=== PATIENT | female | born 1960 | race Caucasian/White ===

== ENCOUNTER 2021-12-27 12:16 | Emergency (ER) | payer OTHER, SELFPAY ==
--- NOTE | 2021-12-27 12:15 | DI.CT_ITS ---
Exam(s) CT HEAD CERVICAL SPINE WO EXAM: CT HEAD CERVICAL SPINE WO COMPARISON: No exams were available for comparison FINDINGS: CT examination of the cervical spine was performed without contrast administration. There is no evidence of acute cervical spine fracture or dislocation. There is a mild cervical kyphosis and mild degenerative changes of the cervical spine . Tracheolaryngeal structures appear intact. No cervical mass or adenopathy. Noncontrast cranial CT was performed. There is mild generalized cerebral atrophy. No evidence of acute intracranial hemorrhage, mass effect, or midline shift. No calvarial fracture. The orbital and temporal bone structures appear intact. Visualized mastoid air cells and paranasal sinuses appear clear. IMPRESSION: No evidence of acute cervical spine injury. No evidence of acute intracranial injury. RADIATION DOSE DELIVERED: 1,238.13mGy.cm Total DLP 1,238.13mGy.cm Total DLP DATA REPOSITORY: All CT scans at this facility are submitted to the National Radiology Data Registry (NRDR) Dose Index Registry (DIR) with the [employer] (ACR). RADIATION OPTIMIZATION: All CT scans at this facility use at least one of these dose optimization te chniques: automated exposure control; mA and/or kV adjustment per patient size (includes targeted exa ms where dose is matched to clinical indication); or iterative reconstruction.
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
[2021-12-27 12:16] VITALS: BP 161/88; PULSE 59; RESP 18; TEMP 36.5; O2SAT 96
[2021-12-27 12:43] LABS: Abs Immature Grans 0.03 10^3/uL (0.0-0.06); Absolute Basophil Count 0.02 10^3/uL (0.0-0.2); Absolute Eosinophil Count 0.09 10^3/uL (0.0-0.7); Absolute Lymphocyte Count 0.95 10^3/uL (1.2-3.4); Absolute Monocyte Count 0.45 10^3/uL (0.1-0.8); Basophils % 0.5; Eosinophils % 2.3; HCT 36.9 % (36.0-46.0); HGB 12.3 g/dL (11.2-15.7); Immature Grans % 0.8; Lymphocytes % 24.1; MCH 29.6 pg (27.0-33.0); MCHC 33.3 % (32.0-36.0); MCV 89 fL (80-95); MPV 10.3 fL (8.0-11.0); Monocytes % 11.4; Neutrophils % 60.9; Platelet Count 176 10^3/uL (130-400); RBC 4.15 10^6/uL (3.93-5.22); RDW 13.2 % (11.7-14.6); RDW-SD 43.6 fL; WBC 3.94 10^3/uL (4.4-10.8)
[2021-12-27] MEDS: Normal Saline - Diluent 50 ML VIAL IJ (12:47)
[2021-12-27] MEDS: Omnipaque 350 MG/ML 100 ML BTL IJ (12:48)
--- NOTE | 2021-12-27 12:49 | DI.CT_ITS ---
Exam(s) CT CHEST/ABD/PEL W EXAM: CT CHEST/ABD/PEL W TECHNIQUE: CT examination of the chest, abdomen, and pelvis was performed with bolus infusion of 100 cc of Omnipaque 350. COMPARISON: No exams were available for comparison FINDINGS: There is no evidence of a thoracic vascular injury. The lungs are clear. No pneumothorax or pleural effusion. No mediastinal hematoma. No adenopathy in the chest. Tracheobronchial tree appears intact. The liver, spleen, and pancreas appear normal. Gallbladder and bile ducts are normal. Adrenals and kidneys are unremarkable except for incidental multiple bilateral renal cysts. No evide nce of urinary tract injury or obstruction. No abdominal or pelvic vascular injury seen. No abdominal or pelvic adenopathy. No significant abdomi nal wall hernia or hematoma. No evidence of bowel injury. No fracture identified in the region surveyed. IMPRESSION: No evidence of acute injury of the chest, abdomen, or pelvis. RADIATION DOSE DELIVERED: 1,226.31mGy.cm Total DLP 1,226.31mGy.cm Total DLP DATA REPOSITORY: All CT scans at this facility are submitted to the National Radiology Data Registry (NRDR) Dose Index Registry (DIR) with the [employer] (ACR). RADIATION OPTIMIZATION: All CT scans at this facility use at least one of these dose optimization te chniques: automated exposure control; mA and/or kV adjustment per patient size (includes targeted exa ms where dose is matched to clinical indication); or iterative reconstruction.
[2021-12-27 13:05] LABS: ALT 33 U/L (14-59); AST 24 U/L (15-37); Albumin 3.7 g/dL (3.4-5.0); Alkaline Phosphatase 81 U/L (46-116); Anion Gap 7.8 mmol/L (3-11); BUN 16 mg/dL (7-18); Bilirubin, Total 0.5 mg/dL (0.2-1.0); CO2 28.2 mmol/L (21.0-32.0); Calcium 8.8 mg/dL (8.5-10.1); Chloride 101 mmol/L (98-107); Glucose 89 mg/dL (74-106); Potassium 3.8 mmol/L (3.5-5.1); Sodium 137 mmol/L (136-145); Total Protein 6.8 g/dL (6.4-8.2); Troponin I < 50 ng/L (<or=60)
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
[2021-12-27 13:41] VITALS: BP 166/66; PULSE 67; TEMP 36.6; O2SAT 95
--- NOTE | 2021-12-27 17:36 | NUR.NOTE ---
Nursing Note: referral to cm for pcp
--- NOTE | 2021-12-30 15:20 | PDOC.ERCMACT ---
- If Service Date Differs Date of service: 12/30/21 Time of Service: 15:20 Care Management Activity Note Anastasiya presents in the ED for a chest wall contusion. At the request of ED provider, CM coordinates a referral to Zuleyka Terrazas MD, of [facility], t-doc, to assist Anastasiya in obtaining a follow up appointment and in establishing care with a PCP.
== END 2021-12-27 13:54 | disposition home or self-care (01) ==
LOC: ER 14:39
PROVIDERS: Emergency Provider Student in an Organized Health Care Education/Training Program
DX: S20.214A Contusion of middle front wall of thorax, initial encounter (principal); J81.0 Acute pulmonary edema; V89.2XXA Person injured in unspecified motor-vehicle accident, traffic, initial encounter; S09.8XXA Other specified injuries of head, initial encounter
CPT/HCPCS: 74177; 80053; 86850; 86900; 86901; 93005; 99285; 70450; 71260; 72125; 84484; 85025; 93010; 99284; J3490

== ENCOUNTER → 2022-09-29 03:30 | Outpatient (CLI) | payer OTHER, SELFPAY ==
--- NOTE | 2022-09-29 08:43 | DI.RAD_ITS ---
Exam(s) XR FOOT RT COMPLETE EXAM: XR FOOT RT COMPLETE CLINICAL HISTORY: foot pain,M77.40,M79.673. TECHNIQUE: 2D digital imaging was performed of the right foot. Three images were obtained. AP, obl ique and lateral views were obtained. COMPARISON: No exams were available for comparison FINDINGS: BONES: No acute fracture is present. No bony destructive lesion is seen. There is a well corticated o sseous density on the dorsal aspect adjacent to the talonavicular joint. JOINTS: No dislocation present. There are mild degenerative changes seen at in the foot particularly at the 1st metatarsophalangeal joint. SOFT TISSUE: Normal. IMPRESSION: Mild degenerative changes of the foot. DATA REPOSITORY: RADIATION DOSE DELIVERED:
--- NOTE | 2022-09-29 08:43 | DI.RAD_ITS ---
Exam(s) XR FOOT LT COMPLETE EXAM: XR FOOT LT COMPLETE CLINICAL HISTORY: foot pain,M79.673,M77.40. TECHNIQUE: 2D digital imaging was performed of the left foot. Three images were obtained. AP, obli que and lateral views were obtained. COMPARISON: No exams were available for comparison FINDINGS: BONES: No acute fracture is present. No bony destructive lesion is seen. There is a hallux valgus def ormity. There is a hammertoe deformity of the 2nd toe. JOINTS: No dislocation present. Degenerative changes are seen in the foot particularly at the 1st MTP joint. SOFT TISSUE: Normal. IMPRESSION: Hallux valgus deformity and 2nd toe hammertoe deformity. Degenerative changes of the foot. DATA REPOSITORY: RADIATION DOSE DELIVERED:
== END ==
PROVIDERS: PCP Student in an Organized Health Care Education/Training Program; Visit Provider Podiatrist
DX: M19.072 Primary osteoarthritis, left ankle and foot
CPT/HCPCS: 73630

== ENCOUNTER 2022-11-22 04:38 | Outpatient (CLI) | payer OTHER, SELFPAY ==
[2022-11-22 07:40] LABS: Anion Gap 8.5 mmol/L (3-11); BUN 12 mg/dL (7-18); CO2 26.5 mmol/L (21.0-32.0); CREATININE 1.1 mg/dL (0.55-1.02); Calcium 9.4 mg/dL (8.5-10.1); Chloride 103 mmol/L (98-107); Estimated GFR 56.11 (mL/min/1.73m2); Glucose 97 mg/dL (74-106); Potassium 4.1 mmol/L (3.5-5.1); Sodium 138 mmol/L (136-145)
[2022-11-22 08:20] LABS: Vitamin D 25 Total 61.3 ng/mL (30-100)
== END 2022-11-22 04:39 | disposition home or self-care (01) ==
LOC: LBO 04:38
PROVIDERS: Absent Provider Student in an Organized Health Care Education/Training Program; PCP Student in an Organized Health Care Education/Training Program; Visit Provider Student in an Organized Health Care Education/Training Program
DX: I10 Essential (primary) hypertension (principal); M85.88 Other specified disorders of bone density and structure, other site; K21.9 Gastro-esophageal reflux disease without esophagitis; Z82.49 Family history of ischemic heart disease and other diseases of the circulatory system; Z79.899 Other long term (current) drug therapy
CPT/HCPCS: 36415; 80048; 82306

== ENCOUNTER 2022-12-09 09:17 | Outpatient (REF) | payer OTHER, SELFPAY ==
[2022-12-09 13:21] LABS: Bilirubin Negative (Negative); Blood Large (Negative); Clarity Sl Cloudy (Clear); Glucose Negative (Negative); Ketones Negative (Negative); Leukocyte Esterase Moderate (Negative); Nitrite Negative (Negative); Urobilinogen 0.2 mg/dL (Up to 0.2)
[2022-12-09 13:30] LABS: Bacteria Few HPF (Negative); C & S Indicated? Yes; Casts Negative LPF (Negative); Crystals Negative HPF (Negative); Epithelial Cells Rare HPF (Negative); Mucus Negative (Negative); RBC 20-50 HPF (0-2); WBC >50 HPF (0-5)
== END 2022-12-09 09:18 | disposition home or self-care (01) ==
LOC: LBN 09:17
PROVIDERS: PCP Student in an Organized Health Care Education/Training Program; Visit Provider Nurse Practitioner Family
DX: R39.9 Unspecified symptoms and signs involving the genitourinary system (principal)
CPT/HCPCS: 81003; 81015; 87086

== ENCOUNTER → 2022-12-13 00:29 | Outpatient (CLI) | payer OTHER, SELFPAY ==
--- OUTSIDE RECORDS SUMMARY | 2022-12-13 00:36 | XMS_ITS | Continuity of Care Document ---
Author Name Unknown Address [address] [place] [address] Phone [facility] Address [address] [place] [address] Phone Support Name Relationship Address Phone Damon Farias Spouse [address] [place] [phone] Josue Delaney Primary Care Provider [address] [place] [phone] DO [place] [address] ELBA [place] [address] Chief Complaint and Reason for Visit Chief Complaint xray Social History Smoking Status Unknown if ever smoked Additional Data Assigned Sex Female Procedures Procedure Date Performed Status XR foot RT min 3V May 26, 2021 12:16pm activ e XR foot RT min 3V May 06, 2021 8:35am comple jonathan Relevant Diagnostic Tests and/or Laboratory Data Diagnostic Imaging Reports Report Dictated Date/Time Dictated By Status Radiology Report May 17, 2021 5:43pm Don berger MD completed [facility] [address] [place] [id number] Patient Name: Sonam Farias Medical Record#: [id number] Address: [address] [place] [address] City/State/Zip: [place] [address]: Whitley Collazo PAC Insurance: Self Pay /Age/Sex: 1960/60/F Admit/Reg Date: 05/06/[address]: ELBA Tovar [facility]: Josue Delaney Date of Service: 05/06/21 Order (s): XR foot RT min 3V CPT Code: 60809 Report Number: [id number] Reason for Exam: FRACTURE Indication: Right foot fifth metatarsal fracture. 3 views of the right foot revealing a fracture of the base of the fifth metatarsal. Callous reaction is present. No displacement is seen. Alignment is maintained. Reduction: healing right 5th metatarsal fracture. Dictated By: Don Arriaza MD 05/17/211742 Signed By: Don Arriaza MD 05/17/211747 TD/TT: 05/17/211742Tech: [id number] cc: [id number]; JOSE* Josue Delaney; ELBA Tovar Insurance Providers Guarantor Sonam Farias Address [address] [place] [address] Contact Info. Home Phone: Payer Policy Id Coverage Id Subscriber's Name Subscriber Id Effective Date Expiration Date [employer] (Out of State) PPO [id number] Sonam Farias [id number] Self Pay Self N/A Encounters Encounter Location(s) Arrival/Admit Date Discharge/Depart Date Provider(s) [place]ed [place] [facility] May 06, 2021 8:30am May 06, 2021 8:31am ELBA Tovar Departed [place] [facility] May 07, 2021 8:30am May 07, 2021 8:31am ELBA Tovar Departed [place] [facility] May 26, 2021 12:07pm May 26, 2021 12:08pm ELBA Tovar
--- OUTSIDE RECORDS SUMMARY | 2022-12-13 00:36 | XMS_ITS | Continuity of Care Document ---
Author Name Unknown Address [address] [place] [address] Phone [facility] Address [address] [place] [address] Phone Support Name Relationship Address Phone Damon Farias Spouse [address] [place] [address] Allergies, Adverse Reactions, Alerts No allergy information available. Medications No medication information available. Problems No problem information available. Assessments No Assessments Information Available Functional Status No Functional Status information available Goals Goals may be documented in an alternate section. Mental Status No Mental Status Information Available Medical Equipment No Medical Equipment Information available Insurance Providers Guarantor Sonam Farias Address [address] [address] Contact Info. Home Phone: Payer Policy Id Coverage Id Subscriber's Name Subscriber Id Effective Date Expiration Date [employer] (Out of State) O [id number] Sonam Farias [id number] Self Pay Self N/A Social History Assigned Sex Female
--- OUTSIDE RECORDS SUMMARY | 2022-12-13 00:36 | XMS_ITS | Continuity of Care Document ---
Author Name Unknown Address [address] [place] [address] Phone [facility] Address [address] [place] [address] Phone Support Name Relationship Address Phone Damon Farias Spouse [address] [place] [address] Josue Delaney Primary Care Provider [address] [place] [address] DO [place] [address] EB[place] [address] MD Manisha Isabella Attending Provider [address] [place] [address] Social History Smoking Status Unknown if ever smoked Additional Data Assigned Sex Female Procedures Procedure Date Performed Status XR foot RT min 3V May 26, 2021 12:16pm compl eted XR chest 2V June 16, 2021 12:25pm completed Relevant Diagnostic Tests and/or Laboratory Data Diagnostic Imaging Reports Report Dictated Date/Time Dictated By Status Radiology Report June 04, 2021 1:28pm Audie Hernandez MD completed [facility] [address] [facility] [place] [address] Patient Name: Sonam Farias Medical Record#: [id number] Address: [address] [place] [address] City/State/Zip: [place] [address]: Whitley Collazo PAC Insurance: Self Pay /Age/Sex: 1960/60/F Admit/Reg Date: 05/26/[address]: ELBA Tovar Location: [id number]/ PCP: Josue Delaney Date of Service: 05/26/21 Order (s): XR foot RT min 3V CPT Code: 41469 Report Number: [id number] Reason for Exam: CLOSED FX OF FIFTH METATARSAL Indication: Right foot injury AP, lateral, oblique views right foot Findings: There is a fracture at the base of the fifth metatarsal. There is a slight displacement. Position and alignment are very acceptable. No other fractures are visible. Impression: Right fifth metatarsal base fracture Dictated By: Audie Hernandez MD 06/04/211327 Signed By: Audie Hernandez MD 06/04/211331 TD/TT: 06/04/21 1328Tech: [id number] cc: [email or web address]; FURNA* Josue Delaney; ELBA Tovar Report Dictated Date/Time Dictated By Status Radiology Report June 16, 2021 1:01pm Valery [place] [address] Patient Name: Sonam Farias Medical Record#: [id number] Address: [address] [place] [address] City/State/Zip: [place] [address]: Isabella Dyer MD Insurance: Self Pay /Age/Sex: 1960/60/F Admit/Reg Date: 06/16/[address]: Isabella Dyer MD Location: [id number]/ PCP: Josue Delaney Date of Service: 06/16/21 Order (s): XR chest 2V CPT Code: 35816 Report Number: [id number] Reason for Exam: RESPIRATORY TRACT CONGESTION AND COUGH PROCEDURE INFORMATION: Exam: XR Chest Exam date and time: 06/16/2021 12:31 PM Age: 60 years old Clinical indication: Cough, unspecified; Additional info: Respiratory tract congestion and cough TECHNIQUE: Imaging protocol: XR of the chest. Views: 2 views. COMPARISON: CR XR chest 2V 07/11/2020 11:34 AM FINDINGS: Lungs: Mild platelike atelectasis and or scarring left lung base versus lingula. Lungs are otherwise well aerated. Pleural spaces: Unremarkable. No pleural effusion. No pneumothorax. Heart/Mediastinum: Unremarkable. No cardiomegaly. Bones/joints: Unremarkable. IMPRESSION: Mild platelike atelectasis and or scarring left lung base versus lingula. Lungs are otherwise well aerated. This document has been electronically signed by ad Radiologist VALERY SPANGLER MD Dictated By: Valery Spangler MD 06/16/211300 Signed By: Valery Spangler MD 06/16/21 130 TD/TT: 06/16/211300Tech: [email or web address] cc: [email or web address]; SAMANTHA* Josue Delaney; Isabella Dyer MD Insurance Providers Guarantor Sonam Farias Address [address] [place] [address] Contact Info. Home Phone: Payer Policy Id Coverage Id Subscriber's Name Subscriber Id Effective Date Expiration Date Blue Cross (Out of State) PPO [id number] Sonam Farias [id number] Self Pay Self N/A Encounters Encounter Location(s) Arrival/Admit Date Discharge/Depart Date Provider(s) Departed [facility] May 26, 2021 12:07pm May 26, 2021 12:08pm ELBA Tovar Departed [facility] June 16, 2021 10:23am June 16, 2021 10:24am Isabella Dyer MD
--- OUTSIDE RECORDS SUMMARY | 2022-12-13 00:36 | XMS_ITS | Continuity of Care Document ---
Author Name Unknown Address [address] [place] [address] Phone [facility] Address [address] [place] [address] Phone Support Name Relationship Address Phone Damon Farias Spouse [address] [place] [address] Josue Delaney Primary Care Provider [address] [place] [address] [place] [address] MD Isabella Dyer Attending Provider [address] [place] [address] [place] [address] Social History Smoking Status Unknown if ever smoked Additional Data Assigned Sex Female Procedures Procedure Date Performed Status XR foot RT min 3V 2021 10:29am complet ed XR chest 2V June 16, 2021 12:25pm completed Relevant Diagnostic Tests and/or Laboratory Data Diagnostic Imaging Reports Report Dictated Date/Time Dictated By Status Radiology Report June 16, 2021 1:01pm Valery Spangler MD completed [facility] [address] [place], [place] [address] [place] [address] Patient Name: Sonam Farias Medical Record#: [id number] Address: [address] [place] [address] City/State/Zip: [place] [address]: Isabella Dyer MD Insurance: Self Pay /Age/Sex: 1960/60/F Admit/Reg Date: 06/16/[address]: Isabella Dyer MD [facility] P[facility]: Josue Delaney Date of Service: 06/16/21 Order (s): XR chest 2V CPT Code: 46379 Report Number: [id number] Reason for Exam: RESPIRATORY TRACT CONGESTION AND [...] This document has been electronically signed by [facility] Radiologist VALERY SPANGLER MD Dictated By: Valery Spangler MD 06/16/21 130 Signed By: Valery Spangler MD 06/16/21 1302 TD/TT: 06/16/21 1301Tech: [email or web address] cc: [email or web address]; FITMA* Josue Delaney; Isabella Dyer MD Report Dictated Date/Time Dictated By Status Radiology Report June 25, 2021 4:42pm Audie Hernandez MD completed [address] [address] Patient Name: Sonam Farias Medical Record#: [id number] Address: City/State/Zip: [place] [address]: Whitley Collazo PAC Insurance: Self Pay /Age/Sex: 1960/61/F Admit/Reg Date: 06/23/[address]: ELBA Tovar [facility] PCP: Josue Delaney Date of Service: 06/23/21 Order (s): XR foot RT min 3V CPT Code: 66045 Report Number: [id number] Reason for Exam: CLOSED FRACTURE OF METATARSAL BONE Indication: Follow-up right fifth metatarsal fracture AP, lateral, oblique views right foot Findings: There has been an undisplaced fracture at the base of the fifth metatarsal. Canal appears to be well-healed and remains undisplaced. There are no other fractures. Impression: Healed right fifth metatarsal base fracture Dictated By: Audie Hernandez MD 06/25/211641 Signed By: Audie Hernandez MD 06/25/211645 TD/TT: 06/25/211641Tech: [email or web address] cc: [email or web address]; JOSE* Josue Delaney; ELBA Tovar Insurance Providers Guarantor Sonam Farias Address [address] [place] [address] Contact Info. Home Phone: Payer Policy Id Coverage Id Subscriber's Name Subscriber Id Effective Date Expiration Date Blue Cross (Out of State) O [id number] Sonam Farias [id number] Self Pay Self N/A Encounters Encounter Location(s) Arrival/Admit Date Discharge/Depart Date Provider(s) Departed Referred [facility] 531 June 16, 2021 10:23am June 16, 2021 10:24am Isabella Dyer MD Departed Referred [facility] 2021 10:10am 2021 10:11am ELBA Tovar Departed Referred [facility] Results July 03, 2021 4:29am July 03, 2021 4:30am null Plan of Treatment Future Tests Future scheduled test information is unavailable Pending Tests Test Name Date ordered XR foot RT min 3V March 24, 2021 9:06am Future Visits Future appointment information is unavailable Referrals to Other Providers Referral information is unavailable Future Procedures Procedure Name Scheduled Date Rheumatoid Factor July 02, 2021 3:57p m Future Medications Future medication information is unavailable Patient Instructions Patient instructions are unavailable
--- OUTSIDE RECORDS SUMMARY | 2022-12-13 00:36 | XMS_ITS | Continuity of Care Document ---
Author Name Unknown Address [address] [place] [address] Phone [facility] Address [address] [place] [address] Phone Support Name Relationship Address Phone Damon Farias Spouse [address] [place] [address] Josue Delaney Primary Care Provider [address] [place] [address] DO Josue Del[place] [address] Chief Complaint and Reason for Visit Chief Complaint bd and mammo Social History Smoking Status Unknown if ever smoked Additional Data Assigned Sex Female Procedures Procedure Date Performed Status MM tomosynthesis BI screen add December 10 7:07am completed Relevant Diagnostic Tests and/or Laboratory Data Diagnostic Imaging Reports Report Dictated Date/Time Dictated By Status Bone Density Survey December 10, 2021 12:25pm Sha Lee MD completed [address] [address] Patient Name: Sonam Farias Medical Record#: [id number] Address: [place] [address] City/State/Zip: [place] [address]: Rafa Delaney DO Insurance: Self Pay /Age/Sex: 1960/61/F Admit/Reg Date: 12/10/[address]: Josue Delaney [facility] PCP: Josue Delaney Date of Service: 12/10/21 Order (s): BD bone densitometry [facility] CPT Code: 17084 Report Number: [id number] Reason for Exam: OSTEOPENIA PROCEDURE INFORMATION: Exam: XR DXA Bone Density, Appendicular Exam date and time: 12/10/2021 8:41 AM Age: 61 years old Clinical indication: Other specified disorders of bone density and structure, unspecified site; Additional info: Last 12/04/2019 TECHNIQUE: Imaging protocol: Dual energy x-ray absorptiometry performed. Bone mineral density analysis of the radius, wrist, and/or heel. Readings are compared with gender matched average of normal, and with age, weight and ethnic origin (Z score) and with healthy young adults (T score). COMPARISON: BD bone densitometry axial 12/10/2021 8:39 AM FINDINGS: DXA Scanner make and model: Prim Laundry [id number]. Bone mineral density of the left left radius total measures 0.659 g per centimeter corresponding to a T score of -0.4 (prior measurement was 0.641 g per square centimeter/previous T-score was -0.7). Bone mineral density left radius 33% measures 0.903 g per square centimeter corresponding to a T score of 0.2 (prior measurement was 0.881 g per square centimeter/% change from the previous study is +2.5% which is borderline significant). IMPRESSION: BMD as determined from left radius 33% is 0.903 g/cm2 with a T score of 0.2 . This patient is considered normal according to World Health Organization (WHO) guidelines. Fracture risk is low. With a Z score of 1.4, this patient's BMD is normal for someone of this age. This patient's bone mineral density is above the minimum desirable level (T-score -1.0 or better) at all sites measured. The patient should follow a helpful lifestyle (good nutrition with adequate calcium and vitamin D and appropriate weight-bearing exercise). . COMMENTS: World Health Organization Guidelines: Normal bone mineral density is T-score at or above -1. Osteopenia is T-score less than -1 and greater than -2.5. Osteoporosis is T-score of -2.5 or below. Severe osteoporosis is T-score of -2.5 or below with fracture(s). This document has been electronically signed by [facility] Radiologist SHA LEE MD Dictated By: Sha Lee MD 12/10/21 0042 Signed By: Sha Lee MD 12/10/215 TD/TT: 12/10/21 1225Tech: [id number] cc: [email or web address]; [email or web address]* Josue Delaney Report Dictated Date/Time Dictated By Status Bone Density Survey December 10, 2021 12:31pm Sha Lee MD completed [address] [address] Patient Name: Sonam Farias Medical Record#: [id number] Address: [place] [address] City/State/Zip: [place] [address]: Rafa Delaney DO Insurance: Self Pay /Age/Sex: 1960/61/F Admit/Reg Date: 12/10/[address]: Josue Delaney Location: [place] [address]/ PCP: Josue Delaney Date of Service: 12/10/21 Order (s): BD bone densitometry axial CPT Code: 20840 Report Number: [id number] Reason for Exam: OSTEOPENIA PROCEDURE INFORMATION: Exam: XR DXA Bone Density, Axial Skeleton Exam date and time: 12/10/2021 8:39 AM Age: 61 years old Clinical indication: Other specified disorders of bone density and structure, unspecified site; Additional info: Last 12/04/2019 TECHNIQUE: Imaging protocol: Dual energy x-ray absorptiometry performed. Bone mineral density analysis of the lumbar spine and the femoral neck or total hip. Readings are compared with gender matched average of normal, and with age, weight and ethnic origin (Z score) and with healthy young adults (T score). COMPARISON: BD FOREARM 12/04/2019 8:51 AM FINDINGS: DXA Scanner make and model: Prim Laundry [id number] Bilateral hip replacements Bone mineral density between L1 and L4 measures 0.935 g per square centimeter corresponding to a T score of -2.0 (prior measurement was 0.956 g per square centimeter/% change from the previous study is -2.2% which is not significant). FRAX 10 Year Risk Major Osteoporotic Fracture %: Not given FRAX 10 Year Risk Hip Fracture %: Not given IMPRESSION: BMD as determined from L1-L4 is 0.935 g/cm2 with a T score of -2.0 . This patient is considered osteopenic according to World Health Organization (WHO) guidelines. Fracture risk is Moderate. Treatment is advised.. With a Z score of -0.7, this patient's BMD is normal for someone of this age.Even so, they may be considered osteopenic or osteoporotic, which is normal for this age. COMMENTS: World Health Organization Guidelines: Normal bone mineral density is T-score at or above -1. Osteopenia is T-score less than -1 and greater than -2.5. Osteoporosis is T-score of -2.5 or below. Severe osteoporosis is T-score of -2.5 or below with fracture(s). This document has been electronically signed by ad Radiologist SHA LEE MD Dictated By: Sha Lee MD 12/10/211230 Signed By: Sha Lee MD 12/10/211230 TD/TT: 12/10/21 1231Tech: [id number] cc: [email or web address]; [email or web address]* Josue Delaney Report Dictated Date/Time Dictated By Status Radiology Report December 11, 2021 2:48pm Maria Eugenia cole MD completed [place] [id number] Patient Name: Sonam Farias Medical Record#: [id number] Address: [place] [address] City/State/Zip: [place] [address]: Rafa Delaney DO Insurance: Self Pay /Age/Sex: 1960/61/F Admit/Reg Date: 12/10/[address]: Meredith Castro MD Location: [place] [address]/ PCP: Josue Delaney Date of Service: 12/10/21 Order (s): MM tomosynthesis BI screen add CPT Code: 77101 Report Number: [id number] Reason for Exam: SCREENING PROCEDURE INFORMATION: Exam: MG Bilateral Screening 3D Mammography Exam date and time: 12/10/2021 8:14 AM Age: 61 years old Clinical indication: Screening examination TECHNIQUE: Imaging protocol: Bilateral Screening tomosynthesis and 2D mammography including computer-aided detection (CAD) when performed. COMPARISON: 1. MG 3D MA BILAT SCREENING 12/04/2020 7:37 AM 2. MG 3D MA BILAT SCREENING 12/04/2019 8:26 AM FINDINGS: MAMMOGRAPHY: Breast composition: There are scattered areas of fibroglandular density. Mass: None. Architectural distortion: None. Calcifications: No suspicious calcifications. Asymmetric density: None. Skin thickening: None. Axillary adenopathy: None. IMPRESSION: No mammographic evidence of malignancy. Annual screening is recommended unless otherwise clinically indicated. On ASSESSMENT: BI-RADS Category 1: Negative This document has been electronically signed by [facility] Radiologist MARIA EUGENIA GUERRA MD Assessment Laterality^B BI-RADS^1 Recommendation Time Unit^M Recommendation Time^12 Recommendation Type^SCMAMM Recommendation Laterality^B Density^B Dictated By: Maria Eugenia Guerra MD 12/11/211447 Signed By: Maria Eugenia Guerra MD 12/11/211448 TD/TT: 12/11/21 144Tech: [email or web address] cc: [email or web address]; [email or web address]* Josue Delaney; Meredith Castro MD Insurance Providers Guarantor Sonam Farias Address [address] [place] [address] Contact Info. Home Phone: Payer Policy Id Coverage Id Subscriber's Name Subscriber Id Effective Date Expiration Date Blue Cross (Out of State) O [id number] Sonam Farias [id number] Self Pay Self N/A Encounters Encounter Location(s) Arrival/Admit Date Discharge/Depart Date Provider(s) Departed Referred [facility] 531 December 10, 2021 7:05am December 10, 2021 7:06am Josue Delaney
--- OUTSIDE RECORDS SUMMARY | 2022-12-13 00:36 | XMS_ITS | Continuity of Care Document ---
Author Name Unknown Address [address] [place] [address] Phone [facility] Address [address] [place] [address] Phone Support Name Relationship Address Phone Damon Farias Spouse [address] [place] [address] Josue Delaney Primary Care Provider [address] [place] [address] MD [place] [address] MD Meerdith Castro Attending Provider [employer] [facility] [place] [address] DO Jos[place] [address] PCP, UNKNOWN Referring Provider Unknown Unavailab ELBA [place] [address] Chief Complaint and Reason for Visit Chief Complaint xray xray xray Social History Smoking Status Unknown if ever smoked Additional Data Assigned Sex Female Procedures Procedure Date Performed Status XR foot RT min 3V April 14, 2021 8:34am complet ed XR foot RT min 3V May 06, 2021 8:35am active Relevant Diagnostic Tests and/or Laboratory Data Diagnostic Imaging Reports Report Dictated Date/Time Dictated By Status Radiology Report April 17, 2021 2:08pm Audie Hernandez MD completed [facility] [address] [place] [address] Patient Name: Sonam Farias Medical Record#: [id number] Address: [address] [place] [address] City/State/Zip: [place] [address]: Don Arriaza MD Insurance: Self Pay /Age/Sex: 1960/60/F Admit/Reg Date: 04/14/[address]: ELBA Tovar Location: [place] [address]/ PCP: Josue Delaney Date of Service: 04/14/21 Order (s): XR foot RT min 3V CPT Code: 97461 Report Number: [id number] Reason for Exam: CLOSED FX OF FIFTH METATARSAL BONE Indication: Right foot injury AP, lateral, oblique views right foot Findings: There is a fracture at the base of the fifth metatarsal. There is no significant displacement. Alignment is good. No other fractures are visible. Impression: Right fifth metatarsal base fracture Dictated By: Audie Hernandez MD 04/17/211407 Signed By: Audie Hernandez MD 04/17/211408 TD/TT: 04/17/211407Tech: [id number] cc: FANY; JOSE; SANJIV* Josue Delaney; Don Arriaza MD; ELBA Tovar Insurance Providers Guarantor Sonam Farias Address [address] [place] [address] Contact Info. Home Phone: Payer Policy Id Coverage Id Subscriber's Name Subscriber Id Effective Date Expiration Date Blue Cross (Out of State) O [id number] Sonam Farias [id number] Self Pay Self N/A Encounters Encounter Location(s) Arrival/Admit Date Discharge/Depart Date Provider(s) [facility] 8:31am April 14, 2021 8:32am Don Arriaza MD [facility] April 15, 2021 9:44am April 15, 2021 9:45am Meredith Castro MD [facility] May 06, 2021 8:30am May 06, 2021 8:31am Whitley Collazo , PAC Departed Referred [facility] 531 May 07, 2021 8:30am May 07, 2021 8:31am Whitley Collazo , PAC
--- OUTSIDE RECORDS SUMMARY | 2022-12-13 00:36 | XMS_ITS | Continuity of Care Document ---
Author Name Unknown Address [address] [place] [address] [facility] Address [address] [place] [address] Phone Support Name Relationship Address Phone Damon Farias Spouse [address] [place] [address] Josue Delaney Primary Care Provider [address] [place] [address] DO Josue [place] [address] ELBA [place] [address] MD Manisha Isabella Attending Provider [address] [place] [address] Social History Smoking Status Unknown if ever smoked Additional Data Assigned Sex Female Procedures Procedure Date Performed Status XR foot RT min 3V May 26, 2021 12:16pm compl eted XR foot RT min 3V 2021 10:29am active XR chest 2V June 16, 2021 12:25pm completed Relevant Diagnostic Tests and/or Laboratory Data Diagnostic Imaging Reports Report Dictated Date/Time Dictated By Status Radiology Report June 04, 2021 1:28pm Audie Hernandez MD completed [facility] [address] [place] [address] Patient Name: Sonam Farias Medical Record#: [id number] Address: [address] [place] [address] City/State/Zip: [place] [address]: Whitley ARREOLA Insurance: Self Pay /Age/Sex: 1960/60/F Admit/Reg Date: 05/26/[address]: Whitley Collazo PAC Location: [id number]/ PCP: Josue Delaney Date of Service: 05/26/21 Order (s): XR foot RT min 3V CPT Code: 66742 Report Number: [id number] Reason for Exam: CLOSED FX OF FIFTH METATARSAL Indication: Right foot injury AP, lateral, oblique views right foot Findings: There is a fracture at the base of the fifth metatarsal. There is a slight displacement. Position and alignment are very acceptable. No other fractures are visible. Impression: Right fifth metatarsal base fracture Dictated By: Audie Hernandez MD 06/04/21 1328 Signed By: Audie Hernandez MD 06/04/21 1332 TD/TT: 06/04/21 1328Tech: [email or web address] cc: [email or web address]; JOSE* Josue Delaney; Whitley Collazo, ELBA Report Dictated Date/Time Dictated By Status Radiology Report June 16, 2021 1:01pm Valery Spangler MD [address] [address] Patient Name: Sonam Fraias Medical Record#: [id number] Address: [address] [place] [address] City/State/Zip: [place] [address]: Isabella Dyer MD Insurance: Self Pay /Age/Sex: 1960/60/F Admit/Reg Date: 06/16/[address]: Isabella Dyer MD Location: [id number]/ PCP: Josue Delaney Date of Service: 06/16/21 Order (s): XR chest 2V CPT Code: 59778 Report Number: [id number] Reason for Exam: RESPIRATORY TRACT CONGESTION AND [...] has been electronically signed by [facility] Radiologist VALERY SPANGLER MD Dictated By: Valery Spangler MD 06/16/211300 Signed By: Valery Spangler MD 06/16/211301 TD/TT: 06/16/21 130Tech: [email or web address] cc: [email or web address]; SAMANTHA* Josue Delaney; Isabella Dyer MD Insurance Providers Guarantor Sonam Farias Address [address] [place] [address] Contact Info. Home Phone: Payer Policy Id Coverage Id Subscriber's Name Subscriber Id Effective Date Expiration Date Blue Cross (Out of State) O [id number] Sonam Farias [id number] Self Pay Self N/A Encounters Encounter Location(s) Arrival/Admit Date Discharge/Depart Date Provider(s) [facility] May 26, 2021 12:07pm May 26, 2021 12:08pm ELBA Tovar [facility] June 16, 2021 10:23am June 16, 2021 10:24am Isabella Dyer MD [facility]ed [facility] 2021 10:10am 2021 10:11am ELBA Tovar Plan of Treatment Future Tests Future scheduled test information is unavailable Pending Tests Test Name Date ordered XR foot RT min 3V March 24, 2021 9:06am XR foot RT min 3V 2021 10:30 am Future Visits Future appointment information is unavailable Referrals to Other Providers Referral information is unavailable Future Procedures Future procedure information is unavailable Future Medications Future medication information is unavailable Patient Instructions Patient instructions are unavailable
--- OUTSIDE RECORDS SUMMARY | 2022-12-13 00:36 | XMS_ITS | Continuity of Care Document ---
Author Name Unknown Address [address] [place] [address] Phone [facility] Address [address] [place] [address] Phone Support Name Relationship Address Phone Damon Farias Spouse [address] [place] [address] Josue Delaney Primary Care Provider [address] [place] [address] MD Chris Devries Attending Provider [address] [place] [address] MD [place] [address] Chief Complaint and Reason for Visit Chief Complaint INJURY OF RIGHT FOOT XRAY Social History Smoking Status Unknown if ever smoked Additional Data Assigned Sex Female Procedures Procedure Date Performed Status XR foot RT min 3V February 28, 2021 12:37pm com pleted XR foot RT min 3V March 24, 2021 8:06am act lynda Relevant Diagnostic Tests and/or Laboratory Data Diagnostic Imaging Reports Report Dictated Date/Time Dictated By Status Radiology Report February 28, 2021 1:08pm Sil Beard MD completed [facility] [address] [place] [address] Patient Name: Sonam Farias Medical Record#: [id number] Address: [address] [place] [address] City/State/Zip: [place] [address]: Chris Devries MD Insurance: Self Pay /Age/Sex: 1960/60/F Admit/Reg Date: 02/28/[address]: Gm Miguel [id number] PCP: Josue Delaney Date of Service: 02/28/21 Order (s): XR foot RT min 3V CPT Code: 94238 Report Number: [id number] Reason for Exam: INJURY OF RIGHT FOOT PROCEDURE INFORMATION: Exam: XR Right Foot Exam date and time: 02/28/2021 12:37 PM Age: 60 years old Clinical indication: Unspecified injury of right foot, initial encounter TECHNIQUE: Imaging protocol: XR Right foot. Views: 3 or more views. COMPARISON: CR XR ankle BI min 3V 03/15/2014 9:20 AM FINDINGS: Bones/joints: Non-displaced transverse avulsion fracture along the proximal right 5th metatarsal bone. No step-off seen at the articular surface with the cuboid bone. This does not meet criteria for a [place] fracture. Soft tissues: Mild soft tissue swelling surrounding the fracture site but no radiopaque foreign body. IMPRESSION: Non-displaced avulsion fracture proximal right 5th metatarsal bone. This document has been electronically signed by [facility] Radiologist SIL BEARD MD Dictated By: Sil Baerd MD 02/28/21 1308 Signed By: Sil Beard MD 02/28/21 1308 TD/TT: 02/28/21 1308Tech: [id number] cc: [email or web address]; ALEM* Josue Delaney; Chris Devries MD Insurance Providers Guarantor Sonam Farias Address [address] [place] [address] Contact Info. Home Phone: Payer Policy Id Coverage Id Subscriber's Name Subscriber Id Effective Date Expiration Date Blue Cross (Out of State) PPO [id number] Sonam Farias [id number] Self Pay Self N/A Encounters Encounter Location(s) Arrival/Admit Date Discharge/Depart Date Provider(s) [facility]ed [facility] 12:36pm February 28, 2021 12:37pm Chris Devries MD Departed [facility] March 24, 2021 8:00am March 24, 2021 8:01am Don Arriaza MD
--- OUTSIDE RECORDS SUMMARY | 2022-12-13 00:36 | XMS_ITS | Continuity of Care Document ---
Author Name Unknown Address [address] [place] [address] Phone Organization [facility] Address [address] [place] [address] Phone Support Name Relationship Address Phone Damon Farias Spouse [address] [place] [address] Josue Delaney Primary Care Provider [address] [facility] [place] [address] MD Chris Devries Attending Provider [address] [place] [address] Chief Complaint and Reason for Visit Chief Complaint INJURY OF RIGHT FOOT Social History Smoking Status Unknown if ever smoked Additional Data Assigned Sex Female Procedures Procedure Date Performed Status XR foot RT min 3V February 28, 2021 12:37pm com pleted Relevant Diagnostic Tests and/or Laboratory Data Diagnostic Imaging Reports Report Dictated Date/Time Dictated By Status Radiology Report February 28, 2021 1:08pm Sil Almanza MD [address] [address] Patient Name: oSnam Farias Medical Record#: [id number] Address: [address] [place] [address] City/State/Zip: [place] [address]: Chris Devries MD Insurance: Self Pay /Age/Sex: 1960/60/F Admit/Reg Date: 02/28/[address]: Gm Miguel [id number] PCP: Josue Delanye Date of Service: 02/28/21 Order (s): XR foot RT min 3V CPT Code: 35527 Report Number: [id number] Reason for Exam: INJURY OF RIGHT FOOT [...] been electronically signed by [facility] Radiologist SIL ALMANZA MD Dictated By: Sil Almanza MD 02/28/21 1308 Signed By: Sil Almanza MD 02/28/21 1308 TD/TT: 02/28/21 1308Tech: [id number] cc: [email or web address]; ALEM* Josue Delaney; Chris Devries MD Insurance Providers Guarantor Sonam Farias Address [address] [place] [address] Contact Info. Home Phone: Payer Policy Id Coverage Id Subscriber's Name Subscriber Id Effective Date Expiration Date Blue Cross (Out of State) O [id number] Sonam Farias [id number] Self Pay Self N/A Encounters Encounter Location(s) Arrival/Admit Date Discharge/Depart Date Provider(s) Departed [facility]erred [facility] 531 February 28, 2021 12:36pm February 28, 2021 12:37pm Chris Devries MD
--- OUTSIDE RECORDS SUMMARY | 2022-12-13 00:36 | XMS_ITS | Continuity of Care Document ---
Author Name Unknown Address [address] [place] [address] Phone [facility] Address [address] [place] [address] Phone Support Name Relationship Address Phone Damon Farias Spouse [address] [place] [address] Josue Delaney Primary Care Provider [address] [place] [address] MD [place] [address] EL[place] [address] MD Meredith Castro Attending Provider [email or web address], [facility] [place] [address] DO Josue [place] [address] PCP, UNKNOWN Referring Provider Unknown Unavailab le Chief Complaint and Reason for Visit Chief Complaint XRAY xray xray xray Social History Smoking Status Unknown if ever smoked Additional Data Assigned Sex Female Procedures Procedure Date Performed Status XR foot RT min 3V March 24, 2021 8:06am act lynda XR foot RT min 3V April 14, 2021 7:34am active Insurance Providers Guarantor Sonam Farias Address [address] [facility] [address] Contact Info. Home Phone: Payer Policy Id Coverage Id Subscriber's Name Subscriber Id Effective Date Expiration Date Blue Cross (Out of State) O [id number] Sonam Farias [id number] Self Pay Self N/A Encounters Encounter Location(s) Arrival/Admit Date Discharge/Depart Date Provider(s) Departed [facility]erred [facility] [place] [address] March 24, 2021 8:00am March 24, 2021 8:01am Don Arriaza MD Departed Referred [facility] [place] [address] March 25, 2021 3:05pm March 25, 2021 3:06pm ELBA Tovar Departed Referred [facility] [place] [address] April 14, 2021 7:31am April 14, 2021 7:32am Don Arriaza MD Departed [facility]erred [facility] [place] [address] April 15, 2021 8:44am April 15, 2021 8:45am Meredith Castro MD
--- OUTSIDE RECORDS SUMMARY | 2022-12-13 00:36 | XMS_ITS | Continuity of Care Document ---
Author Name Unknown Address [address] [place] [address] Phone [facility] Address [address] [place] [address] Phone Support Name Relationship Address Phone Damon Farias Spouse [address] [place] [address] Josue Delaney Primary Care Provider [address] [place] [address] MD Don Ar[place] [address] MD Meredith Castro Attending Provider [employer], [facility] [place] [address] DO [place] [address] PCP, UNKNOWN Referring Provider Unknown Unavailab ELBA Gardiner [place] [address] Chief Complaint and Reason for Visit Chief [...] 17, 2021 2:08pm Audie Hernandez MD completed [facility] [address] [place] [address] Patient Name: Sonam Farias Medical Record#: [id number] Address: [address] [place] [address] City/State/Zip: [place] [address]: Don Arriaza MD Insurance: Self Pay /Age/Sex: 1960/60/F Admit/Reg Date: 04/14/[address]: ELBA Tovar Location: [place] [address]/ PCP: Josue Delaney Date of Service: 04/14/21 Order (s): XR foot RT min 3V CPT Code: 32906 Report Number: [id number] Reason for Exam: CLOSED FX OF FIFTH [...] Tovar Insurance Providers Guarantor Sonam Farias Address [address] [place] [address] Contact Info. Home Phone: Payer Policy Id Coverage Id Subscriber's Name Subscriber Id Effective Date Expiration Date Blue Cross (Out of State) O [id number] Sonam aFrias [id number] Self Pay Self N/A Encounters Encounter Location(s) Arrival/Admit Date Discharge/Depart Date Provider(s) [facility] 14, 2021 8:31am April 14, 2021 8:32am Don Arriaza MD [facility] April 15, 2021 9:44am April 15, 2021 9:45am Meredith Castro MD [facility] May 06, 2021 8:30am May 06, 2021 8:31am Whitley Collazo , PAC
--- OUTSIDE RECORDS SUMMARY | 2022-12-13 00:36 | XMS_ITS | Continuity of Care Document ---
Author Name [facility] Address [address] [place] [address] Organization [facility] Address [address] [place] [address] Allergies, Adverse Reactions, Alerts No allergy information available. Medications No medication information available. Problem List No problem information available. Procedures No known history of procedures. Relevant Diagnostic Tests and/or Laboratory Data No known relevant diagnostic tests, laboratory data, and/or discharge summary. Hospital Discharge Instructions No known hospital discharge instructions. Functional Status No known functional status. Immunizations No known immunizations. Payers Payer Name Policy Type Covered Republican Covered Republican Id Relationship Subscriber Subscriber Id [place] (Out of State) PPO Commercial Sonam Jarrett [id number] Self / Same As Patient Sonam Jarrett [id number] Self Pay Personal Payment (Ware - No Insurance) Plan of Care No Known Plan of Care Information Social History No known social history. Vital Signs No known vital signs results.
--- OUTSIDE RECORDS SUMMARY | 2022-12-13 00:36 | XMS_ITS | Continuity of Care Document ---
Author Name [facility] Address [address] [place] [address] Organization [facility] Address [address] [place] [address] Allergies, Adverse Reactions, Alerts No allergy information available. Medications No medication information available. Problem List No problem information available. Procedures No known history of procedures. Relevant Diagnostic Tests and/or Laboratory Data No known relevant diagnostic tests, laboratory data, and/or discharge summary. Hospital Discharge Instructions No known hospital discharge instructions. Encounters Encounter Facility Location Admit/Visit Date Discharge/Departure Date Attending Provider Departed Referred [facility] Results January 26, 2019 4:56am January 26, 2019 4:57am Functional Status No known functional status. Immunizations No known immunizations. Payers Payer Name Policy Type Covered Constitution Party Covered Constitution Party Id Relationship Subscriber Subscriber Id Blue Cross (Out of State) PPO Commercial Sonam Jarrett [id number] Self / Same As Patient Sonam Farias [id number] Self Pay Personal Payment (Ware - No Insurance) Plan of Care No Known Plan of Care Information Social History No known social history. Vital Signs No known vital signs results.
--- OUTSIDE RECORDS SUMMARY | 2022-12-13 00:36 | XMS_ITS | Continuity of Care Document ---
Author Name Unknown Address [address] [place] [address] Phone [facility] Address [address] [place] [address] Phone Support Name Relationship Address Phone Damon Farias Spouse [address] [place] [address] Josue Delaney Primary Care Provider [address] [place] [address] MD Chris Devries Attending Provider [address] [place] [address] MD Don [place] [address] ELBA Collazo [place] [address] Chief Complaint and Reason for Visit Chief Complaint INJURY OF RIGHT FOOT XRAY xray Social History Smoking Status Unknown if [...] 28, 2021 1:08pm Sil Beard MD completed [address] [address] Patient Name: Sonam Farias Medical Record#: [id number] Address: [address] [place] [address] City/State/Zip: [place] [address]: Chris Devries MD Insurance: Self Pay /Age/Sex: 1960/60/F Admit/Reg Date: 02/28/[address]: Gm Miguel [id number] PCP: Josue Delaney Date of Service: 02/28/21 Order (s): XR foot RT min 3V CPT Code: 05029 Report Number: [id number] Reason for Exam: INJURY OF RIGHT FOOT [...] Radiologist SIL BEARD MD Dictated By: Sil Beard MD 02/28/21 1308 Signed By: Sil Beard MD 02/28/21 1308 TD/TT: 02/28/21 1308Tech: [id number] cc: [email or web address]; NACTI* Josue Delaney; Chris Devries MD Insurance Providers Guarantor oSnam Farias Address [address] [place] [address] Contact Info. Home Phone: Payer Policy Id Coverage Id Subscriber's Name Subscriber Id Effective Date Expiration Date Blue Cross (Out of State) O [id number] Sonam Farias [id number] Self Pay Self N/A Encounters Encounter Location(s) Arrival/Admit Date Discharge/Depart Date Provider(s) [facility] February 28, 2021 12:36pm February 28, 2021 12:37pm Chris Devries MD Departed [facility] March 24, 2021 8:00am March 24, 2021 8:01am Don Arriaza MD [facility] March 25, 2021 3:05pm March 25, 2021 3:06pm Whitley Collazo , PAC
--- OUTSIDE RECORDS SUMMARY | 2022-12-13 00:36 | XMS_ITS | Continuity of Care Document ---
Author Name Unknown Address [address] [place] [address] Phone [facility] Address [address] [place] [address] Phone Support Name Relationship Address Phone Damon Farias Spouse [address] [place] [address] Josue Delaney Primary Care Provider [address] [place] [address] DO Josue Delaney [place] [address] ELBA Collazo [place] [address] Social History Smoking Status Unknown if ever smoked Additional Data Assigned Sex Female Procedures Procedure Date Performed Status XR foot RT min 3V October 20, 2021 8:17am ac tive Relevant Diagnostic Tests and/or Laboratory Data Diagnostic Imaging Reports Report Dictated Date/Time Dictated By Status Radiology Report October 21, 2021 12:53pm Audie Hernandez MD completed [address] [address] Patient Name: Sonam Farias Medical Record#: [id number] Address: [address] [place] [address] City/State/Zip: [place] [address]: Whitley Collazo PAC Insurance: Self Pay /Age/Sex: 1960/61/F Admit/Reg Date: 10/20/[address]: Whitley Collazo, PAC [id number] PCP: Josue Delaney Date of Service: 10/20/21 Order (s): XR foot RT min 3V CPT Code: 61004 Report Number: [id number] Reason for Exam: FRACTURE Indication: Follow-up right foot injury AP, lateral, oblique views right foot Findings: There is a fracture at the base of the right fifth metatarsal. There is no displacement. There appears to be considerable healing response. No other abnormalities are seen. Impression: Healed right fifth metatarsal base fracture Dictated By: Audie Hernandez MD 10/21/21 1253 Signed By: Audie Hernandez MD 10/21/21 1257 TD/TT: 10/21/21 1253Tech: [id number] cc: [email or web address]; CAMILA Delaney; ELBA Tovar Insurance Providers Guarantor Sonam Farias Address [address] [place] [address] Contact Info. Home Phone: Payer Policy Id Coverage Id Subscriber's Name Subscriber Id Effective Date Expiration Date Blue Cross (Out of State) [facility] [id number] Sonam Farias [id number] Self Pay Self N/A Encounters Encounter Location(s) Arrival/Admit Date Discharge/Depart Date Provider(s) Departed Referred [facility] October 20, 2021 8:11am October 20, 2021 8:12am ELBA Tovar Plan of Treatment Future Tests Future scheduled test information is unavailable Pending Tests Test Name Date ordered XR foot RT min 3V October 20, 2021 8:17am Future Visits Future appointment information is unavailable Referrals to Other Providers Referral information is unavailable Future Procedures Future procedure information is unavailable Future Medications Future medication information is unavailable Patient Instructions Patient instructions are unavailable
--- OUTSIDE RECORDS SUMMARY | 2022-12-13 00:36 | XMS_ITS | Continuity of Care Document ---
Author Name Unknown Address [address] [place] [address] Phone [facility] Address [address] [place] [address] Phone Support Name Relationship Address Phone Damon Farias Spouse [address] [place] [address] Josue Delaney Primary Care Provider [address] [place] [address] MD Don [place] [address] ELBA [place] [address] Chief Complaint and Reason for Visit Chief Complaint XRAY xray xray Social History Smoking Status Unknown if ever smoked Additional Data Assigned Sex Female Procedures Procedure Date Performed Status XR foot RT min 3V March 24, 2021 8:06am act lynda XR foot RT min 3V April 14, 2021 7:34am active Insurance Providers Guarantor Sonam Farias Address [address] [place] [address] Contact Info. Home Phone: Payer Policy Id Coverage Id Subscriber's Name Subscriber Id Effective Date Expiration Date Blue Cross (Out of State) O [id number] Sonam Farias [id number] Self Pay Self N/A Encounters Encounter Location(s) Arrival/Admit Date Discharge/Depart Date Provider(s) Departed Referred [place] [facility] March 24, 2021 8:00am March 24, 2021 8:01am Don Arriaza MD Departed [facility]erred [facility] March 25, 2021 3:05pm March 25, 2021 3:06pm ELBA Tovar Departed Referred [facility] at [facility] April 14, 2021 7:31am April 14, 2021 7:32am Don Arriaza MD
--- OUTSIDE RECORDS SUMMARY | 2022-12-13 00:36 | XMS_ITS | Continuity of Care Document ---
Author Name [facility] Address [address] [place] [address] Organization [facility] Address [address] [place] [address] Support Name Relationship Address Phone Chetan Ayala Attending Provider [facility] [address] [facility] [place] [address] Josue Delaney Primary Care Provider [address] [place] [address] Allergies, Adverse Reactions, Alerts No allergy information available. Medications No medication information available. Problem List No problem information available. Procedures No known history of procedures. Relevant Diagnostic Tests and/or Laboratory Data No known relevant diagnostic tests, laboratory data, and/or discharge summary. Advance Directives Advance Directive Response Recorded Date/ Time Advance Directives No March 02 020 1:23pm Health Care Proxy No March 02 1:23pm Chief Complaint and Reason for Visit Encounter Admit Date Chief Complaint Reason for V isit Departed [facility] March 02, 2019 8:21am col on Hospital Discharge Instructions No known hospital discharge instructions. Encounters Encounter Facility Location Admit/Visit Date Discharge/Departure Date Attending Provider Departed [facility] March 02, 2019 8:21am March 02, 2019 Chetan Ayala Functional Status No known functional status. Immunizations No known immunizations. Payers Payer Name Policy Type Covered Constitution Party Covered Constitution Party Id Relationship Subscriber Subscriber Id Blue Cross (Out of State) PPO Commercial Sonam Farias [id number] Self / Same As Patient Sonam Jarrett [id number] Self Pay Personal Payment (Ware - No Insurance) Plan of Care No Known Plan of Care Information Social History No known social history. Vital Signs No known vital signs results.
--- NOTE | 2022-12-13 08:00 | DI.MAMMO_ITS ---
Exam(s) MAMMO SCREENING EXAM: MAMMO SCREENING CLINICAL HISTORY: annual screening,Z12.39 TECHNIQUE: Bilateral full field digital CC and MLO mammographic images were obtained with 3D tomosyn thesis and utilizing computer aided detection (CAD). COMPARISON: Available for comparison. FINDINGS: Masses/Architectural Distortion: None seen. Microcalcifications: No suspicious pleomorphic-type are seen. Skin Thickening/Nipple Retraction: None. IMPRESSION: 1. No significant interval change with no specific features of malignancy noted. 2. Unless there is more urgent need, screening mammography is recommended, as per [place] [employer] guidelines. BI-RADS Category 1 - Negative Breast Density - Category B - Scattered areas of fibroglandular density Breast density category C or D implies that the patient has dense breast tissue. Dense breast tissue is very common and is not abnormal but dense breast tissue can make it harder to find cancer on a ma mmogram. Also, dense breast tissue may increase their breast cancer risk. This information about the result of the mammogram report was provided to the patient to raise their awareness. Use this report when you speak with the patient about their risks for breast cancer, which includes their family hist ory. At that time, you may recommend for more screening tests (Ultrasound or MRI) as they might be us eful based on their risk. A negative radiographic report should not delay biopsy if a dominant or clinically suspicious mass is present. Up to ten percent of cancers are not identified on mammography. A negative report may reinforce clinical impression. Adenosis and dense breasts may obscure an underlying neoplasm. False positive reports average 6 to 10%. Patient will receive a letter notifying them of these results.
== END ==
PROVIDERS: PCP Student in an Organized Health Care Education/Training Program; Visit Provider Student in an Organized Health Care Education/Training Program
DX: Z12.31 Encounter for screening mammogram for malignant neoplasm of breast (principal); R92.323 Mammographic fibroglandular density, bilateral breasts
CPT/HCPCS: 77063; 77067

== ENCOUNTER 2022-12-24 02:54 | Outpatient (CLI) | payer OTHER, SELFPAY ==
[2022-12-24 08:42] LABS: BUN 12 mg/dL (7-18); Calcium 9.6 mg/dL (8.5-10.1); Chloride 96 mmol/L (98-107); Estimated GFR 62.91 (mL/min/1.73m2); Glucose 91 mg/dL (74-106); Potassium 4.3 mmol/L (3.5-5.1); Sodium 134 mmol/L (136-145); TSH (W/Ref FT4) 2.08 uIU/mL (0.36-3.74)
== END 2022-12-24 02:55 | disposition home or self-care (01) ==
LOC: LBO 02:54
PROVIDERS: Absent Provider Student in an Organized Health Care Education/Training Program; PCP Student in an Organized Health Care Education/Training Program; Referring Provider Student in an Organized Health Care Education/Training Program; Visit Provider Student in an Organized Health Care Education/Training Program
DX: N17.9 Acute kidney failure, unspecified (principal); I10 Essential (primary) hypertension
CPT/HCPCS: 36415; 80048; 84443

== ENCOUNTER 2023-02-16 16:00 | Outpatient (REF) | payer OTHER, SELFPAY | END 2023-02-16 16:01 | disposition home or self-care (01) | LOC: LBN 16:00 | PROVIDERS: PCP Student in an Organized Health Care Education/Training Program; Visit Provider Nurse Practitioner Family | DX: N39.0 Urinary tract infection, site not specified (principal) | CPT/HCPCS: 87077; 87086; 87186 ==

== ENCOUNTER 2023-03-11 16:48 | Outpatient (REF) | payer OTHER, SELFPAY ==
[2023-03-11 19:50] LABS: Bacteria Rare HPF (Negative); C & S Indicated? No; Casts Negative LPF (Negative); Crystals Negative HPF (Negative); Epithelial Cells Rare HPF (Negative); Mucus Negative (Negative); WBC Negative HPF (0-5)
[2023-03-11 20:06] LABS: COMMENT (LAB VIEW ONLY) 25.49 mg/dL; Microalb ug/mg Crea 21.2 ug/mg Cr
== END 2023-03-11 16:49 | disposition home or self-care (01) ==
LOC: LBN 16:48
PROVIDERS: PCP Student in an Organized Health Care Education/Training Program; Visit Provider Student in an Organized Health Care Education/Training Program
DX: I10 Essential (primary) hypertension (principal); N28.9 Disorder of kidney and ureter, unspecified; R31.9 Hematuria, unspecified; Z87.440 Personal history of urinary (tract) infections; Z87.448 Personal history of other diseases of urinary system
CPT/HCPCS: 81015; 82043; 82570

== ENCOUNTER 2023-04-10 15:02 | Emergency (ER) | payer OTHER, SELFPAY ==
[2023-04-10 15:03] VITALS: BP 108/72; PULSE 119; RESP 16; TEMP 36.2; O2SAT 99
[2023-04-10 15:29] LABS: Lactate 1.1 mmol/L (0.6-1.4)
[2023-04-10 15:33] LABS: Abs Immature Grans 0.02 10^3/uL (0.0-0.06); Absolute Basophil Count 0.01 10^3/uL (0.0-0.2); Absolute Eosinophil Count 0.04 10^3/uL (0.0-0.7); Absolute Lymphocyte Count 0.39 10^3/uL (1.2-3.4); Absolute Monocyte Count 0.25 10^3/uL (0.1-0.8); Absolute Neutrophil Count 6.85 10^3/uL (1.2-6.7); Basophils % 0.1; Eosinophils % 0.5; HCT 39.7 % (36.0-46.0); HGB 13.6 g/dL (11.2-15.7); Immature Grans % 0.3; Lymphocytes % 5.2; MCHC 34.3 % (32.0-36.0); MCV 87 fL (80-95); MPV 9.5 fL (8.0-11.0); Monocytes % 3.3; Neutrophils % 90.6; Platelet Count 226 10^3/uL (130-400); RBC 4.54 10^6/uL (3.93-5.22); RDW 13.3 % (11.7-14.6); RDW-SD 42.9 fL; WBC 7.56 10^3/uL (4.4-10.8)
[2023-04-10 15:34] LABS: ESR 8 mm/hr (0-30)
[2023-04-10 15:38] LABS: Bilirubin Negative (Negative); Blood Trace-intact (Negative); Clarity Clear (Clear); Glucose Negative (Negative); Ketones Trace mg/dL (Negative); Leukocyte Esterase Small (Negative); Nitrite Negative (Negative); Specific Gravity 1.015 (1.005-1.025); Urobilinogen 0.2 mg/dL (Up to 0.2); pH 8.5 (5-8)
[2023-04-10 15:43] LABS: Bacteria Few HPF (Negative); C & S Indicated? Yes; Casts Negative LPF (Negative); Crystals Negative HPF (Negative); Epithelial Cells Few HPF (Negative); Mucus Negative (Negative); RBC 0-2 HPF (0-2)
[2023-04-10] MEDS: Normal Saline 1,000 ML 1000 ML IV (15:46)
[2023-04-10] MEDS: Prochlorperazine 10 MG/2 ML VIAL IVP (15:46)
[2023-04-10 15:51] LABS: ALT 28 U/L (14-59); AST 18 U/L (15-37); Albumin 3.7 g/dL (3.4-5.0); Alkaline Phosphatase 96 U/L (46-116); Anion Gap 9.4 mmol/L (3-11); BUN 21 mg/dL (7-18); Bilirubin, Total 0.8 mg/dL (0.2-1.0); C-Reactive Protein 2.74 mg/dL (<or=0.5); CO2 30.6 mmol/L (21.0-32.0); CREATININE 1.2 mg/dL (0.55-1.02); Calcium 9.5 mg/dL (8.5-10.1); Chloride 99 mmol/L (98-107); Estimated GFR 50.55 (mL/min/1.73m2); Glucose 126 mg/dL (74-106); Lipase 37 U/L (16-77); Magnesium 2.1 mg/dL (1.8-2.4); Potassium 3.4 mmol/L (3.5-5.1); Sodium 139 mmol/L (136-145); Total Protein 7.1 g/dL (6.4-8.2)
[2023-04-10 16:03] LABS: Procalcitonin < 0.1 ng/mL
[2023-04-10] MEDS: Ketorolac 15 MG/ML VIAL IVP (16:21)
[2023-04-10] MEDS: Pantoprazole 40 MG VIAL IVP (16:21)
[2023-04-10 16:38] VITALS: BP 113/69; PULSE 94; RESP 18; O2SAT 94
--- NOTE | 2023-04-10 17:04 | W.ED.GENAD ---
Discharge Plan Disposition Patient Disposition: Home Condition: Stable Discharge Details Clinical Impression: Nausea & vomiting Primary Care Provider: Vale Tyson ED Provider: Nithya Griffith Home Meds and New Rx's Prescriptions: Continued omeprazole 20 mg capsule,delayed release(DR/EC) 20 mg PO DAILY atorvastatin 40 mg tablet 40 mg PO DAILY Qty: 90 3RF amantadine HCl 100 mg capsule 100 mg PO BID Qty: 180 3RF losartan 50 mg tablet 50 mg PO BID Qty: 180 3RF Rx Instructions: Continue BID amlodipine 2.5 mg tablet See Rx Instructions .ROUTE .COMPLEX Qty: 60 1RF Dose Instruction: TAKE ONE TABLET BY MOUTH TWICE A DAY DUE TO EVEVATED BLOOD PRESSURE Rx Instructions: TAKE ONE TABLET BY MOUTH TWICE A DAY DUE TO EVEVATED BLOOD PRESSURE buspirone 7.5 mg tablet See Rx Instructions .ROUTE .COMPLEX Qty: 180 0RF Dose Instruction: TAKE ONE TABLET BY MOUTH TWICE A DAY Rx Instructions: TAKE ONE TABLET BY MOUTH TWICE A DAY estradiol 0.01 % (0.1 mg/gram) cream 0.25 g vaginal .twice weekly Qty: 42.5 4RF Rx Instructions: Apply a pea-sized amount around the urethra twice weekly latanoprost 0.005 % drops 1 drp ophthalmic (eye) DAILY L.acidoph,saliva-B.bif-S.therm [Acidophilus Probiotic Blend] 175 mg capsule 1 cap PO DAILY celecoxib [Celebrex] 200 mg capsule 200 mg PO DAILY Qty: 90 3RF Rx Instructions: Continue, take with food. EyePromise PO Patient Comments: Eye Vitamin - Zeaxonthin loratadine [Claritin] 10 mg tablet 10 mg PO DAILY Centrum Silver Women 8 mg iron-400 mcg-300 mcg tablet 1 tab PO DAILY calcium carbonate-vitamin D3 [Calcium 600 with Vitamin D3] 600 mg-12.5 mcg (500 unit) capsule 2 cap PO DAILY albuterol sulfate 90 mcg/actuation aerosol powdr breath activated 2 inh inhalation Q4H PRN glucos sul 4NEc-dcn-kxnqn-C-Mn [Glucosamine Chondroitin] 3 cap PO DAILY budesonide-formoterol [Symbicort] 160-4.5 mcg/actuation HFA aerosol inhaler 1 inh inhalation BID Qty: 10.2 1RF sertraline 50 mg tablet 50 mg PO DAILY Qty: 90 3RF fluticasone propionate 50 mcg/actuation spray,suspension 1 spray intranasal DAILY Qty: 16 1RF Rx Instructions: administer into each nostril Discharge Instructions Instructions: Acute Nausea and Vomiting (ED) Additional Instructions: clear liquids advance as tolerated. take zofran 4 mg every 4 hours as needed for ongoing nausea and vomiting. Referrals: Vale Tyson DO [Primary Care Provider] - Discharge Data Discharge Date/Time-TO BE ENTERED AT DEPARTURE: 04/10/23 17:47 HPI General Mode of arrival: ambulatory. Date/Time Provider Initiated Documentation: 04/10/23 15:07. Limitations to Documentation: no limitations. Information obtained by: patient. HPI Narrative: This is a 62-year-old female patient in her usual state of health who states last night after eating a greasy sub from a local restaurant developed nausea vomiting. She states she continued to have nausea and vomiting all night and today. She denies any diarrhea. She denies any fever. There are no sick close contacts with similar symptoms. No one else ate the same sob as her. She presents for evaluation as she has been unable to keep any fluids down nor take her medications. No hematesis Related Data Home Medications Medication Instructions Recorded Confirmed omeprazole 20 mg capsule,delayed 20 mg PO DAILY 02/03/22 04/10/23 release latanoprost 0.005 % eye drops 1 drp ophthalmic (eye) DAILY 03/08/22 04/10/23 albuterol sulfate 90 mcg/actuation 2 inh inhalation Q4H PRN 04/12/22 04/10/23 breath activated powder inhaler calcium carbonate 600 mg-vitamin 2 cap PO DAILY 04/12/22 04/10/23 D3 12.5 mcg (500 unit) capsule (Calcium 600 with Vitamin D3) glucos sul 5WBr-bry-cdmfd-C-Mn 3 cap PO DAILY 04/12/22 04/10/23 [Glucosamine Chondroitin] loratadine 10 mg tablet (Claritin) 10 mg PO DAILY 04/12/22 04/10/23 ygqoyleo-thqm-uqpn 8 mg-folic 400 1 tab PO DAILY 04/12/22 04/10/23 mcg-K 50 mcg-lutein 300 mcg tablet (Centrum Silver Women) L.acidophil,salivari-Bifido 1 cap PO DAILY 04/29/22 04/10/23 bifidum-Strep thermoph 175 mg capsule (Acidophilus Probiotic Blend) celecoxib 200 mg capsule (Celebrex) 200 mg PO DAILY #90 caps 05/02/22 04/10/23 budesonide-formoterol HFA 160 1 inh inhalation BID #10.2 grams 08/27/22 04/10/23 mcg-4.5 mcg/actuation aerosol inhaler (Symbicort) sertraline 50 mg tablet 50 mg PO DAILY #90 tabs 09/02/22 04/10/23 EyePromise PO 10/25/22 03/25/23 atorvastatin 40 mg tablet 40 mg PO DAILY #90 tabs 12/01/22 04/10/23 amantadine HCl 100 mg capsule 100 mg PO BID #180 caps 12/22/22 04/10/23 losartan 50 mg tablet 50 mg PO BID #180 tabs 01/04/23 04/10/23 fluticasone propionate 50 1 spray intranasal DAILY #16 grams 03/01/23 04/10/23 mcg/actuation nasal spray,suspension amlodipine 2.5 mg tablet See Rx Instructions .Route 03/11/23 04/10/23 .COMPLEX #60 tabs buspirone 7.5 mg tablet See Rx Instructions .Route 03/11/23 04/10/23 .COMPLEX #180 tabs estradiol 0.01% (0.1 mg/gram) 0.25 g vaginal .twice weekly #42.5 03/25/23 04/10/23 vaginal cream grams Previous Rx's Medication Instructions Recorded celecoxib 200 mg capsule (Celebrex) 200 mg PO DAILY #90 caps 05/02/22 budesonide-formoterol HFA 160 1 inh inhalation BID #10.2 grams 08/27/22 mcg-4.5 mcg/actuation aerosol inhaler (Symbicort) sertraline 50 mg tablet 50 mg PO DAILY #90 tabs 09/02/22 atorvastatin 40 mg tablet 40 mg PO DAILY #90 tabs 12/01/22 amantadine HCl 100 mg capsule 100 mg PO BID #180 caps 12/22/22 losartan 50 mg tablet 50 mg PO BID #180 tabs 01/04/23 fluticasone propionate 50 1 spray intranasal DAILY #16 grams 03/01/23 mcg/actuation nasal spray,suspension amlodipine 2.5 mg tablet See Rx Instructions .Route 03/11/23 .COMPLEX #60 tabs buspirone 7.5 mg tablet See Rx Instructions .Route 03/11/23 .COMPLEX #180 tabs estradiol 0.01% (0.1 mg/gram) 0.25 g vaginal .twice weekly #42.5 03/25/23 vaginal cream grams Allergies Allergy/AdvReac Type Severity Reaction Status Date / Time erythromycin base Allergy Severe Hives Verified 04/10/23 15:06 bupropion AdvReac Intermediate dry mouth Verified 04/10/23 15:06 General Stated Complaint: Nausea/Vomit/Diar SOCRATES: 3 Review of Systems All systems reviewed & are unremarkable except as noted in HPI and below Exam Narrative Exam Narrative: White female of stated age in no acute distress normal body habitus head is atraumatic eyes nonicteric noninjected oral mucosas slightly dry no exudate neck is supple full range of motion no meningeal signs respirations are even and unlabored cardiovascular she is tachycardic regular rhythm. Abdomen is soft she is reporting tenderness over the epigastrium no guarding no rebound she moves all extremities her skin is pink warm dry well-perfused neurologic she is awake alert oriented psychiatric normal mood and affect Course Vital Signs Vital signs: Vital Signs Temperature 36.2 C L 04/10/23 15:03 Pulse 119 H 04/10/23 15:03 Respiratory Rate 16 04/10/23 15:03 Blood Pressure 108/72 04/10/23 15:03 Pulse Oximetry 99 04/10/23 15:03 Temperature 36.2 C L 04/10/23 15:03 Temperature Source Skin 04/10/23 15:03 Pulse 94 H 04/10/23 16:38 Respiratory Rate 18 04/10/23 16:38 Respiratory Effort Normal, Non-Labored 04/10/23 15:06 Blood Pressure 113/69 04/10/23 16:38 Blood Pressure Position Sitting 04/10/23 15:03 Pulse Oximetry 94 04/10/23 16:38 Oxygen Delivery Method Room Air 04/10/23 16:38 Oxygen Flow Rate 0 04/10/23 16:38 Pain Level 5 04/10/23 15:03 Lab/Test Results Lab/Test Results: 04/10/23 15:29 Urine - Reflex from Ua Urine Culture - Pending Laboratory Tests Range/Units 04/10/23 04/10/23 15:20 15:29 WBC (4.4-10.8) 10^3/uL 7.56 RBC (3.93-5.22) 10^6/uL 4.54 Hgb (11.2-15.7) g/dL 13.6 Hct (36.0-46.0) % 39.7 MCV (80-95) fL 87 MCH (27.0-33.0) pg 30.0 MCHC (32.0-36.0) % 34.3 RDW (11.7-14.6) % 13.3 Plt Count (130-400) 10^3/uL 226 MPV (8.0-11.0) fL 9.5 Immature Gran % 0.3 Neutrophils % 90.6 Lymphocytes % 5.2 Monocytes % 3.3 Eosinophils % 0.5 Basophils % 0.1 Nucleated RBC % (0.0-0.3) % 0.0 Absolute Neutrophils (1.2-6.7) 10^3/uL 6.85 H Absolute Lymphocytes (1.2-3.4) 10^3/uL 0.39 L Absolute Monocytes (0.1-0.8) 10^3/uL 0.25 Absolute Eosinophils (0.0-0.7) 10^3/uL 0.04 Absolute Basophils (0.0-0.2) 10^3/uL 0.01 ESR (0-30) mm/hr 8 VBG Lactate (0.6-1.4) mmol/L 1.1 Sodium (136-145) mmol/L 139 Potassium (3.5-5.1) mmol/L 3.4 L Chloride (98-107) mmol/L 99 Carbon Dioxide (21.0-32.0) mmol/L 30.6 Anion Gap (3-11) mmol/L 9.4 BUN (7-18) mg/dL 21 H Creatinine (0.55-1.02) mg/dL 1.2 H Est GFR (CKD-EPI 2020) (mL/min/1.73m2) 50.55 Glucose (74-106) mg/dL 126 H Calcium (8.5-10.1) mg/dL 9.5 Magnesium (1.8-2.4) mg/dL 2.1 Total Bilirubin (0.2-1.0) mg/dL 0.8 AST (15-37) U/L 18 ALT (14-59) U/L 28 Alkaline Phosphatase (46-116) U/L 96 C-Reactive Protein (<or=0.5) mg/dL 2.74 H Total Protein (6.4-8.2) g/dL 7.1 Albumin (3.4-5.0) g/dL 3.7 Lipase (16-77) U/L 37 Procalcitonin ng/mL < 0.1 Urine Color (Yellow) Yellow Urine Clarity (Clear) Clear Urine pH (5-8) 8.5 H Ur Specific [place] (1.005-1.025) 1.015 Urine Protein (Neg-Trace) mg/dL Trace Urine Ketones (Negative) mg/dL Trace H Urine Blood (Negative) Trace-intact H Urine Nitrite (Negative) Negative Urine Bilirubin (Negative) Negative Urine Urobilinogen (Up to 0.2) mg/dL 0.2 Ur Leukocyte Esterase (Negative) Small H Urine RBC (0-2) HPF 0-2 Urine WBC (0-5) HPF 5-10 Ur Epithelial Cells (Negative) HPF Few Urine Crystals (Negative) HPF Negative Urine Bacteria (Negative) HPF Few Urine Casts (Negative) LPF Negative Urine Mucus (Negative) Negative Ur Culture Indicated? Yes Urine Glucose (Negative) mg/dL Negative Medical Decision Making Is a 62-year-old female patient who comes in with intractable nausea and vomiting unable to take any p.o. or her medications today. She is nontoxic-appearing her pulses elevated at 119 blood pressure good at 108/72. Will establish an IV give a liter of normal saline 10 mg of IV Compazine for her symptoms. Routine lab will be checked. Although her abdomen is tender this is most likely from retching so we will hold off on imaging to see if we get relief with her symptoms with the above medications. Differentials include gastroenteritis, food poisoning, PUD less likely cholecystitis, pancreatitis, I will also prescribe Toradol 15 mg and Protonix 40 mg IV push. She is monitored closely while awaiting her lab results. Her pulse has improved to 100 and she states she is feeling much improved. P.o. challenged and able to take crackers and fluids with no difficulty. She is stable and feels ready for discharge to home. I will provide Zofran 4 mg tabs for home use if needed for ongoing or recurrent nausea and vomiting. Medical Records Medical records reviewed: Yes I reviewed the patient's medical records. 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 tolerating statin, continue. [ ] old records with elevated chol/trig? Asthma (Chronic) Allergic rhinitis (Acute) Osteoarthritis of hip (Acute) Osteopenia (Acute 12/28/17) BD in 2019? Tx Advised .. Hx (mo), Osteoporosis Rosacea (Acute) Gastroesophageal reflux disease (Chronic) Obstructive sleep apnea (Chronic 03/22/17) CPAP per chart review.. Medical History (Updated 04/10/23 @ 17:04 by Nithya Griffith NP) Post-menopausal atrophic vaginitis start vulvar estradiol Mar 2023 History of recurrent UTI (urinary tract infection) (2) since December .. with Hx NONE! (~ PD??) Start estradiol Mar 2023 Family hx of colon cancer Pat Grandmo Family hx of hypertension Mo, Fa ( of CVA, 77yo) Alteration in vision NOT enough ptosis for surg per Ophtho..with ptosis affecting ADL and computer work Hooded upper eyelid not enough for surg per ophtho, 11/2022 Ptosis of both upper eyelids not enough fo rsurg per ophtho, 11/2022 Toe fracture, right R 5th metatarsal, 2020 Intermetatarsal bursitis 12/2020; L 1st through 3rd digits, with neuroma at 2nd intermetatarsal. 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 Asymmetrical sensorineural hearing loss (09/30/21) Overweight with body mass index (BMI) 25.0-29.9 History of alcohol abuse (02/25/17) Vestibular migraine Depression (02/25/17) Anxiety Surgical History H/O breast biopsy Status post glaucoma surgery Both eyes History of partial replacement of right shoulder History of total hip replacement x2 History of dilation and curettage Family History Paternal Grandmother Colon cancer Brother Substance use disorder Father , Age 77 Substance use disorder Hyperlipidemia Hypertension Stroke Coronary arteriosclerosis Hypercholesterolemia Renal failure syndrome Maternal Grandmother Substance use disorder Paternal Grandfather Substance use disorder Mother Depression Hypertension Polymyalgia Hypercholesterolemia Osteoporosis Social History Smoking/Tobacco Use Status: Former Tobacco Use Smoking risk assessment performed?: Yes Alcohol Intake: former Drug use: Never Substance use type: does not use Counseling given: No Adopted: No Household members: spouse Housing: house Number of Children: 2 number of grandchildren: 3 Communication Needs: None Education Level: high school Do you need help understanding health information?: Never 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 Pets and animals: Yes Pets and animals: cat(s) Sexually active: Yes Do you think of yourself as: straight/heterosexual Current gender identity: female Other: Moved to [place] November 2021 to be near her step-daughter What is your relationship status?: How often do you talk on the phone with friends or family?: twice per week How often do you get together with friends or relatives?: once per week Do you belong to any clubs or organized social groups?: no Panel score (0-1 are the most socially isolated patients): 2 What type of physical activity do you participate in: walking Duration: 15-30 minutes/day Frequency: 3-4 times per week Melisa/Jainism: None Special melisa needs: No Seatbelt use: always Drive intox or ride w/intox hi lo driver: No Do you feel safe at home: Yes Do you feel safe in your relationship?: Yes History History 4 Para 2 Hx # Term Pregnancies 2 Multiple births Hx # Pregnancies Ectopic pregnancies AB induced Hx Number of Living Children 2 AB spontaneous 2 Past Pregnancies Del. Date GA/Weeks # Preg Succ Route Wgt Sex Labor Lgth Anesthesia Location [facility] Compl 10/08/83 Yes vaginal 2806.603 g Female [facility] 01/16/87 Yes vaginal 3713.788 g Male [facility]
[2023-04-10] MEDS: Ondansetron O.D.T. 4 MG TABEF, 3 TABS/BTL PO (17:19)
[2023-04-10 17:34] VITALS: BP 112/79; PULSE 102; RESP 18; O2SAT 94
== END 2023-04-10 17:47 | disposition home or self-care (01) ==
PROVIDERS: Physician Assistant; Emergency Provider Nurse Practitioner Acute Care; PCP Student in an Organized Health Care Education/Training Program
DX: R11.2 Nausea with vomiting, unspecified (principal); G20.A1 Parkinson's disease without dyskinesia, without mention of fluctuations; I10 Essential (primary) hypertension; E78.5 Hyperlipidemia, unspecified; Z87.891 Personal history of nicotine dependence
CPT/HCPCS: 80053; 83690; 84145; 85652; 96361; 96374; 96375; 99284; 81003; 81015; 83605; 83735; 85025; 86140; 87086; J0780; J1885; J2470

== ENCOUNTER 2023-05-30 15:52 | Outpatient (REF) | payer OTHER, SELFPAY ==
--- NOTE | 2023-05-30 15:30 | PAPFT_PTH ---
PATIENT: Sonam Farias LOC: [facility] U#:[id number] AGE/SX: 62/F ROOM: RE05/30/[address]: Louann Lares MD : 1960 BED: DIS: 05/30/2023 SPEC #: [id number] RECD: 05/30/23 18:17 STATUS: DEANNE REZahira #: [id number] EMERSON: 05/30/23 15:[address]: Louann Lares DEPT: [facility] Cytology RECD BY: Shayna Mendoza ENTERED: 05/30/23 18:18 SP TYPE: PAPFT OTHR DR: Vale Tyson, DO Tissues: 1 - CX/ENDOCX FOR PAP SMEARS Procedures: PAP THIN PREP/UVM Screening HPV DNA PROBE Comments: [id number]
== END 2023-05-30 15:53 | disposition home or self-care (01) ==
LOC: LBN 15:52
PROVIDERS: PCP Student in an Organized Health Care Education/Training Program; Visit Provider Obstetrics & Gynecology
DX: Z12.4 Encounter for screening for malignant neoplasm of cervix (principal)
CPT/HCPCS: 88142; 87624

== ENCOUNTER 2023-07-13 14:17 | Outpatient (CLI) | payer OTHER, SELFPAY ==
--- NOTE | 2023-07-13 12:45 | DI.RAD_ITS ---
Exam(s) XR SHOULDER RT COMPLETE 2+V EXAM: XR SHOULDER RT COMPLETE 2+V CLINICAL HISTORY: RIGHT SHOULDER PAIN. TECHNIQUE: 2D digital imaging was performed. Three images were obtained. Grashey, axillary and Y vi ews were obtained. COMPARISON: No exams were available for comparison FINDINGS: BONES: There are stable post operative changes of a right shoulder replacement present. No fracture or dislocation. JOINTS: The orthopedic hardware is in good position. No evidence of hardware loosening. SOFT TISSUE: Normal. IMPRESSION: Stable right shoulder replacement. DATA REPOSITORY: RADIATION DOSE DELIVERED:
== END 2023-07-13 14:18 | disposition home or self-care (01) ==
LOC: DIORS 14:22
PROVIDERS: PCP Student in an Organized Health Care Education/Training Program; Visit Provider Student in an Organized Health Care Education/Training Program
DX: Z96.611 Presence of right artificial shoulder joint (principal); Z47.1 Aftercare following joint replacement surgery
CPT/HCPCS: 73030

== ENCOUNTER 2023-08-02 11:24 | Outpatient (REF) | payer OTHER, SELFPAY ==
--- NOTE | 2023-08-02 11:20 | SKI_PTH ---
PATIENT: Sonam Farias LOC: [facility] U#:[id number] AGE/SX: 63/F ROOM: RE08/02/[address]: Geremias Castro MD : 1960 BED: DIS: 08/02/2023 SPEC #: [id number] RECD: 08/02/23 12:56 STATUS: DEANNE REZahira #: [id number] EMERSON: 08/02/23 11:[address]: Geremias Castro DEPT: Surgical Specimen RECD BY: Shayna Mendoza ENTERED: 08/02/23 12:56 SP TYPE: ELIDA EDDY DR: Vale Tyson DO Tissues: 1 - SKIN BIOPSY(SHAVE/PUNCH) 2 - SKIN BIOPSY(SHAVE/PUNCH) Procedures: SKIN LEVEL 4 Comments: [id number]
== END 2023-08-02 11:25 | disposition home or self-care (01) ==
LOC: LBN 11:24
PROVIDERS: PCP Student in an Organized Health Care Education/Training Program; Visit Provider Surgery
DX: L82.1 Other seborrheic keratosis (principal); B07.9 Viral wart, unspecified
CPT/HCPCS: 88305

== ENCOUNTER 2023-09-07 02:06 | Outpatient (CLI) | payer OTHER, SELFPAY ==
--- OUTSIDE RECORDS SUMMARY | 2023-09-07 02:08 | XMS_ITS | Encounter Summary ---
[facility] Address [address] [place] [address] Care Team Providers Care Mobility Engineer Name Role Phone Josue Delaney DO Primary Care Provider [phone] Reason for Referral * Consultation (Routine/First Available) - Closed Specialty Diagnoses / Procedures Referred By Randall t Referred To Contact Otolaryngology Diagnoses Hearing loss Josue Delaney DO [address] [place] [address] Hector Goncalves MD [address] [facility] [address] [place] [address] Referral ID Status Reason Start Date Expiration Date Visits Re quested Visits Authorized [id number] Closed 12/06/2020 12/06/2021 12 12 Encounter Details Date Type Department Care Team (Late st Contact Info) Description 12/07/2019 Transcribe Orders [facility] [address] [place] [address] Josue Delaney DO [address] [place] [address] Hearing loss Social History Tobacco Use Types Packs/Day Years Used Date Smoking Tobacco: Former Cigarettes 0.5 20 0 04/17/1995 - 04/17/2015 Smokeless Tobacco: Never Alcohol Use Standard Drinks/Week Comments Yes 0 (1 standard drink = 0.6 oz pur e alcohol) socially Sex and Gender Information Value Date Recorded Sex Assigned at Not on file Gender Identity Not on file Sexual Orientation Not on file documented as of this encounter Plan of Treatment Not on file documented as of this encounter Procedures Procedure Name Priority Date/Time Associated Diagnosis Comments AMB REFERRAL TO ENT First Available/Routine 10/09/2021 5:18 PM EDT Hearing loss documented in this encounter Results * Outpatient referral to ENT (10/09/2021 5:18 PM EDT) Josue Delaney DO OUTPATIENT REFERRAL ORDERABLES documented in this encounter Visit Diagnoses Diagnosis Hearing loss Unspecified hearing loss documented in this encounter Care Teams Mobility Engineer Relationship Specialty Start Date End Date Josue Delaney DO [address] [place] [address] PCP - General Family Medicine 11/01/14 documented as of this encounter
--- OUTSIDE RECORDS SUMMARY | 2023-09-07 02:08 | XMS_ITS | Encounter Summary ---
Author Organization [facility] Address [address] [place] [address] Care Team Providers Care Human Resources Operations Director Name Role Phone Josue Delaney DO Primary Care Provider [phone] Reason for Visit * Reason Onset Date Comments hearing aid service 04/21/2020 Encounter Details Date Type Department Care Team (Late st Contact Info) Description 04/21/2020 Documentation [facility] [address] [place] [address] Marley Bains AUD CCC-A [address] [place] [address] hearing aid service Social History Tobacco Use Types Packs/Day Years [...] on file documented as of this encounter Progress Notes * DENI Randle CCC-A - 04/30/2020 9:20 AM EDT Patient's left hearing aid is back from repair, her new warranty information is below. I called patient and let her know that it will be at the bowling or skating front desk clerk in our [facility] location for her to pick upat her convenience. She paid over the phone with a [employer] credit card. I left a receipt in the box for her. Hearing Aid Information Binaural?? Make: ??Phonak? Model(s): ??Elianeo B-90 R Serial Number(s): ??[id number], [id number] Repair Warranty Expiration Date: ??10/19/2019 Loss/Damage Warranty Expiration Date: 10/19/2019 Earmold/Dome Size(s): ??Medium closed * DENI Randle - 04/23/2020 9:52 AM EDT Patient dropped off her left hearing aid for repair. She understands that the cost is $225. She will be contacted when the hearing aid is repaired and ready to be picked up. * DENI Randle - 04/21/2020 12:51 PM EDT Patient called today and reported that her right hearing aid does not hold a charge for very long (approximately 4 hours). I suggested that it could possibly be a fire extinguisher charger issue. She has a spare fire extinguisher charger at home and will try to see if this helps. If not, she was informed that we would have to send the hearing aid out for repair (cost is $225). She will try to see if the fire extinguisher charger remedies the problembut will drop off the hearing aid for repair if not. Hearing Aid Information Binaural?? Make: ??Phonak? Model(s): ??Audeo B-90 R Serial Number(s): ??[id number], [id number] Repair Warranty Expiration Date: ??10/19/2019 Loss/Damage Warranty Expiration Date: 10/19/2019 Earmold/Dome Size(s): ??Medium closed documented in this encounter Plan of Treatment Not on file documented as of this encounter Visit Diagnoses Not on filedocumented in this encounter Care Teams Human Resources Operations Director Relationship Specialty Start Date End Date Josue Delaney DO [address] [place] [id number] PCP - General Family Medicine 11/01/14 documented as of this encounter
--- OUTSIDE RECORDS SUMMARY | 2023-09-07 02:08 | XMS_ITS | Encounter Summary ---
Author Organization [facility] Address [address] [place] [address] Care Team Providers Care Material Chaser Name Role Phone Josue Delaney DO Primary Care Provider [phone] Reason for Referral * Consultation (Routine/First Available) - Closed Specialty Diagnoses / Procedures Referred By Randall t Referred To Contact Otolaryngology Diagnoses Hearing loss Josue Delaney DO [address] [place] [address] Hector Goncalves MD [address] [facility] [address] [place] [address] Referral ID Status Reason Start Date Expiration Date Visits Re quested Visits Authorized [id number] Closed 05/31/2019 05/30/2020 6 6 Encounter Details Date Type Department Care Team (Late st Contact Info) Description 05/31/2019 Orders Only [facility] [address] [place] [address] Josue Delaney DO [address] [place] [address] Hearing loss Social History Tobacco Use Types [...] Comments AMB REFERRAL TO ENT First Available/Routine 12/07/2019 4:08 PM EDT Hearing loss documented in this encounter Results * Transcribe/Incoming Outpatient referral to ENT (12/07/2019 4:08 PM EDT) Josue Delaney DO OUTPATIENT REFERRAL ORDERABLES documented in this encounter Visit Diagnoses Diagnosis Hearing loss Unspecified hearing loss documented in this encounter Care Teams Material Chaser Relationship Specialty Start Date End Date Josue Delaney DO [address] [place] [address] PCP - General Family Medicine 11/01/14 documented as of this encounter
--- OUTSIDE RECORDS SUMMARY | 2023-09-07 02:08 | XMS_ITS | Encounter Summary ---
Author Organization [facility] Address [address] [place] [address] Care Team Providers Care Audiologist Name Role Phone Josue Delaney DO Primary Care Provider [phone] Reason for Referral * Audiology (Routine) - Closed Specialty Diagnoses / Procedures Referred By Contac t Referred To Contact Audiology Diagnoses Mixed conductive and sensorineural hearing loss of left ear with restricted hearing of right ear Sensorineural hearing loss (SNHL) of right ear with restricted hearing of left ear Procedures Tympanometry Sheela Arthur NP [address] , [address] [place] [address] Referral ID Status Reason Start Date Expiration Date Visits Re quested Visits Authorized [id number] Closed 10/06/2018 10/07/2019 1 1 * Audiology (Routine) - Closed Specialty Diagnoses / Procedures Referred By Contac t Referred To Contact Audiology Diagnoses Mixed conductive and sensorineural hearing loss of left ear with restricted hearing of right ear Sensorineural hearing loss (SNHL) of right ear with restricted hearing of left ear Procedures Comprehensive hearing test Sheela Arthur NP [address] , [address] [place] [id number] Referral ID Status Reason Start Date Expiration Date Visits Re quested Visits Authorized [id number] Closed 10/06/2018 10/07/2019 1 1 Reason for Visit * Consultation (Routine/First Available) - Closed Specialty Diagnoses / Procedures Referred By Randall pedro Referred To Contact Otolaryngology Diagnoses Hearing loss Josue Delaney, [address] [place] [address] Hector Goncalves MD [address] [facility] [address] [place] [address] Referral ID Status Reason Start Date Expiration Date Visits Re quested Visits Authorized [id number] Closed 08/07/2018 08/08/2019 1 12 Encounter Details Date Type Department Care Team (Latest Contact Info) Description 10/06/2018 3:00 PM EDT Clinical Support [facility] [address] [place] [address] Haley Corona AUD CCC-A [address] [place] [address] Mixed conductive and sensorineural hearing loss of left ear with restricted hearing of right ear (Primary Dx); Sensorineural hearing loss (SNHL) of right ear with restricted hearing of left ear Social History Tobacco Use Types Packs/Day Years [...] of this encounter Progress Notes * DENI Galicia CCC-A - 10/06/2018 3:00 PM EDT Sonam Farias was seen today for an audiological evaluation. Test results and recommendations were discussed with the patient, who expressed her understanding. Please see audiogram in media tab. documented in this encounter Plan of Treatment Scheduled Orders Name Type Priority Associated Diagnoses Orde r Schedule Comprehensive hearing test Audiology Routine Mixed Conductive And Sensorineural Hearing Loss Of Left Ear With Restricted Hearing Of Right Ear Sensorineural Hearing Loss (Snhl) Of Right Ear With Restricted Hearing Of Left Ear Ordered: 10/06/2018 Tympanometry Audiology Routine Mixed Conductive And Sensorineural Hearing Loss Of Left Ear With Restricted Hearing Of Right Ear Sensorineural Hearing Loss (Snhl) Of Right Ear With Restricted Hearing Of Left Ear Ordered: 10/06/2018 documented as of this encounter Visit Diagnoses Diagnosis Mixed conductive and sensorineural hearing loss of left ear with restricted hearing of right ear- Primary Sensorineural hearing loss (SNHL) of right ear with restricted hearing of left ear documented in this encounter Care Teams Audiologist Relationship Specialty Start Date End Date Josue Delaney DO [address] [place] [address] PCP - General Family Medicine 11/01/14 documented as of this encounter
--- OUTSIDE RECORDS SUMMARY | 2023-09-07 02:08 | XMS_ITS | Encounter Summary ---
Author Organization [facility] Address [address] [place] [address] Care Team Providers Care Road Cutter Name Role Phone Josue Delaney DO Primary Care Provider Reason for Referral * Audiology (Routine) - Closed Specialty Diagnoses / Procedures Referred By Randall pedro Referred To Contact Audiology Diagnoses Asymmetrical sensorineural hearing loss of both ears Procedures Comprehensive hearing test Sheela Arthur TAILING HAND 299 [facility], [address] [place] [address] Referral ID Status Reason Start Date Expiration Date Visits Re quested Visits Authorized [id number] Closed 07/20/2016 01/16/2017 1 1 Reason for Visit * Consultation (Routine) - Closed Specialty Diagnoses / Procedures Referred By Randall pedro Referred To Contact Otolaryngology Diagnoses Hearing loss Josue Delaney DO [address] [place] [address] [facility] [address] [place] [address] Referral ID Status Reason Start Date Expiration Date V isits Requested Visits Authorized [id number] Closed Specialty Services Required 07/06/2016 07/06/2017 6 6 Encounter Details Date Type Department Care Team (Latest Contact Info) Description 07/20/2016 2:30 PM EDT Clinical Support [facility] [address] [place] [address] Marley Bains AUD CCC-A [address] [place] [address] Asymmetrical sensorineural hearing loss of both ears (Primary Dx) Social History Tobacco Use Types Packs/Day Years Used Date Smoking Tobacco: Former Cigarettes 0.5 20 0 04/17/1995 - 04/17/2015 Alcohol Use Standard Drinks/Week Comments Yes 0 (1 standard drink = 0.6 oz pur e alcohol) socially Sex and Gender Information Value Date Recorded Sex Assigned at Not on file Gender Identity Not on file Sexual Orientation Not on file documented as of this encounter Progress Notes * DENI Dixon - 07/20/2016 3:00 PM EDT Sonam Farias was seen today for an audiological evaluation. Test results and recommendations were discussed with the patient, who expressed her understanding. Please see audiogram in media tab. documented in this encounter Plan of Treatment Scheduled Orders Name Type Priority Associated Diagnoses Orde r Schedule Comprehensive hearing test Audiology Routine Asymmetrical sensorineural hearing loss of both ears Ordered: 07/20/2016 documented as of this encounter Visit Diagnoses Diagnosis Asymmetrical sensorineural hearing loss of both ears- Primary documented in this encounter Care Teams Road Cutter Relationship Specialty Start Date End Date Josue Delaney DO [address] [place] [address] PCP - General Family Medicine 11/01/14 documented as of this encounter
--- OUTSIDE RECORDS SUMMARY | 2023-09-07 02:08 | XMS_ITS | Encounter Summary ---
Author Organization [email or web address] [facility] Address [address] [place] [address] Care Team Providers Care Forest Landscape Ecology Professor Name Role Phone Josue Delaney DO Primary Care Provider [phone] Reason for Referral * Surgical (Routine) - Closed Specialty Diagnoses / Procedures Referred By Randall t Referred To Contact Diagnoses Seroma Procedures Fine Needle Aspiration w/o Imaging Dixon Barboza PA-C [address] [place] [id number] Referral ID Status Reason Start Date Expiration Date Visits Re quested Visits Authorized [id number] Closed 05/09/2015 11/05/2015 1 1 Reason for Visit * Reason Comments Follow-up parotid mass Encounter Details Date Type Department Care Team (Late st Contact Info) Description 05/08/2015 4:40 PM EDT Office Visit [facility] [address] [place] [id number] Dixon Barboza PA-C [address] [place] [address] [phone] Seroma (Primary Dx) Social History Tobacco Use Types [...] on file documented as of this encounter Last Filed Vital Signs Vital Sign Reading Time Taken Comments Blood Pressure 141/77 05/08/2015 4:27 PM EDT Pulse 68 05/08/2015 4:27 PM EDT Temperature - - Respiratory Rate - - Oxygen Saturation - - Inhaled Oxygen Concentration - - Weight 68.9 kg (152 lb) 05/08/2015 4:27 PM EDT Height 160 cm (5' 3) 05/08/2015 4:27 PM EDT Body Mass Index 26.93 05/08/2015 4:27 PM EDT documented in this encounter Progress Notes * Dixon Barboza PA-C - 05/09/2015 8:44 AM EDT Procedures Needle aspiration of right cheek seroma The site was locally cleansed and anesthetized with 1% lidocaine with epinephrine. A 1 inch 18-gauge needle on a 20 mL syringe was used to aspirate right cheek seroma. A total of 27 mL was aspirated.Patient tolerated procedure without any immediate complications. * Dixon Barboza PA-C - 05/09/2015 8:41 AM EDT Subjective: Sonam Farias is a 54 y.o. female who presents for follow up and recheck of right cheek. Review of Systems Pertinent items are noted in HPI. Current outpatient prescriptions: ??? budesonide-formoterol (SYMBICORT) 160-4.5 MCG/ACT inhaler, Inhale 2 puffs 2 (two) times a day.,Disp: , Rfl: ??? cephalexin (KEFLEX) 250 MG capsule, , Disp: , Rfl: 0 ??? citalopram (CELEXA) 40 MG tablet, Take 40 mg by mouth daily. Celexa , Disp: , Rfl: ??? cyanocobalamin (VITAMIN B-12) 100 MCG tablet, Take 100 mcg by mouth daily., Disp: , Rfl: ??? fluticasone (FLONASE) 50 MCG/ACT nasal spray, 2 sprays by Each Nostril route daily. FluticasonePropionate , Disp: , Rfl: ??? ipratropium-albuterol (DUO-NEB) 0.5-2.5 mg/mL nebulizer, , Disp: , Rfl: ??? latanoprost (XALATAN) 0.005 % ophthalmic solution, Administer 1 drop to both eyes at bedtime., Disp: , Rfl: ??? omeprazole (PriLOSEC) 20 MG capsule, Take 20 mg by mouth daily., Disp: , Rfl: ??? oxyCODONE-acetaminophen (ROXICET) 5-325 MG per tablet, 1 or 2 tablets every 4 hours as needed for pain., Disp: 30 tablet, Rfl: 0 ??? predniSONE (DELTASONE) 10 MG tablet, , Disp: , Rfl: ??? simvastatin (ZOCOR) 20 MG tablet, Take 20 mg by mouth at bedtime., Disp: , Rfl: Allergies Allergen Reactions ??? Erythromycin Hives Objective: BP 141/77 mmHg Pulse 68 Ht 5' 3 (1.6 m) Wt 152 lb (68.947 kg) BMI 26.93 kg/m2 General: healthy Head and Face: right cheek fluctuance Assessment: Right cheek seroma Plan: Aspirated. 27cc of serosang fluid aspirated. Compression dressing reapplied. Patient to return on Tuesday. documented in this encounter Plan of Treatment Scheduled Orders Name Type Priority Associated Diagnoses Orde r Schedule Fine Needle Aspiration w/o Imaging Procedures Routine Seroma Ordered: 05/09/2015 documented as of this encounter Visit Diagnoses Diagnosis Seroma- Primary Seroma complicating a procedure documented in this encounter Care Teams Forest Landscape Ecology Professor Relationship Specialty Start Date End Date Josue Delaney DO [address] [place] [address] PCP - General Family Medicine 11/01/14 documented as of this encounter
--- OUTSIDE RECORDS SUMMARY | 2023-09-07 02:08 | XMS_ITS | Encounter Summary ---
Author Organization [facility] Address [address] [place] [address] Care Team Providers Care Shearer Helper Name Role Phone Josue Delaney DO Primary Care Provider Reason for Visit * Reason Onset Date Comments lost left hearing aid 01/06/2021 Encounter Details Date Type Department Care Team (Late st Contact Info) Description 01/06/2021 Documentation [facility] [address] [place] [address] Marley Bains AUD CCC-A [address] [place] [address] lost left hearing aid Social History Tobacco Use Types Packs/Day Years [...] Progress Notes * DENI Randle CCC-A - 01/06/2021 2:04 PM EST Patient called to report that she lost her left hearing aid. She would like to replace it. The costis $2800. I ordered a replacement left phonak belong 90-R hearing aid in color P4 with a size 1S equipment installer. I will call her when it is ready to be picked up. Hearing Aid Information Binaural?? Make: ??Phonak? Model(s): ??Pooja B-90 R Serial Number(s): ??[id number], [id number] Repair Warranty Expiration Date: ??10/19/2019 Loss/Damage Warranty Expiration Date: 10/19/2019 Earmold/Dome Size(s): ??Medium closed documented in this encounter Plan of Treatment Not on file documented as of this encounter Visit Diagnoses Not on filedocumented in this encounter Care Teams Shearer Helper Relationship Specialty Start Date End Date Josue Delaney DO [address] [place] [address] PCP - General Family Medicine 11/01/14 documented as of this encounter
--- OUTSIDE RECORDS SUMMARY | 2023-09-07 02:08 | XMS_ITS | Encounter Summary ---
Author Organization [facility] Address [address] [place] [address] Care Team Providers Care Jointer Submarine Cable Name Role Phone Josue Delaney DO Primary Care Provider [phone] Reason for Visit * Reason Onset Date Comments hearing aid fitting 07/28/2016 Encounter Details Date Type Department Care Team (Late st Contact Info) Description 07/28/2016 Documentation [facility] [address] [place] [address] Marley Bains AUD CCC-A [address] [place] [address] hearing aid fitting Social History Tobacco Use Types Packs/Day Years [...] this encounter Progress Notes * DENI Dixon CCC-A - 07/28/2016 9:22 AM EDT Patient is here today for a hearing aid fitting. Hearing Aid Information Bilateral Make: Phonak Model(s): Audeo B-90 R Serial Number(s): [id number], [id number] Repair Warranty Expiration Date: 10/19/2019 Loss/Damage Warranty Expiration Date: 10/19/2019 Earmold/Dome Size(s): Medium closed Patient was instructed about care, cleaning, wax guards, domes, batteries, indicators and insertion/removal of the hearing aid(s). Patient was able to adequately demonstrate insertion and removal of hearing aid(s). We reviewed/signed all the paperwork including purchase agreement, repair and loss/damage warranty and [employer] form. Paperwork and payment information was mailed to alike. Patient chose to pay for their balance of $5800. Patient will follow-up in 2 weeks on August 11 at 8:30am. documented in this encounter Plan of Treatment Not on file documented as of this encounter Visit Diagnoses Not on filedocumented in this encounter Care Teams Jointer Submarine Cable Relationship Specialty Start Date End Date Josue Delaney DO [address] [place] [address] PCP - General Family Medicine 11/01/14 documented as of this encounter
--- OUTSIDE RECORDS SUMMARY | 2023-09-07 02:08 | XMS_ITS | Encounter Summary ---
Author Organization [email or web address] Address [address] [place] [address] Care Team Providers Care Pit Shovel Operator Name Role Phone Josue Delaney DO Primary Care Provider [phone] Reason for Visit * Reason Onset Date Comments Post op question 04/29/2015 Encounter Details Date Type Department Care Team (Late st Contact Info) Description 04/29/2015 Telephone [facility] [address] [place] [address] Dixon Barboza PA-C [address] [place] [address] Post op question Social History Tobacco Use Types Packs/Day Years Used Date Smoking Tobacco: Former Cigarettes 0.5 15 0 04/16/2000 - 04/17/2015 Alcohol Use Standard Drinks/Week Comments Yes 0 (1 standard drink = 0.6 oz pur e alcohol) socially Sex and Gender Information Value Date Recorded Sex Assigned at Not on file Gender Identity Not on file Sexual Orientation Not on file documented as of this encounter Miscellaneous Notes * Telephone Encounter - Donita Alford MA - 04/29/2015 10:36 AM EDT Pt is wondering when she can take a shower. She had a superficial parotidectomy yesterday with Dr. Goncalves. Please advise. documented in this encounter Plan of Treatment Not on file documented as of this encounter Visit Diagnoses Not on filedocumented in this encounter Care Teams Pit Shovel Operator Relationship Specialty Start Date End Date Josue Delaney DO [address] [place] [id number] PCP - General Family Medicine 11/01/14 documented as of this encounter
--- OUTSIDE RECORDS SUMMARY | 2023-09-07 02:08 | XMS_ITS | Encounter Summary ---
Author Organization [facility] Address [address] [place] [address] Care Team Providers Care Principal Account Clerk Name Role Phone Josue Delaney DO Primary Care Provider [phone] Reason for Referral * Audiology (Routine) - Closed Specialty Diagnoses / Procedures Referred By Contfrieda pedro Referred To Contact Audiology Diagnoses Bilateral sensorineural hearing loss Tinnitus, bilateral Procedures Comprehensive hearing test Marie Shahid PA-C [address] [facility] [place] [address] Referral ID Status Reason Start Date Expiration Date Visits Re quested Visits Authorized [id number] Closed 12/07/2019 12/06/2020 1 1 Reason for Visit * Consultation (Routine/First Available) - Closed Specialty Diagnoses / Procedures Referred By Randall pedro Referred To Contact Otolaryngology Diagnoses Hearing loss Josue Delaney DO [address] [place] [address] Hector Goncalves MD [address] [facility] [address] [place] [address] Referral ID Status Reason Start Date Expiration Date Visits Re quested Visits Authorized [id number] Closed 05/31/2019 05/30/2020 6 6 Encounter Details Date Type Department Care Team (Latest Contact Info) Description 12/07/2019 3:30 PM EDT Clinical Support [facility] [address] [place] [address] Marley Bains AUD CCC-A [address] [place] [address] Bilateral sensorineural hearing loss (Primary Dx); Tinnitus, bilateral Social History Tobacco Use Types Packs/Day Years [...] this encounter Progress Notes * DENI Randle - 12/07/2019 3:30 PM EDT Sonam Worrell Farias was seen today for an audiological evaluation. Test results and recommendations were discussed with the patient, who expressed her understanding. Please see audiogram in media tab. documented in this encounter Plan of Treatment Scheduled Orders Name Type Priority Associated Diagnoses Orde r Schedule Comprehensive hearing test Audiology Routine Bilateral sensorineural hearing loss Tinnitus, bilateral Ordered: 12/07/2019 documented as of this encounter Visit Diagnoses Diagnosis Bilateral sensorineural hearing loss- Primary Sensorineural hearing loss, bilateral Tinnitus, bilateral Unspecified tinnitus documented in this encounter Care Teams Principal Account Clerk Relationship Specialty Start Date End Date Josue Delaney DO [address] [place] [address] PCP - General Family Medicine 11/01/14 documented as of this encounter
--- OUTSIDE RECORDS SUMMARY | 2023-09-07 02:08 | XMS_ITS | Clinical Summary ---
Author Organization [facility] Address [address] [place] [address] Care Team Providers Care Therapeutic Radiologist Name Role Phone Josue Delaney DO Primary Care Provider [phone] Allergies Active Allergy Reactions Criticality Noted Date Comments Erythromycin Hives Medium 04/17/2015 Other 11/05/2016 Environmental Allergies, Misc; Cats Medications Medication Sig Dispensed Refills Start Date End Date Status fluticasone (FLONASE) 50 MCG/ACT nasal spray 2 sprays by Each Nostril route daily. Fluticasone Propionate Active budesonide-formote rol (SYMBICORT) 160-4.5 MCG/ACT inhaler Inhale 2 puffs 2 (two) times a day. Active omeprazole (PriLOSEC) 20 MG capsule Take 20 mg by mouth daily. Active latanoprost (XALATAN) 0.005 % ophthalmic solution Administer 1 drop to both eyes at bedtime. Active ipratropium-albute rol (DUO-NEB) 0.5-2.5 mg/mL nebulizer 03/25/2015 Active albuterol sulfate (PROAIR HFA) 108 (90 Base) MCG/ACT inhalation aerosol USE 2 INHALATIONS EVERY 4 HOURS NEEDED 6 04/27/2016 Active simvastatin (ZOCOR) 40 MG tablet TAKE ONE TABLET BY MOUTH AT BEDTIME 6 10/24/2016 Active SHINGRIX 50 MCG injection 04/24/2017 Active busPIRone (BUSPAR) 10 MG tablet 09/27/2018 Active lamoTRIgine (LaMICtal) 100 MG tablet 10/01/2018 Active SUMAtriptan (IMITREX) 100 MG tablet 09/15/2018 Active citalopram (CeleXA) 10 MG tablet 10/01/2018 Active sertraline (ZOLOFT) 50 MG tablet TAKE 1/2 TABLET BY MOUTH ONCE DAILY FOR 1 WEEK, THEN 1 TABLET DAILY 11/24/2019 Active cyclobenzaprine (FLEXERIL) 10 MG tablet Take 1 tablet (10 mg total) by mouth 3 (three) times a day as needed for muscle spasms 9 tablet 03/20/2021 Active acetaminophen 500 MG capsule Take 2 capsules (1,000 mg total) by mouth every 8 (eight) hours as needed for mild pain (1-3) 15 capsule 03/20/2021 Active Active Problems Problem Noted Date Diagnosed Date 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 Parotid mass 02/14/2015 Encounters Date Type Department Care Team Description 06/17/2023 Documentation [facility] [address] [place] [address] Marley Bains, [facility] hearing aid check from Last 3 Months Immunizations Name Administration Dates Next Due Influenza (IM) preservative free 11/30/2011 Influenza Split 11/15/2012 Pfizer (Covid-19) 30 mcg/0.3 ml, mRNA, PF, jacqueline-sucrose 09/03/2021 Pfizer (Covid-19) mRNA Vacci ne, Preservative Free 11/19/2020,05/22/2020,05/01/2020 Family History Medical History Relation Name Comments Asthma Brother Hypertension Brother Hyperlipidemia Father Hypertension Father Stroke Father Cancer Maternal Grandfather Asthma Mother Heart failure Mother Hyperlipidemia Mother Hypertension Mother Migraines Mother Osteoarthritis Mother Cancer Paternal Grandfather Cancer Paternal Grandmother Asthma Sister Hypertension Sister Diabetes Neg Hx Rashes / Skin problems Neg Hx Rheum arthritis Neg Hx Seizures Neg Hx Thyroid disease Neg Hx Relation Name Status Comments Brother Father Maternal Grandfather Mother Paternal Grandfather Paternal Grandmother Sister Social History Tobacco Use Types Packs/Day Years Used Date Smoking Tobacco: Former Cigarettes 0.5 20 0 04/17/1995 - 04/17/2015 Smokeless Tobacco: Never Alcohol Use Standard Drinks/Week Comments Yes 0 (1 standard drink = 0.6 oz pur e alcohol) socially Sex and Gender Information Value Date Recorded Sex Assigned at Not on file Gender Identity Not on file Sexual Orientation Not on file Last Filed Vital Signs Vital Sign Reading Time Taken Comments Blood Pressure 148/82 03/20/2021 5:07 PM EST Pulse 61 03/20/2021 5:07 PM EST Temperature 36.9 ??C (98.5 ??F) 03/20/2021 3:41 PM ES T Respiratory Rate 16 03/20/2021 5:07 PM EST Oxygen Saturation 97% 03/20/2021 5:07 PM EST Inhaled Oxygen Concentration - - Weight 69.4 kg (153 lb) 03/20/2021 3:41 PM EST Height 160 cm (5' 3) 03/20/2021 3:41 PM EST Body Mass Index 27.1 03/20/2021 3:41 PM EST Plan of Treatment Health Maintenance Due Date Last Done Comments Hepatitis B Screening 1976 Hepatitis C Screening 1978 Colorectal Cancer Screening by Colonoscopy 06/24/2003 Breast Cancer Screening 02/27/2014 02/26/19 14, 09/02/2011, 08/21/2010 Pneumococcal Vaccines 65+ yrs (2 of 2 - PPSV23 or PCV20) 12/31/2015 11/05/2015 Cholesterol Screening 03/19/2018 03/19/2013 , 10/05/2012, 06/13/2012, Additional history exists RSV Immunization Patients 60+ years or (1 - 1-dose 60+ series) 2018 COVID-19 Vaccine ( season) 2022 09/03/2021, 11/19/2020, 05/22/2020, Additional history exists Influenza Vaccine (#1) 2023 1, 09/23/2019, 10/15/2018, Additional history exists DTaP,Tdap,and Td Vaccines (2 - Td or Tdap) 12/29/2027 12/28/2017 Osteoporosis Screening Completed 02/26/2013, 2010 Zoster Standard Vaccine Completed 06/24/19 18, 04/24/2017, 04/24/2017 HIB Vaccines Aged Out No longer eligi ble based on patient's age to complete this topic Hepatitis A Vaccine Aged Out No longe r eligible based on patient's age to complete this topic Medical Devices Implanted Type Area Power Lineman Device Identifier Shelf Expiration Date Model / Serial / Lot Graft Alloderm 4cm X 12cm - [id number] Implanted:Qty: 1 on 04/28/2015 by Hector Goncalves MD at [facility] Right: Face NO FINGERER IN DICTIONARY 11/07/2015 [id number] / / [id number] Procedures Procedure Name Priority Date/Time Associated Diagnosis Comments COMPREHENSIVE METABOLIC PANEL Routine 03/19/2013 9:44 AM EST MANISH SCREENING BILATERAL Routine 02/26/2013 3:02 PM EST DXA BONE DENSITY SPINE AND HIP Routine 02/26/2013 2:52 PM EST from Last 3 Months or Most Recently Relevant to Health Maintenance Results * (ABNORMAL) Comprehensive metabolic panel (03/19/2013 9:44 AM EST) Sodium 140 135 - 145 mEq/L 03/19/2013 2:04 PM [facility] Potassium 4.8 3.3 - 5.2 mEq/L 03/19/2013 2:04 PM [facility] Chloride 102 96 - 107 mEq/L 03/19/2013 2:04 PM [facility] CO2 26 24 - 34 mEq/L 03/19/2013 2:04 PM [facility] Anion Gap 12 4 - 14 mEq/L 03/19/2013 2:04 PM [facility] Glucose 84 70 - 100 mg/dL 03/19/2013 2:04 PM [facility] Creatinine 0.7 0.5 - 1.3 mg/dL 03/19/2013 2:04 PM [facility] eGFR >60 60 - 115 ml/mil.7 03/19/2013 2:04 PM [facility] BUN 9 6 - 26 mg/dl 03/19/2013 2:04 PM [facility] Calcium 9.0 8.7 - 10.3 mg/dL 03/19/2013 2:04 PM [facility] Total Protein 6.7 6.4 - 8.6 g/dL 03/19/2013 2:04 PM EST [facility] Albumin 4.4 3.4 - 4.8 g/dL 03/19/2013 2:04 PM EST [facility] A/G Ratio 1.9 1.0 - 2.3 03/19/2013 2:04 PM EST [facility] Total Bilirubin 0.3 0.2 - 1.2 mg/dL 03/19/2013 2:04 PM EST [facility] AST 21 0 - 40 U/L 03/19/2013 2:04 PM EST [facility] Alkaline Phosphatase 77 40 - 150 IU/L 03/19/2013 2:04 PM EST [facility] ALT 14 0 - 45 U/L 03/19/2013 2:04 PM EST [facility] Cholesterol 220(H) 0 - 199 mg/dL 03/19/2013 2:04 PM EST [facility] Triglycerides 117 10 - 200 mg/dL 03/19/2013 2:04 PM EST [facility] HDL 85.5(H) 40 - 77 mg/dL 03/19/2013 2:04 PM [facility] LDL Calculated 111(H) 0 - 100 mg/dL 03/19/2013 2:04 PM [facility] Cardiac Risk Factor 2.6 0 - 4.4 AVG RISK 03/19/2013 2:04 PM EST [facility] 03/19/2013 9:44 AM EST Narrative [facility] - 03/19/2013 2:04 PM EST For patients, multiply the above result by 1.2 Josue Delaney DO LAB BLOOD ORDERABLES [facility] [address] [place], [place] * Mammography screening bilateral (02/26/2013 3:02 PM EST) Anatomical Region Laterality Modality Breast Bilateral Mammography 02/26/2013 3:02 PM EST Narrative 02/26/2013 3:02 PM EST REPORT DIGITAL MAMMOGRAM This examination was reviewed with the aid of the R2 Computer-Aided Detection. Follow-up mammogram shows no significant abnormalities. IMPRESSION: No radiographic evidence to suggest malignancy. The patient's information was entered into a reminder system with a target due date for the next mammogram. BI-RADS description: 1 - Negative. Report Signed By: Anatoly Hinds M.D. ?? 02/27/13 1615 Procedure Note Anatoly Hinds MD - 10/04/2013 REPORT DIGITAL MAMMOGRAM This examination was reviewed with the aid of the R2 Computer-AidedDetection. Follow-up mammogram shows no significant abnormalities. IMPRESSION: No radiographic evidence to suggest malignancy. The patient's information was entered into a reminder system with a targetdue date for the next mammogram. BI-RADS description: 1 - Negative. Report Signed By: Anatoly Hinds M.D. 02/27/13 [id number] Josue Delaney DO IMG MAMMOGRAPHY VERAE EMANI * DXA bone density spine and hip (02/26/2013 2:52 PM EST) Anatomical Region Laterality Modality Hip, Ortho Hip Radiographic Erica ging 02/26/2013 2:52 PM EST Narrative 02/26/2013 2:52 PM EST REPORT HISTORY: Postmenopausal; history of bilateral total hip arthroplasty Bone densitometry was performed on the [employer] Discovery C densitometer. FINDINGS: LUMBAR SPINE ? BMD ??0.859gm/cm2 ? T-Score ??-1.7 Comparison to study dated 08/21/2010. LUMBAR SPINE: ? Increased by 1.7% IMPRESSION: Osteopenia. World Health Organization criteria T-Score of less than -1.0 and greater than - 2.5. Moderate risk for fracture. Repeat bone densitometry scanning in two years is suggested. ??Conservative measures may prevent further BMD loss. ?? These include regular weight bearing exercise and adequate calcium and vitamin D dietary intake. ??After secondary causes are excluded in patients with multiple risk factors, appropriate additional intervention may be indicated. Report Signed By: Antwan Baker MD ?? 02/26/13 1501 Procedure Note Antwan Baker MD - 10/04/2013 REPORT HISTORY: Postmenopausal; history of bilateral total hip arthroplasty Bone densitometry was performed on the [employer] Discovery C densitometer. FINDINGS: LUMBAR SPINE BMD 0.859gm/gf9P-Rhndg -1.7 Comparison to study dated 08/21/2010. LUMBAR SPINE: Increased by1.7% IMPRESSION: Osteopenia. World Health Organization criteria T-Score of less than -1.0and greater than - 2.5. Moderate risk for fracture. Repeat bone densitometry scanning in two years is suggested. Conservativemeasures may prevent further BMD loss. These include regular weightbearing exercise and adequate calcium and vitamin D dietary intake. After secondary causes are excluded in patients withmultiple risk factors, appropriate additional intervention may beindicated. Report Signed By: Antwan Baker MD 02/26/13 1501 Josue Delaney DO IMG DXA ORDERABLES from Last 3 Months or Most Recently Relevant to Health Maintenance Care Teams Therapeutic Radiologist Relationship Specialty Start Date End Date Josue Delaney DO [address] [place] [address] PCP - General Family Medicine 11/01/14
--- OUTSIDE RECORDS SUMMARY | 2023-09-07 02:08 | XMS_ITS | Encounter Summary ---
Author Organization [employer] [facility] Address [address] [place] [address] Care Team Providers Care Slide Fastener Chain Assembler Name Role Phone Josue Delaney DO Primary Care Provider [phone] Reason for Referral * Surgical (Routine) - Closed Specialty Diagnoses / Procedures Referred By Randall t Referred To Contact Diagnoses Seroma Procedures Fine Needle Aspiration w/o Imaging Dixon Barboza PA-C [address] [place] [address] Referral ID Status Reason Start Date Expiration Date Visits Re quested Visits Authorized [id number] Closed 05/05/2015 11/01/2015 1 1 Reason for Visit * Reason Comments Post-op Encounter Details Date Type Department Care Team (Late st Contact Info) Description 05/05/2015 8:00 AM EDT Office Visit [facility] [address] [place] [id number] Dixon Barboza PA-C [address] [place] [id number] Parotid mass (Primary Dx); Seroma Social History Tobacco Use Types Packs/Day Years [...] Sign Reading Time Taken Comments Blood Pressure 159/105 05/05/2015 8:09 AM EDT Pulse 71 05/05/2015 8:09 AM EDT Temperature - - Respiratory Rate - - Oxygen Saturation - - Inhaled Oxygen Concentration - - Weight 68 kg (150 lb) 05/05/2015 8:09 AM EDT Height 160 cm (5' 3) 05/05/2015 8:09 AM EDT Body Mass Index 26.57 05/05/2015 8:09 AM EDT documented in this encounter Progress Notes * Hector Goncalves MD - 05/08/2015 4:23 PM EDT I have reviewed the notes, assessments, and/or procedures performed by the physician dietitian assistant, I concur with her/his documentation of Sonam Farias. * Dixon Barboza PA-C - 05/05/2015 9:23 AM EDT Procedures Needle aspiration of right cheek seroma The site was locally cleansed and anesthetized with 1% lidocaine with epinephrine. A 1 inch 18-gauge needle on a 20 mL syringe was used to aspirate right cheek seroma. A total of 35 mL was aspirated.Patient tolerated procedure without any immediate complications. * Dixon Barboza PA-C - 05/05/2015 9:20 AM EDT Subjective: Sonam Fairas is a 54 y.o. female who presents for postop. She presents today with right cheek swelling that has been increasing over the last few days. Pain is otherwise under control. Review of Systems Pertinent items are noted in HPI. Current outpatient prescriptions: ??? budesonide-formoterol (SYMBICORT) 160-4.5 MCG/ACT inhaler, Inhale 2 puffs 2 (two) times a day.,Disp: , Rfl: ??? citalopram (CELEXA) 40 MG tablet, Take 40 mg by mouth daily. Celexa , Disp: , Rfl: ??? cyanocobalamin (VITAMIN B-12) 100 MCG tablet, Take 100 mcg by mouth daily., Disp: , Rfl: ??? fluticasone (FLONASE) 50 MCG/ACT nasal spray, 2 sprays by Each Nostril route daily. FluticasonePropionate , Disp: , Rfl: ??? latanoprost (XALATAN) 0.005 % ophthalmic solution, Administer 1 drop to both eyes at bedtime., Disp: , Rfl: ??? omeprazole (PriLOSEC) 20 MG capsule, Take 20 mg by mouth daily., Disp: , Rfl: ??? oxyCODONE-acetaminophen (ROXICET) 5-325 MG per tablet, 1 or 2 tablets every 4 hours as needed for pain., Disp: 30 tablet, Rfl: 0 ??? simvastatin (ZOCOR) 20 MG tablet, Take 20 mg by mouth at bedtime., Disp: , Rfl: Allergies Allergen Reactions ??? Erythromycin Hives Objective: BP 159/105 mmHg Pulse 71 Ht 5' 3 (1.6 m) Wt 150 lb (68.04 kg) BMI 26.58 kg/m2 General: healthy Head and Face: Michael incision clean, dry, intact. Swelling and fluctuance of right cheek with fluidwave. There is some weakness of the right facial nerve External Ears: normal pinnae shape and position, no signs of inflammation Assessment: Postop seroma Status post right parotidectomy Right facial nerve weakness Plan: Patient underwent aspiration of right seroma. A total of 35 mL of serosanguineous fluid aspirated. Pathology reviewed with the patient. Patient to return on Tuesday. Encouraged to call with any questions or concerns in the interim. There is some weakness of right facial nerve. We'll follow. documented in this encounter Plan of Treatment Scheduled Orders Name Type Priority Associated Diagnoses Orde r Schedule Fine Needle Aspiration w/o Imaging Procedures Routine Seroma Ordered: 05/05/2015 documented as of this encounter Visit Diagnoses Diagnosis Parotid mass- Primary Swelling, mass, or lump in head and neck Seroma Seroma complicating a procedure documented in this encounter Care Teams Slide Fastener Chain Assembler Relationship Specialty Start Date End Date Josue Delaney DO [address] [place] [address] PCP - General Family Medicine 11/01/14 documented as of this encounter
--- OUTSIDE RECORDS SUMMARY | 2023-09-07 02:08 | XMS_ITS | Encounter Summary ---
Author Organization [facility] Address [address] [place] [address] Care Team Providers Care Applicator Sprayer Name Role Phone Josue Delaney DO Primary Care Provider [phone] Reason for Visit * Reason Onset Date Comments hearing aid check 10/13/2018 Encounter Details Date Type Department Care Team (Late st Contact Info) Description 10/13/2018 Documentation [facility] [address] [place] [address] Marley Bains AUD CCC-A [address] [place] [address] hearing aid check Social History Tobacco Use Types Packs/Day Years [...] Progress Notes * DENI Dixon CCC-A - 10/13/2018 9:07 AM EDT Patient was here for a routine hearing aid check. She was accompanied by her . She had a recent hearing test which revealed a slight decline AU. Patient reports that she is noticing she is nothearing as well as she hopes with her hearing aids. She reports that her retention wires fell off and she would like new ones placed on them. I cleaned and checked both hearing aids and both sounded good on the listening check. I replaced wax guards, domes and retention wires. I increased overall gain in both aids specific to her recent hearing changes. Patient will return in 6 months or prn. Hearing Aid Information Binaural Make: ??Phonak? Model(s): ??Pooja B-90 R Serial Number(s): ??[id number], [id number] Repair Warranty Expiration Date: ??10/19/2019 Loss/Damage Warranty Expiration Date: 10/19/2019 Earmold/Dome Size(s): ??Medium closed documented in this encounter Plan of Treatment Not on file documented as of this encounter Visit Diagnoses Not on filedocumented in this encounter Care Teams Applicator Sprayer Relationship Specialty Start Date End Date Josue Delaney DO [address] [place] [id number] PCP - General Family Medicine 11/01/14 documented as of this encounter
--- OUTSIDE RECORDS SUMMARY | 2023-09-07 02:08 | XMS_ITS | Encounter Summary ---
Author Organization [facility] Address [address] [place] [address] Care Team Providers Care Coating Inspector Name Role Phone Josue Delaney DO Primary Care Provider Encounter Details Date Type Department Care Team (Latest Contact Info) Description 05/22/2020 11:25 AM EDT Clinical Support [facility] [address] [place] [phone] Dom Coulter MD [address] [place] [address] Need for prophylactic vaccination against viral disease (Primary Dx) Social History Tobacco Use Types [...] as of this encounter Visit Diagnoses Diagnosis Need for prophylactic vaccination against viral disease- Primary Need for prophylactic vaccination and inoculation against other viral diseases documented in this encounter Care Teams Coating Inspector Relationship Specialty Start Date End Date Josue Delaney DO [address] [place], [place] [id number] PCP - General Family Medicine 11/01/14 documented as of this encounter
--- OUTSIDE RECORDS SUMMARY | 2023-09-07 02:08 | XMS_ITS | Encounter Summary ---
Author Organization [employer] [facility] Address [address] [place] [address] Care Team Providers Care Host/Hostess Restaurant Name Role Phone Josue Delaney DO Primary Care Provider Reason for Visit * Reason Comments Follow-up 1 yr f/u SNHL w/campbell o * Consultation (Routine/First Available) - Closed Specialty Diagnoses / Procedures Referred By Contac t Referred To Contact Otolaryngology Diagnoses SNHL (sensorineural hearing loss) Josue Delaney DO [address] [place] [address] Sheela Arthur, ADRIANO 299 [facility], [address] [place] [address] Referral ID Status Reason Start Date Expiration Date Visits Re quested Visits Authorized [id number] Closed 07/13/2017 07/13/2018 1 6 Encounter Details Date Type Department Care Team (Late st Contact Info) Description 07/22/2017 8:00 AM EDT Office Visit [facility] [address] [place] [address] Sheela Arthur, PILOT FUEL ENGINEER 299 [facility], [address] [place] [phone] Left asymmetrical SNHL (Primary Dx); Sensorineural hearing loss (SNHL) of both ears; Pleomorphic adenoma of parotid gland; H/O superficial parotidectomy Social History Tobacco Use Types Packs/Day Years [...] Sign Reading Time Taken Comments Blood Pressure 135/92 07/22/2017 8:06 AM EDT Pulse 77 07/22/2017 8:06 AM EDT Temperature - - Respiratory Rate - - Oxygen Saturation 97% 07/22/2017 8:06 AM EDT Inhaled Oxygen Concentration - - Weight 68.5 kg (151 lb) 07/22/2017 8:06 AM EDT Height 160 cm (5' 3) 07/22/2017 8:06 AM EDT Body Mass Index 26.75 07/22/2017 8:06 AM EDT documented in this encounter Progress Notes * Sheela Arthur, PILOT FUEL ENGINEER - 07/22/2017 8:00 AM EDT Images from the original note were not included. Assessment: 1. Left asymmetrical SNHL 2. Sensorineural hearing loss (SNHL) of both ears 3. Pleomorphic adenoma of parotid gland 4. H/O superficial parotidectomy Plan: 57 y.o. female here today for annual evaluation of her ears and hearing. 1) Left ASNHL: Known left asymmetric sensorineural hearing loss, largely stable at today's visit. MRI/IAC from 2009 was negative for any retrocochlear pathology. There is been a slight decrease in the right ear and a lower frequencies, patient would likely benefit from hearing aid adjustment and she will schedule this. Otherwise plan for follow-up in 1 year with audiogram 2) S/P Right Superficial Parotidectomy: April 2015, pathology consistent with pleomorphic adenoma. Patient occasionally experiences swelling when chewing, which has improved over time. Recommend increased hydration, sialagogues, and massage. If this symptom worsens, she will contact the office. Otherwise plan for follow-up in 1 year. Follow-up: Return in about 1 year (around 07/22/2018) for With Audio. History of Present Illness: 57 y.o. female here today for annual evaluation of ears and hearing. She has a known left asymmetric sensorineural hearing loss. MRI/IAC protocol from 2009 was negativefor any retrocochlear pathology. She wears bilateral hearing aids which she finds helpful. No otalgia, otorrhea, tinnitus. She believes she has had this hearing loss since she was a teenager. She does have a history of loud noise exposure to music. She is also s/p right superficial parotidectomy on 04/23/[address] Goncalves, pathology consistent with pleomorphic adenoma. She occasionally will notice a small lump form on her right cheek if she hasto chew something a lot. This is often accompanied by salty taste in her mouth. It does not happen very often. She otherwise has been doing well. Review of systems, past medical history, social history, family history, allergies and medications have been reviewed and there are no changes except as noted. Past Medical History: Past Medical History: Diagnosis Date ??? Anxiety ??? Asthma Controlled with symbicort. Pt states has Proair prn. ??? Cataract removal of cataract to bilateral eyes. ??? Depression DeniesTherapist ??? Dizziness ??? Dizziness ??? Former smoker ??? GERD (gastroesophageal reflux disease) on medication ??? 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 HL (hearing loss) to bilateral ears, no hearing aides at present time. ??? Hypercholesterolemia ??? Hyperlipidemia ??? Migraine ??? Osteoarthritis osteoarthritis ??? Parotid mass right side~ reason for admit ??? 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 ??? Postmenopausal ??? Sinusitis ??? Sleep apnea Pt does not use CPAP machine. ??? Vertigo ??? Wears glasses Past Surgical History: Past Surgical History: Procedure Laterality Date ??? COLONOSCOPY ??? DILATION AND CURETTAGE OF UTERUS ??? EYE SURGERY removal of cataract to bilateral eyes ??? HIP SURGERY Bilateral ??? JOINT REPLACEMENT Bilateral total hip replacement ??? KNEE SURGERY Right ??? SHOULDER SURGERY Right ??? SINUS SURGERY ??? SUPERFICIAL PAROTIDECTOMY Right 04/28/2015 Procedure: SUPERFICIAL PAROTIDECTOMY WITH ALLODERM PLACEMENT AND NIM FACIAL MONITORING; Surgeon: Hector Goncalves MD; Location: [facility] OR; Service: ??? WISDOM TOOTH EXTRACTION Family History: Family History Problem Relation Age of Onset ??? Heart failure Mother ??? Hypertension Mother ??? Asthma Mother ??? Hyperlipidemia Mother ??? Osteoarthritis Mother ??? Migraines Mother ??? Hypertension Father ??? Hyperlipidemia Father ??? Stroke Father ??? Hypertension Sister ??? Asthma Sister ??? Hypertension Brother ??? Asthma Brother ??? Cancer Maternal Grandfather ??? Cancer Paternal Grandmother ??? Cancer Paternal Grandfather ??? Diabetes Neg Hx ??? Rheum arthritis Neg Hx ??? Thyroid disease Neg Hx ??? Seizures Neg Hx ??? Rashes / Skin problems Neg Hx Social History: Social History Social History ??? Marital status: Spouse name: N/A ??? Number of children: N/A ??? Years of education: N/A Occupational History ??? Not on file. Social History Main Topics ??? Smoking status: Former Smoker Packs/day: 0.50 Years: 20.00 Quit date: 04/17/2015 ??? Smokeless tobacco: Never Used ??? Alcohol use 0.0 oz/week Comment: socially ??? Drug use: No ??? Sexual activity: Yes Partners: Male Comment: not discussed Other Topics Concern ??? Not on file Social History Narrative ??? No narrative on file Allergies: Allergies Allergen Reactions ??? Pineapple - Food Allergy GI Intolerance ITCHY THROAT-CONSTRICTED AIRWAY ??? Erythromycin Hives ??? Other Environmental Allergies, Misc; Cats Current Medications: Current Outpatient Prescriptions Medication Sig Dispense Refill ??? albuterol sulfate (PROAIR HFA) 108 (90 Base) MCG/ACT inhalation aerosol USE 2 INHALATIONS EVERY4 HOURS NEEDED 6 ??? budesonide-formoterol (SYMBICORT) 160-4.5 MCG/ACT inhaler Inhale 2 puffs 2 (two) times a day. ??? citalopram (CELEXA) 40 MG tablet Take 40 mg by mouth daily. Celexa ??? fluticasone (FLONASE) 50 MCG/ACT nasal spray 2 sprays by Each Nostril route daily. Fluticasone Propionate ??? ipratropium-albuterol (DUO-NEB) 0.5-2.5 mg/mL nebulizer ??? latanoprost (XALATAN) 0.005 % ophthalmic solution Administer 1 drop to both eyes at bedtime. ??? omeprazole (PriLOSEC) 20 MG capsule Take 20 mg by mouth daily. ??? SHINGRIX 50 MCG injection ??? simvastatin (ZOCOR) 40 MG tablet TAKE ONE TABLET BY MOUTH AT BEDTIME 6 No current facility-administered medications for this visit. Review of Systems: Pertinent items noted in HPI. PHYSICAL EXAMINATION Vital Signs: BP 135/92 (BP Location: Right arm, Patient Position: Sitting) Pulse 77 Ht 5' 3 (1.6 m) Wt 151 lb (68.5 kg) SpO2 97% BMI 26.75 kg/m?? General: Well-appearing, alert, in no acute distress. Head and Face: Facial movement symmetric. External Ears: Normal pinnae shape and position Ears: Right EAC: clear Right Tympanic Membrane: intact, clear. Left EAC: clear Left Tympanic Membrane: intact, clear. Nose: No external nasal deformity. Nares normal. Mucosa normal. Oropharynx/Oral Cavity: Oral mucosa with normal color and moisture. Posterior pharynx is normal in appearance. Neck: No palpable masses or enlarged cervical lymph nodes. Normal range of motion. Well-healed parotidectomy scar on the right. Audiogram: The patient expressed understanding and agreement with the plan. Thank you for the opportunity to participate in the care of this patient.?? This note was created with the aid of voice recognition software. Inaccuracies in machine attendant mayhave occurred. documented in this encounter Plan of Treatment Not on file documented as of this encounter Procedures Procedure Name Priority Date/Time Associated Diagnosis Comments AMB REFERRAL TO ENT First Available/Routine 07/22/2017 9:01 AM EDT SNHL (sensorineural hearing loss) documented in this encounter Results * Transcribe/Incoming Outpatient referral to ENT (07/22/2017 9:01 AM EDT) Josue Delaney DO OUTPATIENT REFERRAL ORDERABLES documented in this encounter Visit Diagnoses Diagnosis Left asymmetrical SNHL- Primary Sensorineural hearing loss, asymmetrical Sensorineural hearing loss (SNHL) of both ears Pleomorphic adenoma of parotid gland H/O superficial parotidectomy documented in this encounter Care Teams Host/Hostess Restaurant Relationship Specialty Start Date End Date Josue Delaney DO [address] [place] [phone] PCP - General Family Medicine 11/01/14 documented as of this encounter
--- OUTSIDE RECORDS SUMMARY | 2023-09-07 02:08 | XMS_ITS | Encounter Summary ---
Author Organization [facility] Address [address] [place] [address] Care Team Providers Care Director Of Search Engine Optimization Name Role Phone Josue Delaney DO Primary Care Provider [phone] Reason for Visit * Reason Onset Date Comments hearing aid replacement 01/21/2021 Encounter Details Date Type Department Care Team (Late st Contact Info) Description 01/21/2021 Documentation [facility] [address] [place] [address] Marley Bains AUD CCC-A [address] [place] [address] hearing aid replacement Social History Tobacco Use Types Packs/Day Years [...] Progress Notes * DENI Randle CCC-A - 01/21/2021 10:14 AM EST Patient's left replacement hearing aid arrived at our office today. It was programmed to her previous settings. Patient made a payment of $2800 via credit card to [employer]. A purchase agreement and her hearing aid has been left at the front loader residential driver. Hearing Aid Information Binaural?? Make: ??Phonak? Model(s): ??Pooja [place]-90 R Serial Number(s): ??[id number], [id number] Repair Warranty Expiration Date: ??RIGHT: , LEFT: 04-06-24 Loss/Damage Warranty Expiration Date: RIGHT: , LEFT: 04-06-24 Earmold/Dome Size(s): ??Medium closed documented in this encounter Plan of Treatment Not on file documented as of this encounter Visit Diagnoses Not on filedocumented in this encounter Care Teams Director Of Search Engine Optimization Relationship Specialty Start Date End Date Josue Delaney DO [address] [place] [address] PCP - General Family Medicine 11/01/14 documented as of this encounter
--- OUTSIDE RECORDS SUMMARY | 2023-09-07 02:08 | XMS_ITS | Encounter Summary ---
[facility] Address [address] [place] [address] Care Team Providers Care Gerontological Nurse Practitioner Name Role Phone Josue Delaney DO Primary Care Provider [phone] Reason for Visit * Reason Comments Follow-up audio * Consultation (Routine/First Available) - Closed Specialty Diagnoses / Procedures Referred By Contfrieda t Referred To Contact Otolaryngology Diagnoses Hearing loss Josue Delaney DO [address] [place] [address] Hector Goncalves MD [address] [id number] Referral ID Status Reason Start Date Expiration Date Visits Re quested Visits Authorized [id number] Closed 08/07/2018 08/08/2019 1 12 Encounter Details Date Type Department Care Team (Late st Contact Info) Description 10/06/2018 2:30 PM EDT Office Visit [facility] [address] [place] [address] Josue Delaney DO [address] [place] [address] Sheela Arthur NP [address] [facility], [address] [place] [phone] Sensorineural hearing loss, bilateral (Primary Dx); Asymmetrical hearing loss of left ear; Pleomorphic adenoma of parotid gland Social History Tobacco Use Types Packs/Day Years [...] Sign Reading Time Taken Comments Blood Pressure 126/78 10/06/2018 2:39 PM EDT Pulse - - Temperature - - Respiratory Rate - - Oxygen Saturation - - Inhaled Oxygen Concentration - - Weight 68.5 kg (151 lb) 10/06/2018 2:39 PM EDT Height 160 cm (5' 3) 10/06/2018 2:39 PM EDT Body Mass Index 26.75 10/06/2018 2:39 PM EDT documented in this encounter Progress Notes * Sheela Arthur, LEATHER PRODUCTION WORKER - 10/06/2018 2:30 PM EDT Images from the original note were not included. Assessment: 1. Sensorineural hearing loss, bilateral 2. Asymmetrical hearing loss of left ear 3. Pleomorphic adenoma of parotid gland Plan: 58 y.o. female here today for annual evaluation of her ears and hearing. 1) Left ASNHL: Known left asymmetric sensorineural hearing loss, largely stable at today's visit, with a slight decrease in the right ear in the upper frequencies. MRI/IAC from 2009 was negative for any retrocochlear pathology. She plans on coming in for hearing aid adjustment in the near future with Marley. Follow-up in 1 year with repeat audiogram. 2) S/P Right Superficial Parotidectomy: April 2015, pathology consistent with pleomorphic adenoma. No intervention needed. Follow-up: Return in about 1 year (around 10/07/2019) for With Audio. History of Present Illness: 58 y.o. female here today for annual evaluation of ears and hearing. She has a known left asymmetric sensorineural hearing loss. MRI/IAC protocol from 2009 was negativefor any retrocochlear pathology. She wears bilateral hearing aids which she finds helpful. She believes she has had this hearing loss since she was a teenager. She does have a history of loud noise exposure to music. Today she denies symptoms referable to her ears. She is also s/p right superficial parotidectomy on 04/23/[address] Goncalves, pathology consistent with pleomorphic adenoma. Over time she has been getting the feeling back in her right ear lobe. She has been doing well. Review of systems, [...] FACIAL MONITORING; Surgeon: Hector Goncalves MD; Location: [facility] OR; Service: ??? WISDOM TOOTH EXTRACTION Family [...] problems Neg Hx Social History: Social History Socioeconomic History ??? Marital status: Spouse name: Not on file ??? Number of children: Not on file ??? Years of education: Not on file ??? Highest education level: Not on file Occupational History ??? Not on file Tobacco Use ??? Smoking status: Former Smoker Packs/day: 0.50 Years: 20.00 Pack years: 10.00 Last attempt to quit: 04/17/2015 Years since quittin.4 ??? Smokeless tobacco: Never Used Substance and Sexual Activity ??? Alcohol use: Yes Alcohol/week: 0.0 oz Comment: socially ??? Drug use: No ??? Sexual activity: Yes Partners: Male Comment: not discussed Other Topics Concern ??? Not on file Social History Narrative ??? Not on file Allergies: Allergies Allergen Reactions ??? Erythromycin Hives ??? Other Environmental Allergies, Misc; Cats Current Medications: Current Outpatient Medications Medication Sig Dispense Refill ??? albuterol sulfate (PROAIR HFA) 108 (90 Base) MCG/ACT inhalation aerosol USE 2 INHALATIONS EVERY4 HOURS NEEDED 6 ??? budesonide-formoterol (SYMBICORT) 160-4.5 MCG/ACT inhaler Inhale 2 puffs 2 (two) times a day. ??? busPIRone (BUSPAR) 10 MG tablet ??? citalopram (CeleXA) 10 MG tablet ??? fluticasone (FLONASE) 50 MCG/ACT nasal spray 2 sprays by Each Nostril route daily. Fluticasone Propionate ??? ipratropium-albuterol (DUO-NEB) 0.5-2.5 mg/mL nebulizer ??? lamoTRIgine (LaMICtal) 100 MG tablet ??? latanoprost (XALATAN) 0.005 % ophthalmic solution Administer 1 drop to both eyes at bedtime. ??? omeprazole (PriLOSEC) 20 MG capsule Take 20 mg by mouth daily. ??? PREVIDENT 5000 ENAMEL PROTECT 1.1-5 % dental paste ??? SHINGRIX 50 MCG injection ??? simvastatin (ZOCOR) 40 MG tablet TAKE ONE TABLET BY MOUTH AT BEDTIME 6 ??? SUMAtriptan (IMITREX) 100 MG tablet No current facility-administered medications for this visit. Review of Systems: Pertinent items noted in HPI. PHYSICAL EXAMINATION Vital Signs: BP 126/78 Ht 5' 3 (1.6 m) Wt 151 lb (68.5 kg) BMI 26.75 kg/m?? General: Well-appearing, alert, in [...] aid of voice recognition software. Inaccuracies in molecular physicist mayhave occurred. * Hector Goncalves MD - 10/06/2018 2:30 PM EDT I have reviewed the notes, assessments, and/or procedures performed by the LEATHER PRODUCTION WORKER/physician assistant laboratory director, I concur with her/his documentation of Sonam Farias. documented in this encounter Plan of Treatment Not on file documented as of this encounter Procedures Procedure Name Priority Date/Time Associated Diagnosis Comments AMB REFERRAL TO ENT First Available/Routine 10/06/2018 4:01 PM EDT Hearing loss documented in this encounter Visit Diagnoses Diagnosis Sensorineural hearing loss, bilateral- Primary Asymmetrical hearing loss of left ear Pleomorphic adenoma of parotid gland documented in this encounter Care Teams Gerontological Nurse Practitioner Relationship Specialty Start Date End Date Josue Delaney DO [address] [place] [phone] PCP - General Family Medicine 11/01/14 documented as of this encounter
--- OUTSIDE RECORDS SUMMARY | 2023-09-07 02:08 | XMS_ITS | Encounter Summary ---
Author Organization [facility][Note 3] Address [address] [place] [address] Care Team Providers Care Furnace Installer Name Role Phone Josue Delaney DO Primary Care Provider [phone] Encounter Details Date Type Department Care Team (Latest Contact Info) Description 09/03/2021 5:00 PM EDT Clinical Support [address] [phone] Need for prophylactic vaccination against viral disease [...] diseases documented in this encounter Care Teams Furnace Installer Relationship Specialty Start Date End Date Josue Delaney DO [address] [place] [address] PCP - General Family Medicine 11/01/14 documented as of this encounter
--- OUTSIDE RECORDS SUMMARY | 2023-09-07 02:08 | XMS_ITS | Encounter Summary ---
Author Organization [facility] Address [address] [place] [address] Care Team Providers Care Assembler Insulator Name Role Phone Josue Delaney DO Primary Care Provider Reason for Referral * Audiology (Routine) - Closed Specialty Diagnoses / Procedures Referred By Contfrieda t Referred To Contact Audiology Diagnoses Sensorineural hearing loss, bilateral Asymmetrical hearing loss of left ear Procedures Comprehensive hearing test Sheela Arthur NP 299 [facility], [address] [place] [phone] Referral ID Status Reason Start Date Expiration Date Visits Re quested Visits Authorized [id number] Closed 07/22/2017 01/18/2018 1 1 Reason for Visit * Consultation (Routine/First Available) - Closed Specialty Diagnoses / Procedures Referred By Contfrieda t Referred To Contact Otolaryngology Diagnoses SNHL (sensorineural hearing loss) Josue Delaney DO [address] [facility] [place] [address] Sheela Arthur NP 299 [facility], [address] [place] [phone] Referral ID Status Reason Start Date Expiration Date Visits Re quested Visits Authorized [id number] Closed 07/13/2017 07/13/2018 1 6 Encounter Details Date Type Department Care Team (Latest Contact Info) Description 07/22/2017 8:30 AM EDT Clinical Support [facility] [address] [place] [address] Haley Corona AUD CCC-A [address] [place] [address] Sensorineural hearing loss, bilateral (Primary Dx); Asymmetrical hearing loss of left ear Social History Tobacco Use [...] of this encounter Progress Notes * DENI GaliciaA - 07/22/2017 8:30 AM EDT Sonam Gm Farias was seen today for an audiological evaluation. Test results and recommendations were discussed with the patient, who expressed her understanding. Please see audiogram in media tab. documented in this encounter Plan of Treatment Scheduled Orders Name Type Priority Associated Diagnoses Orde r Schedule Comprehensive hearing test Audiology Routine Sensorineural hearing loss, bilateral Asymmetrical hearing loss of left ear Ordered: 07/22/2017 documented as of this encounter Visit Diagnoses Diagnosis Sensorineural hearing loss, bilateral- Primary Asymmetrical hearing loss of left ear documented in this encounter Care Teams Assembler Insulator Relationship Specialty Start Date End Date Josue Delaney DO [address] [place] [address] PCP - General Family Medicine 11/01/14 documented as of this encounter
--- OUTSIDE RECORDS SUMMARY | 2023-09-07 02:08 | XMS_ITS | Encounter Summary ---
Author Organization [employer] [facility] Address [address] [place] [address] Care Team Providers Care Rotor Casting Machine Setup Operator Name Role Phone Josue Delaney DO Primary Care Provider [phone] Encounter Details Date Type Department Care Team (Late st Contact Info) Description 11/01/2018 Telephone [facility] [address] [place] [address] Sheela Arthur, RESPIRATORY ASSISTANT 299 [facility], [address] [place] [address] Social History Tobacco Use Types Packs/Day Years [...] Telephone Encounter - Donita Alford MA - 11/01/2018 4:56 PM EDT Spoke with patient, she will hold off on seeing anyone now. If dizziness persists, she will call for appointment. * Telephone Encounter - Sheela Arthur NP - 11/01/2018 4:18 PM EDT Roderick Monroesy, I see that she used to see Dr. Capone for vestibular migraines some years ago. Unfortunately Dr. Capone has retired and she was the only provider here that really treated migraines. As with all migraines, different people can be triggered by different things. I do not know of dental implants being spe cifically triggering. Certainly her dizziness could have another cause as well. We could make an appointment here to evaluate her dizziness. Alternatively she could discuss her history of vestibular migraines with her PCP, typically we have been referring to neurology for further treatment of this condition. * Telephone Encounter - Donita Alford MA - 11/01/2018 3:41 PM EDT Sheela, please review and advise. Thank you! * Telephone Encounter - Patty Krishnan - 11/01/2018 3:26 PM EDT Pt states she was Dx with vestibular migraines in the past. Pt had Sx for dental implants approximately 1 wk ago. She has been having dizziness since sx and is wondering if the implants may be triggering the the vestibular migraines. She would like a call back to discuss. Please review and call pt back to advise. TY documented in this encounter Plan of Treatment Not on file documented as of this encounter Visit Diagnoses Not on filedocumented in this encounter Care Teams Rotor Casting Machine Setup Operator Relationship Specialty Start Date End Date Josue Delaney DO [address] [place] [phone] PCP - General Family Medicine 11/01/14 documented as of this encounter
--- OUTSIDE RECORDS SUMMARY | 2023-09-07 02:08 | XMS_ITS | Encounter Summary ---
Author Organization [facility] Address [address] [place] [address] Care Team Providers Care Tube Heater Name Role Phone Josue Delaney DO Primary Care Provider [phone] Reason for Visit * Reason Onset Date Comments DAVIS repair 09/11/2019 Encounter Details Date Type Department Care Team (Late st Contact Info) Description 09/11/2019 Documentation [facility] [address] [place] [address] Haley Corona, AUD CCC-A [address] [place] [address] DAVIS repair Social History Tobacco Use Types Packs/Day Years [...] Progress Notes * DENI Randle CCC-A - 09/21/2019 9:32 AM EDT Patient's right hearing aid arrived in our office from repair. I called patient to let her know that the hearing aid will be left with our check in person downstairs. She will pick it up this afternoon. Hearing Aid Information Bilateral Make: ??Phonak? Model(s): ??Audeo B-90 R Serial Number(s): ??[id number], [id number] Repair Warranty Expiration Date: ??10/19/2019 Loss/Damage Warranty Expiration Date: 10/19/2019 Earmold/Dome Size(s): ??Medium closed * DENI Galicia - 09/11/2019 11:44 AM EDT Pt wishes to send her R Phonak Audeo B -90 LI rechargeable DAVIS in for an end of warranty check and for a new rech battery. Pt d/o the aid this morning and I will send it to Phonak today. SN: [id number]. Call pt when it returns at [phone]. Pt is a DAVIS pt of [facility]. She will be updated as to what is going on. Hearing Aid Information Bilateral Make: ??Phonak? Model(s): ??Audeo B-90 R Serial Number(s): ??[id number], [id number] Repair Warranty Expiration Date: ??10/19/2019 Loss/Damage Warranty Expiration Date: 10/19/2019 Earmold/Dome Size(s): ??Medium closed documented in this encounter Plan of Treatment Not on file documented as of this encounter Visit Diagnoses Not on filedocumented in this encounter Care Teams Tube Heater Relationship Specialty Start Date End Date Josue Delaney DO [address] [place] [address] [phone] PCP - General Family Medicine 11/01/14 documented as of this encounter
--- OUTSIDE RECORDS SUMMARY | 2023-09-07 02:08 | XMS_ITS | Encounter Summary ---
Author Organization [facility] Address [address] [place] [address] Care Team Providers Care Pension Fund Manager Name Role Phone Josue Delaney DO Primary Care Provider [phone] Encounter Details Date Type Department Care Team (Late st Contact Info) Description 12/22/2016 Telephone [facility] [address] [place] [address] Sheela Arthur, HIGH PRESSURE OPERATOR [address] [facility], [address] [place] [address] Social History Tobacco Use Types Packs/Day Years [...] on filedocumented in this encounter Care Teams Pension Fund Manager Relationship Specialty Start Date End Date Josue Delaney DO [address] [place] [address] PCP - General Family Medicine 11/01/14 documented as of this encounter
--- OUTSIDE RECORDS SUMMARY | 2023-09-07 02:08 | XMS_ITS | Encounter Summary ---
Author Organization [employer] [facility] Address [address] [place] [address] Care Team Providers Care Food Safety Auditor Name Role Phone Josue Delaney DO Primary Care Provider [phone] Reason for Referral * Surgical (Routine) - Closed Specialty Diagnoses / Procedures Referred By Contfrieda t Referred To Contact Diagnoses Seroma Procedures Fine Needle Aspiration w/o Imaging Dixon Barboza PA-C [address] [place] [phone] Referral ID Status Reason Start Date Expiration Date Visits Re quested Visits Authorized [id number] Closed 05/22/2015 11/18/2015 1 1 Reason for Visit * Reason Comments Post-op Follow-up Encounter Details Date Type Department Care Team (Late st Contact Info) Description 05/14/2015 4:20 PM EDT Office Visit [facility] [address] [place] [phone] Dixon Barboza PA-C [address] [place] [address] [phone] Seroma (Primary Dx) Social History Tobacco Use [...] Sign Reading Time Taken Comments Blood Pressure 134/81 05/14/2015 4:24 PM EDT Pulse 59 05/14/2015 4:24 PM EDT Temperature - - Respiratory Rate - - Oxygen Saturation - - Inhaled Oxygen Concentration - - Weight 67.6 kg (149 lb) 05/14/2015 4:24 PM EDT Height 160 cm (5' 3) 05/14/2015 4:24 PM EDT Body Mass Index 26.39 05/14/2015 4:24 PM EDT documented in this encounter Progress Notes * Hector Goncalves MD - 06/05/2015 10:47 PM EDT I have reviewed the notes, assessments, and/or procedures performed by the physician student assistant, I concur with her/his documentation of Sonam Farias. * Dixon Barboza PA-C - 05/22/2015 10:15 AM EDT Subjective: Sonam Farias is a 54 y.o. female who presents for follow up and repeat aspiration. Review of Systems Pertinent items are noted [...] by mouth daily., Disp: , Rfl: ??? simvastatin (ZOCOR) 20 MG tablet, Take 20 mg by mouth at bedtime., Disp: , Rfl: Allergies Allergen Reactions ??? Erythromycin Hives Objective: BP 134/81 mmHg Pulse 59 Ht 5' 3 (1.6 m) Wt 149 lb (67.586 kg) BMI 26.40 kg/m2 General: healthy Head and Face: right cheek swelling Procedures Needle aspiration of right cheek seroma The site was locally cleansed and anesthetized with 1% lidocaine with epinephrine. A 1 inch 18-gauge needle on a 20 mL syringe was used to aspirate right cheek seroma. A total of 7 mL aspirated. Patient tolerated procedure without any immediate complications. Assessment: Postop seroma Plan: Aspirated without complication. Site is making progress. Will keep her follow-up as scheduled for acouple weeks unless she develops swelling of the site again in the interim. documented in this encounter Plan of Treatment Scheduled Orders Name Type Priority Associated Diagnoses Orde r Schedule Fine Needle Aspiration w/o Imaging Procedures Routine Seroma Ordered: 05/22/2015 documented as of this encounter Visit Diagnoses Diagnosis Seroma- Primary Seroma complicating a procedure documented in this encounter Care Teams Food Safety Auditor Relationship Specialty Start Date End Date Josue Delaney DO [address] [place] [id number] PCP - General Family Medicine 11/01/14 documented as of this encounter
--- OUTSIDE RECORDS SUMMARY | 2023-09-07 02:08 | XMS_ITS | Encounter Summary ---
Author Organization [email or web address] Address [address] [place] [address] Care Team Providers Care Superintendent Generating Plant Name Role Phone Josue Delaney DO Primary Care Provider Reason for Referral * Consultation (Routine/First Available) - Closed Specialty Diagnoses / Procedures Referred By Randall t Referred To Contact Otolaryngology Diagnoses Hearing loss Josue Delaney DO [address] [place] [address] Hector Goncalves MD 299 [facility] [address] [place] [address] Referral ID Status Reason Start Date Expiration Date Visits Re quested Visits Authorized [id number] Closed 08/07/2018 08/08/2019 1 12 Encounter Details Date Type Department Care Team (Late st Contact Info) Description 08/07/[address] [facility] [address] [place] [address] Josue Delaney DO [address] [place] [address] Hearing loss Social History Tobacco Use Types [...] Results * Transcribe/Incoming Outpatient referral to ENT (10/06/2018 4:01 PM EDT) Josue Delaney DO OUTPATIENT REFERRAL ORDERABLES documented in this encounter Visit Diagnoses Diagnosis Hearing loss Unspecified hearing loss documented in this encounter Care Teams Superintendent Generating Plant Relationship Specialty Start Date End Date Josue Delaney DO [address] [place] [address] PCP - General Family Medicine 11/01/14 documented as of this encounter
--- OUTSIDE RECORDS SUMMARY | 2023-09-07 02:08 | XMS_ITS | Encounter Summary ---
Author Organization [facility] Address [address] [place] [address] Care Team Providers Care Rehabilitation Coordinator Name Role Phone Josue Delaney DO Primary Care Provider [phone] Reason for Visit * Reason Comments Post-op Encounter Details Date Type Department Care Team (Late st Contact Info) Description 05/06/2015 4:40 PM EDT Office Visit [facility] [address] [place] [address] Dixon Barboza PA-C [address] [facility] [address] [place] [address] Parotid mass (Primary Dx); Seroma Social History [...] Sign Reading Time Taken Comments Blood Pressure 126/88 05/06/2015 4:31 PM EDT Pulse 71 05/06/2015 4:31 PM EDT Temperature - - Respiratory Rate - - Oxygen Saturation - - Inhaled Oxygen Concentration - - Weight 68.9 kg (152 lb) 05/06/2015 4:31 PM EDT Height 160 cm (5' 3) 05/06/2015 4:31 PM EDT Body Mass Index 26.93 05/06/2015 4:31 PM EDT documented in this encounter Progress Notes * Hector Goncalves MD - 05/08/2015 4:04 PM EDT I have reviewed the notes, assessments, and/or procedures performed by the physician clinical trial assistant, I concur with her/his documentation of Sonam Farias. * Dixon Barboza PA-C - 05/08/2015 7:56 AM EDT Subjective: Sonam Farias is a 54 y.o. female who presents for fit in. The right cheek has started to swell again. Review of Systems Pertinent items are noted [...] Allergen Reactions ??? Erythromycin Hives Objective: BP 126/88 mmHg Pulse 71 Ht 5' 3 (1.6 m) Wt 152 lb (68.947 kg) BMI 26.93 kg/m2 General: healthy Head and Face: right cheek with swelling and fluctuance Assessment: Seroma Plan: Patient underwent needle aspiration and application of compression dressing. Return on either Tuesday or of this week depending on if the site starts to swell again and how quickly it started to swell. * Dixon Barboza PA-C - 05/08/2015 7:56 AM EDT Procedures Needle aspiration of right cheek seroma The site was locally cleansed and anesthetized with 1% lidocaine with epinephrine. A 1 inch 18-gauge needle on a 20 mL syringe was used to aspirate right cheek seroma. A total of 35 mL was aspirated.Patient tolerated procedure without any immediate complications. documented in this encounter Plan of Treatment Not on file documented as of this encounter Visit Diagnoses Diagnosis Parotid mass- Primary Swelling, mass, or lump in head and neck Seroma Seroma complicating a procedure documented in this encounter Care Teams Rehabilitation Coordinator Relationship Specialty Start Date End Date Josue Delaney DO [address] [place] [id number] PCP - General Family Medicine 11/01/14 documented as of this encounter
--- OUTSIDE RECORDS SUMMARY | 2023-09-07 02:08 | XMS_ITS | Encounter Summary ---
Author Organization [employer] [facility] Address [address] [place] [address] Care Team Providers Care Procurement Professional Logistics Name Role Phone Josue Delaney DO Primary Care Provider Reason for Visit * Reason Comments Follow-up audio and hearing ai d appt with Marley * Consultation (Routine/First Available) - Closed Specialty Diagnoses / Procedures Referred By Contfrieda t Referred To Contact Otolaryngology Diagnoses Hearing loss Josue Delaney DO [address] [place] [address] Hector Goncalves MD [address] [facility] 2nd [place] [address] Referral ID Status Reason Start Date Expiration Date Visits Re quested Visits Authorized [id number] Closed 05/31/2019 05/30/2020 6 6 Encounter Details Date Type Department Care Team (Late st Contact Info) Description 12/07/2019 3:00 PM EDT Office Visit [facility] [address] [place] [address] Marie Shahid PA-C [address] [place] [address] Pleomorphic adenoma of parotid gland (Primary Dx); Left asymmetrical SNHL; Tinnitus Social History Tobacco Use Types Packs/Day Years [...] Sign Reading Time Taken Comments Blood Pressure 136/78 12/07/2019 2:56 PM EDT Pulse - - Temperature - - Respiratory Rate - - Oxygen Saturation - - Inhaled Oxygen Concentration - - Weight 68.9 kg (152 lb) 12/07/2019 2:56 PM EDT Height 158.8 cm (5' 2.5) 12/07/2019 2:56 PM EDT Body Mass Index 27.36 12/07/2019 2:56 PM EDT documented in this encounter Progress Notes * Marie Shahid PA-C - 12/07/2019 3:00 PM EDT Assessment: 1. Pleomorphic adenoma of parotid gland 2. Left asymmetrical SNHL 3. Tinnitus Plan: Patient with nown left asymmetric sensorineural hearing loss, mostly stable at today's visit, with a slight decrease in the right ear. HAC performed today. Follow-up in 1 year with repeat audiogram. ?? S/P Right Superficial Parotidectomy April 2015, pathology consistent with pleomorphic adenoma. No intervention needed. Subjective: Sonam Farias is a 59 y.o. female who presents for follow up evaluation of hearing loss. She hasa known left asymmetric sensorineural hearing loss. MRI/IAC protocol from 2009 was negative for anyretrocochlear pathology. She wears bilateral hearing aids which she finds helpful. She thinks her hearing is stable. She denies otalgia and otorrhea. She is aware of tinnitus when her hearing aids are out. Review of Systems Pertinent items are noted in HPI, all other systems negative or non-contributory. Past Medical History: Past Medical History: Diagnosis [...] FACIAL MONITORING; Surgeon: Hector Goncalves MD; Location: [facility] OR; Service: ??? WISDOM TOOTH EXTRACTION Family [...] Last attempt to quit: 04/17/2015 Years since quittin.6 ??? Smokeless tobacco: Never Used Substance and Sexual Activity ??? Alcohol use: Yes Alcohol/week: 0.0 standard drinks Comment: socially ??? Drug use: No ??? [...] Take 20 mg by mouth daily. ??? sertraline (ZOLOFT) 50 MG tablet TAKE 1/2 TABLET BY MOUTH ONCE DAILY FOR 1 WEEK, THEN 1 TABLET DAILY ??? SHINGRIX 50 MCG injection ??? simvastatin (ZOCOR) 40 MG tablet TAKE ONE TABLET BY MOUTH AT BEDTIME 6 ??? SUMAtriptan (IMITREX) 100 MG tablet No current facility-administered medications for this visit. Objective: BP 136/78 Ht 5' 2.5 (1.588 m) Wt 152 lb (68.9 kg) BMI 27.36 kg/m?? General: healthy, alert, appears stated age, not in distress Head and Face: facial movement was normal and symmetrical, nontender, no scars, lesions or masses, salivary glands were normal External Ears: normal pinnae shape and position Ext. Aud. Canal: Right:patent Left: patent Tympanic Mem: Right: normal landmarks and mobility Left: normal landmarks and mobility Nasal Interior: Normal mucosa Oropharynx: lips, dentition and gingiva within normal for age Tonsils: normal size, normal appearance Post. Pharynx: normal mucosa Neck: no asymmetry, masses, supple without significant adenopathy Well-healed parotidectomy scar on the right documented in this encounter Plan of Treatment Not on file documented as of this encounter Procedures Procedure Name Priority Date/Time Associated Diagnosis Comments AMB REFERRAL TO ENT First Available/Routine 12/07/2019 4:08 PM EDT Hearing loss documented in this encounter Visit Diagnoses Diagnosis Pleomorphic adenoma of parotid gland- Primary Left asymmetrical SNHL Sensorineural hearing loss, asymmetrical Tinnitus Unspecified tinnitus documented in this encounter Care Teams Procurement Professional Logistics Relationship Specialty Start Date End Date Josue Delaney DO [address] [place] [address] PCP - General Family Medicine 11/01/14 documented as of this encounter
--- OUTSIDE RECORDS SUMMARY | 2023-09-07 02:08 | XMS_ITS | Encounter Summary ---
Author Organization [employer] [facility] Address [address] [place] [address] Care Team Providers Care Soil Fertility Specialist Name Role Phone Josue Delaney DO Primary Care Provider [phone] Reason for Visit * Reason Comments Follow-up hearing test, pt has hearing aids but they do not work * Consultation (Routine) - Closed Specialty Diagnoses / Procedures Referred By Contfrieda t Referred To Contact Otolaryngology Diagnoses Hearing loss Josue Delaney DO [address] [place] [address] D[facility] [address] [place] [address] Referral ID Status Reason Start Date Expiration Date V isits Requested Visits Authorized [id number] Closed Specialty Services Required 07/06/2016 07/06/2017 6 6 Encounter Details Date Type Department Care Team (Late st Contact Info) Description 07/20/2016 2:00 PM EDT Office Visit [facility] [address] [place] [phone] Sheela Arthur NP [address] [facility], [address]LO[address] [place], [place] [phone] Sensorineural hearing loss (SNHL) of both ears (Primary Dx); Left asymmetrical SNHL Social History Tobacco Use Types Packs/Day Years [...] Sign Reading Time Taken Comments Blood Pressure 162/93 07/20/2016 1:53 PM EDT Pulse 77 07/20/2016 1:53 PM EDT Temperature - - Respiratory Rate - - Oxygen Saturation - - Inhaled Oxygen Concentration - - Weight 67.1 kg (148 lb) 07/20/2016 1:53 PM EDT Height 160 cm (5' 3) 07/20/2016 1:53 PM EDT Body Mass Index 26.22 07/20/2016 1:53 PM EDT documented in this encounter Progress Notes * Hector Goncalves MD - 07/27/2016 9:23 PM EDT I have reviewed the notes, assessments, and/or procedures performed by the GAUGE CHECKER/physician support assistant, I concur with her/his documentation of Sonam Farias. * Sheela Arthur NP - 07/20/2016 2:31 PM EDT History of Present Illness: 56 y.o. female here today for evaluation of her ears and hearing. The patient reports a known asymmetric sensorineural hearing loss. She has worn bilateral hearing aids in the past however these havebroken and she now needs new ones. She denies otalgia, otorrhea, tinnitus, vertigo. She denies a history of otologic surgery. She reports a history of ear infections in childhood and loud noise exposure to music in her teens. Review of systems, past medical history, social history, family history, allergies and medications have been reviewed and there are no changes except as noted. Past Medical History: Past Medical History Diagnosis Date ??? Dizziness ??? Sinusitis ??? Hyperlipidemia ??? Sleep apnea Pt does not use CPAP machine. ??? GERD (gastroesophageal reflux disease) on medication ??? Asthma Controlled with symbicort. Pt states has Proair prn. ??? Osteoarthritis osteoarthritis ??? Cataract removal of cataract to bilateral eyes. ??? 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 HL (hearing loss) to bilateral ears, no hearing aides at present time. ??? Migraine ??? Vertigo ??? Anxiety ??? Depression DeniesTherapist ??? Hypercholesterolemia ??? Parotid mass right side~ reason for admit ??? Dizziness ??? Wears glasses ??? Former smoker ??? Postmenopausal ??? 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 Past Surgical History: Past Surgical History Procedure Laterality Date ??? Sinus surgery ??? Shoulder surgery Right ??? Hip surgery Bilateral ??? Knee surgery Right ??? Joint replacement Bilateral total hip replacement ??? Colonoscopy ??? Eye surgery removal of cataract to bilateral eyes ??? Dilation and curettage of uterus ??? [place] tooth extraction ??? Superficial parotidectomy Right 04/28/2015 Procedure: SUPERFICIAL PAROTIDECTOMY WITH ALLODERM PLACEMENT AND NIM FACIAL MONITORING; Surgeon: Hector Goncalves MD; Location: [facility] OR; Service: Family History: Family History Problem Relation Age [...] History: Social History Social History ??? Marital Status: Spouse Name: N/A ??? Number of Children: N/A ??? Years of Education: N/A Occupational History ??? Not on file. Social History Main Topics ??? Smoking status: Former Smoker -- 0.50 packs/day for 20 years Quit date: 04/17/2015 ??? Smokeless tobacco: Not on file ??? Alcohol Use: 0.0 oz/week 0 Standard drinks or equivalent per week Comment: socially ??? Drug Use: No ??? Sexual Activity: Partners: Male Comment: not discussed Other Topics Concern ??? Not on file Social History Narrative Allergies: Allergies Allergen Reactions ??? Erythromycin Hives Current Medications: Current Outpatient Prescriptions Medication Sig [...] Take 20 mg by mouth daily. ??? simvastatin (ZOCOR) 20 MG tablet Take 20 mg by mouth at bedtime. No current facility-administered medications for this visit. Review of Systems: Pertinent items noted in HPI. PHYSICAL EXAMINATION Vital Signs: BP 162/93 mmHg Pulse 77 Ht 5' 3 (1.6 m) Wt 148 lb (67.132 kg) BMI 26.22 kg/m2 General: Well-appearing, alert, in no acute distress. Head and Face: Facial movement symmetric. External Ears: Normal pinnae shape and position Ears: Right EAC: clear Right Tympanic Membrane: intact, clear. Left EAC: clear after removal of cerumen on floor of canal. Left Tympanic Membrane: intact, clear. Nose: No external nasal deformity. Nares normal. Septum midline. Mucosa normal. No evidence of mucopurulence, polyps, or bleeding. Oropharynx/Oral Cavity: Oral mucosa with normal color and moisture. Posterior pharynx is normal in appearance. Neck: No palpable masses or enlarged cervical lymph nodes. Normal range of motion. Audiogram: Due to the patient's complaints, an audiogram was performed today (07/20/2016). Hearing thresholds in the RIGHT ear demonstrate mild to severe SNHL. Hearing thresholds in the LEFT ear demonstrate mild to severe SNHL. Word recognition in the RIGHT ear is 100% at 70HL. Word recognition in the LEFT ear is 100% at 90HL. Tympanogram was not performed. Assessment: 1. Sensorineural hearing loss (SNHL) of both ears 2. Left asymmetrical SNHL Plan: 56 y.o. female here today for evaluation of her ears and hearing. The patient has a known asymmetric sensorineural hearing loss. MRI from 2014 showed no evidence of acoustic neuroma. Audiogram today did show some changes in the right ear at 1000 and 2000 Hz but was largely stable. The patientis medically cleared for hearing aids. She would like to pursue these. She will follow up in one year with repeat audiogram or sooner with any worsening concerns. Follow-up: Return in about 1 year (around 07/20/2017) for With Audio, SNHL. The patient expressed understanding and agreement with the plan. Thank you for the opportunity to participate in the care of this patient.?? This note was created with the aid of voice recognition software. Inaccuracies in slot floorperson mayhave occurred. documented in this encounter Plan of Treatment Not on file documented as of this encounter Visit Diagnoses Diagnosis Sensorineural hearing loss (SNHL) of both ears- Primary Left asymmetrical SNHL Sensorineural hearing loss, asymmetrical documented in this encounter Care Teams Soil Fertility Specialist Relationship Specialty Start Date End Date Josue Delaney DO [address] [place] [address] PCP - General Family Medicine 11/01/14 documented as of this encounter
--- OUTSIDE RECORDS SUMMARY | 2023-09-07 02:08 | XMS_ITS | Encounter Summary ---
Author Organization [facility] Address [address] [place] [address] Care Team Providers Care Wallpaper Embosser Helper Name Role Phone Josue Delaney DO Primary Care Provider Reason for Visit * Reason Comments Follow-up parotidectomy * Consultation (Routine) - Closed Specialty Diagnoses / Procedures Referred By Randall pedro Referred To Contact Otolaryngology Diagnoses Hearing loss Josue Delaney DO [address] [place] [address] Df2 Ent [facility] [address] [place] [address] Referral ID Status Reason Start Date Expiration Date V isits Requested Visits Authorized [id number] Closed Specialty Services Required 07/06/2016 07/06/2017 6 6 Encounter Details Date Type Department Care Team (Late st Contact Info) Description 11/05/2016 8:30 AM EDT Office Visit [facility] [address] [place] [address] Sheela Arthur NP [address] [facility] [address] [place] [address] Pleomorphic adenoma of parotid gland (Primary Dx) Social History Tobacco Use Types [...] Sign Reading Time Taken Comments Blood Pressure 143/81 11/05/2016 8:36 AM EDT Pulse 85 11/05/2016 8:36 AM EDT Temperature - - Respiratory Rate - - Oxygen Saturation 98% 11/05/2016 8:36 AM EDT Inhaled Oxygen Concentration - - Weight 67.1 kg (148 lb) 11/05/2016 8:36 AM EDT Height 160 cm (5' 3) 11/05/2016 8:36 AM EDT Body Mass Index 26.22 11/05/2016 8:36 AM EDT documented in this encounter Progress Notes * Hector Goncalves MD - 11/10/2016 12:15 AM EDT I have reviewed the notes, assessments, and/or procedures performed by the PATTERN LAYOUT WORKER/physician hearing aid assistant, I concur with her/his documentation of Sonam Farias. * Sheela Arthur NP - 11/05/2016 10:43 AM EDT History of Present Illness: 56 y.o. female here today for annual follow-up, s/p right superficial parotidectomy on 04/23/15 Dr. Goncalves. The patient is accompanied in the office today by her . Patient reports she has been feeling well. She has not noticed another mass or lump in the parotid gland. She was previously experiencing some numbness and tingling along the right ear but this has resolved. She does occasionally get a small lump along the right jawline a few times month that will resolve. It is not present today. She feels well otherwise. She denies fevers, chills, sweats, and unintentional weight loss. Pathology from surgery: Final Diagnosis ?? A. 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 (see special stains). - The adenoma is not present on the margins. ? at 1359 ?? Comment ?? CPT:?? 99487, 33799, 53582, 40041 ? Clinical Information ?? Rt. Parotid mass ? Special Stains ?? A. Immunostains were performed on tissue block A3 and the centrally oriented cells in the adenomas stain for AE1/AE3 and the peripherally oriented cells stain positive for p63 and Ki-67 staining is no more than 5%. The results support the above diagnosis. Note: Immunohistochemical stain(s), with appropriate controls, was performed. ?? This test was developed and the performance characteristics determined by ?? [facility]. It has not been cleared or approved by the U.[place] ?? Food and Drug administration. The FDA has determined that such clearance ?? or approval is not necessary. ? Review of systems, past medical history, social [...] ??? Dilation and curettage of uterus ??? [place] tooth extraction ??? Superficial parotidectomy Right 04/28/2015 Procedure: SUPERFICIAL PAROTIDECTOMY WITH ALLODERM PLACEMENT AND NIM FACIAL MONITORING; Surgeon: Hector Goncalves MD; Location: [facility] OR; Service: Family History: Family History Problem [...] History Narrative Allergies: Allergies Allergen Reactions ??? Pineapple - [...] mg by mouth daily. ??? simvastatin (ZOCOR) 40 MG tablet TAKE ONE TABLET BY MOUTH AT BEDTIME 6 No current facility-administered medications for this visit. Review of Systems: Pertinent items noted in HPI. PHYSICAL EXAMINATION Vital Signs: BP 143/81 mmHg Pulse 85 Ht 5' 3 (1.6 m) Wt 148 lb (67.132 kg) BMI 26.22 kg/m2 SpO2 98% ? No General: Well-appearing, alert, in no acute distress. Head and Face: Facial movement symmetric. External Ears: Normal pinnae shape and position Nose: No external nasal deformity. Nares normal. Salivary Glands/Neck: There is a well-healed neck scar on the right neck. The bilateral parotid glands are without appreciable mass or tenderness. The bilateral submandibular glands are without appreciable mass or tenderness.No palpable masses or enlarged cervical lymph nodes. Normal range of motion. Thyroid: Non-tender Assessment: 1. Pleomorphic adenoma of parotid gland Plan: 56 y.o. female here today for annual evaluation, s/p right superficial parotidectomy in April2015 for pleomorphic adenoma. The bilateral parotid glands are without any masses or tenderness. The patient is reporting an occasional lump along the right jawline that comes and goes a couple timesper month. I suspect that this is a lymph node. I have discussed this with Dr. Goncalves. He could consider imaging in the future if the lymph node continues to intermittently enlarge. I discussed this with the patient. She will prefer to not have imaging now we'll continue to watch the lymph node and will call the office with any changes. Otherwise we will see her back in about a year, we will do her annual audiogram and also check the right parotid. Follow-up: Return August 2017, for With Audio, Annual Audio and check Parotid, With Dr. Goncalves. The patient expressed understanding and agreement with the plan. Thank you for the opportunity to participate in the care of this patient.?? This note was created with the aid of voice recognition software. Inaccuracies in devulcanizer loader mayhave occurred. documented in this encounter Plan of Treatment Not on file documented as of this encounter Visit Diagnoses Diagnosis Pleomorphic adenoma of parotid gland- Primary documented in this encounter Care Teams Wallpaper Embosser Helper Relationship Specialty Start Date End Date Josue Delaney DO [address] [place] [address] PCP - General Family Medicine 11/01/14 documented as of this encounter
--- OUTSIDE RECORDS SUMMARY | 2023-09-07 02:08 | XMS_ITS | Encounter Summary ---
Author Organization [facility] Address [address] [place] [address] Care Team Providers Care Tea Plantation Worker Name Role Phone Josue Delaney DO Primary Care Provider Reason for Referral * Consultation (Routine/First Available) - Closed Specialty Diagnoses / Procedures Referred By Randall pedro Referred To Contact Otolaryngology Diagnoses Hearing loss Josue Delaney DO [address] [place] [address] Morenita Brandon MD [address] [facility] [address] [place] [address] Referral ID Status Reason Start Date Expiration Date Visits Re quested Visits Authorized [id number] Closed 12/21/2019 12/20/2020 12 12 Encounter Details Date Type Department Care Team (Late st Contact Info) Description 12/21/2019 Orders Only [facility] [address] [place] [address] Josue Delaney DO [address] [place] [address] Hearing loss Social History Tobacco Use Types [...] as of this encounter Plan of Treatment Scheduled Referrals Name Type Priority Associated Diagnoses Order Schedule Outpatient referral to ENT Outpatient Referral First Available/Routin e Hearing loss Ordered: 12/21/2019 documented as of this encounter Visit Diagnoses Diagnosis Hearing loss Unspecified hearing loss documented in this encounter Care Teams Tea Plantation Worker Relationship Specialty Start Date End Date Josue Delaney DO [address] [place] [address] PCP - General Family Medicine 11/01/14 documented as of this encounter
--- OUTSIDE RECORDS SUMMARY | 2023-09-07 02:08 | XMS_ITS | Encounter Summary ---
Author Organization [facility] Address [address] [place] [address] Care Team Providers Care Pan Cleaner Name Role Phone Josue Delaney DO Primary Care Provider [phone] Reason for Visit * Reason Onset Date Comments hearing aid check 06/17/2023 Encounter Details Date Type Department Care Team (Late st Contact Info) Description 06/17/2023 Documentation [facility] [address] [place] [address] Marley Bains AUD CCC-A [address] [place] [address] hearing aid check Social History Tobacco Use [...] Progress Notes * DENI Randle CCC-A - 06/17/2023 8:20 AM EDT Patient is here for a hearing aid check. She is doing well with her hearing aids. I cleaned and checked both aids and replaced wax guards, domes, and retention wires. She was given extra wax guards, but unfortunately we are out of her domes. I will order and mail to her. She will return as needed. Hearing Aid Information Binaural Make: Phonak Model(s): Pooja B-90 R Serial Number(s): [id number], [id number] Repair Warranty Expiration Date: RIGHT: , LEFT: 04-06-24 Loss/Damage Warranty Expiration Date: RIGHT: , LEFT: 04-06-24 Earmold/Dome Size(s): Medium closed documented in this encounter Plan of Treatment Not on file documented as of this encounter Visit Diagnoses Not on filedocumented in this encounter Care Teams Pan Cleaner Relationship Specialty Start Date End Date Josue Delaney DO [address] [place] [address] PCP - General Family Medicine 11/01/14 documented as of this encounter
--- OUTSIDE RECORDS SUMMARY | 2023-09-07 02:08 | XMS_ITS | Encounter Summary ---
Author Organization [facility] Address [address] [place] [address] Care Team Providers Care Varnisher Apprentice Name Role Phone Josue Delaney DO Primary Care Provider [phone] Reason for Visit * Reason Onset Date Comments hearing aid check 10/07/2021 Encounter Details Date Type Department Care Team (Late st Contact Info) Description 10/07/2021 Documentation [facility] [address] [place] [address] Marley Bains AUD CCC-A [address] [place] [address] hearing aid check Social History Tobacco Use [...] Progress Notes * DENI Randle CCC-A - 10/07/2021 8:26 AM EDT Patient is here for a hearing aid check. She is doing well with her hearing aids. She had a recent hearing test at [facility] which revealed essentially stable hearing re: 2020. She wishes to have her left hearing aid turned up while she is in the car; she is usually the passenger and has not been hearing well. I cleaned and checked both hearing aids and replaced wax guards, domes and retention wires. I increased the gain in the left hearing aid in her automatic speech in car program. Of note, patient is moving to [place] soon. She still plans to have hearing aid services at our office and will call me when she plans to be in the area. Hearing Aid Information Binaural Make: Phonak Model(s): [employer] B-90 R Serial Number(s): [id number], [id number] Repair Warranty Expiration Date: RIGHT: , LEFT: 04-06-24 Loss/Damage Warranty Expiration Date: RIGHT: , LEFT: 04-06-24 Earmold/Dome Size(s): Medium closed documented in this encounter Plan of Treatment Not on file documented as of this encounter Visit Diagnoses Not on filedocumented in this encounter Care Teams Varnisher Apprentice Relationship Specialty Start Date End Date Josue Delaney DO [address] [place] [address] PCP - General Family Medicine 11/01/14 documented as of this encounter
--- OUTSIDE RECORDS SUMMARY | 2023-09-07 02:08 | XMS_ITS | Encounter Summary ---
Author Organization [facility] Address [address] [place] [address] Care Team Providers Care Spring Up Supervisor Name Role Phone Josue Delaney DO Primary Care Provider Reason for Referral * Physical Therapy (Routine/First Available) - Closed Specialty Diagnoses / Procedures Referred By Randall pedro Referred To Contact Physical Therapy Diagnoses Low back pain Josue Delaney DO [address] [place] [address] [facility] [address] [place] [address] Referral ID Status Reason Start Date Expiration Date V isits Requested Visits Authorized [id number] Closed Specialty Services Required 11/09/2019 11/08/2020 1 1 Encounter Details Date Type Department Care Team (Late st Contact Info) Description 11/09/2019 Transcribe Orders [facility] [address] [place] [address] Josue Delaney DO [address] [place] [address] Low back pain Social History Tobacco Use Types Packs/Day Years [...] Name Type Priority Associated Diagnoses Order Schedule Transcribe/Incomin g Outpatient referral to Physical Therapy Outpatient Referral First Available/Routin e Low back pain Ordered: 11/09/2019 documented as of this encounter Visit Diagnoses Diagnosis Low back pain Lumbago documented in this encounter Care Teams Spring Up Supervisor Relationship Specialty Start Date End Date Josue Delaney DO [address] [place] [address] PCP - General Family Medicine 11/01/14 documented as of this encounter
--- OUTSIDE RECORDS SUMMARY | 2023-09-07 02:08 | XMS_ITS | Encounter Summary ---
Author Organization [facility] Address [address] [place] [address] Care Team Providers Care Coffee Taster Name Role Phone Josue Delaney DO Primary Care Provider [phone] Reason for Visit * Reason Onset Date Comments hearing aid check 12/07/2019 Encounter Details Date Type Department Care Team (Late st Contact Info) Description 12/07/2019 Documentation [facility] [address] [place] [address] Marley Bains AUD CCC-A [address] [place] [address] hearing aid check Social History Tobacco Use [...] Progress Notes * DENI Randle CCC-A - 12/07/2019 4:18 PM EDT Patient is here for a hearing aid check following a routine hearing test. Her hearing revealed stable hearing re: 2019. She reports that she is doing well with her hearing aids. Today, I replaced both wax guards, receivers, and domes. I gave her extra domes and wax guards to bring home. She will call me to schedule her follow up HAC. Hearing Aid Information Binaural?? Make: ??Phonak? Model(s): ??Pooja B-90 R Serial Number(s): ??[id number], [id number] Repair Warranty Expiration Date: ??10/19/2019 Loss/Damage Warranty Expiration Date: 10/19/2019 Earmold/Dome Size(s): ??Medium closed documented in this encounter Plan of Treatment Not on file documented as of this encounter Visit Diagnoses Not on filedocumented in this encounter Care Teams Coffee Taster Relationship Specialty Start Date End Date Josue Delaney DO [address] [place] [address] PCP - General Family Medicine 11/01/14 documented as of this encounter
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
--- OUTSIDE RECORDS SUMMARY | 2023-09-07 02:08 | XMS_ITS | Encounter Summary ---
Author Organization [facility] Address [address] [place] [address] Care Team Providers Care Senior Java Software Engineer Name Role Phone Josue Delaney DO Primary Care Provider [phone] Encounter Details Date Type Department Care Team (Late st Contact Info) Description 07/25/2019 Documentation [facility] [address] [place] [address] Malka Hart, MS CCC-A [address] [place] [address] Social History Tobacco Use Types Packs/Day Years [...] as of this encounter Progress Notes * Malka Hart CCC-A - 07/25/2019 9:53 AM EDT Pt d/o her L Phonak Audeo B-90 hearing aid, #[id number], in pieces to be sent for service. She is a pt of [employer], she is out of the office. She planned on sending for in repair check and rechargeable battery replacement anyway. Sent to [employer], I will contact pt when it is back, plan to send R DAVIS in for same before warranty expiration 10/19/19 documented in this encounter Plan of Treatment Not on file documented as of this encounter Visit Diagnoses Not on filedocumented in this encounter Care Teams Senior Java Software Engineer Relationship Specialty Start Date End Date Josue Delaney DO [address] [place] [address] PCP - General Family Medicine 11/01/14 documented as of this encounter
--- OUTSIDE RECORDS SUMMARY | 2023-09-07 02:08 | XMS_ITS | Encounter Summary ---
Author Organization [facility] Address [address] [place] [address] Care Team Providers Care Time Broker Name Role Phone Josue Delaney DO Primary Care Provider [phone] Reason for Visit * Reason Comments post op r parotid Encounter Details Date Type Department Care Team (Late st Contact Info) Description 05/13/2015 7:40 AM EDT Office Visit [facility] [address] [place] [address] Dixon Barboza PA-C [address] [place] [address] Parotid mass (Primary Dx) Social History Tobacco Use Types [...] Sign Reading Time Taken Comments Blood Pressure 139/87 05/13/2015 8:03 AM EDT Pulse 68 05/13/2015 8:03 AM EDT Temperature - - Respiratory Rate - - Oxygen Saturation 98% 05/13/2015 8:03 AM EDT Inhaled Oxygen Concentration - - Weight 67.6 kg (149 lb) 05/13/2015 8:03 AM EDT Height 160 cm (5' 3) 05/13/2015 8:03 AM EDT Body Mass Index 26.39 05/13/2015 8:03 AM EDT documented in this encounter Progress Notes * Hector Goncalves MD - 05/19/2015 8:45 AM EDT I have reviewed the notes, assessments, and/or procedures performed by the physician insurance underwriting assistant, I concur with her/his documentation of Sonam Farias. * Dixon Barboza PA-C - 05/13/2015 7:58 AM EDT Procedures Needle aspiration of right cheek seroma The site was locally cleansed and anesthetized with 1% lidocaine with epinephrine. A 1 inch 18-gauge needle on a 20 mL syringe was used to aspirate right cheek seroma. A total of 20 mL aspirated. Patient tolerated procedure without any immediate complications. * Dixon Barboza PA-C - 05/13/2015 7:57 AM EDT Subjective: Sonam Farias is a 54 y.o. female who presents for follow up. She offers no new complaints Review of Systems Pertinent items are noted [...] Allergies Allergen Reactions ??? Erythromycin Hives Objective: There were no vitals taken for this visit. General: healthy Head and Face: right cheek swelling with fluctuance. Continued right facial nerve weakness. Assessment: Recurrent seroma Plan: A total of 20 mL of serous fluid aspirated. Patient to return in 2 weeks tentatively. Encouraged toreturn sooner if the cheek swells again in the interim. documented in this encounter Plan of Treatment Not on file documented as of this encounter Visit Diagnoses Diagnosis Parotid mass- Primary Swelling, mass, or lump in head and neck documented in this encounter Care Teams Time Broker Relationship Specialty Start Date End Date Josue Delaney DO [address] [place] [id number] PCP - General Family Medicine 11/01/14 documented as of this encounter
--- OUTSIDE RECORDS SUMMARY | 2023-09-07 02:08 | XMS_ITS | Encounter Summary ---
Author Organization [employer] [facility] Address [address] [place] [address] Care Team Providers Care Grout Machine Tender Name Role Phone Josue Delaney DO Primary Care Provider [phone] Reason for Visit * Reason Comments Post-op recheck surgery site Encounter Details Date Type Department Care Team (Late st Contact Info) Description 05/28/2015 7:40 AM EDT Office Visit [facility] [address] [place] [address] Dixon Barboza PA-C [address] [place] [address] Parotid mass (Primary Dx) Social History Tobacco [...] Sign Reading Time Taken Comments Blood Pressure 140/93 05/28/2015 7:45 AM EDT Pulse 72 05/28/2015 7:45 AM EDT Temperature - - Respiratory Rate - - Oxygen Saturation - - Inhaled Oxygen Concentration - - Weight 67.1 kg (148 lb) 05/28/2015 7:45 AM EDT Height 160 cm (5' 3) 05/28/2015 7:45 AM EDT Body Mass Index 26.22 05/28/2015 7:45 AM EDT documented in this encounter Progress Notes * Dixon Barboza PA-C - 05/28/2015 9:47 AM EDT Subjective: Sonam Farias is a 54 y.o. female who presents for follow up. She has been well. She offers no new complaints. Review of Systems Pertinent items are noted in HPI. Current outpatient prescriptions: ??? b complex vitamins tablet, Take 1 tablet by mouth daily., Disp: , Rfl: ??? budesonide-formoterol (SYMBICORT) 160-4.5 MCG/ACT inhaler, Inhale 2 puffs 2 (two) times a day.,Disp: , Rfl: ??? citalopram (CELEXA) 40 MG tablet, Take 40 mg by mouth daily. Celexa , Disp: , Rfl: ??? fluticasone (FLONASE) 50 [...] by mouth at bedtime., Disp: , Rfl: ??? cyanocobalamin (VITAMIN B-12) 100 MCG tablet, Take 100 mcg by mouth daily., Disp: , Rfl: Allergies Allergen Reactions ??? Erythromycin Hives Objective: BP 140/93 mmHg Pulse 72 Ht 5' 3 (1.6 m) Wt 148 lb (67.132 kg) BMI 26.22 kg/m2 General: healthy Head and Face: right cheek with Michael incision. Clean, dry, intact. There is moderate edema. No erythema. No fluctuance. Continued right facial paresis External Ears: normal pinnae shape and position, no signs of inflammation Ext. Aud. Canal: Right:patent Left: patent Tympanic Mem: Right: normal landmarks and mobility Left: normal landmarks and mobility Nose: Nares normal. Septum midline. Mucosa normal. No drainage or sinus tenderness. Oropharynx: lips, dentition and gingiva within normal for age, normal tongue movement Tonsils: normal size, normal appearance Post. Pharynx: normal mucosa Neck: no asymmetry, masses, or scars, supple without significant adenopathy, trachea midline Thyroid: Normal Assessment: Status post right parotidectomy Plan: No recurrence of seroma or hematoma. Exam still demonstrates right-sided paresis, although, she demonstrates some improvement in the upper branches today. Typically this resolves within 6 months postop. We'll continue to follow. Recheck in 2-3 months. documented in this encounter Plan of Treatment Not on file documented as of this encounter Visit Diagnoses Diagnosis Parotid mass- Primary Swelling, mass, or lump in head and neck documented in this encounter Care Teams Grout Machine Tender Relationship Specialty Start Date End Date Josue Delaney DO [address] [place] [address] PCP - General Family Medicine 11/01/14 documented as of this encounter
--- OUTSIDE RECORDS SUMMARY | 2023-09-07 02:08 | XMS_ITS | Encounter Summary ---
Author Organization [facility] Address [address] [place] [address] Care Team Providers Care Survey Superintendent Name Role Phone Josue Delaney DO Primary Care Provider [phone] Encounter Details Date Type Department Care Team (Latest Contact Info) Description 11/19/2020 9:15 AM EDT Clinical Support [facility] [address] [place] [phone] Need for prophylactic vaccination against viral disease [...] diseases documented in this encounter Care Teams Survey Superintendent Relationship Specialty Start Date End Date Josue Delaney DO [address] [place] [address] PCP - General Family Medicine 11/01/14 documented as of this encounter
--- OUTSIDE RECORDS SUMMARY | 2023-09-07 02:08 | XMS_ITS | Encounter Summary ---
Author Organization [facility] Address [address] [place] [address] Care Team Providers Care Freight Brakeman Name Role Phone Josue Delaney DO Primary Care Provider [phone] Encounter Details Date Type Department Care Team (Late st Contact Info) Description 06/20/2020 Documentation [facility] [address] [place] [address] Marley Bains, DENI CCC-A [address] [place] [address] Social History Tobacco Use Types Packs/Day Years [...] Progress Notes * DENI Randle CCC-A - 06/20/2020 9:09 AM EDT Hearing Aid Information Binaural?? Make: ??Phonak? Model(s): ??Pooja [place]-90 R Serial Number(s): ??[id number], [id number] Repair Warranty Expiration Date: ??RIGHT: 10/19/2019, LEFT: 04/25/2021 Loss/Damage Warranty Expiration Date: ??RIGHT: 10/19/2019, LEFT: 04/25/2021 Earmold/Dome Size(s): ??Medium closed documented in this encounter Plan of Treatment Not on file documented as of this encounter Visit Diagnoses Not on filedocumented in this encounter Care Teams Freight Brakeman Relationship Specialty Start Date End Date Josue Delaney DO [address] [place] [address] PCP - General Family Medicine 11/01/14 documented as of this encounter
--- OUTSIDE RECORDS SUMMARY | 2023-09-07 02:08 | XMS_ITS | Encounter Summary ---
Author Organization [facility] Address [address] [place] [address] Care Team Providers Care Video System Repairer Name Role Phone Josue Delaney DO Primary Care Provider [phone] Encounter Details Date Type Department Care Team (Late st Contact Info) Description 04/20/2019 Documentation [facility] [address] [place] [address] Marley Bains AUD CCC-A [address] [place] [address] Social History Tobacco Use Types Packs/Day Years [...] Progress Notes * DENI Randle CCC-A - 04/20/2019 9:08 AM EDT .Do you have a fever (=/>100 F), cough, or difficulty breathing or SOB? No Have you been in close contact with a laboratory confirmed case of COVID-19 OR traveled to [place], [place], [place], [place], or [place] within the last 14 days of symptom onset? No Patient is here for a hearing aid check. Patient wishes to have both hearing aids turned up slightly. She is due to send both hearing aids for an end of warranty check before 10-19-2019; she plans to drop each hearing aid off individually in September. We will ask mona to replace both rechargeable bat teries. Both hearing aids were cleaned and checked today. She noticed an immediate improvement after an overall increase in gain in both aids. She will return for an audio and HAC in October. Hearing Aid Information Binaural?? Make: ??Phonak? Model(s): ??Pooja B-90 R Serial Number(s): ??[id number], [id number] Repair Warranty Expiration Date: ??10/19/2019 Loss/Damage Warranty Expiration Date: 10/19/2019 Earmold/Dome Size(s): ??Medium closed documented in this encounter Plan of Treatment Not on file documented as of this encounter Visit Diagnoses Not on filedocumented in this encounter Care Teams Video System Repairer Relationship Specialty Start Date End Date Josue Delaney DO [address] [place] [address] PCP - General Family Medicine 11/01/14 documented as of this encounter
--- OUTSIDE RECORDS SUMMARY | 2023-09-07 02:08 | XMS_ITS | Encounter Summary ---
Author Organization [facility] Address [address] [place] [address] Care Team Providers Care Workforce Investment Act Career Manager Name Role Phone Josue Delaney DO Primary Care Provider [phone] Reason for Visit * Reason Onset Date Comments hearing aid check 12/16/2017 Encounter Details Date Type Department Care Team (Late st Contact Info) Description 12/16/2017 Documentation [facility] [address] [place] [address] Marley Bains AUD CCC-A [address] [place] [address] hearing aid check Social History Tobacco Use [...] this encounter Progress Notes * DENI Dixon CCC-Woody - 12/16/2017 9:23 AM EST Patient is here for a hearing aid check of her binaural Phonak Audeo B90-R hearing aids. Patient reports that she feels she is ready for more volume in her left hearing aid. She reports that she doesnot always hear very well, depending on the speaker. Reviewed listening strategies. Otoscopy revealed clear canals AU. Cleaned and checked hearing aids; both sounded great on the listening check. Deleted feedback application defense manager on both hearing aids and no feedback was heard even when provoked. This allowed me to increase the high frequency gain in both hearing aids, moreso on the left hearing aid. Patient noticed an improvement. She will call to schedule a hearing aid check as needed. Hearing Aid Information Binaural Make: ??Phonak? Model(s): ??Pooja B-90 R Serial Number(s): ??[id number], [id number] Repair Warranty Expiration Date: ??10/19/2019 Loss/Damage Warranty Expiration Date: 10/19/2019 Earmold/Dome Size(s): ??Medium closed documented in this encounter Plan of Treatment Not on file documented as of this encounter Visit Diagnoses Not on filedocumented in this encounter Care Teams Workforce Investment Act Career Manager Relationship Specialty Start Date End Date Josue Delaney DO [address] [place] [address] PCP - General Family Medicine 11/01/14 documented as of this encounter
--- OUTSIDE RECORDS SUMMARY | 2023-09-07 02:08 | XMS_ITS | Encounter Summary ---
Author Organization Formerly Named [facility] Address [address] [place] [address] Care Team Providers Care Nurse Staff Community Health Name Role Phone Josue Delaney DO Primary Care Provider [phone] Reason for Visit * Reason Onset Date Comments hearing aid service 10/15/2016 Encounter Details Date Type Department Care Team (Late st Contact Info) Description 10/15/2016 Documentation [facility] [address] [place] [address] Marley Bains AUD CCC-A [address] [place] [address] hearing aid service Social History Tobacco Use [...] Progress Notes * DENI Dixon CCC-A - 10/15/2016 9:57 AM EDT Sonam dropped off her hearing aid earlier this week for repair. The mother repairer on her right hearing aid was broken. I replaced the speaker this morning and called the patient to pick it up. There is nocharge as the hearing aid is under warranty. I called patient to let her know that the hearing aid is going to be left at the front edger; she let me know that she will have her , Damon Farias,picker the hearing aid today. documented in this encounter Plan of Treatment Not on file documented as of this encounter Visit Diagnoses Not on filedocumented in this encounter Care Teams Nurse Staff Community Health Relationship Specialty Start Date End Date Josue Delaney DO [address] [place] [address] PCP - General Family Medicine 11/01/14 documented as of this encounter
--- OUTSIDE RECORDS SUMMARY | 2023-09-07 02:08 | XMS_ITS | Encounter Summary ---
Author Organization [employer] [facility] Address [address] [place] [address] Care Team Providers Care Mdm Developer Name Role Phone Josue Delaney DO Primary Care Provider Reason for Visit * Reason Comments Follow-up recheck neck Encounter Details Date Type Department Care Team (Late st Contact Info) Description 08/21/2015 8:00 AM EDT Office Visit [facility] [address] [place] [address] Hector Goncalves MD 299 [facility] [address] [place] [address] Parotid mass (Primary Dx); Pleomorphic adenoma of parotid gland Social History [...] Sign Reading Time Taken Comments Blood Pressure 167/106 08/21/2015 8:30 AM EDT Pulse 71 08/21/2015 8:30 AM EDT Temperature - - Respiratory Rate - - Oxygen Saturation - - Inhaled Oxygen Concentration - - Weight 67.1 kg (148 lb) 08/21/2015 8:30 AM EDT Height 160 cm (5' 3) 08/21/2015 8:30 AM EDT Body Mass Index 26.22 08/21/2015 8:30 AM EDT documented in this encounter Progress Notes * Hector Goncalves MD - 08/21/2015 8:48 AM EDT Subjective: Chief Complaint Patient presents with ??? Follow-up recheck neck Patient ID: Sonam Farias is a 55 y.o. female HPI The Pt is s/p right parotidectomy (04/28/2015) and is her for a 3 month follow up evaluation. Duringher last post-op evaluation she reported having some right sided facial paresis and seroma. She states she has improved sensation in the right side of her face with minimal tingling present. No recurrent seroma. She denies having right sided facial sweating when eating. The following portions of the patient's history were reviewed and updated as appropriate: allergies, current medications, past family history, past medical history, past social history, past surgicalhistory and problem list. Review of Systems Constitutional: Negative. HENT: Negative. Eyes: Negative. Respiratory: Negative. Cardiovascular: Negative. Gastrointestinal: Negative. Endocrine: Negative. Genitourinary: Negative. Musculoskeletal: Negative. Skin: + surgical scar Allergic/Immunologic: Negative. Neurological: + paresis (improving) Hematological: Negative. Psychiatric/Behavioral: Negative. Objective: Physical Exam Constitutional: Patient is oriented to person, place, and time. Appears well- developed and well-nourished. HENT: Head: Normocephalic and atraumatic. Right Ear: External ear normal. Left Ear: External ear normal. Nose: Nose normal. Mouth/Throat: Oropharynx is clear and moist. Eyes: Conjunctivae and EOM are normal. Pupils are equal, round, and reactive to light. Neck: Normal range of motion. Neck supple. No thyromegaly present. Musculoskeletal: Normal range of motion. Lymphadenopathy: Has no cervical adenopathy. Neurological: Patient is alert and oriented to person, place, and time. CN VII intact. (Pt reports some tingling present but sensation is returning) Skin: Skin is warm. Periauricular and neck incision is well healed. Minimal edema. Psychiatric:Has a normal mood and affect. Nursing note and vitals reviewed. Surgical Pathology 04/28/15 A. 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 (see special stains). - The adenoma is not present on the margins. 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 Pt is doingreally well. Will recheck in 1 year for possible recurrence . Documented by Theresa James acting as a scribe for Dr Goncalves. 8:59 AM 08/21/2015. documented in this encounter Plan of Treatment Not on file documented as of this encounter Visit Diagnoses Diagnosis Parotid mass- Primary Swelling, mass, or lump in head and neck Pleomorphic adenoma of parotid gland documented in this encounter Care Teams Mdm Developer Relationship Specialty Start Date End Date Josue Delaney DO [address] [place] [address] PCP - General Family Medicine 11/01/14 documented as of this encounter
--- OUTSIDE RECORDS SUMMARY | 2023-09-07 02:08 | XMS_ITS | Encounter Summary ---
Author Organization [facility] Address [address] [place] [address] Care Team Providers Care Control Analyst Name Role Phone Josue Delaney DO Primary Care Provider [phone] Reason for Referral * Surgical (Routine) - Closed Specialty Diagnoses / Procedures Referred By Randall pedro Referred To Contact Procedures Remove External Auditory Canal FB Sheela Whitney NP 299 [facility], [address] [place] [address] Referral ID Status Reason Start Date Expiration Date Visits Re quested Visits Authorized [id number] Closed 05/25/2017 11/21/2017 1 1 Reason for Visit * Reason Comments Other Piece of hearing aid stuck in R ear * Consultation (Routine) - Closed Specialty Diagnoses / Procedures Referred By Randall pedro Referred To Contact Otolaryngology Diagnoses Hearing loss Josue Delaney DO [address] [place] [address] [address] [facility] [address] [place] [address] Referral ID Status Reason Start Date Expiration Date V isits Requested Visits Authorized [id number] Closed Specialty Services Required 07/06/2016 07/06/2017 6 6 Encounter Details Date Type Department Care Team (Late st Contact Info) Description 05/25/2017 4:45 PM EDT Office Visit [facility] [address] [facility] [place] [address] Sheela Whitney NP [address] [facility] [address] [place] [address] Foreign body of right ear, initial encounter (Primary Dx) Social History Tobacco Use Types [...] Sign Reading Time Taken Comments Blood Pressure 129/77 05/25/2017 4:44 PM EDT Pulse 67 05/25/2017 4:44 PM EDT Temperature - - Respiratory Rate - - Oxygen Saturation - - Inhaled Oxygen Concentration - - Weight 70.3 kg (155 lb) 05/25/2017 4:44 PM EDT Height 160 cm (5' 3) 05/25/2017 4:44 PM EDT Body Mass Index 27.46 05/25/2017 4:44 PM EDT documented in this encounter Progress Notes * Sheela Whitney NP - 05/25/2017 4:45 PM EDT Assessment: 1. Foreign body of right ear, initial encounter Remove External Auditory Canal FB Plan: 56 y.o. female here today with hearing aid dome in the right ear canal. This was removed in office with no complication to reveal an otherwise healthy ear. Patient can follow up next scheduled follow-up. Follow-up: Return for Next scheduled follow up. History of Present Illness: 56 y.o. female here today for tubal of foreign body from the right ear. She got a hearing aid dome stuck in it earlier today. She denies any other symptoms. Review of systems, past medical history, social [...] FACIAL MONITORING; Surgeon: Hector Goncalves MD; Location: [facility] OR; Service: ??? WISDOM TOOTH EXTRACTION [...] in HPI. PHYSICAL EXAMINATION Vital Signs: BP 129/77 Pulse 67 Ht 5' 3 (1.6 m) Wt 155 lb (70.3 kg) BMI 27.46 kg/m?? General: Well-appearing, alert, in no acute distress. Head and Face: Facial movement symmetric. External Ears: normal pinnae shape and position Ears: Right EAC: clear after removal of Hearing aid dome. Right Tympanic Membrane: intact, clear. Left EAC: clear after removal of cerumen impaction which impairs exam of clinically significant portions of the ear. Left Tympanic Membrane: intact, clear. Nose: No external nasal deformity. Nares normal. The patient expressed understanding and agreement with the plan. Thank you for the opportunity to participate in the care of this patient.?? This note was created with the aid of voice recognition software. Inaccuracies in behavioral health professional mayhave occurred. * Sheela Whitney NP - 05/25/2017 4:45 PM EDTAssociated Order(s): REMOVE EXTERNAL AUDITORY CANAL FB Post-Procedure Diagnose(s): Foreign body of right ear, initial encounter Remove External Auditory Canal FB Date/Time: 05/25/2017 6:11 PM Performed by: SHEELA WHITNEY Authorized by: SHEELA WHITNEY Comments: PROCEDURE NOTE PATHOLOGY FOUND: Foreign body, right ear PROCEDURE: The right ear was examined using a hand-held cleaning otoscope. Foreign body was identified and removed with an alligator forcep. TOLERANCE: The patient tolerated the procedure well. documented in this encounter Plan of Treatment Not on file documented as of this encounter Procedures Procedure Name Priority Date/Time Associated Diagnosis Comments REMOVE EXTERNAL AUDITORY CANAL FB Routine 05/25/2017 4:45 PM EDT Foreign body of right ear, initial encounter documented in this encounter Results * REMOVE EXTERNAL AUDITORY CANAL FB (05/25/2017 4:45 PM EDT) Narrative Sheela Whitney NP - 05/25/2017 4:45 PM EDT Sheela Whitney NP ? 05/25/2017 ??6:12 PM Remove External Auditory Canal FB Date/Time: 05/25/2017 6:11 PM Performed by: SHEELA WHITNEY Authorized by: SHEELA WHITNEY Comments: PROCEDURE NOTE PATHOLOGY FOUND: Foreign body, right ear PROCEDURE: The right ear was examined using a hand-held cleaning otoscope. Foreign body was identified and removed with an alligator forcep. TOLERANCE: The patient tolerated the procedure well. Sheela Whitney NP PROCEDURE/MINOR LUCERO RGICAL ORDERABLES documented in this encounter Visit Diagnoses Diagnosis Foreign body of right ear, initial encounter- Primary documented in this encounter Care Teams Control Analyst Relationship Specialty Start Date End Date Josue Delaney DO [address] [place] [address] PCP - General Family Medicine 11/01/14 documented as of this encounter
--- OUTSIDE RECORDS SUMMARY | 2023-09-07 02:08 | XMS_ITS | Encounter Summary ---
Author Organization [facility] Address [address] [place] [address] Care Team Providers Care Industrial Custodian Name Role Phone Josue Delaney DO Primary Care Provider [phone] Encounter Details Date Type Department Care Team (Late st Contact Info) Description 08/02/2019 Documentation [facility] [address] [place] [address] Malka Hart, MS CCC-A [address] [place] [address] Social History Tobacco Use Types Packs/Day Years [...] this encounter Progress Notes * Malka Hart MS CCC-A - 08/02/2019 1:17 PM EDT Pts L Phonak Audeo B90 hearing aid #[id number], back from service. It is programmed to her settings.I spoke w/ pt, she will come by tomorrow to p/u, to be left downstairs. She will contact us in September to d/o R DAVIS to be sent before warranty expiration. documented in this encounter Plan of Treatment Not on file documented as of this encounter Visit Diagnoses Not on filedocumented in this encounter Care Teams Industrial Custodian Relationship Specialty Start Date End Date Josue Delaeny DO [address] [place] [address] PCP - General Family Medicine 11/01/14 documented as of this encounter
--- OUTSIDE RECORDS SUMMARY | 2023-09-07 02:08 | XMS_ITS | Encounter Summary ---
Author Organization [employer] [facility] Address [address] [place] [address] Care Team Providers Care Food Production Associate Name Role Phone Josue Delaney DO Primary Care Provider Reason for Referral * Consultation (Routine) - Closed Specialty Diagnoses / Procedures Referred By Randall t Referred To Contact Otolaryngology Diagnoses Hearing loss Josue Delaney DO [address] [place] [address] Df2 Ent [facility] [address] [place] [address] Referral ID Status Reason Start Date Expiration Date V isits Requested Visits Authorized [id number] Closed Specialty Services Required 07/06/2016 07/06/2017 6 6 Encounter Details Date Type Department Care Team (Latest Contact Info) Description 07/06/2016 Transcribe Orders [facility] [address] [place] [phone] Josue Delaney DO [address] [place] [address] Hearing loss (Primary Dx) Social History Tobacco Use Types [...] Schedule Outpatient referral to ENT Outpatient Referral Routine Hearing loss Ordered: 07/06/2016 documented as of this encounter Visit Diagnoses Diagnosis Hearing loss- Primary Unspecified hearing loss documented in this encounter Care Teams Food Production Associate Relationship Specialty Start Date End Date Josue Delaney DO [address] [place] [address] PCP - General Family Medicine 11/01/14 documented as of this encounter
--- OUTSIDE RECORDS SUMMARY | 2023-09-07 02:08 | XMS_ITS | Encounter Summary ---
Author Organization [facility] Address [address] [place] [address] Care Team Providers Care Butter Grader Name Role Phone Josue Delaney DO Primary Care Provider [phone] Reason for Visit * Reason Onset Date Comments hearing aid check 08/09/2017 Encounter Details Date Type Department Care Team (Late st Contact Info) Description 08/09/2017 Documentation [facility] [address] [place] [address] Marley Bains AUD CCC-A [address] [place] [address] hearing aid check Social History Tobacco Use [...] Progress Notes * DENI Dixon CCC-A - 08/09/2017 8:35 AM EDT Patient reports that she is doing well with her hearing aids. She recently had a hearing evaluationwhich revealed a decline in both ears since her last evaluation. Patient reports that while she loves her hearing aids, she has noticed that she has been asking for repetition more often. Today, we increased the overall volume in both aids from 90% to 100% target gain. She will try these settings and report back to me if she is not satisfied. She is going to schedule an appointment to return for a hearing test and hearing aid check in one year. ?? Hearing Aid Information Bilateral Make: Phonak Model(s): Audeo B-90 R Serial Number(s): [id number], [id number] Repair Warranty Expiration Date: 10/19/2019 Loss/Damage Warranty Expiration Date: 10/19/2019 Earmold/Dome Size(s): Medium closed documented in this encounter Plan of Treatment Not on file documented as of this encounter Visit Diagnoses Not on filedocumented in this encounter Care Teams Butter Grader Relationship Specialty Start Date End Date Josue Delaney DO [address] [place] [address] PCP - General Family Medicine 11/01/14 documented as of this encounter
--- OUTSIDE RECORDS SUMMARY | 2023-09-07 02:08 | XMS_ITS | Encounter Summary ---
Author Organization [facility] Address [address] [place] [address] Care Team Providers Care Drug And Alcohol Treatment Specialist Name Role Phone Josue Delaney DO Primary Care Provider [phone] Encounter Details Date Type Department Care Team (Latest Contact Info) Description 05/01/2020 11:25 AM EDT Clinical Support [facility] [address] [place] [phone] Need for prophylactic vaccination against viral disease [...] diseases documented in this encounter Care Teams Drug And Alcohol Treatment Specialist Relationship Specialty Start Date End Date Josue Delaney DO [address] [place] [address] PCP - General Family Medicine 11/01/14 documented as of this encounter
--- OUTSIDE RECORDS SUMMARY | 2023-09-07 02:08 | XMS_ITS | Encounter Summary ---
Author Organization [employer] [facility] Address [address] [place] [address] Care Team Providers Care Jewelry Inspector Name Role Phone Josue Delaney DO Primary Care Provider Reason for Referral * Consultation (Routine/First Available) - Closed Specialty Diagnoses / Procedures Referred By Contac t Referred To Contact Otolaryngology Diagnoses SNHL (sensorineural hearing loss) Josue Delaney DO [address] [place] [address] Sheela Arthur KITCHEN CHEF 299 [facility], [address] [place] [address] Referral ID Status Reason Start Date Expiration Date Visits Re quested Visits Authorized [id number] Closed 07/13/2017 07/13/2018 1 6 Encounter Details Date Type Department Care Team (Late st Contact Info) Description 07/13/2017 Orders Only [facility] [address] [place] [address] Josue Delaney DO [address] [place] [address] SNHL (sensorineural hearing loss) Social History Tobacco Use Types Packs/Day Years [...] documented in this encounter Visit Diagnoses Diagnosis SNHL (sensorineural hearing loss) Unspecified sensorineural hearing loss documented in this encounter Care Teams Jewelry Inspector Relationship Specialty Start Date End Date Josue Delaney DO [address] [place] [address] PCP - General Family Medicine 11/01/14 documented as of this encounter
--- OUTSIDE RECORDS SUMMARY | 2023-09-07 02:08 | XMS_ITS | Encounter Summary ---
Author Organization [facility] Address [address] [place] [address] Care Team Providers Care Director Medical Safety Name Role Phone Josue Delaney DO Primary Care Provider [phone] Reason for Visit * Reason Onset Date Comments hearing aid consultation 07/21/2016 Encounter Details Date Type Department Care Team (Late st Contact Info) Description 07/21/2016 Documentation [facility] [address] [place] [address] Marley Bains AUD CCC-A [address] [place] [address] hearing aid consultation Social History Tobacco Use Types Packs/Day Years [...] Progress Notes * DENI Dixon CCC-A - 07/21/2016 8:42 AM EDT Hearing Aid Evaluation Sonam Farias was seen today for hearing aid evaluation. Patient's audiological evaluation was reviewed again today. Predicted communication difficulties, listening needs as well as realistic expectations for amplification were discussed. Hearing aid styles and technologies were reviewed. After consideration of the options available and the boot turner's recommendations the patient agreed to order:binaural Phonak Audeo Belong 90 rechargeable hearing aids in color P4 with size 1 standard receivers. With the promotion code [id number], we also were able to order an extra millinery salesperson and power pack, aswell as a remote control (airline pilot/first officer one II). Vega Quote: $5800 ($2900 each) Insurance Benefit: n/a Sonam was made aware of the 30-day trial period as well our association with [employer]. Payment options were discussed. First payment is due at the hearing aid fitting appointment. Hearing aid fitting appointment has been made for next July 28 at 8:30am. documented in this encounter Plan of Treatment Not on file documented as of this encounter Visit Diagnoses Not on filedocumented in this encounter Care Teams Director Medical Safety Relationship Specialty Start Date End Date Josue Delaney DO [address] [place] [address] PCP - General Family Medicine 11/01/14 documented as of this encounter
--- OUTSIDE RECORDS SUMMARY | 2023-09-07 02:08 | XMS_ITS | Encounter Summary ---
Author Organization [facility] Address [address] [place] [address] Care Team Providers Care Ink Jet Operator Name Role Phone Josue Delaney DO Primary Care Provider [phone] Encounter Details Date Type Department Care Team (Late st Contact Info) Description 11/27/2015 Telephone [facility] [address] [place] [address] Hector Goncalves MD 299 [facility] [address] [place] [address] Social History Tobacco Use Types Packs/Day Years [...] on filedocumented in this encounter Care Teams Ink Jet Operator Relationship Specialty Start Date End Date Josue Delaney DO [address] [place] [address] PCP - General Family Medicine 11/01/14 documented as of this encounter
--- OUTSIDE RECORDS SUMMARY | 2023-09-07 02:09 | XMS_ITS | Encounter Summary ---
Author Organization [place] [address] Care Team Providers Care Landscape Architecture Professor Name Role Phone Vale Tyson DO Primary Care Provider [phone] Reason for Visit * Diagnostic Test (Routine) - Closed Specialty Diagnoses / Procedures Referred By Randall t Referred To Contact Radiology Diagnoses Tremor, unspecified Procedures NM Brain Imaging for Parkinsons Disease Kylie Magallon MD [facility] [address] [place] [address] [place] [address] Referral ID Status Reason Start Date Expiration Date V isits Requested Visits Authorized [id number] Closed Specialty Service Requested 11/01/2022 05/01/2024 1 1 Encounter Details Date Type Department Care Team (Late st Contact Info) Description 12/07/2022 9:28 AM EDT - 12/07/2022 2:59 PM EDT Hospital Encounter [place] [phone] Kylie Magallon MD [facility] [address] [place] [address] Discharge Disposition: Home Social History Tobacco Use Types Packs/Day Years Used Date Smoking Tobacco: Never Assessed Sex and Gender Information Value Date Recorded Sex Assigned at Not on file Gender Identity Not on file Sexual Orientation Not on file documented as of this encounter Medications at Time of Discharge Medication Sig Dispensed Refills Start Date End Date hydrOXYzine (Vistaril) 25 mg capsule TAKE ONE CAPSULE BY MOUTH TWO TIMES A DAY NEEDED FOR ANXIETY 11/20/2022 documented as of this encounter Plan of Treatment Upcoming Encounters Date Type Department Care Team (Late st Contact Info) Description 02/07/2029 Hospital Encounter Outpatient [place] [address] Alisha Valdivia MD [facility] DR [place] [address] Scheduled Procedures Name Priority Associated Diagnoses Date/Ti me ARTHRODESIS GREAT TOE MTP AMERICO INT (WRVU 8.57) Hallux valgus (acquired), left foot OSTEOTOMY, METATARSAL, OTHER THAN FIRST, EACH (WRVU 5.48) Hallux valgus (acquired), left foot HAMMERTOE CORRECTION (WRVU 5.62) Hallux valgus (acquired), left foot documented as of this encounter Procedures Procedure Name Priority Date/Time Associated Diagnosis Comments NM BRAIN IMAGING FOR PARKINSONS DISEASE Routine 12/07/2022 4:40 PM EDT Tremor, unspecified documented in this encounter Visit Diagnoses Not on filedocumented in this encounter Administered Medications Inactive Administered Medications - up to 3 most recent administrations Medication Order MAR Action Action Date Dose Rate Site ioflupane (I-123) (DATSCAN) injection 0-6 mCi 0-6 mCi, Intravenous, ONCE PRN, 1 dose, Starting on Tue12/07/22 at 1109, Until Tue12/07/22 at 1100, Per Protocol, Radiology Contrast, Routine Given 12/07/2022 11:00 AM EDT 4.6 mCi Right Arm documented in this encounter Care Teams Landscape Architecture Professor Relationship Specialty Start Date End Date Vale Tyson DO [address] [place] [address] PCP - General Family Medicine 09/08/22 documented as of this encounter
--- OUTSIDE RECORDS SUMMARY | 2023-09-07 02:09 | XMS_ITS | Encounter Summary ---
Author Organization [facility] Address [address] [place] [address] Care Team Providers Care Leaf Sucker Operator Name Role Phone Unavailable Primary Care Provider Unavailabl e Encounter Details Date Type Department Care Team (Late st Contact Info) Description 04/16/2013 Historical Telephone Encounter [facility] [address] [place] [address] Steve Stone DO [address] [place] [address] Social History Tobacco Use Types Packs/Day Years Used Date Smoking Tobacco: Never Assessed Sex and Gender Information Value Date Recorded Sex Assigned at Not on file Gender Identity Not on file Sexual Orientation Not on file documented as of this encounter Miscellaneous Notes * Telephone Encounter - Steve Stone DO - 10/16/2013 9:16 PM EDT EncounterId:[id number] PatientId:[id number] ProviderId:[id number] ControlNo:[id number] patient:FONSECA, SONAM :1960 sex:Female age:52 Y phone:[phone] address:[address] [place] [address] date:04/16/2013 time:10:47 AM doctor:Steve Stone user:Theresa Rooney assignedTo:Steve Stone enctype:Telephone Encounter caller:PT [phone] reason:FEVER/CHILLS/COUGH message:PT C/O FEVER, CHILLS, AND ALL OVER BODY PAIN. CHEST CONGESTION AND COUGHING. STARTED OVER THE WEEKEND. REQUESTING APPT TODAY actiontaken:Steve Stone 04/16/2013 12:16:47 PM EDT > [facility] 04/16/2013 12:55:42 PM EDT > spoke to pt, she will head here now. she states she'll be here in 10 minutes. documented in this encounter Plan of Treatment Not on file documented as of this encounter Visit Diagnoses Not on filedocumented in this encounter
--- OUTSIDE RECORDS SUMMARY | 2023-09-07 02:09 | XMS_ITS | Encounter Summary ---
Author Organization [facility] Address [address] [place] [address] Care Team Providers Care Line Production Cook Name Role Phone Unknown, Provider Primary Care Provider Encounter Details Date Type Department Care Team (Late st Contact Info) Description 08/02/2023 Lab Requisition [facility] Pathology & Laboratory Medicine - [facility] [address] [place] [address] Geremias Castro MD [address] [place] [address], [address] [place], [place] [id number] Encounter for other general examination Social History Tobacco Use Types Packs/Day Years Used Date Smoking Tobacco: Never Assessed Sex and Gender Information Value Date Recorded Sex Assigned at Not on file Gender Identity Not on file Sexual Orientation Not on file documented as of this encounter Plan of Treatment Not on file documented as of this encounter Procedures Procedure Name Priority Date/Time Associated Diagnosis Comments SURGICAL PATHOLOGY Today 08/02/2023 11 :20 EDT Encounter for other general examination documented in this encounter Results * SURGICAL PATHOLOGY (08/02/2023 11:20 EDT) Note to Patient The following pathology results have been interpreted by your pathologist and may be available to you before your health provider has had the opportunity to review them. Please allow time for your provider to receive these results and explore management options, if applicable. 08/04/2023 13:03 EDT [facility] Final Diagnosis A. SKIN OF FLANK, LEFT, EXCISION: - Seborrheic keratosis. B. SKIN OF FLANK, RIGHT, EXCISION: - Verruca vulgaris. 08/04/2023 13:03 [facility] Attestation By the signature below, the attending physician certifies that they have 1) personally conducted a gross and/or microscopic examination of the described specimen(s), and/or personally interpreted the results of laboratory testing of the described specimen(s), and 2) personally rendered or confirmed the above diagnosis. 08/04/2023 13:03 [facility] at 1303 Microscopic Description A.The stratum corneum is thickened by laminated orthohyperkeratosis. The epidermis is hyperplastic with papillomatosis and acanthosis. There is formation of horn pseudocysts. The keratinocytes have a basaloid appearance with round regular nuclei and a moderate amount of cytoplasm. B.The stratum corneum is thickened by compact orthohyperkeratosis with tiers of parakeratosis and foci of hemorrhage. The epidermis is hyperplastic with papillomatosis and acanthosis. The acanthotic rete ridges have an inward-bending configuration. The superficial keratinocytes have perinuclear vacuoles. The granular layer is accentuated. 08/04/2023 13:03 [facility] Clinical History Skin lesion 08/04/2023 13:03 [facility] Gross Description A. Received in formalin labelled with proper patient identification (initials O, S) and L flank is an unoriented irregular excision of douglas skin (1.3 x 0.7 cm and is excised to a depth of 0.5 cm to 0.2 cm). There is a central irregular douglas papule that measures 0.8 x 0.6 x 0.3 cm. The margins are inked blue. The specimen is serially sectioned and entirely submitted as A1 3 central sections and A2 2 ends, reverse en face. B. Received in formalin labelled with proper patient identification (initials O, S) and R flank is an unoriented irregular excision of douglas-hernandez skin (1.0 x 0.8 cm and is excised to a depth of 0.5 cm). There is a central irregular douglas-white keratotic papule that measures 0.8 x 0.5 x 0.3 cm. The margins are inked blue. The specimen is serially sectioned and entirely submitted as B1 2 central sections and B2 2 ends, reverse en face. Janelle Quintero 08/03/2023 8:32 08/04/2023 13:03 EDT [facility] Performing Lab [facility] 08/04/2023 13:03 EDT [facility] Scanned Images 08/04/2023 13:03 EDT [facility] Tissue SPECIMEN FROM SKIN / Unknown 08/02/2023 11:20 EDT 08/02/2023 19:55 EDT Tissue specimen (specimen) SPECIMEN FROM SKIN / Unknown 08/02/2023 11:20 EDT 08/02/2023 19:55 EDT Geremias Castro MD PATHOLOGY ORDERABLES [facility] [address] [place] [address] documented in this encounter Visit Diagnoses Diagnosis Encounter for other general examination documented in this encounter Care Teams Line Production Cook Relationship Specialty Start Date End Date Unknown, Provider, PCP - General 07/09/23 documented as of this encounter
--- OUTSIDE RECORDS SUMMARY | 2023-09-07 02:09 | XMS_ITS | Encounter Summary ---
Author Organization [facility] Address [facility] [place] [address] Care Team Providers Care Oyster Worker Name Role Phone Vale Tyson DO Primary Care Provider [phone]- [phone] Reason for Visit * Reason Onset Date Comments Other 06/20/2023 Encounter Details Date Type Department Care Team (Late Contact Info) Description 06/20/2023 [place] [phone] Alisha Valdivia MD [facility] [place] [address] Other Social History Tobacco Use Types Packs/Day Years Used Date Smoking Tobacco: Former Cigarettes Smokeless Tobacco: Never Alcohol Use Standard Drinks/Week Comments Not Currently 0 (1 standard drink = 0.6 oz pur e alcohol) Sex and Gender Information Value Date Recorded Sex Assigned at Not on file Gender Identity Not on file Sexual Orientation Not on file documented as of this encounter Miscellaneous Notes * Telephone Encounter - Yahaira Polk - 06/20/2023 11:39 AM EDT Who is calling?Sonam Best call back number: [phone] Best time to call back between 8:00 am & 5:00 pm: anytime Can we leave a message? yes When is your procedure? Not scheduled yet Who is your surgeon? Faro What procedure are you having?Left Foot Hammer toe/bunion What is the question you would like to ask the clinical care team? Patient looking to schedule surgery for fall, late October early November. I did explain that I wasn't sure if surgical schedules are open yet, but would send the message along that she is interested in scheduling the surgery. Your message will be forwarded to the clinical care team for review. documented in this encounter Plan of Treatment Upcoming Encounters Date Type Department Care Team (Late st Contact Info) Description 02/07/2029 Hospital Encounter Outpatient [place] [address] Alisha Valdivia MD [facility] [place] [address] Scheduled Procedures Name Priority Associated Diagnoses Date/Ti me ARTHRODESIS GREAT TOE MTP AMERICO INT (WRVU 8.57) Hallux valgus (acquired), left foot OSTEOTOMY, METATARSAL, OTHER THAN FIRST, EACH (WRVU 5.48) Hallux valgus (acquired), left foot HAMMERTOE CORRECTION (WRVU 5.62) Hallux valgus (acquired), left foot documented as of this encounter Visit Diagnoses Not on filedocumented in this encounter Care Teams Oyster Worker Relationship Specialty Start Date End Date Vale Tyson DO [address] [place] [address] PCP - General Family Medicine 09/08/22 documented as of this encounter
--- OUTSIDE RECORDS SUMMARY | 2023-09-07 02:09 | XMS_ITS | Encounter Summary ---
Author Organization [facility] Address [facility] [place] [address] Care Team Providers Care Partridge Farmer Name Role Phone Vale Tyson DO Primary Care Provider [phone]- [phone] Reason for Visit * Reason Comments Establish Care NXR LEFT FOOT HAM MERTOE * Consultation (Routine) - Authorized Specialty Diagnoses / Procedures Referred By Randall t Referred To Contact Orthopaedics Diagnoses Other hammer toe(s) (acquired), left foot Short Achilles tendon (acquired), left ankle Bunion of left foot Vale Tyson DO [address] [place] [address] Alisha Valdivia MD [facility] [place] [address] Referral ID Status Reason Start Date Expiration Date Visits Requested Visits Authorized [id number] Authorized Consult, Test & Treat 01/14/2023 01/14/2024 6 6 Encounter Details Date Type Department Care Team (Late st Contact Info) Description 05/04/2023 2:00 PM EDT Office Visit [place] [address] Alisha Valdivia MD [facility] [place] [address] Left foot pain; Hammertoe of second toe of left foot; Hallux rigidus of left foot; Hallux valgus (acquired), left foot Social History Tobacco Use Types Packs/Day Years [...] Sign Reading Time Taken Comments Blood Pressure - - Pulse - - Temperature - - Respiratory Rate - - Oxygen Saturation - - Inhaled Oxygen Concentration - - Weight 64.9 kg (143 lb) 05/04/2023 1:52 PM EDT Height 160 cm (5' 3) 05/04/2023 1:52 PM EDT Body Mass Index 25.33 05/04/2023 1:52 PM EDT documented in this encounter Progress Notes * Alisha Valdivia MD - 05/04/2023 2:00 PM EDT Images from the original note were not included. PATIENT NAME: Sonam Farias AGE: 62 y.o. MR#: [id number] DATE OF VISIT: 05/04/2023 DATE OF INJURY/ONSET: Insidious onset STAFF: Alisha Valdivai MD CHIEF COMPLAINT: Left greater than right forefoot pain HISTORY OF PRESENT ILLNESS: Ms. Farias is a 62 y.o. female who comes into clinic today for evaluation of the above chief complaint. She primarily comes in today to talk about her left foot which has a painful hammertoe and bunion. She has had this for many years and has tried shoewear modification and activity modification but continues to have issues especially with the second toe. At this time, she is looking for further interventions. Medications and Allergies were reviewed in eD-H PAST MEDICAL HX: History reviewed. No pertinent past medical history. There is no problem list on file for this patient. PAST SURGICAL HX: History reviewed. No pertinent surgical history. FAMILY HX: Family History Problem Relation Age of Onset Diabetes Neg Hx SOCIAL HX: Social History Occupational History Not on file Tobacco Use Smoking status: Former Types: Cigarettes Smokeless tobacco: Never Substance and Sexual Activity Alcohol use: Not Currently Drug use: Never Sexual activity: Not on file ROS: Pertinent items are noted in HPI. Constitutional: Denies fevers, chills, weight change HEENT: Denies headache, vision changes, neck pain, difficulty swallowing Endocrine: Denies malaise/lethargy, skin changes or temperature intolerance Respiratory: Denies shortness of breath, cough Cardiac: Denies chest pain, palpitations GI: denies abdominal pain, nausea, vomiting Skin: Denies new rashes or lesions Neuro: no numbness, tingling, or weakness Psychological: denies suicidal ideation Musculoskeletal: as above in HPI 05/04/2023 General Health, Prior Treatments, PreExisting Condition, Health Habits, About You PROMIS-10 General Health Good PROMIS-10 Quality of Life Very Good PROMIS-10 Physical Health Good PROMIS-10 Mental Health Very Good PROMIS-10 Social Activity Very Good PROMIS-10 Everyday Activities Completely PROMIS-10 Pain 0 -No Pain PROMIS-10 Fatigue None PROMIS-10 Social Roles Very Good PROMIS-10 Anxious or Depressed Never PROMIS PHYSICAL SCORE (range 16-68) 57.7 PROMIS MENTAL SCORE (range 21-68) 56 Alzheimers or dementia No HIV/AIDS No Pain in more than one joint in legs No Back or neck pain No Heart attack No Heart failure No Unclog/bypass leg arteries No Stroke, blood clot, TIA No Asthma Yes Take medication for asthma Yes Emphysema, chronic bronchities, or COPD No Stomach ulcers/peptic ulcer disease No Diabetes No Poor kidney function No Rheumatic condtions No Cancer No BMI Incomplete Live Alone No Marital situation No data to display No data to display PHYSICAL EXAM: Ms. Farias is a 62 y.o. female General appearance: in no acute distress, alert, cooperative Psych: cooperative with exam, appropriate Head: normocephalic, atraumatic EENT: EOMI grossly intact Neck: supple, trachea midline Cardiac: regular rate and rhythm by peripheral pulse Lungs: no extra work of breathing Musculoskeletal: Examination of bilateral feet when standing reveals neutral heels and neutral arches. Further examination of the left foot reveals a moderate hallux valgus with impingement on the lesser toes and a second hammertoe that is partially subluxated with flexion to the proximal interphala ngeal joint. DIAGNOSTIC STUDIES: Personal review of bilateral weightbearing foot films reveal an increased intermetatarsal angle at the third 1 to intermetatarsal space of approximately 14 degrees with an incongruent metatarsal phalangeal joint and complete uncoverage of the lateral sesamoid. Additionally, there appears to be subluxation of the proximal phalanx with respect to the metatarsal with near complete obliteration of the joint space seen on the anterior view. ASSESSMENT: Left hallux valgus with transfer metatarsalgia and second and third hammertoes PLAN: The patient and I discussed what kind of interventions are available prior to surgery including shoewear modification and activity modification. She is already using a toe spacer. She is anxious to avoid surgery until after her growing season. We therefore discussed doing a first metatarsophalangeal joint fusion with second and third Fermín osteotomies and second proximal interphalangeal joint fusion. We would do this at the outpatient surgery center at [facility]. She would be nonweightbearing for 6 weeks but we would want to be very careful weaning her out of her stiff soled shoe becauseof her Parkinson's. She denied also talked about making sure that while she is nonweightbearing, she is continuing to work on core and upper body work including something like chair yoga. She will get her preop clearance from her primary but will do her paperwork for surgery on the day of in October or November.. The patient expressed agreement with and understanding of this plan of care. The patient understands to contact us if they have any other questions or concerns. The above documentation was completed using [employer] voice recognition software. Alisha Valdivia MD Department of Orthopaedics [facility] Pager: [phone] documented in this encounter Plan of Treatment Upcoming Encounters Date Type Department Care Team (Late st Contact Info) Description 02/07/2029 Hospital Encounter [place]patient [place] [address] Alisha Valdivia MD [facility] [place] [address] Scheduled Orders Name Type Priority Associated Diagnoses Orde r Schedule SURGICAL CASE REQUEST: ARTHRODESIS GREAT TOE MTP JOINT (WRVU 8.57), OSTEOTOMY, METATARSAL, OTHER THAN FIRST, EACH (WRVU 5.48), HAMMERTOE CORRECTION (WRVU 5.62) Procedures Routine Hallux valgus (acquired), left foot Ordered: 05/07/2023 Scheduled Procedures Name Priority Associated Diagnoses Date/Ti me ARTHRODESIS GREAT TOE MTP AMERICO INT (WRVU 8.57) Hallux valgus (acquired), left foot OSTEOTOMY, METATARSAL, OTHER THAN FIRST, EACH (WRVU 5.48) Hallux valgus (acquired), left foot HAMMERTOE CORRECTION (WRVU 5.62) Hallux valgus (acquired), left foot documented as of this encounter Visit Diagnoses Diagnosis Left foot pain Pain in limb Hammertoe of second toe of left foot Hallux rigidus of left foot Hallux rigidus Hallux valgus (acquired), left foot documented in this encounter Care Teams Partridge Farmer Relationship Specialty Start Date End Date Vale Tyson DO [address] [place] [address] PCP - General Family Medicine 09/08/22 documented as of this encounter
--- OUTSIDE RECORDS SUMMARY | 2023-09-07 02:09 | XMS_ITS | Encounter Summary ---
Author Organization [place] [address] Care Team Providers Care Building Insulation Supervisor Name Role Phone Vale Tyson DO Primary Care Provider +1- [phone] Reason for Visit * Diagnostic Test (Routine) - Closed Specialty Diagnoses / Procedures Referred By Randall t Referred To Contact Radiology Diagnoses Tremor, unspecified Procedures NM Brain Imaging for Parkinsons Disease Kylie Magallon MD [facility] [address] [place] [address] [place] [address] Referral ID Status Reason Start Date Expiration Date V isits Requested Visits Authorized [id number] Closed Specialty Service Requested 11/01/2022 05/01/2024 1 1 Encounter Details Date Type Department Care Team (Late st Contact Info) Description 12/07/2022 3:00 PM EDT - 12/07/2022 11:59 PM EDT Hospital Encounter [place] [phone] Kylie Magallon MD [facility] [address] [place] [address] Discharge Disposition: Home Social History [...] Description 02/07/2029 Hospital Encounter Outpatient [place] [address] Alisha Valdivia MD [facility] [place] [address] Scheduled Procedures Name Priority Associated Diagnoses Date/Ti [...] EDT Tremor, unspecified documented in this encounter Results * NM Brain Imaging for Parkinsons Disease (12/07/2022 4:40 PM EDT) Anatomical Region Laterality Modality Nuclear Medicine Impressions 12/07/2022 4:53 PM EDT These findings are consistent with a Parkinsonian syndrome. Thank you for letting us participate in the care of this patient. ??If you are a health care provider and have any questions regarding this report, please contact the number below. ??For patients who have questions please contact the health healthcare administration internship that requested your imaging first. ? Electronically signed by: Devyn Mejia MD, [facility] ([phone]), at 12/07/2022 4:53 PM Narrative 12/07/2022 4:53 PM EDT EXAMINATION: NM BRAIN IMAGING FOR PARKINSONS DISEASE CLINICAL HISTORY: tremor of right hand TECHNIQUE: Pretreatment with oral potassium iodide was given. Following this, I-123 ioflupane was administered intravenously in a dose of 4.6 mCi. Four hours later, tomographic imaging of the brain was performed with images reconstructed in the axial, sagittal and coronal planes COMPARISON: None FINDINGS: Diminished activity is present in the putamen bilaterally and in the left caudate nucleus. Procedure Note Devyn Mejia MD - 12/07/2022 EXAMINATION: NM BRAIN IMAGING FOR PARKINSONS DISEASE CLINICAL HISTORY: tremor of right hand TECHNIQUE: Pretreatment with oral potassium iodide was given. Followingthis, I-123 ioflupane was administered intravenously in a dose of 4.6 mCi. Fourhours later, tomographic imaging of the brain was performed with imagesreconstructed in the axial, sagittal and coronal planes COMPARISON: None FINDINGS: Diminished activity is present in the putamen bilaterally and in theleft caudate nucleus. IMPRESSION These findings are consistent with a Parkinsonian syndrome. Thank you for letting us participate in the care of this patient. If youare a health care provider and have any questions regarding this report,please contact the number below. For patients who have questions please contactthe health healthcare administration internship that requested your imaging first. Electronically signed by: Devyn Mejia MD, [facility]([phone]), at 12/07/2022 4:53 PM Kylie Magallon MD [facility] [place] ORDERABLES documented in this encounter Visit Diagnoses Not on filedocumented in this encounter Care Teams Building Insulation Supervisor Relationship Specialty Start Date End Date Vale Tyson DO [address] [place] [address] PCP - General Family Medicine 09/08/22 documented as of this encounter
--- OUTSIDE RECORDS SUMMARY | 2023-09-07 02:09 | XMS_ITS | Referral Summary ---
Author Organization [facility] Address [address] [place] [address] Care Team Providers Care Story Analyst Name Role Phone Unknown, Provider Primary Care Provider [phone] Encounters Date Type Department Care Team Description 08/02/2023 Lab Requisition [facility] Pathology & Laboratory Medicine - [facility] [address] [place] [address] Geremias Castro MD Encounter for other general examination from Last 3 Months Social History Tobacco Use Types Packs/Day Years Used Date Smoking Tobacco: Never Assessed Sex and Gender Information Value Date Recorded Sex Assigned at Not on file Gender Identity Not on file Sexual Orientation Not on file Plan of Treatment Not on file Procedures Procedure Name Priority Date/Time Associated Diagnosis Comments SURGICAL PATHOLOGY Today 08/02/2023 11 :20 EDT Encounter for other general examination from Last 3 Months Results * SURGICAL PATHOLOGY (08/02/2023 11:20 EDT) Note to Patient The following pathology results have been interpreted by your pathologist and may be available to you before your health provider has had the opportunity to review them. Please allow time for your provider to receive these results and explore management options, if applicable. 08/04/2023 13:03 EDT [facility] Final Diagnosis A. SKIN OF FLANK, LEFT, EXCISION: - Seborrheic keratosis. B. SKIN OF FLANK, RIGHT, EXCISION: - Verruca vulgaris. 08/04/2023 13:03 EDT [facility] Attestation By the signature below, the attending physician certifies that they have 1) personally conducted a gross and/or microscopic examination of the described specimen(s), and/or personally interpreted the results of laboratory testing of the described specimen(s), and 2) personally rendered or confirmed the above diagnosis. 08/04/2023 13:03 [facility] at 1303 Microscopic Description [...] The granular layer is accentuated. 08/04/2023 13:03 [facility] Clinical History Skin lesion 08/04/2023 13:03 [facility] Gross Description A. Received [...] face. Janelle Quintero 08/03/2023 8:32 08/04/2023 13:03 [facility] Performing Lab [facility] 08/04/2023 13:03 EDT [facility] Scanned Images 08/04/2023 13:03 EDT [facility] Tissue SPECIMEN FROM SKIN / Unknown 08/02/2023 11:20 EDT 08/02/2023 19:55 EDT Tissue specimen (specimen) SPECIMEN FROM SKIN / Unknown 08/02/2023 11:20 EDT 08/02/2023 19:55 EDT Geremias Castro MD PATHOLOGY ORDERABLES [facility] [address], [place] [address] from Last 3 Months Care Teams Story Analyst Relationship Specialty Start Date End Date Unknown, Provider, PCP - General 07/09/23
--- OUTSIDE RECORDS SUMMARY | 2023-09-07 02:09 | XMS_ITS | Encounter Summary ---
[place] [address] Care Team Providers Care Radio Assembler Name Role Phone Vale Tyson DO Primary Care Provider [phone] Encounter Details Date Type Department Care Team (Late st Contact Info) Description 07/15/2023 [place] [phone] Agapito Christianson MD [facility] [place] [address] Social History Tobacco Use Types Packs/Day Years [...] encounter Miscellaneous Notes * Telephone Encounter - Mer Ferro - 07/15/2023 10:09 AM EDT Left a message to schedule surgery with Dr Christianson documented in this encounter Plan of Treatment Upcoming Encounters Date Type Department Care Team (Late st Contact Info) Description 02/07/2029 Hospital Encounter Outpatient [place] [phone] Alisha Valdivia MD [facility] [place] [address] Scheduled Procedures Name Priority Associated Diagnoses Date/Ti me ARTHRODESIS GREAT TOE MTP AMERICO INT (WRVU 8.57) Hallux valgus (acquired), left foot OSTEOTOMY, METATARSAL, OTHER THAN FIRST, EACH (WRVU 5.48) Hallux valgus (acquired), left foot HAMMERTOE CORRECTION (WRVU 5.62) Hallux valgus (acquired), left foot documented as of this encounter Visit Diagnoses Not on filedocumented in this encounter Care Teams Radio Assembler Relationship Specialty Start Date End Date Vale Tyson DO [address] [address] PCP - General Family Medicine 09/08/22 documented as of this encounter
--- OUTSIDE RECORDS SUMMARY | 2023-09-07 02:09 | XMS_ITS | Encounter Summary ---
Author Organization [facility] Address [address] [place] [address] Care Team Providers Care Meat Hostess Name Role Phone Unknown, Provider Primary Care Provider [phone] Encounter Details Date Type Department Care Team (Late st Contact Info) Description 05/31/2023 Lab Requisition [facility] Pathology & Laboratory Medicine - [facility] [address] [place] [address] Louann Lares MD [address] [place] [address] [place] [address] Encounter for other general examination Social History [...] Procedure Name Priority Date/Time Associated Diagnosis Comments PAP TEST Today 05/30/2023 3:30 EDT Encounter for other general examination HPV DNA DETECTION WITH GENOTYPING, PCR Today 05/30/2023 3:30 EDT Encounter for other general examination documented in this encounter Results * HUMAN PAPILLOMAVIRUS (HPV) DETECTION-HIGH RISK TYPES (05/30/2023 3:30 EDT) HPV other High Risk types, PCR Negative Negative 06/06/2023 15:19 EDT [facility] Comment:No E6 or E7 mRNA is detected from HPV types 16,18,31,33,35,39,45,51,52,56,58,59,66, and 68 by checker loader mediated amplification. Pap Test CERVIX UTERI STRUCTURE / Unknown 05/30/2023 3:30 EDT 06/03/2023 14:38 EDT Louann Lares MD MICROBIOLOGY - GENER AL ORDERABLES [facility] [address] [place], [place] [address] * PAP TEST (05/30/2023 3:30 EDT) Specimens A. Cervix and/or Endocervix , ThinPrep Imaging System with Manual Evaluation 06/06/2023 15:19 [facility] Specimen Adequacy Satisfactory for Evaluation - assessment of transformation zone component not applicable ( e.g. atrophy, vaginal sample, hysterectomy) 06/06/2023 15:19 [facility] General Categorization Negative for intraepithelial lesion or malignancy 06/06/2023 15:19 [facility] Attestation . 06/06/2023 15:19 [facility] at 1519 Clinical History See below 06/06/19 24 15:19 [facility] HPV The result for the Human Papillomavirus (HPV) Detection-High Risk Types is Negative. No E6 or E7 mRNA is detected from HPV types 16,18,31,33,35,39 ,45,51,52,56,58,5 9,66, and 68 by checker loader mediated amplification.Davina ting was performed on specimen [id number] and was resulted on 06/06/2023 1519 EDT by LIZZETTE, LAB INSTRUMENT RESULTS IN 06/06/2023 15:19 T [facility] Performing Lab [facility] 06/06/2023 15:19 [facility] Scanned Images 06/06/2023 15:19 T [facility] Pap Test CERVIX UTERI STRUCTURE / Unknown 05/30/2023 3:30 EDT 05/31/2023 10:58 EDT Louann Lares MD PATHOLOGY ORDERABLES [facility] [address] [place], [place] [id number] documented in this encounter Visit Diagnoses Diagnosis Encounter for other general examination documented in this encounter Care Teams Meat Hostess Relationship Specialty Start Date End Date Unknown, Provider, PCP - General 07/09/23 documented as of this encounter
--- OUTSIDE RECORDS SUMMARY | 2023-09-07 02:09 | XMS_ITS | Encounter Summary ---
Author Organization [facility] [place] [address] Care Team Providers Care Cia Agent Name Role Phone Vale Tyson DO Primary Care Provider [phone] Encounter Details Date Type Department Care Team (Latest Contact Info) Description 05/04/2023 Travel Social History Tobacco Use Types Packs/Day Years [...] Description 02/07/2029 Hospital Encounter [place]patient [place] [phone] Alisha Valdivia MD [facility] DR [place] [address] Scheduled Procedures Name Priority Associated Diagnoses Date/Ti me ARTHRODESIS GREAT TOE MTP AMERICO INT (WRVU 8.57) Hallux valgus (acquired), left foot OSTEOTOMY, METATARSAL, OTHER THAN FIRST, EACH (WRVU 5.48) Hallux valgus (acquired), left foot HAMMERTOE CORRECTION (WRVU 5.62) Hallux valgus (acquired), left foot documented as of this encounter Visit Diagnoses Not on filedocumented in this encounter Care Teams Cia Agent Relationship Specialty Start Date End Date Vale Tyson DO [address] [place], [place] [id number] PCP - General Family Medicine 09/08/22 documented as of this encounter
--- OUTSIDE RECORDS SUMMARY | 2023-09-07 02:09 | XMS_ITS | Encounter Summary ---
Author Organization [facility] Address [address] [place] [address] Care Team Providers Care Gear Tooth Lapping Machine Operator Name Role Phone Derrek Delaney DO Primary Care Provider [phone] Reason for Referral * Diagnostic (Routine) - Closed Specialty Diagnoses / Procedures Referred By Randall pedro Referred To Contact Diagnoses Preoperative testing Procedures EKG electrocardiogram Hector Goncalves MD [address] [place] [address] Referral ID Status Reason Start Date Expiration Date Visits Re quested Visits Authorized [id number] Closed 04/17/2015 04/16/2016 1 1 Encounter Details Date Type Department Care Team (Late st Contact Info) Description 04/17/2015 8:00 AM EST Office Visit [facility] [address] [place] [address] Preoperative testing (Primary Dx) Social History Tobacco Use Types [...] Sign Reading Time Taken Comments Blood Pressure 163/82 04/17/2015 8:27 AM EST Pulse 76 04/17/2015 8:27 AM EST Temperature 36.9 ??C (98.5 ??F) 04/17/2015 8:27 AM ES T Respiratory Rate 20 04/17/2015 8:27 AM EST Oxygen Saturation 97% 04/17/2015 8:27 AM EST Inhaled Oxygen Concentration - - Weight 68 kg (150 lb) 04/17/2015 8:27 AM EST Height 160 cm (5' 3) 04/17/2015 8:27 AM EST Body Mass Index 26.57 04/17/2015 8:27 AM EST documented in this encounter Miscellaneous Notes * Pre-Procedure Instructions - Sheela Dang RN - 04/17/2015 8:39 AM EST PRE-OP INSTRUCTIONS Sonam Farias Date of Procedure 04/28/15 You will receive a phone call the day before your procedure to confirm the exact arrival time. This may be changed since your Pre-Admission Testing (PAT) appointment. We will leave a messageif you are unavailable. The department is closed on Holidays and Weekends. We would like to make your visit to [facility] as pleasant as possible. Please follow the MARKED instructions in preparing for your procedure. ?? Please bring a picture I.D. with you on the day of the procedure. ?? Please don't eat or drink after midnight the night prior to your surgery. This includes water, gum, candy, breath mints and life savers. Your may, however, brush your teeth. ?? Please do not drink alcohol or use recreational drugs for 24 hours before your procedure. ?? If you wear glasses, remember to bring your glasses case to put your glasses in. If you wear contact lenses, please remove them prior to coming in and wear your glasses. Please wear your hearing aide(s), if you normally wear them. ?? Wear loose comfortable clothing on the day of surgery. Wear flat shoes. Please do not wear any jewelry, hairpins, barrettes, makeup, nail setswana, body lotions, deodorant, hair gel, mousse or hairspray. ?? All body piercings will need to be removed prior to coming in. ?? Please make sure you have a responsible adult available to take you home and stay with you. You should not drive or return to work until your doctor's approval. ?? You may take the following medications with a sip of water on the morning of your procedure: Maytake routine medications except for vitamins the morning of procedure. ?? Please follow your surgeon's instructions about stopping your Aspirin/aspirin products or any other blood thinning medications. Any questions or concerns, please call [facility]:[phone] Sheela Dang 04/17/2015 8:39 AM documented in this encounter Plan of Treatment Not on file documented as of this encounter Procedures Procedure Name Priority Date/Time Associated Diagnosis Comments URINE MICROSCOPIC (SEDIMENT ONLY) Routine 04/17/2015 8:42 AM EST Preoperative testing URINALYSIS (NO REFLEX TO CULTURE) Routine 04/17/2015 8:42 AM EST Preoperative testing APTT Routine 04/17/2015 8:42 AM EST Preoperative testing PROTIME-INR Routine 04/17/2015 8:42 AM EST Preoperative testing CBC AND AUTO DIFFERENTIAL Routine 04/17/2015 8:42 AM EST Preoperative testing TYPE AND SCREEN Routine 04/17/2015 8:42 AM EST Preoperative testing URINE CULTURE AND COLONY COUNT Routine 04/17/2015 8:42 AM EST Preoperative testing COMPREHENSIVE METABOLIC PANEL Routine 04/17/2015 8:42 AM EST Preoperative testing ECG 12-LEAD Routine 04/17/2015 8:34 AM EST Preoperative testing documented in this encounter Results * (ABNORMAL) Urine Microscopic (sediment only) (04/17/2015 8:42 AM EST) WBC 0-2 0-2 HPF HPF 04/17/2015 11:14 AM EST [facility] RBC 6-10(A) 0 - 2 HPF 04/17/2015 11:14 AM EST [facility] Squam Epithelial Few Few HPF 04/17/2015 11:14 AM EST [facility] Mucus Few Few HPF 04/17/2015 11:14 AM EST [facility] Bacteria Few(A) None Seen HPF 04/17/2015 11:14 AM EST [facility] Urine specimen (specimen) Urine specimen obtained by clean catch procedure / Unknown Collection / Unknown 04/17/2015 8:42 AM EST 04/17/2015 10:35 AM EST Hector Goncalves MD URINE ORDERABLES Performing Organization Address [facility] Co de Phone Number [facility] [address] [place] [address] * Type and screen (04/17/2015 8:42 AM EST) ABO A 04/17/2015 12:57 PM EST [facility] RH Positive 04/17/2015 12:57 PM EST [facility] Antibody Screen Negative 04/17/2015 12:57 PM EST [facility] Blood specimen (specimen) Venipuncture / Unknown 04/17/2015 8:42 AM EST 04/17/2015 10:38 AM EST Hector Goncalves MD BLOOD BANK TEST ORDE RABLES Performing Organization Address [facility] de Phone Number [facility] Blood Bank [address] [place] [phone] * Urine Culture and Cook Count (04/17/2015 8:42 AM EST) Culture 10,000 - 50,000 colonies/ml Mixed Gram Positive Organisms 04/18/2015 8:37 AM EST [facility] Urine specimen (specimen) Urine specimen obtained by clean catch procedure / Unknown Collection / Unknown 04/17/2015 8:42 AM EST 04/17/2015 10:35 AM EST Hector Goncalves MD MICROBIOLOGY - GENER AL ORDERABLES [facility] [address], [place] * (ABNORMAL) Urinalysis (NO reflex to culture) (04/17/2015 8:42 AM EST) Color Yellow Yellow 04/17/2015 11:01 AM [facility] Clarity, UA Clear Clear 04/17/2015 11:01 AM [facility] Specific [place] 1.014 1.005 - 1.030 04/17/2015 11:01 AM [facility] pH 5.0 5.0 - 9.0 04/17/2015 11:01 AM [facility] Protein Negative Negative mg/dL 04/17/2015 11:01 AM [facility] Glucose Negative Negative, 150 mg/dL 04/17/2015 11:01 AM [facility] Ketones Negative Negative mg/dL 04/17/2015 11:01 AM [facility] Blood 0.2(A) Negative mg/dL 04/17/2015 11:01 AM [facility] Bilirubin UA Negative Negative mg/dL 04/17/2015 11:01 AM [facility] Urobilinogen Normal Normal mg/dL 04/17/2015 11:01 AM [facility] Nitrite Negative Negative 04/17/2015 11:01 AM [facility] Leukocyte Esterase 250(A) Negative Castillo/uL 04/17/2015 11:01 AM [facility] Urine specimen (specimen) Urine specimen obtained by clean catch procedure / Unknown Collection / Unknown 04/17/2015 8:42 AM EST 04/17/2015 10:35 AM EST Hector Goncalves MD URINE ORDERABLES [facility] [address], [place] * (ABNORMAL) Protime-INR (04/17/2015 8:42 AM EST) Protime 11.8 11.5 - 14.3 seconds 04/17/2015 10:[address] [facility] INR 0.87(L) 1.50 - 4.00 04/17/2015 10:53 AM EST [facility] Blood specimen (specimen) Venipuncture / Unknown 04/17/2015 8:42 AM EST 04/17/2015 10:37 AM EST Narrative [facility] - 04/17/2015 10:53 AM EST ? INR Recommendations for Oral Anticoagulant Therapy ? Populations ?INR Value ?New PT Value (Sec) Low Intensity OAC Therapy ?1.5-2.0 ?17.6-22.0 Mod Intensity OAC Therapy ?2.0-3.0 ?22.0-33.0 High Intensity OAC Therapy ?? 2.5-4.0 ?26.1-37.4 Hector Goncalves MD LAB BLOOD ORDERABLES Performing Organization Address [facility] Co de Phone Number [facility] [address], [place] * APTT (04/17/2015 8:42 AM EST) APTT 24.2 22.3 - 34.6 seconds 04/17/2015 10:53 AM EST [facility] Blood specimen (specimen) Venipuncture / Unknown 04/17/2015 8:42 AM EST 04/17/2015 10:37 AM EST Hector Goncalves MD LAB BLOOD ORDERABLES Performing Organization Address [facility] Co de Phone Number [facility] [address], [place] * Comprehensive metabolic panel (04/17/2015 8:42 AM EST) Sodium 139 135 - 145 mEq/L 04/17/2015 11:26 AM [facility] Potassium 4.4 3.3 - 5.2 mEq/L 04/17/2015 11:26 AM [facility] Chloride 103 96 - 107 mEq/L 04/17/2015 11:26 AM [facility] CO2 27 24 - 34 mEq/L 04/17/2015 11:26 AM [facility] Anion Gap 9 4 - 14 mEq/L 04/17/2015 11:26 AM [facility] Glucose 83 70 - 100 mg/dL 04/17/2015 11:26 AM [facility] Creatinine 0.73 0.50 - 1.30 mg/dL 04/17/2015 11:26 AM [facility] eGFR >60 60 - 115 mL/min 04/17/2015 11:26 AM [facility] BUN 12 6 - 26 mg/dL 04/17/2015 11:26 AM [facility] Calcium 9.0 8.7 - 10.5 mg/dL 04/17/2015 11:26 AM [facility] Total Protein 6.7 6.4 - 8.6 g/dL 04/17/2015 11:26 AM [facility] Albumin 4.2 3.4 - 4.8 g/dL 04/17/2015 11:26 AM [facility] A/G Ratio 1.7 1.0 - 2.3 04/17/2015 11:26 AM [facility] Total Bilirubin 0.5 0.2 - 1.2 mg/dL 04/17/2015 11:26 AM [facility] AST 23 0 - 40 U/L 04/17/2015 11:26 AM [facility] Alkaline Phosphatase 74 40 - 150 IU/L 04/17/2015 11:26 AM [facility] ALT 17 0 - 45 U/L 04/17/2015 11:26 AM [facility] Blood specimen (specimen) Venipuncture / Unknown 04/17/2015 8:42 AM EST 04/17/2015 10:37 AM EST Hector Goncalves MD LAB BLOOD ORDERABLES [facility] [address], [place] * CBC and Auto Differential (04/17/2015 8:42 AM EST) WBC 4.9 4.8 - 11.2 10*3/??L 04/17/2015 10:47 AM [facility] RBC 4.25 3.60 - 5.40 10*6/??L 04/17/2015 10:47 AM [facility] HGB 12.7 12.0 - 15.8 g/dL 04/17/2015 10:47 AM [facility] HCT 39.1 36.0 - 48.0 % 04/17/2015 10:47 AM [facility] MCV 91.9 82.0 - 98.0 fL 04/17/2015 10:47 AM [facility] MCH 29.9 27.0 - 35.0 uug 04/17/2015 10:47 AM [facility] MCHC 32.6 32.0 - 37.0 g/dL 04/17/2015 10:47 AM [facility] RDW 13.4 9.0 - 17.9 % 04/17/2015 10:47 AM [facility] PLT 225 150 - 400 10*3/??L 04/17/2015 10:47 AM [facility] MPV 8.4 7.0 - 14.0 fL 04/17/2015 10:47 AM [facility] Neut % 58.2 45.0 - 85.0 % 04/17/2015 10:47 AM [facility] Lymph % 29.1 15.0 - 45.0 % 04/17/2015 10:47 AM [facility] Reynolds % 8.4 0.0 - 12.0 % 04/17/2015 10:47 AM [facility] Eos % 3.4 0.0 - 7.0 % 04/17/2015 10:47 AM [facility] Baso % 0.9 0.0 - 3.0 % 04/17/2015 10:47 AM EST [facility] Neut # 2.9 10*3/??L 04/17/2015 10:47 AM EST [facility] NRBC% 0 0 /100 WBC /100 WBC 04/17/2015 10:47 AM EST [facility] Blood specimen (specimen) Venipuncture / Unknown 04/17/2015 8:42 AM EST 04/17/2015 10:37 AM EST Hector Goncalves MD LAB BLOOD ORDERABLES [facility] [address], [place] * EKG electrocardiogram (04/17/2015 8:34 AM EST) 04/17/2015 8:34 AM EST 04/18/2015 8:44 AM EST Narrative Jose C Kent MD - 04/18/2015 8:44 AM EST Test Reason : Blood Pressure : / mmHG Vent. Rate : 069 BPM ? Atrial Rate : 069 BPM ?? P-R Int : 140 ms ?QRS Dur : 098 ms ?QT Int : 424 ms ? P-R-T Axes : 002 009 016 degrees ?? QTc Int : 454 ms Normal sinus rhythm Normal ECG No previous ECGs available Referred By: DERREK DELANEY ? Confirmed By:JOSE C KENT MD Procedure Note Jose C Kent MD - 04/18/2015 Test Reason : Blood Pressure : / mmHG Vent. Rate : 069 BPM Atrial Rate : 069 BPM P-R Int : 140 ms QRS Dur : 098 ms QT Int : 424 ms P-R-T Axes : 002 009 016 degrees QTc Int : 454 ms Normal sinus rhythm Normal ECG No previous ECGs available Referred By: DERREK DELANEY Confirmed By:JOSE C KENT MD Hector Goncalves MD ECG ORDERABLES documented in this encounter Visit Diagnoses Diagnosis Preoperative testing- Primary Unspecified pre-operative examination documented in this encounter Care Teams Gear Tooth Lapping Machine Operator Relationship Specialty Start Date End Date Derrek Delaney DO [address] [place] [id number] PCP - General Family Medicine 11/01/14 documented as of this encounter
--- OUTSIDE RECORDS SUMMARY | 2023-09-07 02:09 | XMS_ITS | Encounter Summary ---
Author Organization [facility] [place] [address] Care Team Providers Care Bread Dough Mixer Name Role Phone Vale Tyson DO Primary Care Provider [phone] Encounter Details Date Type Department Care Team (Latest Contact Info) Description 03/08/2023 Travel Social History Tobacco Use Types Packs/Day Years Used Date Smoking Tobacco: Former Cigarettes Smokeless Tobacco: Never Sex and Gender Information Value Date Recorded Sex Assigned at Not on file Gender Identity Not on file Sexual Orientation Not on file documented as of this encounter Plan of Treatment Upcoming Encounters Date Type Department Care Team (Late st Contact Info) Description 02/07/2029 Hospital Encounter [place] [phone] Alisha Valdivia MD [facility] [place] [address] Scheduled Procedures Name Priority Associated Diagnoses Date/Ti me ARTHRODESIS GREAT TOE MTP AMERICO INT (WRVU 8.57) Hallux valgus (acquired), left foot OSTEOTOMY, METATARSAL, OTHER THAN FIRST, EACH (WRVU 5.48) Hallux valgus (acquired), left foot HAMMERTOE CORRECTION (WRVU 5.62) Hallux valgus (acquired), left foot documented as of this encounter Visit Diagnoses Not on filedocumented in this encounter Care Teams Bread Dough Mixer Relationship Specialty Start Date End Date Vale Tyson DO [address] [place] [address] PCP - General Family Medicine 09/08/22 documented as of this encounter
--- OUTSIDE RECORDS SUMMARY | 2023-09-07 02:09 | XMS_ITS | Encounter Summary ---
Author Organization [facility] Address [address] [place] [address] Care Team Providers Care Scouring Machine Tender Name Role Phone Unavailable Primary Care Provider Unavailabl e Encounter Details Date Type Department Care Team (Late st Contact Info) Description 03/28/2012 Historical Office Visit [facility] [address] [place] [address] Steve Stone DO [address] [place] [address] Social History Tobacco Use Types Packs/Day Years Used Date Smoking Tobacco: Never Assessed Sex and Gender Information Value Date Recorded Sex Assigned at Not on file Gender Identity Not on file Sexual Orientation Not on file documented as of this encounter Progress Notes * Steve Stone DO - 10/16/2013 9:25 PM EDT patient:SONAM FONSECA EncounterId:[id number] PatientId:[id number] ProviderId:[id number] ControlNo:[id number] MrnNo:CHNNo::[id number] phone:[phone] address:[address] [place] [address] encDate:04/16/2013 age:52 Y sex:Female reqNo:[id number] provider:Steve Stone D.O. [facility]Fac[facility] Resident:Ash:userName:servando TimeStamp: SignOffStatus:Sign off status: Completed PrimaryInsName:PrimaryInsSubscriberNo:PrimaryInsPrintName:PrimaryInsPrint:SecI nsName:SecInsSubscriberNo:SecInsPrintName:SecInsPrint:refPr:Josue Delaney DO pcp:Josue Delaney DO NotesType:Progress Notes items:Subjective: Reason for Appointment: Fever/chills/cough Started Tuesday night, chills, myalgia, weak, cough, congestion Did have a flu shot, No Vomiting or Diarrhea CurrentMedications: Lumigan 0.01 % Solution 1 drop into affected eye in the evening qhs Timolol 0.5 % Solution 1 drop into affected eye bid Acyclovir 400 mg tablet one tab 5 times a day ProAir HFA 108 (90 Base) MCG/ACT Aerosol Solution 2 puffs prn Symbicort 160-4.5 MCG/ACT Aerosol 2 puffs Twice a day Claritin 10 MG Tablet 1 tablet Once a day Fluticasone Propionate 0.050 Milligram Miscellaneous Unspecified 2 SPRAYS IN EACH NOSTRIL EVERY DAY Once a day Celexa 40 MG Tablet 1 tablet Once a day Simvastatin 20 mg Tablet 1 tablet in the evening Once a day Imitrex 100 MG Tablet 1 tablet as needed no more than 2 tabs within 24 hours Triamcinolone Acetonide 0.1 % Cream 1 application to affected area Twice a day Ketoconazole 2 % Cream 1 application to affected area Once a day Medication List reviewed and reconciled with the patient PastHistory:Asthma Glaucoma Hard of hearing Allergic rhinitis Former tobacco use quit in 1998 Ovarian cyst Depression Generalized anxiety disorder Multiple areas of sun damage Hyperlipidemia Hip pain 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 Family History: Father: Father with a history of coronary artery disease, hyperlipidemia, and hypertension. Mother: alive Mother with hypertension, polymyalgia rheumatica. familyNotes:Family history of colon cancer. itemValueBR:Family history of colon cancer. Social History: Tobacco Use: Are you a: former smoker , How long has it been since you last smoked?: > 10 years Are you an other tobacco user? No Drugs/Alcohol: Have you used drugs other than those for medical reasons in the past 12 months? No Did you have a drink containing alcohol in the past year?: Yes, How often did you have a drink containing alcohol in the past year?: 4 or more times a week (4 points), How many drinks did you have on a typical day when you were drinking in the past year?: 1 or 2 drinks (0 point), How often did you have 6 or more drinks on one occasion in the past year?: Never (0 point), Points: 4, Interpretation: Positive Miscellaneous: Children: Two children.. Marital status: . categoryValue:Children: Two children.. Marital status: . categoryNotesBR:, two children. Quit tobacco in 1998, 20-year history. Alcohol, one to two glasses a day. No drug use. History of Present Illness: New Symptom hpiCatNotes:Patient presents with cough, congestion, fatigue, malaise, muscle aches and joint pains. Started on Tuesday night. She has a persisting cough. Mild shortness of breath. Denies wheezing. No nausea or vomiting. No fever. Admits to muscle aches and joint pains. She did get a flu vaccine this year. vitals:Temp 97.9 F, HR 68 /min, BP 140/82 mm Hg, Ht 5'3 3/4, Wt 156 lbs, BMI 26.98 Index, Oxygen sat % 99 %. Past Orders: Vision Examination: General Examination GENERAL APPEARANCE: in no acute distress, well developed, well nourished HEAD: normocephalic, atraumatic EARS: normal NOSE: clear discharge, no lesions THROAT: clear NECK/THYROID: neck supple, full range of motion, no cervical lymphadenopathy, no thyromegaly SKIN: no rashes HEART: no murmurs, regular rate and rhythm, S1, S2 normal LUNGS: clear to auscultation bilaterally ABDOMEN: normal, bowel sounds present, no masses palpable, no organomegaly , soft, nontender, nondistended EXTREMITIES: no clubbing, cyanosis, or edema Assessments: Assessments: Cough - 786.2 (Primary) Assessments: Malaise and fatigue - 780.79 Plan: Treatment: Assessments: name:Others rx:Start Guaifenesin AC Syrup, 100-10 MG/5ML, 1 or 2 tsp as needed, Orally, every 6 hrs, 220 mL, Refills 0 notesBR:Discussed potential side effects and/or adverse reactions. If any let us know. Recommend fluids, rest albuterol as needed. If no improvement in 24-48 hours, call office. Most likely a viral illness. Immunization: Immunization: Injection:Therapeutic Therapeutic Injections: labs:Procedures: preventive:FollowUp:prn disposition:[id number]:[id number] InvoiceId:[id number] InsuranceId:[id number] PayorID: * Steve Stone DO - 10/16/2013 5:43 PM EDT patient:SONAM FONSECA EncounterId:[id number] PatientId:[id number] ProviderId:[id number] ControlNo:[id number] :[id number] phone:[phone] address:[address] [place] [address] encDate:03/25/2012 age:51 Y sex:Female reqNo:[id number] provider:Steve Stone D.O. ApptFacility:[facility] Resident:Ash:userName:servando TimeStamp: SignOffStatus:Sign off status: Completed refPr:Josue Delaney pcp:Josue Delaney NotesType:Progress Notes items:Subjective: Reason for Appointment: COLD,CONGESTION, CurrentMedications: Albuterol Sulfate HFA 2 puffs q.4h p.r.n. Claritin 10 MG Tablet 1 tablet Once a day Celexa 40mg Tablet 1 tablet Once a day Fluticasone Propionate 0.050 Milligram Miscellaneous Unspecified 2 SPRAYS IN EACH NOSTRIL EVERY DAY Imitrex 100 MG Tablet 1 tablet as needed no more than 2 tabs within 24 hours Lumigan 0.01 % Solution 1 drop into affected eye in the evening qhs Trusopt 2 % Solution 1 drop into affected eye bid Timolol 0.5 % Solution 1 drop into affected eye bid Citalopram Hydrobromide 40 Milligram Tablet TAKE ONE TABLET(S) EVERY DAY Simvastatin 20 MG Tablet 1 tablet in the evening q.h.s. 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 Family History: Father: alive Father with a history of coronary artery disease, hyperlipidemia, and hypertension. Mother: alive Mother with hypertension, polymyalgia rheumatica. familyNotes:Family history of colon cancer. itemValueBR:Family history of colon cancer. Social History: Tobacco Use: Are you a: former smoker , How long has it been since you last smoked?: > 10 years Drugs/Alcohol: Have you used drugs other than those for medical reasons in the past 12 months? No Did you have a drink containing alcohol in the past year?: Yes, How often did you have a drink containing alcohol in the past year?: 4 or more times a week (4 points), How many drinks did you have on a typical day when you were drinking in the past year?: 1 or 2 drinks (0 point), How often did you have 6 or more drinks on one occasion in the past year?: Never (0 point), Points: 4, Interpretation: Positive Miscellaneous: Children: Two children.. Marital status: . categoryValue:Children: Two children.. Marital status: . categoryNotesBR:, two children. Quit tobacco in 1998, 20-year history. Alcohol, one to two glasses a day. No drug use. History of Present Illness: New Symptom hpiCatNotes:Cough, congestion, rhonorrhea. No sinus pain or pressure - about 2 weeks. Mild SOB. ? Wheezing. Non smoker. vitals:Temp 98.2 F, HR 68 /min, BP 153/94 mm Hg, Ht 5'3 3/4, Wt 159 lbs, BMI 27.50 Index, Oxygen sat % 100 %. Past Orders: Vision Examination: General Examination GENERAL APPEARANCE: in no acute distress, well developed, well nourished HEAD: normocephalic, atraumatic EYES: extraocular movement intact (EOMI), fundus normal, pupils equal, round, reactive to light and accommodation EARS: normal NOSE: clear discharge, no lesions THROAT: clear NECK/THYROID: neck supple, full range of motion, no cervical lymphadenopathy, no thyromegaly SKIN: no rashes HEART: no murmurs, regular rate and rhythm, S1, S2 normal LUNGS: scattered wheezes throughout Assessments: Assessments: Asthma exacerbation - 493.92 (Primary) Assessments: Cough - 786.2 Assessments: Wheeze - 786.07 Plan: Treatment: Assessments: name:Asthma exacerbation rx:Start PredniSONE Tablet, 50 MG, 1 tablet with food or milk, Orally, Once a day, 05 days, 5, Refills 0 Assessments: name:Cough rx:Start Azithromycin Tablet, 250 MG, 2 tablet on the first day, then 1 tablet daily for 4 days, Orally, Once a day, 5 day(s), 6, Refills 0 Assessments: name:Wheeze rx:Start ProAir HFA Aerosol Solution, 108 (90 Base) MCG/ACT, 2 puffs, Inhalation, q 4-6 hrs prn, 1, Refills 2 Assessments: name:Others notesBR:Patient clinically stable. Call if any concerns. Immunization: labs:Procedures: preventive:FollowUp:prn disposition:[id number]:[id number] InvoiceId:[id number] InsuranceId:[id number] PayorID: documented in this encounter Plan of Treatment Not on file documented as of this encounter Visit Diagnoses Not on filedocumented in this encounter
--- OUTSIDE RECORDS SUMMARY | 2023-09-07 02:09 | XMS_ITS | Encounter Summary ---
Author Organization [facility] [facility] Address [address] [place] [address] Care Team Providers Care Graduate Recruiter Name Role Phone Josue Delaney DO Primary Care Provider [phone] Encounter Details Date Type Department Care Team (Late st Contact Info) Description 01/23/2015 Abstract [facility] [address] [place] [address] Hector Goncalves MD [address] [facility] [address] [place] [address] Social History Tobacco Use Types Packs/Day Years Used Date Smoking Tobacco: Never Assessed Sex and Gender Information Value Date Recorded Sex Assigned at Not on file Gender Identity Not on file Sexual Orientation Not on file documented as of this encounter Miscellaneous Notes * Addendum Note - Oxana Melgoza - 01/24/2015 7:21 AM ESTAddended by: OXANA MELGOZA on: 01/24/2015 07:21 AM Modules accepted: Orders, Medications documented in this encounter Plan of Treatment Not on file documented as of this encounter Visit Diagnoses Not on filedocumented in this encounter Care Teams Graduate Recruiter Relationship Specialty Start Date End Date Josue Delaney DO [address] [place] [address] PCP - General Family Medicine 11/01/14 documented as of this encounter
--- OUTSIDE RECORDS SUMMARY | 2023-09-07 02:09 | XMS_ITS | Encounter Summary ---
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 Tracer Name Role Phone Unavailable Primary Care Provider Unavailabl e Encounter Details Date Type Department Care Team (Late st Contact Info) Description 06/16/2012 Historical Office Visit [facility] [address] [place] [address] Josue Delaney DO [address] [place] [address] Social History Tobacco Use Types Packs/Day Years Used Date Smoking Tobacco: Never Assessed Sex and Gender Information Value Date Recorded Sex Assigned at Not on file Gender Identity Not on file Sexual Orientation Not on file documented as of this encounter Progress Notes * Josue Delaney DO - 10/16/2013 9:17 PM EDT patient:SONAM FONESCA EncounterId:[id number] PatientId:[id number] ProviderId:[id number] ControlNo:[id number] MrnNo:CHNNo::1960 phone:[phone] address:[address] [place], [place] [id number] encDate:03/23/2013 age:52 Y sex:Female reqNo:[id number] provider:Josue Delaney D.O. ApptFacility:[facility] Resident:Ash:userName:dclark TimeStamp: SignOffStatus:Sign off status: Completed PrimaryInsName:PrimaryInsSubscriberNo:PrimaryInsPrintName:PrimaryInsPrint:SecI nsName:SecInsSubscriberNo:SecInsPrintName:SecInsPrint:refPr:Josue Delaney DO pcp:Josue Delaney DO NotesType:Progress Notes items:Subjective: Reason for Appointment: RCK CHOL Rash on face CurrentMedications: ProAir HFA 108 (90 Base) MCG/ACT Aerosol Solution 2 puffs prn Lumigan 0.01 % Solution 1 drop into affected eye in the evening qhs Trusopt 2 % Solution 1 drop into affected eye bid, stop date 01/20/2013 Timolol 0.5 % Solution 1 drop into affected eye bid Claritin 10 MG Tablet 1 tablet Once a day Simvastatin 20 mg Tablet 1 tablet in the evening Once a day Fluticasone Propionate 0.050 Milligram Miscellaneous Unspecified 2 SPRAYS IN EACH NOSTRIL EVERY DAY Once a day Imitrex 100 MG Tablet 1 tablet as needed no more than 2 tabs within 24 hours Bactroban 2 % Ointment 1 application to affected area Three times a day, stop date 11/23/2012 Symbicort 160-4.5 MCG/ACT Aerosol 2 puffs Twice a day Celexa 40 MG Tablet 1 tablet Once a day Ketoconazole 2 % Cream 1 application to affected area Once a day Triamcinolone Acetonide 0.1 % Cream 1 application to affected area Twice a day Acyclovir 400 mg tablet one tab 5 times a day Medication List reviewed and reconciled with the patient PastHistory:Asthma Glaucoma Hard of hearing Allergic rhinitis Former tobacco use quit in 1998 Ovarian cyst Depression Generalized anxiety disorder Multiple areas of sun damage Hyperlipidemia Hip pain Right humeral head 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 Quit tobacco in 1998, 20-year history. Alcohol, one to two glasses a day. No drug use. History of Present Illness: Hyperlipidemia Patient presents for follow-up of hyperlipidemia . The patient denies any side effects from the medications. Continues to take it on a regular basis. New Symptom HpiDetail1:Allergic rhinitis The patient states the allergies have been stable. The current medications have been helpful. If there are no side effects from the medications. prefix2: c/o Asthma The patient presents for follow-up of asthma . Patient denies any shortness of breath or wheezing currently. Patient has not had to use their rescue inhaler. Current asthma regimen has been helpful. vitals:HR 64 /min, BP 139/82 mm Hg, Ht 5'3 3/4, Wt 155.4 lbs, BMI 26.88 Index, Oxygen sat % 100 %. Past Orders: Vision Examination: General Examination GENERAL APPEARANCE: in no acute distress, well developed, well nourished HEAD: normocephalic, atraumatic EARS: normal ORAL CAVITY: mucosa moist, pharynx clear THROAT: clear NECK/THYROID: neck supple, full range of motion, no cervical lymphadenopathy, no thyromegaly SKIN: no suspicious lesions, warm and dry HEART: no murmurs, regular rate and rhythm, S1, S2 normal LUNGS: clear to auscultation bilaterally ABDOMEN: normal, bowel sounds present, no masses palpable, no organomegaly , soft, nontender, nondistended MUSCULOSKELETAL: normal, full range of motion, no swelling or deformity EXTREMITIES: no clubbing, cyanosis, or edema NEUROLOGIC: nonfocal, motor strength normal upper and lower extremities, sensory exam intact PSYCH: good mood, cognitive function intact, cooperative with exam Assessments: Assessments: Asthma - 493.90 (Primary) Assessments: AR (allergic rhinitis) - 477.9 Assessments: Depression - 311 Assessments: Hyperlipemia - 272.4 Assessments: Migraine headache - 346.90 Assessments: Seborrheic dermatitis - 690.10 Plan: Treatment: Assessments: name:Asthma rx:Continue ProAir HFA Aerosol Solution, 108 (90 Base) MCG/ACT, 2 puffs, Inhalation, prn rx:Continue Symbicort Aerosol, 160-4.5 MCG/ACT, 2 puffs, Inhalation, Twice a day notesBR:lung status stable. Assessments: name:AR (allergic rhinitis) rx:Continue Claritin Tablet, 10 MG, 1 tablet, Orally, Once a day rx:Continue Fluticasone Propionate Miscellaneous Unspecified, 0.050 Milligram, 2 SPRAYS IN EACH NOSTRIL EVERY DAY, Nasally, Once a day notesBR:meds have been helpful. Assessments: name:Depression rx:Continue Celexa Tablet, 40 MG, 1 tablet, Orally, Once a day notesBR:stable with meds - dad recently - seems to be handle it okay. Assessments: name:Hyperlipemia rx:Continue Simvastatin Tablet, 20 mg, 1 tablet in the evening, Orally, Once a day Test:TestName:CMP COMPREHENSIVE METABOLIC PANEL Test:TestName:LIPID PANEL notesBR:check labs. Assessments: name:Migraine headache rx:Continue Imitrex Tablet, 100 MG, 1 tablet as needed, Orally, no more than 2 tabs within 24 hours notesBR:stable - meds have been helpful. Assessments: name:Seborrheic dermatitis rx:Continue Triamcinolone Acetonide Cream, 0.1 %, 1 application to affected area, Externally, Twice a day rx:Continue Ketoconazole Cream, 2 %, 1 application to affected area, Externally, Once a day notesBR:ongoing - trial of meds not effective - send to [facility]. Immunization: Immunization: Injection:Therapeutic Therapeutic Injections: labs:Procedures: preventive:FollowUp:3 Months (Reason: chol) disposition:[id number]:[id number] InvoiceId:[id number] InsuranceId:[id number] PayorID: * DO Gurmeet Baca 10/16/2013 8:08 PM EDT patient:SONAM FONSECA EncounterId:[id number] PatientId:[id number] ProviderId:[id number] ControlNo:[id number] :1960 phone:[phone] address:[address] [place] [address] encDate:11/30/2011 age:51 Y sex:Female reqNo:[id number] provider:Josue Delaney D.O. ApptFacility:[facility] Resident:Ash:userName:dclark TimeStamp: SignOffStatus:Sign off status: Completed refPr:Josue Delaney pcp:Josue Delaney NotesType:Progress Notes items:Subjective: Reason for Appointment: Flu shot CurrentMedications: Simvastatin 20 MG Tablet 1 tablet in the evening q.h.s. Albuterol Sulfate HFA 2 puffs q.4h p.r.n. Claritin 10 MG Tablet 1 tablet Once a day Fluticasone Furoate 27.5 MCG/SPRAY Suspension 2 puffs Once a day Celexa 20 MG Tablet 1 tablet Once a day Fluticasone Propionate 0.050 Milligram Miscellaneous Unspecified 2 SPRAYS IN EACH NOSTRIL EVERY DAY Flovent HFA 110 MCG/ACT Aerosol 1 puff Twice a day Imitrex 100 MG Tablet 1 tablet as needed no more than 2 tabs within 24 hours Citalopram Hydrobromide 40 Milligram Tablet TAKE ONE TABLET(S) EVERY DAY PastHistory:Asthma Glaucoma Hard of hearing Allergic rhinitis Former tobacco use quit in 1998 Ovarian cyst Depression Generalized anxiety disorder Multiple areas of sun damage Hyperlipidemia Hip pain Right humeral head 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 2010 Osteopenia Allergies: Erythromycin: rash Surgical History: Hospitalization/Major Diagnostic Procedure: Family History: Social History: History of Present Illness: Past Orders: Vision Examination: Assessments: Assessments: Need for influenza vaccination - V04.81 (Primary) Plan: Treatment: Immunization: Fluzone : 0.5 mL given by Aria Garcia on right arm labs:Procedures: 49921 FLU VACCINE NO PRESERV 3 & > 21363 ADM 1 VAC - NOCOUNC - [place] SUPPLY preventive:disposition:[id number]:[id number] InvoiceId:[id number] InsuranceId:[id number] PayorID: * Josue Delaney, DO - 10/16/2013 7:54 PM EDT patient:SONAM FONSECA EncounterId:[id number] PatientId:[id number] ProviderId:[id number] ControlNo:[id number] :1960 phone:[phone] address:[address] [place] [address] encDate:09/23/2011 age:51 Y sex:Female reqNo:[id number] provider:Josue Delaney D.O. ApptFacility:[facility] Resident:Ash:userName:[email or web address] TimeStamp: SignOffStatus:Sign off status: Completed refPr:Josue Delaney pcp:Josue Delaney NotesType:Progress Notes items:Subjective: Reason for Appointment: 1. Over 1 week ago woke up knees ached. 2. Cathching a cold. 3. Fell about 5 or 6 weeks ago. 4. Pt only taking 20 mgs of celexa. CurrentMedications: Simvastatin 20 MG Tablet 1 tablet in the evening q.h.s., Celexa 40 MG Tablet 1 tablet Once a day, Albuterol Sulfate HFA 2 puffs q.4h p.r.n., Flovent HFA 110 MCG/ACT Aerosol 1 puff Twice a day, Claritin 10 MG Tablet 1 tablet Once a day, Fluticasone Furoate 27.5 MCG/SPRAY Suspension 2 puffs Once a day, Medication List reviewed and reconciled with the patient PastHistory:Asthma, Glaucoma, Hard of hearing, Allergic rhinitis, Former tobacco use quit in 1998, Ovarian cyst, Depression, Generalized anxiety disorder, Multiple areas of sun damage, Hyperlipidemia, Hip pain, Right humeral head, 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 2010, Osteopenia. Allergies: Erythromycin: rash. 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 Hospitalization/Major Diagnostic Procedure: see surgical history. . Family History: Father: alive Father with a history of coronary artery disease, hyperlipidemia, and hypertension. Mother: alive Mother with hypertension, polymyalgia rheumatica. familyNotes:Family history of colon cancer. itemValueBR:Family history of colon cancer. Social History: Tobacco Use: Are you a: former smoker , How long has it been since you last smoked?: > 10 years name:Are you a former smoker name:How long has it been since you last smoked? > 10 years Drugs/Alcohol: Have you used drugs other than those for medical reasons in the past 12 months? No name:Have you used drugs other than those for [...] Never (0 point), Points: 4, Interpretation: Positive name:Did you have a drink containing alcohol in the past year? Yes name:Points 4 name:Interpretation Positive name:How often did you have a drink containing alcohol in the past year? 4 or more times a week (4 points) name:How many drinks did you have on a typical day when you were drinking in the past year? 1 or 2 drinks (0 point) name:How often did you have 6 or more drinks on one occasion in the past year? Never (0 point) categoryNotesBR:, two children. Quit tobacco in 1998, 20-year history. Alcohol, one to two glasses a day. No drug use. History of Present Illness: Hyperlipidemia Patient presents for follow-up of hyperlipidemia . The patient denies any side effects from the medications. Continues to take it on a regular basis. Asthma The patient presents for follow-up of asthma . Patient denies any shortness of breath or wheezing currently. Patient has not had to use their rescue inhaler. Current asthma regimen has been helpful. New Symptom HpiDetail1:Cold with running nose, cough, no fever, no ST, no wheezing, mild aches and pains prefix2: c/o HpiDetail1:Depression still present, but stable - moderate stressors prefix2: c/o HpiDetail1:Knee pain described as aching, intermittantly, no swelling - no trauma prefix2: c/o HpiDetail1:Palpitations intermittenantly - no SOB, No CP , no syncope lasting for a few seconds, daily prefix2: c/o vitals:Temp 98.0 F, HR 75 /min, BP 126/81 mm Hg, Ht 5'3 3/4, Wt 151 lbs, BMI 26.12 Index, Oxygen sat % 100 %. Past Orders: Vision Examination: General Examination GENERAL APPEARANCE: in no acute distress, well developed, well nourished EARS: normal NOSE: clear discharge ORAL CAVITY: mucosa moist, pharynx clear THROAT: clear, no erythema NECK/THYROID: neck supple, full range of motion, no cervical lymphadenopathy, no thyromegaly LYMPH NODES: normal SKIN: no suspicious lesions, warm and dry HEART: no murmurs, regular rate and rhythm, S1, S2 normal LUNGS: clear to auscultation bilaterally ABDOMEN: normal, bowel sounds present, no masses palpable, no organomegaly , soft, nontender, nondistended MUSCULOSKELETAL: normal, full range of motion, no swelling or deformity EXTREMITIES: no clubbing, cyanosis, or edema Assessments: Assessments: Asthma - 493.90 (Primary) Assessments: AR (allergic rhinitis) - 477.9 Assessments: Depression - 311 Assessments: Anxiety - 300.00 Assessments: Hyperlipemia - 272.4 Assessments: Knee pain - 719.46 Assessments: Palpitations - 785.1 Assessments: URI, acute - 465.9 Plan: Treatment: Assessments: name:Asthma rx:Continue Albuterol Sulfate HFA, 2 puffs, q.4h p.r.n. rx:Continue Advair Diskus Aerosol Powder Breath Activated, 100-50 MCG/DOSE, 1 puff, Inhalation, Twice a day Xrayname:Diagnostic Imaging: EKG / ECG & Interpretation notesBR:Has been stable. Assessments: name:AR (allergic rhinitis) notesBR:Using OTC meds - stable. Assessments: name:Depression rx:Continue Celexa Tablet, 20 MG, 1 tablet, Orally, Once a day notesBR:Stable. Assessments: name:Anxiety rx:Continue Celexa Tablet, 20 MG, 1 tablet, Orally, Once a day Assessments: name:Hyperlipemia rx:Continue Simvastatin Tablet, 20 MG, 1 tablet in the evening, Orally, q.h.s. Test:TestName:CBC & AUTOMATED DIFFERENTIAL (Ordered for 12/24/2011) Test:TestName:CMP COMPREHENSIVE METABOLIC PANEL (Ordered for 12/24/2011) Test:TestName:LIPID PROFILE (Ordered for 12/24/2011) Test:TestName:TSH (Ordered for 12/24/2011) notesBR:Continue lifestyle changes. Assessments: name:Knee pain notesBR:Mild OA - continue to monitor - call if no better - use oTc meds. Assessments: name:Palpitations Xrayname:Diagnostic Imagin Holter Monitor, EKG / ECG & Interpretation notesBR:Set - up holter monitor. Assessments: name:URI, acute notesBR:Most likely viral - continue sx relief. Immunization: labs:Procedures: 08952 -ELECTROCARDIOGRAM, COMPLETE preventive:FollowUp:3 Months (Reason: hyperlipididemia) disposition:7ID:[id number] InvoiceId:[id number] InsuranceId:[id number] PayorID: * Josue Delaney, - 10/16/2013 7:09 PM EDT patient:SONAM FONSECA EncounterId:[id number] PatientId:[id number] ProviderId:[id number] ControlNo:[id number] :1960 phone:[phone] address:[address] [place] [address] encDate:10/12/2011 age:51 Y sex:Female reqNo:[id number] provider:Josue Delaney D.O. ApptFacility:[facility] Resident:Ash:userName:dclark TimeStamp: SignOffStatus:Sign off status: Completed refPr:Josue Delaney pcp:Josue Delaney NotesType:Progress Notes items:Subjective: Reason for Appointment: ?SPIDER BITE OK PER DRC left side of head Pt taking 20 mg of celexa not 40 CurrentMedications: Simvastatin 20 MG Tablet 1 tablet in the evening q.h.s. Albuterol Sulfate HFA 2 puffs q.4h p.r.n. 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 > 10 years Drugs/Alcohol: Have you used drugs other than those for medical reasons in the past 12 months? No name:Have you used drugs other than those for [...] Never (0 point), Points: 4, Interpretation: Positive name:Did you have a drink containing alcohol in the past year? Yes name:Points 4 name:Interpretation Positive name:How often did you have a drink containing alcohol in the past year? 4 or more times a week (4 points) name:How many drinks did you have on a typical day when you were drinking in the past year? 1 or 2 drinks (0 point) name:How often did you have 6 or more drinks on one occasion in the past year? Never (0 point) categoryNotesBR:, two children. Quit tobacco in 1998, 20-year history. Alcohol, one to two glasses a day. No drug use. History of Present Illness: New Symptom Patient Complains of ? spider bite on her head - has been present for approx. 1-2 days - noticed it painful this am - no fever or other symptoms - seen by Dr. Castro - thought it was a spider bite b/c pt was cleaning and saw alot of spiders vitals:HR 68 /min, BP 141/83 mm Hg, Ht 5'3 3/4, Wt 155.6 lbs, BMI 26.92 Index, Oxygen sat % 98 %. Past Orders: Vision Examination: General Examination GENERAL APPEARANCE: in no acute distress, well developed, well nourished SKIN: small area approx. 2cm in diameter on top of head with a central darkened area -under magnification - I removed the central area and pus was expelled HEART: no murmurs, regular rate and rhythm, S1, S2 normal LUNGS: clear to auscultation bilaterally Assessments: Assessments: Epidermal cyst - 706.2 (Primary) Plan: Treatment: Assessments: name:Epidermal cyst notesBR:No rx at this time - gave reassurance - hot wet compress - watch for signs of infection call if it gets worse - I do not appreciate a spider bite. Immunization: labs:Procedures: preventive:FollowUp:prn disposition:[id number]:[id number] InvoiceId:[id number] InsuranceId:[id number] PayorID: * Josue Delaney, DO - 10/16/2013 4:44 PM EDT patient:SONAM FONSECA EncounterId:[id number] PatientId:[id number] ProviderId:[id number] ControlNo:[id number] :1960 phone:[phone] address:[address] [place] [address] encDate:01/14/2012 age:51 Y sex:Female reqNo:[id number] provider:Josue Delaney D.O. ApptFacility:[facility] Resident:Ash:userName:hieu TimeStamp: SignOffStatus:Sign off status: Completed refPr:Josue Delaney pcp:Josue Delaney NotesType:Progress Notes items:Subjective: Reason for Appointment: Cough/fever/congestion CurrentMedications: Albuterol Sulfate HFA 2 puffs q.4h p.r.n. 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 > 10 years Drugs/Alcohol: Have you used drugs other than those for medical reasons in the past 12 months? No name:Have you used drugs other than those for [...] Never (0 point), Points: 4, Interpretation: Positive name:Did you have a drink containing alcohol in the past year? Yes name:Points 4 name:Interpretation Positive name:How often did you have a drink containing alcohol in the past year? 4 or more times a week (4 points) name:How many drinks did you have on a typical day when you were drinking in the past year? 1 or 2 drinks (0 point) name:How often did you have 6 or more drinks on one occasion in the past year? Never (0 point) categoryNotesBR:, two children. Quit tobacco in 1998, 20-year history. Alcohol, one to two glasses a day. No drug use. History of Present Illness: New Symptom HpiDetail1:Cold Pt admits runny nose, sinus congestion, mild sore throat, post-nasal drip, cough with sputum production, no SOB, no CP, mild aches and pains - worsening aches and pains - increase SOB and use of inhaler - cough worse at night prefix1:51 year old female presents with prefix2: c/o vitals:Temp 98.4 F, HR 98 /min, BP 133/81 mm Hg, Ht 5'3 3/4, Wt 159 lbs, BMI 27.50 Index, Oxygen sat % 98 %. Past Orders: Vision Examination: General Examination GENERAL APPEARANCE: in no acute distress, well developed, well nourished EYES: extraocular movement intact (EOMI), fundus normal, pupils equal, round, reactive to light and accommodation EARS: normal ORAL CAVITY: mucosa moist, pharynx clear THROAT: clear NECK/THYROID: neck supple, full range of motion, no cervical lymphadenopathy, no thyromegaly LYMPH NODES: normal SKIN: no suspicious lesions, warm and dry HEART: no murmurs, regular rate and rhythm, S1, S2 normal LUNGS: diffuse wheeze with coarse BS B/L ABDOMEN: normal, bowel sounds present, no masses palpable, no organomegaly , soft, nontender, nondistended Assessments: Assessments: Cough - 786.2 (Primary) Assessments: URI (upper respiratory infection) - 465.9 Plan: Treatment: Assessments: name:Cough rx:Start Zithromax Tablet, 250 MG, 2 tablet on the first day, then 1 tablet daily for 4 days, Orally, Once a day, 5 day(s), 6, Refills 0 rx:Start PredniSONE Tablet, 20 MG, 3 tabs for 3 days then 2 tabs for 3 days and then 1 tab for 3 days, Orally, Once a day, 9 days, 18, Refills 0 notesBR:Pt with RAD - told to use inhaler as needed and call if no better. Assessments: name:URI (upper respiratory infection) notesBR:Most likely viral - Recommend symptomatic relief - Saline nasal spray, humidifier, rest, fluids, chicken-noodle soup, Tylenol for fever and/or discomfort. Call if no improvement. Immunization: labs:Procedures: preventive:FollowUp:prn disposition:HL7ID:[id number] InvoiceId:[id number] InsuranceId:[id number] PayorID: * Josue Delaney, - 10/16/2013 4:27 PM EDT patient:SONAM FONSECA EncounterId:[id number] PatientId:[id number] ProviderId:[id number] ControlNo:[id number] :1960 phone:[phone] address:[address] [place] [address] encDate:01/04/2012 age:51 Y sex:Female reqNo:[id number] provider:Josue Delaney D.O. ApptFacility:[facility] Resident:Ash:userName:dclark TimeStamp: SignOffStatus:Sign off status: Completed refPr:Josue Delaney pcp:Josue Delaney NotesType:Progress Notes items:Subjective: Reason for Appointment: Congestion/sore throat CurrentMedications: Simvastatin 20 MG Tablet 1 tablet in the evening q.h.s. Albuterol Sulfate HFA 2 puffs q.4h p.r.n. Claritin 10 MG Tablet 1 tablet Once a day Celexa 40mg Tablet 1 tablet Once a day Fluticasone Propionate 0.050 Milligram Miscellaneous Unspecified 2 SPRAYS IN EACH NOSTRIL EVERY DAY Imitrex 100 MG Tablet 1 tablet as needed no more than 2 tabs within 24 hours Asmanex 120 Metered Doses 220 MCG/INH Aerosol Powder Breath Activated 1 puff in the evening Once a day Lumigan 0.01 % Solution 1 drop into affected eye in the evening qhs Trusopt 2 % Solution 1 drop into affected eye bid Timolol 0.5 % Solution 1 drop into affected eye bid Medication List reviewed and reconciled with the patient PastHistory:Asthma Glaucoma Hard of hearing Allergic rhinitis Former tobacco use quit in 1998 Ovarian cyst Depression Generalized anxiety disorder Multiple areas of sun damage Hyperlipidemia Hip pain Right humeral head 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 2010 Osteopenia Glaucoma Allergies: Erythromycin: rash 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 > 10 years categoryNotesBR:, two children. Quit tobacco in 1998, 20-year history. Alcohol, one to two glasses a day. No drug use. History of Present Illness: New Symptom HpiDetail1:Cold Pt admits runny nose, sinus congestion, mild sore throat, post-nasal drip, cough with sputum production, no SOB, no CP, mild aches and pains - ST for 4 days prefix1:51 year old female presents with prefix2: c/o vitals:Temp 98.2 F, HR 71 /min, BP 117/79 mm Hg, Ht 5'3 3/4, Wt 158.4 lbs, BMI 27.40 Index, Oxygen sat % 99 %. Past Orders: Vision Examination: General Examination GENERAL APPEARANCE: in no acute distress, well developed, well nourished EYES: extraocular movement intact (EOMI), fundus normal, pupils equal, round, reactive to light and accommodation EARS: normal ORAL CAVITY: mucosa moist, pharynx clear THROAT: clear NECK/THYROID: neck supple, full range of motion, no cervical lymphadenopathy, no thyromegaly LYMPH NODES: normal SKIN: no suspicious lesions, warm and dry HEART: no murmurs, regular rate and rhythm, S1, S2 normal LUNGS: clear to auscultation bilaterally ABDOMEN: normal, bowel sounds present, no masses palpable, no organomegaly , soft, nontender, nondistended Assessments: Assessments: URI (upper respiratory infection) - 465.9 (Primary) Assessments: Pharyngitis - 462 Plan: Treatment: Assessments: name:URI (upper respiratory infection) notesBR:Most likely viral - Recommend symptomatic relief - Saline nasal spray, humidifier, rest, fluids, chicken-noodle soup, Tylenol for fever and/or discomfort. Call if no improvement. Assessments: name:Pharyngitis notesBR:Rapid strep neg. Immunization: labs:Procedures: 12694 STREP A ASSAY W/OPTIC preventive:FollowUp:prn disposition:HL7ID:[id number] InvoiceId:[id number] InsuranceId:[id number] PayorID: * Josue Delaney DO - 10/16/2013 3:43 PM EDT patient:SONAM FONSECA EncounterId:[id number] PatientId:[id number] ProviderId:[id number] ControlNo:[id number] MrnNo:CHNNo::1960 phone:[phone] address:[address] [place] [address] encDate:11/15/2012 age:52 Y sex:Female reqNo:[id number] provider:Josue Delaney D.O. ApptFacility:[facility] Resident:Ash:userName:sierra TimeStamp: SignOffStatus:Sign off status: Completed PrimaryInsName:PrimaryInsSubscriberNo:PrimaryInsPrintName:PrimaryInsPrint:SecI nsName:SecInsSubscriberNo:SecInsPrintName:SecInsPrint:refPr:Josue Delaney DO pcp:Josue Delaney DO NotesType:Progress Notes items:Subjective: Reason for Appointment: FLU SHOT ONLY CurrentMedications: ProAir HFA 108 (90 Base) MCG/ACT Aerosol Solution 2 puffs prn Lumigan 0.01 % Solution 1 drop into affected eye in the evening qhs Trusopt 2 % Solution 1 drop into affected eye bid Timolol 0.5 % Solution 1 drop into affected eye bid Claritin 10 MG Tablet 1 tablet Once a day Simvastatin 20 mg Tablet 1 tablet in the evening Once a day Fluticasone Propionate 0.050 Milligram Miscellaneous Unspecified 2 SPRAYS IN EACH NOSTRIL EVERY DAY Once a day Imitrex 100 MG Tablet 1 tablet as needed no more than 2 tabs within 24 hours Triamcinolone Acetonide 0.1 % Cream 1 application to affected area Twice a day Bactroban 2 % Ointment 1 application to affected area Three times a day Celexa 40 MG Tablet 1 tablet Once a day Symbicort 160-4.5 MCG/ACT Aerosol 2 puffs Twice a day PastHistory:Asthma Glaucoma Hard of hearing Allergic rhinitis Former tobacco use quit in 1998 Ovarian cyst Depression Generalized anxiety disorder Multiple areas of sun damage Hyperlipidemia Hip pain Right humeral head 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 2010 Osteopenia Glaucoma Allergies: Erythromycin: rash: Allergy Surgical History: Hospitalization/Major Diagnostic Procedure: Family History: Social History: History of Present Illness: Past Orders: Vision Examination: Assessments: Plan: Treatment: Immunization: Immunization: Flu vaccine no Preserv 3 and > : 0.5 mL given by Theresa Rooney on left arm Injection:Therapeutic Therapeutic Injections: labs:Procedures: 14143 Flu vaccine no Preserv 3 and > 28910 IMMUNIZATION ADMIN preventive:disposition:[id number]:[id number] InvoiceId:[id number] InsuranceId:7 PayorID: * Josue Delaney DO - 10/16/2013 3:26 PM EDT patient:SONAM FONSECA EncounterId:[id number] PatientId:[id number] ProviderId:[id number] ControlNo:[id number] MrnNo:CHNNo::1960 phone:[phone] address:[address] [place] [address] encDate:12/13/2012 age:52 Y sex:Female reqNo:[id number] provider:Josue Delaney D.O. ApptFacility:[facility] Resident:Ash:userName:dclark TimeStamp: SignOffStatus:Sign off status: Completed PrimaryInsName:PrimaryInsSubscriberNo:PrimaryInsPrintName:PrimaryInsPrint:SecI nsName:SecInsSubscriberNo:SecInsPrintName:SecInsPrint:refPr:Josue Delaney pcp:Josue Delaney NotesType:Progress Notes items:Subjective: Reason for Appointment: RASH ON FACE CurrentMedications: ProAir HFA 108 (90 Base) MCG/ACT Aerosol Solution 2 puffs prn Lumigan 0.01 % Solution 1 drop into affected eye in the evening qhs Trusopt 2 % Solution 1 drop into affected eye bid Timolol 0.5 % Solution 1 drop into affected eye bid Claritin 10 MG Tablet 1 tablet Once a day Simvastatin 20 mg Tablet 1 tablet in the evening Once a day Fluticasone Propionate 0.050 Milligram Miscellaneous Unspecified 2 SPRAYS IN EACH NOSTRIL EVERY DAY Once a day Imitrex 100 MG Tablet 1 tablet as needed no more than 2 tabs within 24 hours Triamcinolone Acetonide 0.1 % Cream 1 application to affected area Twice a day Bactroban 2 % Ointment 1 application to affected area Three times a day Symbicort 160-4.5 MCG/ACT Aerosol 2 puffs Twice a day Celexa 40 MG Tablet 1 tablet Once a day Medication List reviewed and reconciled with the patient PastHistory:Asthma Glaucoma Hard of hearing Allergic rhinitis Former tobacco use quit in 1998 Ovarian cyst Depression Generalized anxiety disorder Multiple areas of sun damage Hyperlipidemia Hip pain Right humeral head 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 2010 Osteopenia Glaucoma Allergies: Erythromycin: rash: Allergy 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 History of Present Illness: New Symptom Patient Complains of rash on R side of nose - was getting better but not completely - seen by [facility]ER[facility] - placed on doxycyline - but caused alot of stomach upset - other areas have cleared vitals:HR 60 /min, BP 153/92 mm Hg, <B>Repeat:138/78</B>, Ht 5'3 3/4, Wt 153 lbs, BMI 26.47 Index, Oxygen sat % 98 %. Past Orders: Vision Examination: General Examination GENERAL APPEARANCE: in no acute distress, well developed, well nourished SKIN: red patch along side of R nose above lips - slight scale - no evidence of infection HEART: no murmurs, regular rate and rhythm, S1, S2 normal LUNGS: clear to auscultation bilaterally ABDOMEN: normal, bowel sounds present, no masses palpable, no organomegaly , soft, nontender, nondistended Assessments: Assessments: Seborrheic dermatitis - 690.10 (Primary) Plan: Treatment: Assessments: name:Seborrheic dermatitis rx:Start Ketoconazole Cream, 2 %, 1 application to affected area, Externally, Once a day, 30 days, 1 Container, Refills 3 rx:Continue Triamcinolone Acetonide Cream, 0.1 %, 1 application to affected area, Externally, Twice a day notesBR:told to use steriod cream sparingly - explained to pt SE - told to call if no resolution. Immunization: Immunization: Injection:Therapeutic Therapeutic Injections: labs:Procedures: preventive:FollowUp:prn disposition:HL7ID:[id number] InvoiceId:[id number] InsuranceId:[id number] PayorID: * Josue Delaney, - 10/16/2013 3:01 PM EDT patient:SONAM FONSECA EncounterId:[id number] PatientId:[id number] ProviderId:[id number] ControlNo:[id number] MrnNo:CHNNo::1960 phone:[phone] address:[address] [place] [address] encDate:11/01/2012 age:52 Y sex:Female reqNo:[id number] provider:Josue Delaney D.O. ApptFacility:[facility] Resident:Ash:userName:dclark TimeStamp: SignOffStatus:Sign off status: Completed PrimaryInsName:PrimaryInsSubscriberNo:PrimaryInsPrintName:PrimaryInsPrint:SecI nsName:SecInsSubscriberNo:SecInsPrintName:SecInsPrint:refPr:Josue Delaney pcp:Josue Delaney NotesType:Progress Notes items:Subjective: Reason for Appointment: RASH ON FACE CurrentMedications: ProAir HFA 108 (90 Base) MCG/ACT Aerosol Solution 2 puffs prn Lumigan 0.01 % Solution 1 drop into affected eye in the evening qhs Trusopt 2 % Solution 1 drop into affected eye bid Timolol 0.5 % Solution 1 drop into affected eye bid Claritin 10 MG Tablet 1 tablet Once a day Celexa 20mg Tablet 1 tablet Once a day Simvastatin 20 mg Tablet 1 tablet in the evening Once a day Fluticasone Propionate 0.050 Milligram Miscellaneous Unspecified 2 SPRAYS IN EACH NOSTRIL EVERY DAY Once a day Imitrex 100 MG Tablet 1 tablet as needed no more than 2 tabs within 24 hours Medication List reviewed and reconciled with the patient PastHistory:Asthma Glaucoma Hard of hearing Allergic rhinitis Former tobacco use quit in 1998 Ovarian cyst Depression Generalized anxiety disorder Multiple areas of sun damage Hyperlipidemia Hip pain Right humeral head 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 2010 Osteopenia Glaucoma Allergies: Erythromycin: rash: Allergy 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 History of Present Illness: New Symptom Patient Complains of rash on face for the past month int flares - burning sensation - R nares and R cheek - s/p valtrex rx and OTC creams vitals:Temp 97.9 F, HR 64 /min, BP 144/83 mm Hg, Ht 5'3 3/4, Wt 152 lbs, BMI 26.29 Index, Oxygen sat % 98 %. Past Orders: Vision Examination: General Examination GENERAL APPEARANCE: in no acute distress, well developed, well nourished SKIN: diffuse papules with excoriation and area approx. 1.5 cm R para- nasal area HEART: no murmurs, regular rate and rhythm, S1, S2 normal LUNGS: clear to auscultation bilaterally ABDOMEN: normal, bowel sounds present, no masses palpable, no organomegaly , soft, nontender, nondistended Assessments: Assessments: Impetigo - 684 (Primary) Plan: Treatment: Assessments: name:Impetigo rx:Start Triamcinolone Acetonide Cream, 0.1 %, 1 application to affected area, Externally, Twice a day, 10 days, 1 Tube, Refills 0 rx:Start Bactroban Ointment, 2 %, 1 application to affected area, Externally, Three times a day, 10 days, 1 Tube, Refills 0 notesBR:looks bact - pt keeps picking at them - told pt to use creams reg - no other products. Immunization: Immunization: Injection:Therapeutic Therapeutic Injections: labs:Procedures: preventive:FollowUp:1 Week (Reason: rash) disposition:HL7ID:[id number] InvoiceId:[id number] InsuranceId:[id number] PayorID: * Josue Delaney DO - 10/16/2013 2:29 PM EDT patient:SONAM FONSECA EncounterId:[id number] PatientId:[id number] ProviderId:[id number] ControlNo:[id number] MrnNo:CHNNo::1960 phone:[phone] address:[address] [place] [address] encDate:10/10/2012 age:52 Y sex:Female reqNo:[id number] provider:Josue Delaney D.O. ApptFacility:[facility] Resident:KenroyNo:userName:dclark TimeStamp: SignOffStatus:Sign off status: Completed PrimaryInsName:PrimaryInsSubscriberNo:PrimaryInsPrintName:PrimaryInsPrint:SecI nsName:SecInsSubscriberNo:SecInsPrintName:SecInsPrint:refPr:Josue Delaney pcp:Josue Delaney NotesType:Progress Notes items:Subjective: Reason for Appointment: 50 yr pe;May be RTA eligible. CurrentMedications: Celexa 20mg Tablet 1 tablet Once a day Imitrex 100 MG Tablet 1 tablet as needed no more than 2 tabs within 24 hours Lumigan 0.01 % Solution 1 drop into affected eye in the evening qhs Trusopt 2 % Solution 1 drop into affected eye bid Timolol 0.5 % Solution 1 drop into affected eye bid ProAir HFA 108 (90 Base) MCG/ACT Aerosol Solution 2 puffs prn Claritin 10 MG Tablet 1 tablet Once a day Fluticasone Propionate 0.050 Milligram Miscellaneous Unspecified 2 SPRAYS IN EACH NOSTRIL EVERY DAY Once a day Valtrex 1 GM Tablet 2 tablets BID, stop date 09/24/2012 Simvastatin 20 mg Tablet 1 tablet in the evening Once a day Medication List reviewed and reconciled with the patient PastHistory:Asthma Glaucoma Hard of hearing Allergic rhinitis Former tobacco use quit in 1998 Ovarian cyst Depression Generalized anxiety disorder Multiple areas of sun damage Hyperlipidemia Hip pain Right humeral head 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 2010 Osteopenia Glaucoma Allergies: Erythromycin: rash 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 History of Present Illness: Interim History * The patient comes in for her annual physical exam vitals:HR 57 /min, BP 135/86 mm Hg, Ht 5'3 3/4, Wt 151 lbs, BMI 26.12 Index, Oxygen sat % 98 %. Past Orders: Vision Examination: General Examination GENERAL APPEARANCE: in no acute distress, well developed, well nourished HEAD: normocephalic, atraumatic EYES: pupils equal, round, reactive to light and accommodation EARS: normal ORAL CAVITY: mucosa moist, pharynx clear THROAT: clear NECK/THYROID: neck supple, full range of motion, no cervical lymphadenopathy LYMPH NODES: no axillary, supraclavicular or inguinal adenopathy SKIN: no suspicious lesions, warm and dry HEART: no murmurs, regular rate and rhythm, S1, S2 normal LUNGS: clear to auscultation bilaterally CHEST: normal ABDOMEN: normal, bowel sounds present, soft, nontender, nondistended MUSCULOSKELETAL: normal, full range of motion, no swelling or deformity BACK: normal, full range of motion, normal exam of spine EXTREMITIES: no clubbing, cyanosis, or edema PERIPHERAL PULSES: normal NEUROLOGIC: nonfocal, motor strength normal upper and lower extremities, sensory exam intact PODIATRIC: NORMAL, BILATERALLY PSYCH: good mood, cognitive function intact, cooperative with exam Assessments: Assessments: Preventative health care - V70.0 (Primary) Assessments: Migraine headache - 346.90 Assessments: Asthma - 493.90 Assessments: Glaucoma - 365.9 Assessments: NENANA (hard of hearing) - 389.9 Assessments: AR (allergic rhinitis) - 477.9 Assessments: Anxiety - 300.00 Assessments: Sun-damaged skin - 692.74 Assessments: Hyperlipemia - 272.4 Assessments: Osteopenia - 733.90 Plan: Treatment: Assessments: name:Preventative health care Test:TestName:U/A Dip Result:TestValues:LabName:Glucose LabValue:neg LabRange:LabFlag:TestValues:LabName:Bilirubin LabValue:neg LabRange:LabFlag:TestValues:LabName:Ketone LabValue:neg LabRange:LabFlag:TestValues:LabName:Specific gravity LabValue:1.015 LabRange:LabFlag:TestValues:LabName:Blood LabValue:moderate LabRange:LabFlag:TestValues:LabName:pH LabValue:7.0 LabRange:LabFlag:TestValues:LabName:Protein LabValue:neg LabRange:LabFlag:TestValues:LabName:Urobilinogen LabValue:0.2 LabRange:LabFlag:TestValues:LabName:Nitrate LabValue:neg LabRange:LabFlag:TestValues:LabName:Leukocytes LabValue:neg LabRange:LabFlag:Notes:Xrayname:Diagnostic Imaging: DENS, BONE DENSITOMETRY, MANISH, SCREENING BILATERAL, EKG / ECG & Interpretation Procedurename:Procedure:Hemoccult notesBR:reviewed labs with pt last colonoscopy was 2007 - repeat 2013 - discussed with pt - family hx last pap was - 07/2012 sees INSERTER PROMOTIONAL ITEM. Assessments: name:Migraine headache rx:Continue Imitrex Tablet, 100 MG, 1 tablet as needed, Orally, no more than 2 tabs within 24 hours notesBR:meds have been helpful. Assessments: name:Asthma rx:Continue ProAir HFA Aerosol Solution, 108 (90 Base) MCG/ACT, 2 puffs, Inhalation, prn notesBR:Pt. may need steriod inhaler - told to call ins - for meds covered by her ins. Assessments: name:Glaucoma rx:Continue Lumigan Solution, 0.01 %, 1 drop into affected eye in the evening, Ophthalmic, qhs rx:Continue Trusopt Solution, 2 %, 1 drop into affected eye, Ophthalmic, bid rx:Continue Timolol Solution, 0.5 %, 1 drop into affected eye, Ophthalmic, bid notesBR:sees ophth. Assessments: name:NENANA (hard of hearing) notesBR:stable. Assessments: name:AR (allergic rhinitis) rx:Continue Claritin Tablet, 10 MG, 1 tablet, Orally, Once a day rx:Continue Fluticasone Propionate Miscellaneous Unspecified, 0.050 Milligram, 2 SPRAYS IN EACH NOSTRIL EVERY DAY, Nasally, Once a day notesBR:continue meds. Assessments: name:Anxiety rx:Continue Celexa Tablet, 20mg, 1 tablet, Orally, Once a day notesBR:Ongoing - variable - continue to monitor. Assessments: name:Sun-damaged skin notesBR:no worrisome lesions. Assessments: name:Hyperlipemia rx:Continue Simvastatin Tablet, 20 mg, 1 tablet in the evening, Orally, Once a day Test:TestName:CMP COMPREHENSIVE METABOLIC PANEL (Ordered for 02/09/2013) Test:TestName:LIPID PANEL (Ordered for 02/09/2013) notesBR:labs wnl - reviewed with pt. Assessments: name:Osteopenia notesBR:check BD - last one was 2010. Immunization: Immunization: Injection:Therapeutic Therapeutic Injections: labs:Procedures: 97600 URINE-NO MICRO preventive:Counseling Alcohol and drugs: Breast self exam after periods: Diet/Vitamins discussed including high doses of Vitamins A, C, E and Zinc: Domestic violence: Exercise: Health: Smoking: Sunscreen: Counseling: Alcohol and drugs:. Breast self exam after periods:. Diet/Vitamins discussed including high doses of Vitamins A, C, E and Zinc:. Domestic violence:. Exercise:. Health:. Smoking:. Sunscreen:. FollowUp:4 Months (Reason: chol) disposition:HL7ID:[id number] InvoiceId:[id number] InsuranceId:7 PayorID: * DO Gurmeet Baca 10/16/2013 1:39 PM EDT patient:SONAM FONSECA EncounterId:[id number] PatientId:[id number] ProviderId:[id number] ControlNo:[id number] MrnNo:CHNNo::1960 phone:[phone] address:[address] [place] [address] encDate:09/21/2012 age:52 Y sex:Female reqNo:[id number] provider:Josue Delaney D.O. ApptFacility:[facility] Resident:Ash:userName:dclark TimeStamp: SignOffStatus:Sign off status: Completed PrimaryInsName:PrimaryInsSubscriberNo:PrimaryInsPrintName:PrimaryInsPrint:SecI nsName:SecInsSubscriberNo:SecInsPrintName:SecInsPrint:refPr:Josue Delaney pcp:Josue Delaney NotesType:Progress Notes items:Subjective: Reason for Appointment: RASH ON FACE CurrentMedications: Celexa 20mg Tablet 1 tablet Once a day Imitrex 100 MG Tablet 1 tablet as needed no more than 2 tabs within 24 hours Lumigan 0.01 % Solution 1 drop into affected eye in the evening qhs Trusopt 2 % Solution 1 drop into affected eye bid Timolol 0.5 % Solution 1 drop into affected eye bid ProAir HFA 108 (90 Base) MCG/ACT Aerosol Solution 2 puffs prn Asmanex 120 Metered Doses 220 MCG/INH Aerosol Powder Breath Activated 1 puff in the evening Once a day, stop date 09/21/2012 Claritin 10 MG Tablet 1 tablet Once a day Simvastatin 20 MG Tablet 1 tablet in the evening q.h.s. 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 History of Present Illness: New Symptom Patient Complains of rash on face for the past week - also noticed a non healing lesion on L lower eyelid vitals:HR 65 /min, BP 132/86 mm Hg, Ht 5'3 3/4, Wt 152 lbs, BMI 26.29 Index, Oxygen sat % 99 %. Past Orders: Vision Examination: General Examination GENERAL APPEARANCE: in no acute distress, well developed, well nourished EARS: normal ORAL CAVITY: mucosa moist, pharynx clear THROAT: clear SKIN: HEART: no murmurs, regular rate and rhythm, S1, S2 normal LUNGS: clear to auscultation bilaterally ABDOMEN: normal, bowel sounds present, no masses palpable, no organomegaly , soft, nontender, nondistended Assessments: Assessments: BCC (basal cell carcinoma of skin) - 173.91 (Primary) Assessments: Herpetic lesion - 054.9 Plan: Treatment: Assessments: name:BCC (basal cell carcinoma of skin) notesBR:discussed with pt - send to DERM. Assessments: name:Herpetic lesion rx:Start Valtrex Tablet, 1 GM, 2 tablets, Orally, BID, 1 days, 4, Refills 0 notesBR:start valtrex - discussed with pt - re- occurs. Immunization: Immunization: Injection:Therapeutic Therapeutic Injections: labs:Procedures: preventive:FollowUp:prn disposition:HL7ID:[id number] InvoiceId:[id number] InsuranceId:7 PayorID: * Josue Delaney DO - 10/16/2013 1:03 PM EDT patient:SONAM FONSECA EncounterId:[id number] PatientId:[id number] ProviderId:[id number] ControlNo:[id number] :1960 phone:[phone] address:[address] [place] [address] encDate:06/15/2012 age:51 Y sex:Female reqNo:[id number] provider:Josue Delaney D.O. ApptFacility:[facility] Resident:Ash:userName:dclark TimeStamp: SignOffStatus:Sign off status: Completed refPr:Josue Delaney pcp:Josue Delaney NotesType:Progress Notes items:Subjective: Reason for Appointment: rck chol;May be RTA eligible. CurrentMedications: Albuterol Sulfate HFA 2 puffs q.4h p.r.n. Claritin 10 MG Tablet 1 tablet Once a day Celexa 20mg Tablet 1 tablet Once a day Fluticasone [...] Solution 1 drop into affected eye bid Simvastatin 20 MG Tablet 1 tablet in the evening q.h.s. Azithromycin 250 MG Tablet 2 tablet on the first day, then 1 tablet daily for 4 days Once a day, stop date 03/30/2012 PredniSONE 50 MG Tablet 1 tablet with food or milk Once a day, stop date 03/30/2012 ProAir HFA 108 (90 Base) MCG/ACT Aerosol Solution 2 puffs prn Asmanex 120 Metered Doses 220 MCG/INH Aerosol Powder Breath Activated 1 puff in the evening Once a day Medication List reviewed and reconciled with the patient PastHistory:Asthma Glaucoma Hard of hearing Allergic rhinitis Former tobacco use quit in 1998 Ovarian cyst Depression Generalized anxiety disorder Multiple areas of sun damage Hyperlipidemia Hip pain Right humeral head 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 2010 Osteopenia Glaucoma Allergies: Erythromycin: rash 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 No name:Are you an other tobacco user? No Drugs/Alcohol: [...] Never (0 point), Points: 4, Interpretation: Positive name:Did you have a drink containing alcohol in the past year? Yes name:How often did you have a drink containing alcohol in the past year? 4 or more times a week (4 points) name:How many drinks did you have on a typical day when you were drinking in the past year? 1 or 2 drinks (0 point) name:How often did you have 6 or more drinks on one occasion in the past year? Never (0 point) name:Points 4 name:Interpretation Positive Miscellaneous: Children: Two children.. Marital status: . categoryValue:Children: Two children.. Marital status: . categoryNotesBR:, two children. Quit tobacco in 1998, 20-year history. Alcohol, one to two glasses a day. No drug use. History of Present Illness: New Symptom HpiDetail1:Allergic rhinitis The patient states the allergies have been stable. The current medications have been helpful. If there are no side effects from the medications. prefix1:51 year old female presents with prefix2: c/o Asthma The patient presents for follow-up of asthma . Patient denies any shortness of breath or wheezing currently. Patient has not had to use their rescue inhaler. Current asthma regimen has been helpful. Hyperlipidemia Patient presents for follow-up of hyperlipidemia . The patient denies any side effects from the medications. Continues to take it on a regular basis. Anxiety Anxiety follow-up at patient's baseline. Patient denies any problems with medication. Patient states anxiety has been variable. vitals:HR 71 /min, BP 129/87 mm Hg, Ht 5'3 3/4, Wt 158 lbs, BMI 27.33 Index, Oxygen sat % 97 %. Past Orders: Vision Examination: General Examination GENERAL APPEARANCE: in no acute distress, well developed, well nourished HEAD: normocephalic, atraumatic EYES: extraocular movement intact (EOMI), fundus normal, pupils equal, round, reactive to light and accommodation EARS: normal ORAL CAVITY: mucosa moist, pharynx clear THROAT: clear NECK/THYROID: neck supple, full range of motion, no cervical lymphadenopathy, no thyromegaly SKIN: no suspicious lesions, warm and dry HEART: no murmurs, regular rate and rhythm, S1, S2 normal LUNGS: clear to auscultation bilaterally ABDOMEN: normal, bowel sounds present, no masses palpable, no organomegaly , soft, nontender, nondistended MUSCULOSKELETAL: normal, full range of motion, no swelling or deformity EXTREMITIES: no clubbing, cyanosis, or edema NEUROLOGIC: nonfocal, motor strength normal upper and lower extremities, sensory exam intact PSYCH: good mood, cognitive function intact, cooperative with exam Assessments: Assessments: Asthma - 493.90 (Primary) Assessments: AR (allergic rhinitis) - 477.9 Assessments: Anxiety - 300.00 Assessments: Hyperlipemia - 272.4 Assessments: Osteopenia - 733.90 Plan: Treatment: Assessments: name:Asthma rx:Continue Albuterol Sulfate HFA, 2 puffs, q.4h p.r.n. rx:Continue Asmanex 120 Metered Doses Aerosol Powder Breath Activated, 220 MCG/INH, 1 puff in the evening, Inhalation, Once a day notesBR:currently no excerbations. Assessments: name:AR (allergic rhinitis) rx:Continue Claritin Tablet, 10 MG, 1 tablet, Orally, Once a day rx:Continue Fluticasone Propionate Miscellaneous Unspecified, 0.050 Milligram, 2 SPRAYS IN EACH NOSTRIL EVERY DAY notesBR:currently stable with meds. Assessments: name:Anxiety notesBR:variable - alot of stress regarding parents health - on disabilty. Assessments: name:Hyperlipemia rx:Continue Simvastatin Tablet, 20 MG, 1 tablet in the evening, Orally, q.h.s. Test:TestName:CBC & AUTOMATED DIFFERENTIAL (Ordered for 09/15/2012) Test:TestName:CMP COMPREHENSIVE METABOLIC PANEL (Ordered for 09/15/2012) Test:TestName:LIPID PROFILE (Ordered for 09/15/2012) Test:TestName:TSH (Ordered for 09/15/2012) notesBR:labs reviewed - doing well - no concerns. Immunization: labs:Procedures: preventive:FollowUp:3 Months (Reason: PE) disposition:[id number]:[id number] InvoiceId:[id number] InsuranceId:[id number] PayorID: documented in this encounter Plan of Treatment Not on file documented as of this encounter Visit Diagnoses Not on filedocumented in this encounter
--- OUTSIDE RECORDS SUMMARY | 2023-09-07 02:09 | XMS_ITS | Encounter Summary ---
[place] [address] Care Team Providers Care Choir Teacher Name Role Phone Vale Tyson DO Primary Care Provider [phone] Reason for Referral * Consultation (Routine) - Authorized Specialty Diagnoses / Procedures Referred By Randall pedro Referred To Contact Neurology Diagnoses Parkinson's disease without dyskinesia or fluctuating manifestations Kylie Magallon MD [facility] [address] [place] [address] [facility] [address] [place] [id number] Referral ID Status Reason Start Date Expiration Date Visits Requested Visits Authorized [id number] Authorized Consult, Test & Treat PCP Updated and/or Approved 01/07/2023 01/07/2024 6 6 Encounter Details Date Type Department Care Team (Late Contact Info) Description 01/07/2023 Transcribe Orders eDH Incoming Referrals [phone] Kylie Magallon MD [facility] [address] [place] [address] Parkinson's disease without dyskinesia or fluctuating manifestations Social History Tobacco Use Types Packs/Day Years Used Date Smoking Tobacco: Never Assessed Sex and Gender Information Value Date Recorded Sex Assigned at Not on file Gender Identity Not on file Sexual Orientation Not on file documented as of this encounter Plan of Treatment Upcoming Encounters Date Type Department Care Team (Late Contact Info) Description 02/07/2029 Hospital Encounter Outpatient [place] [address] [facility] [place] [address] Scheduled Procedures Name Priority Associated Diagnoses Date/Ti me ARTHRODESIS GREAT TOE MTP AMERICO INT (WRVU 8.57) Hallux valgus (acquired), left foot OSTEOTOMY, METATARSAL, OTHER THAN FIRST, EACH (WRVU 5.48) Hallux valgus (acquired), left foot HAMMERTOE CORRECTION (WRVU 5.62) Hallux valgus (acquired), left foot Scheduled Referrals Name Type Priority Associated Diagnoses Orde r Schedule Referral to Neurology Outpatient Referral Routine Parkinson's Disease Without Dyskinesia Or Fluctuating Manifestations Ordered: 01/07/2023 documented as of this encounter Visit Diagnoses Diagnosis Parkinson's disease without dyskinesia or fluctuating manifestations documented in this encounter Care Teams Choir Teacher Relationship Specialty Start Date End Date Vale Tyson DO [address] [place] [address] PCP - General Family Medicine 09/08/22 documented as of this encounter
--- OUTSIDE RECORDS SUMMARY | 2023-09-07 02:09 | XMS_ITS | Encounter Summary ---
Author Organization [facility] Address [address] [place] [address] Care Team Providers Care Customer Experience Intern Name Role Phone Josue Delaney DO Primary Care Provider [phone] Reason for Visit * Auth/Cert Specialty Diagnoses / Procedures Referred By Randall pedro Referred To Contact Diagnoses rt parotid mass Procedures SUPERFICIAL PAROTIDECTOMY Referral ID Status Reason Start Date Expiration Date Visits Re quested Visits Authorized [id number] 1 1 Encounter Details Date Type Department Care Team (Late st Contact Info) Description 04/28/2015 9:17 AM EDT - 04/28/2015 12:37 PM EDT Surgery [facility] - [facility] [address] [place] [address] Hector Berman MD [address] [place] [address] SUPERFICIAL PAROTIDECTOMY WITH ALLODERM PLACEMENT AND NIM FACIAL MONITORING Social History Tobacco Use Types Packs/Day Years [...] Reading Time Taken Comments Blood Pressure 136/78 04/28/2015 9:25 AM EDT Pulse 66 04/28/2015 9:25 AM EDT Temperature 35.9 ??C (96.7 ??F) 04/28/2015 9:25 AM ED T Respiratory Rate 18 04/28/2015 9:25 AM EDT Oxygen Saturation 99% 04/28/2015 9:25 AM EDT Inhaled Oxygen Concentration - - Weight 68.9 kg (152 lb) 04/28/2015 9:25 AM EDT Height 160 cm (5' 3) 04/28/2015 9:25 AM EDT Body Mass Index 26.93 04/28/2015 9:25 AM EDT documented in this encounter Discharge Instructions * Discharge Instructions* Hector Berman MD - 04/28/2015 2:07 PM EDT 1) Keep head elevated. May remove pressure dressings (facial wrap with gauze and sharmila bandage) in 24-48 hours. 2) Avoid bending, lifting or straining 3) Apply Bacitracin 2-3x/day along incision line; may cover if desired with non- stick Telfa dressing 4) Follow up 1 week in office 5) Call [phone] for any concerns * Attachments The following attachments cannot be sent through Care Everywhere. * PAROTIDECTOMY (CANADIAN) documented in this encounter Medications at Time of Discharge Medication Sig Dispensed Refills Start Date End Date budesonide-formoterol (SYMBICORT) 160-4.5 MCG/ACT inhaler Inhale 2 puffs 2 (two) times a day. fluticasone (FLONASE) 50 MCG/ACT nasal spray 2 sprays by Each Nostril route daily. Fluticasone Propionate ipratropium-albuterol (DUO-NEB) 0.5-2.5 mg/mL nebulizer 03/25/2015 latanoprost (XALATAN) 0.005 % ophthalmic solution Administer 1 drop to both eyes at bedtime. omeprazole (PriLOSEC) 20 MG capsule Take 20 mg by mouth daily. cephalexin (KEFLEX) 250 MG capsule Take 2 capsules (500 mg total) by mouth every 8 (eight) hours. 40 capsule 0 04/28/2015 05/05/2015 cephalexin (KEFLEX) 250 MG capsule 0 04/28/2015 05/13/2015 citalopram (CELEXA) 40 MG tablet Take 40 mg by mouth daily. Celexa 10/06/2018 cyanocobalamin (VITAMIN B-12) 100 MCG tablet Take 100 mcg by mouth daily. 07/20/2016 oxyCODONE-acetaminoph en (ROXICET) 5-325 MG per tablet 1 or 2 tablets every 4 hours as needed for pain. 30 tablet 0 04/28/2015 05/13/2015 predniSONE (DELTASONE) 10 MG tablet 03/25/2015 05/13/2015 simvastatin (ZOCOR) 20 MG tablet Take 20 mg by mouth at bedtime. 11/05/2016 documented as of this encounter H&P Notes * Hector Berman MD - 04/28/2015 9:05 AM EDT I have reviewed the H&P, interviewed & examined the patient and find: updated with no changes Source Note - Dixon Barboza PA-C - 04/24/2015 8:25 AM EDT : 1960 Date: 04/24/2015 Surgical Attending: Hector Berman MD HPI: 54-year-old female with right parotid mass Current Medications, Vitamins, and Supplements list: Current Outpatient Prescriptions Medication Sig Dispense Refill ??? budesonide-formoterol (SYMBICORT) 160-4.5 MCG/ACT inhaler Inhale 2 puffs 2 (two) times a day. ??? citalopram (CELEXA) 40 MG tablet Take 40 mg by mouth daily. Celexa ??? cyanocobalamin (VITAMIN B-12) 100 MCG tablet Take 100 mcg by mouth daily. ??? fluticasone (FLONASE) 50 MCG/ACT nasal spray 2 sprays by Each Nostril route daily. Fluticasone Propionate ??? latanoprost (XALATAN) 0.005 % ophthalmic solution Administer 1 drop to both eyes at bedtime. ??? omeprazole (PriLOSEC) 20 MG capsule Take 20 mg by mouth daily. ??? simvastatin (ZOCOR) 20 MG tablet Take 20 mg by mouth at bedtime. No current facility-administered medications for this visit. Allergies: Erythromycin PMH: Past Medical History Diagnosis Date ??? Dizziness [...] Wears glasses ??? Former smoker ??? Postmenopausal PSH: Past Surgical History Procedure Laterality Date ??? Sinus surgery ??? Shoulder surgery Right ??? Hip surgery Bilateral ??? Knee surgery Right ??? Joint replacement Bilateral total hip replacement ??? Colonoscopy ??? Eye surgery removal of cataract to bilateral eyes ??? Dilation and curettage of uterus ??? Maribel tooth extraction ROS: Pertinent items are noted in HPI. Physical Exam: General: healthy Head and Face: mass of the right anterior parotid region as described on imaging Final Diagnosis A. 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 - See comment. Description: The [facility] slide shows a cellular specimen, with minimal stromal component. There are tightly crowded groups of small to medium sized basaloid cells with no significant cytologic atypia or mitotic activity. at 1624 Comment The features are consistent with an epithelial neoplasm with basaloid features. Although overt nuclear features of malignancy are not present, the differential diagnosis includes cellular pleomorphicadenoma, basal cell adenoma, and less likely adenoid cystic carcinoma. Plan: Right parotidectomy with NIM documented in this encounter Nursing Notes * Gabrielle De Dios RN - 04/28/2015 4:55 PM EDT Awakened for assessment, oob to br, amb w/o diff. States voided qs. Back to bed, c/o #5 pain, med per order. * Gabrielle De Dios RN - 04/28/2015 4:17 PM EDT Sleeping, o2 sat 94 on o2 2lm, dr berman here , drsg changed and reinforced. Instructions given to , juleees understanding. * Gabrielle De Dios RN - 04/28/2015 3:32 PM EDT Rt facial droop noted, dr berman aware per pacu report. drsg dry and intact. o2 2lnc applied due to low sats and drowsiness. Able to take sips of water w/o diff. * Donita Schmidt RN - 04/28/2015 2:45 PM EDT PT DRESSING FELL OFF FORWARD-PT NOTED TO HAVE A RIGHT FACIAL DROOP-PT ALSO HAS FACIAL BRUISING RIGHT CHEEK AREA-TELPHA DSD HAS SMALL AMOUNT STAINING-GAUZE AND SIMIN REAPPLIED, ACEWRAP LEFT OFF. DR BERMAN NOTIFIED. PT HAS STRONG BILAT HAND GRASPS AND STRONG PUSH/PULL OF FEET. PT OK TO GO TO SECONDARY RECOVERY. Flynn SCHMIDT RN * Donita Schmidt RN - 04/28/2015 2:44 PM EDT PT DOZES OFF TO SLEEP AND SAT DOWN TO 88% DEEP BREATHS ENCOURAGED AND HOB ELEVAYED. Flynn SCHMIDT RN * Donita Schmidt RN - 04/28/2015 2:34 PM EDT TAKING FEW SIPS WATER. DOZES UNLESS DISTURBED. Flynn SCHMIDT RN * Donita Schmidt RN - 04/28/2015 2:09 PM EDT PT REPORTS HEARING LOSS-PT STATES SHE IS OHKAY OWINGEH LEFT EAR, PT ALSO HAS SHARMILA WRAP AND DSD AROUND BOTH EARS-SHOWN PAIN CHART-PT POINTS TO 5-6/10 WILL MEDICATE. 3 BRAYAN RN * Donita Schmidt RN - 04/28/2015 1:44 PM EDT SLEEPY ON ARRIVAL-FACIAL PUFFINESS-HOB ELEVATED-NO DISCOMFORT. Flynn SCHMIDT RN documented in this encounter Miscellaneous Notes * Op Note - Hector Berman MD - 04/28/2015 2:07 PM EDT SUPERFICIAL PAROTIDECTOMY WITH ALLODERM PLACEMENT AND NIM FACIAL MONITORING Procedure Note Pre-operative Diagnosis: rt parotid mass Post-operative Diagnosis: same Procedure Performed: Procedure(s): SUPERFICIAL PAROTIDECTOMY WITH ALLODERM PLACEMENT AND NIM FACIAL MONITORING (Right) 1) Superficial Parotidectomy with facial nerve dissection (right side). 2) Alloderm placement (12x4cm) 3) NIM Facial Nerve Monitoring Surgeon: Hector Berman MD FACS Estimated Blood Loss: 15ml Specimens: to pathology Complications: None Disposition:PACU Condition: stable Anesthesia: General Indications: Pt. with history of right parotid neoplasm. Patient now presents for superficial parotidectomy with facial nerve monitoring. Risks and benefits were reviewed. Procedure Details: The patient was taken to Operating Room [facility] OR 06, identified as Sonam Farias and staff verified the following Procedure(s): SUPERFICIAL PAROTIDECTOMY WITH ALLODERM PLACEMENT AND NIM FACIAL MONITORING. A Sign In And Fire Safety was held and the above information confirmed.The patient was taken to Operating Room [facility] OR 06, identified as correct patient and staff verified the following Procedure(s): Superficial Right Parotidectomy, with facial nerve monitoring and Alloderm placement. A Sign In AndFire Safety was held and the above information confirmed. It should be noted that all markings were made with the patient supine; a modified Michael incision was drawn. Next 20 mL of 1% lidocaine with epinephrine was infiltrated into the right cheek and neck.The [facility] facial nerve monitor was turned on and the skin probes were placed along the frontalis, orbicularis oculi, orbicularis khanh, mentalis and the grounds were placed in the suprasternal region. The probes were secured with OpSite. Next the head was positioned and the patient was prepped and draped in the usual sterile fashion. Next a modified Michael incision was created with a #15 scalpel. The skin was elevated widely, anteriorly at least 6-7 cm and inferiorly into the lateral neck at least 3-4 cm inferior to the border of the mandible. The skin flap was then retracted using silk sutures. The earlobe was also retracted out of the way with a silk suture. Hemostasis was achieved with bipolar cautery. The mass was palpatedin the parotid tissue and marked with a marking pen. Next dissection proceeded in the immediate pretragal and infra-tragal soft tissue just anterior to the cartilage. Dissection proceeded inferiorly in the infra-auricular region the tail of the parotid from the underlying sternocleidomastoid muscle. Hemostasis was achieved with bipolar cautery. Dissection then proceeded approximately 1-2 cm inferior to the tragal pointer. The posterior belly of the gastric was identified. The trunk of the facial nerve was subsequently identified visually. Next dissection proceeded along the branches of the facial nerve. The marginal branch of the facial nerve was identified; a nerve stimulator set at 0.8 mA was used to confirm the structure. Careful dissection then proceeded along the marginal branch of the facial nerve anteriorly freeing the overlying parotid tissue away from the nerve. Each of the branches of the facial nerve including the frontal branch, zygomatic branch, buccal branches were identified and carefully dissected. The overlying superficial parotid tissue was gradually elevated off the facial nerve branches. The portion of the parotid mass was able to be removed with a cuff of normal tissue. Hemostasis was achieved with bipolar cautery. The wound site was then irrigated with warm normal saline. A 12 x 4 cm piece of AlloDerm was placed into 2 separate saline soaks. The rehydrated AlloDerm was then cut and placed into the parotid defect site. Care was taken to ensure that the exposed edges ofthe underlying parotid tissue were covered with the AlloDerm. The AlloDerm was then secured with interrupted 4-0 chromic suture. A portion of the AlloDerm was layered in the region of greatest depth.This would aid to reduce the post parotidectomy preauricular depression. Next the skin flap was then placed into its original position. The deep dermis was reapproximated with 4-0 Vicryl suture. The outer layer was closed with a running locking 5-0 fast absorbing gut suture and a running locking 6-0 fast absorbing gut suture. Lastly bacitracin, Telfa and a pressure dressing was applied. The Nim monitor probes were removed from the skin. Anesthesia was then reversed. The patient was taken to therecovery room in stable condition. Pt. tolerated the procedure well and will follow up in 1 week. documented in this encounter Plan of Treatment Not on file documented as of this encounter Procedures Procedure Name Priority Date/Time Associated Diagnosis Comments SURGICAL PATHOLOGY EXAM Routine 04/28/2015 10:39 AM EDT SUPERFICIAL PAROTIDECTOMY 04/28/2015 9:20 AM EDT rt parotid mass documented in this encounter Results * Surgical Pathology Exam (04/28/2015 10:39 AM EDT) Case Report Surgical Pathology ?Case: [id number] ? Authorizing Provider: ??Hector Berman MD ?Collected: ? 04/28/2015 1039 ? Ordering Location: ? [facility] Received: ?04/28/2015 1428 ? [facility] ? Pathologist: ? Marsha Lloyd MD ? Specimen: ?Parotid Gland, Right, RIGHT PAROTID MASS ? 6 1:59 PM EDT [facility] Final Diagnosis A. 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 - The adenoma is not present on the margins. 1:59 PM EDT [facility] Comment CPT: 53190, 83028, 73990, [id number] 6 1:59 PM EDT [facility] Clinical Information Rt. Parotid mass 1:59 PM EDT [facility] Special Stains A. Immunostains were performed on tissue block A3 and the centrally oriented cells in the adenomas stain for AE1/AE3 and the peripherally oriented cells stain positive for p63 and Ki-67 staining is no more than 5%. The results support the above diagnosis. Note: Immunohistochemical stain(s), with appropriate controls, was performed. This test was developed and the performance characteristics determined by [facility]. It has not been cleared or approved by the U.S. Food and Drug administration. The FDA has determined that such clearance or approval is not necessary. 1:59 PM EDT [facility] Intradepartmental Consultation Dr. Jaramillo has reviewed slide A3 with immunostains and agrees in the associated diagnosis. 1:59 PM EDT [facility] Gross Description A. Received in formalin labeled with the patient's name, initials SMO and parotid glan A right parotid mass and consists of 2 irregular, focally cauterized, douglas-yellow to pink, focally hemorrhagic soft tissue fragments measuring 2.1 x 1.2 x 1.1 cm and 5.3 x 3.6 x 1.8 cm. The tissues are differentially inked and serially sectioned. The smaller tissue displays a douglas-yellow to pink, mottled to lobulated cut surface. No definitive masses or lesions are grossly identified. The larger tissue displays a douglas-yellow to pink-white, mottled to lobulated cut surface with a 0.9 x 0.8 x 0.8 cm douglas-white ovoid possible lymph node. No additional masses or lesions are grossly identified. Care Transitions Nurse sections of the specimen to include the entire smaller tissue are submitted in 7 cassettes. Section code: A1-A2 - smaller tissue A3 - larger tissue with possible lymph node A4-A7 - additional sections of larger tissue Gross performed at [facility] site of [facility], [address] [place] [address]. Brass Bobbin Winder - Pauline Marquez MD. Gross performed and dictated by ANTONIO Negron(ASCP)CM. 1:59 PM EDT [facility] Embedded Images 1:59 PM EDT [facility] Tissue specimen (specimen) Parotid gland structure / Unknown 04/28/2015 10:39 AM EDT 04/28/2015 2:28 PM EDT Hector Berman MD PATHOLOGY/CYTOLOGY O RDERABLES [facility] [address] [place] [address] documented in this encounter Visit Diagnoses Not on filedocumented in this encounter Administered Medications Inactive Administered Medications - up to 3 most recent administrations Medication Order MAR Action Action Date Dose Rate Site fentaNYL (SUBLIMAZE) injection 50 mcg 50 mcg, Intravenous, Every 5 min PRN, for pain, Starting on Tue04/28/15 at 1409, For 4 doses, PACU (only), FIRST Treatment Option: administer in the order specified until the patient's pain score is 3 or less. Proceed to next selection in 20 minutes if pain unrelieved. MAXIMUM dose in PACU is 200 mcg. Given 04/28/2015 2:14 PM EDT 50 mcg lactated Ringer's infusion 75 mL/hr, Intravenous, Continuous, Starting on Tue04/28/15 at 0930, Pre-op, Use 1000 mL bag. New Bag 04/28/2015 9:42 AM EDT 75 mL/hr 75 mL/hr Left Arm lidocaine-EPINEPHrine (XYLOCAINE-EPI) 1 %-1:055069 injection As needed, Starting on Tue04/28/15 at 1037, Intra-op Given 04/28/2015 10:37 AM EDT 20 mL midazolam (VERSED) injection 2 mg 2 mg, Intravenous, As needed, anxiety, Starting on Tue04/28/15 at 0917, For 2 doses, Pre-op, Single dose. May repeat dose once in 30 minutes if needed. Given 04/28/2015 9:47 AM EDT 2 mg Left Arm oxyCODONE-acetaminophen (PERCOCET) 5-325 MG per tablet 1 tablet 1 tablet, Oral, Every 4 hours PRN, moderate pain (4-6), Starting on Tue04/28/15 at 0930, NOT to exceed 4 grams of ACETAMINOPHEN per 24 hrs from ALL sources. Given 04/28/2015 4:59 PM EDT 1 tablet documented in this encounter Active and Recently Administered Medications Times are shown in EDT. Continuous Medication Order 04/26/2015 04/27/2015 04/28/2015 lactated Ringer's infusion (CANCELED) 75 mL/hr, Intravenous, Continuous, Starting on Tue04/28/15 at 0930, Pre-op, Use 1000 mL bag. 0942 (New Bag - Prov ider: Loretta aTlbot RN)1730 (Stopped - Provider: Gabrielle De Dios RN) PRN Medication Order 04/26/2015 04/27/2015 04/28/2015 fentaNYL (SUBLIMAZE) injection 50 mcg (CANCELED) 50 mcg, Intravenous, Every 5 min PRN, for pain, Starting on Tue04/28/15 at 1409, For 4 doses, PACU (only), FIRST Treatment Option: administer in the order specified until the patient's pain score is 3 or less. Proceed to next selection in 20 minutes if pain unrelieved. MAXIMUM dose in PACU is 200 mcg. 1414 (Given - Provid er: Donita Schmidt RN) lidocaine-EPINEPHrine (XYLOCAINE-EPI) 1 %-1:664816 injection (CANCELED) As needed, Starting on Tue04/28/15 at 1037, Intra-op 1037 (Given - Provid er: Hector Berman MD) midazolam (VERSED) injection 2 mg (CANCELED) 2 mg, Intravenous, As needed, anxiety, Starting on Tue04/28/15 at 0917, For 2 doses, Pre-op, Single dose. May repeat dose once in 30 minutes if needed. 0947 (Given - Provid er: Loretta Talbot RN) oxyCODONE-acetaminophen (PERCOCET) 5-325 MG per tablet 1 tablet (CANCELED) 1 tablet, Oral, Every 4 hours PRN, moderate pain (4-6), Starting on Tue04/28/15 at 0930, NOT to exceed 4 grams of ACETAMINOPHEN per 24 hrs from ALL sources. 1659 (Given - Provid er: Gabrielle De Dios RN) documented in this encounter Care Teams Customer Experience Intern Relationship Specialty Start Date End Date Josue Delaney DO [address] [place] [id number] PCP - General Family Medicine 11/01/14 documented as of this encounter
--- OUTSIDE RECORDS SUMMARY | 2023-09-07 02:09 | XMS_ITS | Encounter Summary ---
Author Organization [facility] [place] [address] Care Team Providers Care Chief Quality Officer Name Role Phone Vale Tyson Primary Care Provider [phone] Reason for Referral * Diagnostic Test (Routine) - Closed Specialty Diagnoses / Procedures Referred By Randall t Referred To Contact Radiology Diagnoses Tremor, unspecified Procedures NM Brain Imaging for Parkinsons Disease Kylie Magallon MD [facility] [address] [place] [address] [place] [address] Referral ID Status Reason Start Date Expiration Date V isits Requested Visits Authorized [id number] Closed Specialty Service Requested 11/01/2022 05/01/2024 1 1 Reason for Visit * Diagnostic Test (Routine) - Closed Specialty Diagnoses / Procedures Referred By Contac t Referred To Contact Radiology Diagnoses Tremor, unspecified Procedures NM Brain Imaging for Parkinsons Disease Kylie Magallon MD [facility] [address] [place] [address] [place] [address] Referral ID Status Reason Start Date Expiration Date V isits Requested Visits Authorized [id number] Closed Specialty Service Requested 11/01/2022 05/01/2024 1 1 Encounter Details Date Type Department Care Team (Late st Contact Info) Description 12/07/2022 9:27 AM EDT Hospital Encounter [place] [address] Kylie Magallon MD [facility] [address] [address] Tremor, unspecified Discharge Disposition: Home Social History Tobacco Use [...] Description 02/07/2029 Hospital Encounter [place] [address] Alisha Valdivia MD [facility] [place] [address] Scheduled Procedures Name Priority Associated Diagnoses Date/Ti [...] who have questions please contact the health career technical education instructor that requested your imaging first. ? Electronically signed by: Devyn Mejia MD, [facility] ([phone]), at 12/07/2022 4:53 PM Narrative 12/07/2022 4:53 [...] patients who have questions please contactthe health career technical education instructor that requested your imaging first. Kylie Magallon MD [facility] [place] ORDERABLES documented in this encounter Visit Diagnoses Diagnosis Tremor, unspecified documented in this encounter Administered Medications Inactive Administered Medications - up to 3 most recent administrations Medication Order MAR Action Action Date Dose Rate Site strong iodine (Lugols) 5% oral liquid 0.8 mL 0.8 mL, Oral, ONCE, 1 dose, On Tue12/07/22 at 1030, Radiology Contrast, Routine Given 12/07/2022 10:05 AM EDT 0.8 mLs documented in this encounter Care Teams Chief Quality Officer Relationship Specialty Start Date End Date Vale Tyson DO [address] [place] [address] PCP - General Family Medicine 09/08/22 documented as of this encounter
--- OUTSIDE RECORDS SUMMARY | 2023-09-07 02:09 | XMS_ITS | Encounter Summary ---
Author Organization [facility] Address [address] [place] [address] Care Team Providers Care Cam Milling Machine Operator Name Role Phone Unavailable Primary Care Provider Unavailabl e Reason for Visit * Reason Comments Other Encounter Details Date Type Department Care Team (Latest Contact Info) Description 08/09/2014 12:50 PM EDT - 08/09/2014 11:59 PM EDT Hospital Encounter [facility] [address] [place] [address] Jessee Sands [address] [place] [address] Discharge Disposition: Home or Self Care Social [...] Procedure Name Priority Date/Time Associated Diagnosis Comments MRI FACE ONLY W WO CONTRAST Routine 08/09/2014 2:33 PM EDT documented in this encounter Results * MRI face only with and without contrast (08/09/2014 2:33 PM EDT) Anatomical Region Laterality Modality Head, Ortho Head Magnetic Resona nce 08/09/2014 2:33 PM EDT Narrative 08/09/2014 2:41 PM EDT ?Exam# ?[id number] SHIELDSOUT/FACIAL MRI W & W/O C ? [facility] ? Accession Number ?: [id number] Patient Name ?: Sonam Farias Date of ? : 1960 Date of Exam ?: 08/09/2014 Referring Physician ?? : JESSEE SANDS ?[address] ?[place] [address] CC Physicians ? : DERREK HACKETT Exam ?: MR - ORBITS, FACE, NECK (C-/C+) CPT 95570 - Room Description ?: Dart THYME HD 1.5 Technique ? : [place] soft tissue neck protocol: Ax T1, Ax T2, Ax STIR, Cor STIR, Cor T1, C+ Ax T1 Fsat, C+ Cor T1 Fsat Final Report HISTORY: Right cheek mass. Question parotid tumor. FINDINGS: MRI of the soft tissues of the neck has been performed without and with IV contrast. Correlation is made with the MRI of the brain dated July 29, 2009. No prior MRI of the soft tissues of the neck is available for comparison. There is a 0.8 x 0.6 x 0.7 cm well-defined lesion of the anterior aspect of the superficial lobe of the right parotid gland. It is T1 isointense and sightly T2 hyperintense. It has well-circumscribed borders and is not visible as an abnormal structure on the MRI of the brain dated July 29, 2009. There is intense diffuse homogeneous enhancement. The lateral margin of the lesion abuts the deep subcutaneous fat. No additional lesion of the salivary glands is appreciated. There are scattered small cervical lymph nodes not meeting the size criteria for enlargement. The airway is symmetric. There is multilevel degeneration of the C-spine. ?PAGE 1 ? Signed Report ? (CONTINUED) ?Exam# ?[id number] SHIELDSOUT/FACIAL MRI W & W/O C ?<Continued> The patient is status post bilateral cataract surgery. The optic nerves again demonstrate a tortuous appearance bilaterally, with enlargement of the subarachnoid space. However, review of images from the prior MRI of the brain fails to demonstrate signs of intracranial hypertension. There is no visible abnormal hyperenhancement of the posterior orbital globes. IMPRESSION: Mass of the superficial lobe of the right parotid gland. Considerations include enlarged intraparotid lymph node of benign or malignant etiology. Findings could also represent a solid primary parotid lesion such as benign mixed tumor although malignant parotid lesion is not excluded. ----- PHYSICIAN ? : ??DIYA MERINO MD ?(Signature on file) ?08/09/2014 ? REPORT ELECTRONICALLY SIGNED 08/09/2014 (1441) ? Reported And Signed By: [facility] ?CC: Jessee Sands M.D. ?Dictated Date/Time: 08/09/2014 (1433) ?Transcribed Date/Time: 08/09/2014 (1440) ?Sheet Cutting Operator: ERIC ?Printed Date/Time: 08/09/2014 (0911) ?PAGE 2 ? Signed Report ? Procedure Note Group, [facility] - 08/09/2014 Exam# [id number] SHIELDSOUT/FACIAL MRI W & W/O C [facility] Accession Number : [id number] Patient Name : Sonam Farias Date of : 1960 Date of Exam : 08/09/2014 Referring Physician : JESSEE SANDS [address] Physicians : DERREK HACKETT Exam : MR - ORBITS, FACE, NECK (C-/C+) CPT 88387 - Room Description : Smarter Remarketer 1.5 Technique : [place] soft tissue neck protocol: Ax T1, Ax T2, Ax STIR, Cor STIR, Cor T1, C+ Ax T1 Fsat, C+ Cor T1 Fsat Final Report HISTORY: Right cheek mass. Question parotid tumor. FINDINGS: MRI of the soft tissues of the neck has been performed without and with IV contrast. Correlation is made with the MRI of the brain dated July 29, 2009. No prior MRI of the soft tissues of the neck is available for comparison. There is a 0.8 x 0.6 x 0.7 cm well-defined lesion of the anterior aspect of the superficial lobe of the right parotid gland. It is T1 isointense and sightly T2 hyperintense. It has well-circumscribed borders and is not visible as an abnormal structure on the MRI of the brain dated July 29, 2009. There is intense diffuse homogeneous enhancement. The lateral margin of the lesion abuts the deep subcutaneous fat. No additional lesion of the salivary glands is appreciated. There are scattered small cervical lymph nodes not meeting the size criteria for enlargement. The airway is symmetric. There is multilevel degeneration of the C-spine. PAGE 1 Signed Report (CONTINUED) Exam# [id number] SHIELDSOUT/FACIAL MRI W & W/O C <Continued> The patient is status post bilateral cataract surgery. The optic nerves again demonstrate a tortuous appearance bilaterally, with enlargement of the subarachnoid space. However, review of images from the prior MRI of the brain fails to demonstrate signs of intracranial hypertension. There is no visible abnormal hyperenhancement of the posterior orbital globes. IMPRESSION: Mass of the superficial lobe of the right parotid gland. Considerations include enlarged intraparotid lymph node of benign or malignant etiology. Findings could also represent a solid primary parotid lesion such as benign mixed tumor although malignant parotid lesion is not excluded. ----- PHYSICIAN : DIYA MERINO MD (Signature on file) 08/09/2014 REPORT ELECTRONICALLY SIGNED 08/09/2014 (9670) Reported And Signed By: ERIC ROSARIO CC: Jessee Sands M.D. Dictated Date/Time: 08/09/2014 (4257) Transcribed Date/Time: 08/09/2014 (1440) Sheet Cutting Operator: ERIC Printed Date/Time: 08/09/2014 (3025) PAGE 2 Signed Report Jessee Sands [facility] [place] ORDERABLES documented in this encounter Visit Diagnoses Not on filedocumented in this encounter
--- OUTSIDE RECORDS SUMMARY | 2023-09-07 02:09 | XMS_ITS | Clinical Summary ---
Author Organization [facility] Address [facility] [place] [address] Care Team Providers Care Transfer Station Operator Name Role Phone Vale Tyson Primary Care Provider [phone] Allergies Active Allergy Reactions Criticality Noted Date Comments Erythromycin 03/08/2023 Medications Medication Sig Dispensed Refills Start Date End Date Status amantadine (Symmetrel) 100 mg capsule Take 1 capsule by mouth 2 times daily. 02/22/2023 Active amLODIPine (Norvasc) 2.5 mg tablet TAKE ONE TABLET BY MOUTH TWICE A DAY DUE TO ELEVATED BLOOD PRESSURE 02/26/2023 Active atorvastatin (Lipitor) 40 mg tablet Take 1 tablet by mouth Daily at Noon. 02/22/2023 Active busPIRone (Buspar) 7.5 mg tablet Take 1 tablet by mouth 2 times daily. 03/02/2023 Active celecoxib (CeleBREX) 200 mg capsule TAKE ONE CAPSULE BY MOUTH EVERY DAY, TAKE WITH FOOD 02/27/2023 Active fluticasone propionate (Flonase) 50 mcg/actuation [place], Suspension SPRAY 1 SPRAY INTO EACH NOSTRIL DAILY 03/03/2023 Active hydrOXYzine (Vistaril) 25 mg capsule TAKE ONE CAPSULE BY MOUTH TWO TIMES A DAY NEEDED FOR ANXIETY 11/20/2022 Active latanoprost (Xalatan) 0.005 % Drops INSTILL 1 DROP INTO BOTH EYES EVERY NIGHT AT BEDTIME 02/27/2023 Active losartan (Cozaar) 50 mg tablet Take 2 tablets by mouth Daily at Noon. 02/27/2023 Active sertraline (Zoloft) 50 mg tablet Take 1 tablet by mouth Daily at Noon. 02/27/2023 Active Encounters Date Type Department Care Team Description 07/15/2023 [place] [address] Agapito Christianson MD 06/20/2023 [place] [address] Alisha Valdivia MD Other from Last 3 Months Family History Medical History Relation Comments Diabetes Neg Hx Social History Tobacco Use Types Packs/Day Years Used Date Smoking Tobacco: Former Cigarettes Smokeless Tobacco: Never Tobacco Cessation:Counseling Given: Not Answered Alcohol Use Standard Drinks/Week Comments Not Currently 0 (1 standard drink = 0.6 oz pur e alcohol) Sex and Gender Information Value Date Recorded Sex Assigned at Not on file Gender Identity Not on file Sexual Orientation Not on file Last Filed Vital Signs Vital Sign Reading Time Taken Comments Blood Pressure 140/77 03/08/2023 12:43 PM EST Pulse 74 03/08/2023 12:43 PM EST Temperature - - Respiratory Rate - - Oxygen Saturation - - Inhaled Oxygen Concentration - - Weight 64.9 kg (143 lb) 05/04/2023 1:52 PM EDT Height 160 cm (5' 3) 05/04/2023 1:52 PM EDT Body Mass Index 25.33 05/04/2023 1:52 PM EDT Plan of Treatment Upcoming Encounters Date Type Department Care Team (Late st Contact Info) Description 02/07/2029 Hospital Encounter [place] [address] Alisha Valdivia MD [facility] [place] [address] Scheduled Procedures Name Priority Associated Diagnoses Date/Ti me ARTHRODESIS GREAT TOE MTP AMERICO INT (WRVU 8.57) Hallux valgus (acquired), left foot OSTEOTOMY, METATARSAL, OTHER THAN FIRST, EACH (WRVU 5.48) Hallux valgus (acquired), left foot HAMMERTOE CORRECTION (WRVU 5.62) Hallux valgus (acquired), left foot Health Maintenance Due Date Last Done Comments CT Colonography 1960 Colonoscopy 1960 Colorectal Cancer Screening 1960 FIT DNA 1960 FIT 1960 Sigmoidoscopy (10 year) with FIT yearly 1960 Sigmoidoscopy 1960 HIV screen 1976 Hepatitis C Screening 1976 Tdap adult 1977 Tetanus vaccine 1977 HPV test 1988 PAP Smear 1988 Breast Cancer Share Decision Needed 1998 Breast Cancer screening 1998 Diabetes Screening (HgbA1C o r Glucose) 1998 Zoster vaccine (1 of 2) 2008 Advance Directive 2013 Covid-19 Vaccine (2022-2 4 season) 2022 09/03/2021, 11/19/2020, 05/22/2020, Additional history exists Bone Density Scan 06/24/2023 Pneumoccocal Vaccine: 65+ (1 of 1 - PCV) 06/24/2023 Influenza (Flu) vaccine (1 o f 1 - Influenza standard series) 10/09/2023 Care Teams Transfer Station Operator Relationship Specialty Start Date End Date Vale Tyson DO [address] [place] [address] PCP - General Family Medicine 09/08/22
--- OUTSIDE RECORDS SUMMARY | 2023-09-07 02:09 | XMS_ITS | Encounter Summary ---
Author Organization [facility] Address [address] [place] [address] Care Team Providers Care Sports Broadcasting Internship Name Role Phone Josue Delaney DO Primary Care Provider [phone] Reason for Visit * Auth/Cert Specialty Diagnoses / Procedures Referred By Randall pedro Referred To Contact Diagnoses rt parotid mass Procedures SUPERFICIAL PAROTIDECTOMY Referral ID Status Reason Start Date Expiration Date Visits Re quested Visits Authorized [id number] 1 1 Encounter Details Date Type Department Care Team (Latest Contact Info) Description 04/28/2015 8:07 AM EDT - 04/28/2015 5:48 PM EDT Hospital Encounter [facility] [address] [place] [address] Hector Berman MD [address] [place] [address] Discharge Disposition: Home or Self Care Social [...] Sign Reading Time Taken Comments Blood Pressure 120/70 04/28/2015 5:30 PM EDT Pulse 100 04/28/2015 5:30 PM EDT Temperature 36.9 ??C (98.4 ??F) 04/28/2015 1:46 PM ED T Respiratory Rate 18 04/28/2015 5:30 PM EDT Oxygen Saturation 96% 04/28/2015 5:30 PM EDT Inhaled Oxygen Concentration - - Weight [...] up 1 week in office 5) Call [phone] for any concerns * Attachments The following attachments cannot be sent through Care Everywhere. * PAROTIDECTOMY (SINHALA) documented in this encounter Medications at Time [...] Dilation and curettage of uterus ??? [place] tooth extraction ROS: Pertinent items are noted [...] AND HOB ELEVAYED. Flynn SCHMIDT RN * Dointa Schmidt RN - 04/28/2015 2:34 PM EDT TAKING FEW SIPS WATER. DOZES UNLESS DISTURBED. Flynn SCHMIDT RN * Donita Schmidt RN - 04/28/2015 2:09 PM EDT PT REPORTS HEARING LOSS-PT STATES SHE IS SAVO[place]GA LEFT EAR, PT ALSO HAS SHARMILA WRAP [...] The patient was taken to Operating Room [facility] OR 06, identified as Sonam Farias and staff verified the following Procedure(s): SUPERFICIAL PAROTIDECTOMY WITH ALLODERM PLACEMENT AND NIM FACIAL MONITORING. A Sign In And Fire Safety was held and the above information confirmed.The patient was taken to Operating Room [facility] OR 06, identified as correct patient and [...] infiltrated into the right cheek and neck.The [facility] facial nerve monitor was turned on [...] AM EDT) Case Report Surgical Pathology ?Case: [id number] ? Authorizing Provider: ??Hector Berman MD ?Collected: ? 04/28/2015 1039 ? Ordering Location: ? [facility] Received: ?04/28/2015 1428 ? [facility]? [facility] ? Pathologist: ? Marsha Lloyd MD ? Specimen: ?Parotid Gland, Right, RIGHT PAROTID MASS ? 1:59 PM EDT [facility] Final Diagnosis A. 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 - The adenoma is not present on the margins. 1:59 PM EDT [facility] Comment CPT: 36381, 59716, 62755, 40037 6 1:59 PM EDT [facility] Clinical Information Rt. Parotid mass 1:59 PM EDT [facility] Special Stains A. Immunostains were performed on tissue block A3 and the centrally oriented cells in the adenomas stain for AE1/AE3 and the peripherally oriented cells stain positive for p63 and Ki-67 staining is no more than 5%. The results support the above diagnosis. Note: Immunohistochemical stain(s), with appropriate controls, was performed. This test was developed and the performance characteristics determined by [facility]. It has not been cleared or approved by the U.S. Food and Drug administration. The FDA has determined that such clearance or approval is not necessary. 6 1:59 PM EDT [facility] Intradepartmental Consultation Dr. Jaramillo has reviewed slide A3 with immunostains and agrees in the associated diagnosis. 6 1:59 PM EDT [facility] Gross Description A. Received [...] additional masses or lesions are grossly identified. Jukebox Operator sections of the specimen to include the entire smaller tissue are submitted in 7 cassettes. Section code: A1-A2 - smaller tissue A3 - larger tissue with possible lymph node A4-A7 - additional sections of larger tissue Gross performed at [facility] site of [facility], [address] [place] [address]. Plate Cleaner - Pauline Marquez MD. Gross performed and dictated by ANTONIO Negron(ASCP)CM. 1:59 PM EDT [facility] Embedded Images 1:59 PM EDT [facility] Tissue specimen (specimen) Parotid gland structure / Unknown 04/28/2015 10:39 AM EDT 04/28/2015 2:28 PM EDT Hector Berman MD PATHOLOGY/CYTOLOGY O RDERABLES [facility] [address] [place] [address] documented in this encounter Visit Diagnoses Not [...] EDT 75 mL/hr 75 mL/hr Left Arm midazolam (VERSED) injection 2 mg 2 mg, [...] 0942 (New Bag - Prov ider: Loretta Talbot RN)1730 (Stopped - Provider: Gabrielle De Dios [...] er: Donita Schmidt RN) lidocaine-EPINEPHrine (XYLOCAINE-EPI) 1 %-1:196545 injection (CANCELED) As needed, Starting on Tue04/28/15 [...] ACETAMINOPHEN per 24 hrs from ALL sources. 7429 (Given - Provid er: Gabrielle De Dios RN) documented in this encounter Care Teams Sports Broadcasting Internship Relationship Specialty Start Date End Date Josue Delaney DO [address] [place] [address] PCP - General Family Medicine 11/01/14 documented as of this encounter
--- OUTSIDE RECORDS SUMMARY | 2023-09-07 02:09 | XMS_ITS | Encounter Summary ---
Author Organization [facility] [place] [address] Care Team Providers Care Drafter Patent Name Role Phone aVle Tyson DO Primary Care Provider [phone] Reason for Visit * Consultation (Routine) - Authorized Specialty Diagnoses / Procedures Referred By Randall pedro Referred To Contact Neurology Diagnoses Parkinson's disease without dyskinesia or fluctuating manifestations Kylie Magallon MD [facility] [address] [address] [facility] [address] [place] [phone] Referral ID Status Reason Start Date Expiration Date Visits Requested Visits Authorized [id number] Authorized Consult, Test & Treat PCP Updated and/or Approved 01/07/2023 01/07/2024 6 6 Encounter Details Date Type Department Care Team (Late st Contact Info) Description 03/08/2023 1:00 PM EST Office Visit Neurology at [address] [address] Marco Antonio Toussaint MD [facility] [place] [address] Parkinson's disease without dyskinesia, with fluctuating manifestations; Motor fluctuations related to medication use in Parkinson's disease; Anosmia; Persistent mood disorder Social History Tobacco Use Types Packs/Day Years Used Date Smoking Tobacco: Former Cigarettes Smokeless Tobacco: Never Tobacco Cessation:Counseling Given: Not Answered Sex and Gender Information Value Date Recorded [...] - Inhaled Oxygen Concentration - - Weight - - Height - - Body Mass Index - - documented in this encounter Patient Instructions * Patient Instructions* Marco Antonio Toussaint MD - 03/08/2023 1:00 PM EST We discussed a few things today. On examination we noted that there was slowness, stiffness, and resting tremor on the right side. This in combination with your history and your DaTscan is certainly consistent with a diagnosis of Parkinson disease. We discussed several aspects of Parkinson disease including its etiology, diagnosis, management, and prognosis. I am going to share your name and information with our research team and they will contact you studies, available. Additionally I recommend that you browse clinical trials like up to see if there is any trials thatare on there that may interest you. In terms of your current management I think that amantadine as you are taking it is fine. It could be reasonable to increase this to 3 times a day should you want to improve the wearing off effect. Beyond that I would probably start a second medication after that. We described that in the distant future you could be a candidate for deep brain stimulation surgery, and that this is considered in folks that have had this diagnosis for couple years, and that are not suitably controlled on medications. We talk about the importance of exercise, I recommend aerobic exercise and 20- minute minimum chunksat a time, aiming for at least 150 minutes or more per week. The specific type of aerobic exercise that you does not matter so much, but things like elliptical, snowshoeing, walking, cycling, etc. are all great options. * Attachments The following attachments cannot be sent through Care Everywhere. * Parkinson's Disease (Thai) * Amantadine Oral Capsule (AMANTADINE - ORAL) (Thai) documented in this encounter Progress Notes * Marco Antonio Toussaint MD - 03/08/2023 1:00 PM EST Images from the original note were not included. [facility] Movement Disorders New Patient Evaluation Date of service 03/08/2023 Referring provider Kylie Magallon MD [facility] [address] [place] [address] Cc: Referring and primary provider History of present illness Sonam Farias is a 62 y.o. female who presents to the movement disorders clinic for evaluation of Parkinson disease. I reviewed the office visit documentation of Dr. Magallon of neurology on 12/22/2022. To summarize their chart review: RUE tremor starting 06/2022 at rest, anosmia, depression. Datscan positive 12/07/2022. Amantadine trialled 100mg first daily then BID. Interested in clinical trials. I personally reviewed imaging including and agree with radiologist impression. History obtained from patient and Today patient reports: Started during an episode of stress in right hand when moving. Didn't go away. Gait: No changes. Falls: None Handwriting: Getting worse. Gets smaller as she writes. Voice: Denies Smell: Haven't had a good sense of smell in years. Lost taste as well. Constipation: Couple spells of this in January but otherwise OK. Sleep: Denies Cognition: No problems. Mood: Been treated for anxiety/depression for years, good on meds. Worse after dx but better now. Denies family history. 2 siblings both healthy. Current PD meds: amantadine Amantadine started a few months ago. First 1/d, now 2/d. Helps dampen the shaking. 0700 and 1200. Wears off close to noon and in the evening. Dyskinesias: no Past tried PD meds: No side effects with it. 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 Texting is difficult but otherwise no issues. Exercise: Walking mostly. Other atypical parkinsonism features: Swallowing: Denies Autonomic symptoms: Denies There is no problem list on file for this patient. Current Outpatient Medications: amantadine (Symmetrel) 100 mg capsule, Take 1 capsule by mouth 2 times daily., Disp: , Rfl: amLODIPine (Norvasc) 2.5 mg tablet, TAKE ONE TABLET BY MOUTH TWICE A DAY DUE TO ELEVATED BLOOD PRESSURE, Disp: , Rfl: atorvastatin (Lipitor) 40 mg tablet, Take 1 tablet by mouth Daily at Noon., Disp: , Rfl: busPIRone (Buspar) 7.5 mg tablet, Take 1 tablet by mouth 2 times daily., Disp: , Rfl: celecoxib (CeleBREX) 200 mg capsule, TAKE ONE CAPSULE BY MOUTH EVERY DAY, TAKE WITH FOOD, Disp: , Rfl: fluticasone propionate (Flonase) 50 mcg/actuation [place], Suspension, SPRAY 1 SPRAY INTO EACH NOSTRIL DAILY, Disp: , Rfl: hydrOXYzine (Vistaril) 25 mg capsule, TAKE ONE CAPSULE BY MOUTH TWO TIMES A DAY NEEDED FOR ANXIETY, Disp: , Rfl: latanoprost (Xalatan) 0.005 % Drops, INSTILL 1 DROP INTO BOTH EYES EVERY NIGHT AT BEDTIME, Disp: , Rfl: losartan (Cozaar) 50 mg tablet, Take 2 tablets by mouth Daily at Noon., Disp: , Rfl: sertraline (Zoloft) 50 mg tablet, Take 1 tablet by mouth Daily at Noon., Disp: , Rfl: No past medical history on file. No past surgical history on file. Social History: Additional notable social history noted in HPI No family history on file. Review of Systems - A full 10 point review of symptoms was conducted and negative except as per HPI Physical Exam Patient Vitals for the past 24 hrs: Pulse BP 03/08/23 1243 74 140/77 General: the patient appears stated age, not in any acute distress, well groomed, There is no height or weight on file to calculate BMI. HEENT: normal cephalic atraumatic, eye conjunctiva moist with no abnormal discharge, no abnormal nasal discharge Voice/language: no vocal tremor or dysarthria. Normal fluency and comprehension Skin: no lesions or abrasions on exposed surfaces Neck: full ROM Extremities: full ROM and no visible deformities Mental status: oriented to place, self, date and reason for visit Cranial Nerves: III, IV, : EOMI, normal saccades and pursuit V: facial sensation normal bilaterally VII: face symmetrical to voluntary movements and expressions VIII: hearing normal in conversation Strength: Full and symmetric throughout Sensory: vibratory and light touch sensation intact and symmetrical on extremities Reflexes: 2+ and symmetrical throughout Negative Rosario signs bilaterally Coordination: Finger to nose: normal Gait: Patient stood up without pushing off, normal base and stance, normal arm swing, steady turns, toe and heel walking normal, normal line of ambulation and tandem gait normal (10 or more tandem steps without side step) Additional movement disorder specific findings: Unified Parkinson Disease Rating Scale (part III motor section) Speech 0 Facial expression: 0 Rest tremor face: 0 Rest tremor RIGHT upper: 2 Rest tremor LEFT upper: 0 Rest tremor RIGHT lower: 0 Rest tremor LEFT lower: 0 Constancy of rest tremor: 2 Postural tremor RIGHT upper: 1 Postural tremor LEFT upper: 0 Kinetic tremor RIGHT upper: 0 Kinetic tremor LEFT upper: 0 Finger taps RIGHT: 2 Finger taps LEFT: 0 Hand open/close RIGHT: 3 Hand open/close LEFT: 1 Hand pronation/supination RIGHT: 2 Hand pronation/supination LEFT: 1 Rigidity neck: 0 Rigidity RIGHT upper: 1 Rigidity LEFT upper: 0 Rigidity RIGHT lower: 0 Rigidity LEFT lower: 0 Foot tapping RIGHT: 2 Foot tapping LEFT: 1 Heel tapping RIGHT: 1 Heel tapping LEFT: 0 Arising from chair: 0 Posture: 0 Gait: 1 Freezin Postural Stability: 0 Body bradykinesia/hypokinesia: 0 Review of available labs and imaging: No results for input(s): WBC, HGB, PLATELET in the last 72 hours. No results for input(s): NA, K, CL, CO2, BUN, CREATININE, CALCIUM, MAGNESIUM, PHOS in the last 72 hours. No results for input(s): AST, ALT, ALKPHOS, BILITOT, BILIDIR in the last 72 hours. No results for input(s): TSH in the last 72 hours. Assessment and plan: 62 y.o. female presents with Parkinson disease, tremor predominant. Discussed Parkinson disease, its etiology, diagnosis, management and prognosis Currently treated with amantadine 100mg BID which she is tolerating well, could consider increase to TID to reduce wearing off as long as she continues to tolerate it well. Alternatively could consider adding carbidopa levodopa 25/100 in the hzk-xa-idakald future. Encouraged aerobic exercise. Will forward her contact information to our research staff. ICD-10-CM 1. Parkinson's disease without dyskinesia, with fluctuating manifestations G20.A2 2. Motor fluctuations related to medication use in Parkinson's disease G20.A2 T42.8X5A 3. Anosmia R43.0 4. Persistent mood disorder F34.9 Patient Instructions We discussed a few things today. On examination we noted that there was slowness, stiffness, and resting tremor on the right side. This in combination with your history and your DaTscan is certainly consistent with a diagnosis of Parkinson disease. We discussed several aspects of Parkinson disease including its etiology, diagnosis, management, and prognosis. I am going to share your name and information with our research team and they will contact you studies, available. Additionally I recommend that you browse clinical trials like up to see if there is any trials thatare on there that may interest you. In terms of your current management I think that amantadine as you are taking it is fine. It could be reasonable to increase this to 3 times a day should you want to improve the wearing off effect. Beyond that I would probably start a second medication after that. We described that in the distant future you could be a candidate for deep brain stimulation surgery, and that this is considered in folks that have had this diagnosis for couple years, and that are not suitably controlled on medications. We talk about the importance of exercise, I recommend aerobic exercise and 20- minute minimum chunksat a time, aiming for at least 150 minutes or more per week. The specific type of aerobic exercise that you does not matter so much, but things like elliptical, snowshoeing, walking, cycling, etc. are all great options. At least 60 minutes were spent on date of visit, including non-face to face time, Visit included independent review data such as labs, imaging, other tests, and other providers' documentation as above. Marco Antonio Toussaint MD [facility] Chemistry Technical Officerborder measurer and cutter, Department of Neurology, Movement Disorders. [address] [address] documented in this encounter Plan of Treatment Upcoming Encounters Date Type Department Care Team (Late st Contact Info) Description 02/07/2029 Hospital Encounter [place] [address] Alisha Valdivia MD [facility] [place] [address] Scheduled Procedures Name Priority Associated Diagnoses Date/Ti me ARTHRODESIS GREAT TOE MTP AMERICO INT (WRVU 8.57) Hallux valgus (acquired), left foot OSTEOTOMY, METATARSAL, OTHER THAN FIRST, EACH (WRVU 5.48) Hallux valgus (acquired), left foot HAMMERTOE CORRECTION (WRVU 5.62) Hallux valgus (acquired), left foot documented as of this encounter Visit Diagnoses Diagnosis Parkinson's disease without dyskinesia, with fluctuating manifestations Motor fluctuations related to medication use in Parkinson's disease Anosmia Disturbances of sensation of smell and taste Persistent mood disorder Unspecified episodic mood disorder documented in this encounter Care Teams Drafter Patent Relationship Specialty Start Date End Date Vale Tyson DO [address] [place] [address] PCP - General Family Medicine 09/08/22 documented as of this encounter
--- OUTSIDE RECORDS SUMMARY | 2023-09-07 02:09 | XMS_ITS | Encounter Summary ---
Author Organization [employer] [facility] Address [address] [place] [address] Care Team Providers Care Set O Type Operator Name Role Phone Josue Delaney DO Primary Care Provider [phone] Reason for Referral * Surgical (Routine) - Closed Specialty Diagnoses / Procedures Referred By Randall pedro Referred To Contact Diagnoses Parotid mass Procedures Fine Needle Aspiration w/o Imaging Hector Berman MD [address] [address] Referral ID Status Reason Start Date Expiration Date Visits Re quested Visits Authorized [id number] Closed 02/14/2015 08/13/2015 1 1 Reason for Visit * Reason Comments OTHER lump on right cheek Encounter Details Date Type Department Care Team (Late st Contact Info) Description 02/14/2015 9:15 AM EST Office Visit [facility] [address] [place] [address] Hector Berman MD [address] [phone] Parotid mass (Primary Dx) Social History Tobacco Use Types Packs/Day Years Used Date Smoking Tobacco: Former Alcohol Use Standard Drinks/Week Comments Yes 0 (1 standard drink = 0.6 oz pur e alcohol) Sex and Gender Information Value Date Recorded Sex Assigned at Not on file Gender Identity Not on file Sexual Orientation Not on file documented as of this encounter Last Filed Vital Signs Vital Sign Reading Time Taken Comments Blood Pressure 160/96 02/14/2015 9:14 AM EST Pulse 73 02/14/2015 9:14 AM EST Temperature - - Respiratory Rate - - Oxygen Saturation - - Inhaled Oxygen Concentration - - Weight 69.9 kg (154 lb) 02/14/2015 9:14 AM EST Height 160 cm (5' 3) 02/14/2015 9:14 AM EST Body Mass Index 27.28 02/14/2015 9:14 AM EST documented in this encounter Progress Notes * Hector Berman MD - 02/14/2015 9:35 AM EST Procedures The technique and role of needle biopsy was discussed with the patient. The risk, benefits and alternatives were discussed with the patient. The patient agreed to proceed. The overlying skin was prepped with alcohol then anesthetized with 1% lidocaine wit 1oo,ooo units of epinephrine. A skinny needle was then passed several times through the mass. R parotid. The patient tolerated the procedure well with no significant blood loss. * Hector Berman MD - 02/14/2015 9:13 AM EST History: We are seeing the patient at the request of Dr. Delaney. 54 year old male here today for eval of a lump on the R cheek. Pt had MRI done 08/09/14 which revealed a mass of the superficial lobe of the R parotid gland. Considerations include enlarged intraparotid lymph node of benign or malignant etiology. Findings could also represent a solid primary parotid lesion such as benign mixed tumor although malignant parotid lesion is not excluded. There is a 0.8 x 0.6 x 0.7 cm well-defined lesion of the anterior aspect of the superficial lobe of the right parotid gland. It is T1 isointense and sightly T2 hyperintense. It has well-circumscribed borders and is not visible as an abnormal structureon the MRI of the brain dated July 29, 2009. There is intense diffuse homogeneousenhancement. The lateral margin of the lesion abuts the deepsubcutaneous fat. No additional lesion of the salivary glands is Appreciated. Pt reports that over the past 10 years she has noticed that area enlarging. She notes that she had a previous excision done 30+ years ago. She states that at times the area can be a bit sore/tender, never excruciating pain. Review of systems, past medical history, social history,family history, allergies and medications have been reviewed and are documented in the patient's chart. Review of Systems: Pertinent items noted in the HPI. Past Medical History: Past Medical History Diagnosis Date ??? Asthma ??? GERD (gastroesophageal reflux disease) ??? Dizziness ??? HL (hearing loss) ??? Sinusitis ??? Sleep apnea ??? Hyperlipidemia ??? Osteoarthritis Past Surgical History: Past Surgical History Procedure Laterality Date ??? Sinus surgery Family History: Family History Problem Relation Age of Onset ??? Heart failure Mother ??? Hypertension Mother ??? Asthma Mother ??? Hyperlipidemia Mother ??? Osteoarthritis Mother ??? Migraines Mother ??? Hypertension Father ??? Hyperlipidemia Father ??? Stroke Father ??? Hypertension Sister ??? Asthma Sister ??? Hypertension Brother ??? Asthma Brother ??? Cancer Maternal Grandfather ??? Cancer Paternal Grandmother ??? Cancer Paternal Grandfather Social History: History Social History ??? Marital Status: Spouse Name: N/A Number of Children: N/A ??? Years of Education: N/A Occupational History ??? Not on file. Social History Main Topics ??? Smoking status: Former Smoker ??? Smokeless tobacco: Not on file ??? Alcohol Use: 0.0 oz/week 0 Not specified per week ??? Drug Use: No ??? Sexual Activity: Not on file Other Topics Concern ??? Not on file Social History Narrative ??? No narrative on file Allergies: Allergies Allergen Reactions ??? Erythromycin Hives Current Medications: Current Outpatient Prescriptions Medication Sig Dispense Refill ??? budesonide-formoterol (SYMBICORT) 160-4.5 MCG/ACT inhaler Inhale 2 puffs 2 (two) times a day. ??? citalopram (CELEXA) 40 MG tablet Celexa ??? cyanocobalamin (VITAMIN B-12) 100 MCG tablet Take 100 mcg by mouth daily. ??? fluticasone (FLONASE) 50 MCG/ACT nasal spray Fluticasone Propionate ??? omeprazole (PriLOSEC) 20 MG capsule Take 20 mg by mouth daily. ??? simvastatin (ZOCOR) 20 MG tablet Simvastatin ??? Travoprost, JESUS Free, (TRAVATAN Z) 0.004 % ophthalmic solution 1 drop at bedtime. No current facility-administered medications for this visit. General Appearance: Well developed, well nourished, no acute distress. Ability to Communicate: WNL. Review of Systems: Pertinent items noted in the HPI. Head/Face: Overall Appearance: Normocephalic. Normal facial symmetry. Facial Strength: Intact and symmetric. Palpation/Percussion: No sinus tenderness, bony step-offs or deformities. Eyes: Overall Appearance: WNL. Motility: Extraocular muscle movements intact. Ears: External: WNL Ext Auditory Canals/Tympanic Membranes: Intact, clear and mobile. Nose: External: WNL. Nasal cavity: WNL. OC/OP: Lips/Teeth/Gums: WNL. Floor of Mouth: Clear, soft. Oral Mucosa: Clear. Palate: WNL. Tongue: WNL. Tonsils: Not enlarged or inflamed. Pharynx: Clear. Neck: Overall Appearance: No adenopathy, masses or tenderness. Thyroid: No enlargement or nodules. Salivary Glands: No enlargement or masses. Lung: Clear to auscultation b/l. Heart: Regular rate and rhythm, S1, S2 normal, no murmur, click, rub or gallop. Skin: Warm and dry, no hyperpigmentation, vitiligo, or suspicious lesions. Neuro: Normal without focal findings and mental status, speech normal, alert and oriented x3. Vital Signs: BP 160/96 mmHg Pulse 73 Ht 5' 3 (1.6 m) Wt 154 lb (69.854 kg) BMI 27.29 kg/m2 Assessment: 1. Parotid mass Fine Needle Aspiration w/o Imaging Plan: 54 year old female with R superficial anterior paerotid mass. Differential diagnosis includeslymph node, benign neoplasm such as pleomorphic adenoma or Wharthin's tumor vs low likelihood of malignancy. (she has noted this lump for greater than 10 years). Await FNA results. If positive for neoplasm will discuss with pt observation vs surgical intervention pending pathology results. Follow-up: Return in about 2 years (around 02/14/2017) for Leroy. documented in this encounter Miscellaneous Notes * Addendum Note - Hector Berman MD - 02/14/2015 10:10 AM ESTAddended by: HECTOR BERMAN on: 02/14/2015 10:10 AM Modules accepted: Orders documented in this encounter Plan of Treatment Scheduled Orders Name Type Priority Associated Diagnoses Orde r Schedule Fine Needle Aspiration w/o Imaging Procedures Routine Parotid mass Ordered: 02/14/2015 documented as of this encounter Procedures Procedure Name Priority Date/Time Associated Diagnosis Comments NON-GYNECOLOGIC CYTOLOGY Routine 02/14/2015 Parotid mass documented in this encounter Results * Non-Gynecologic Cytology (02/14/2015) Case Report Non-gynecologi c Cytology ?Case: [id number] ? Authorizing Provider: ??Hector Berman MD ?Collected: ? 02/14/2015 ? [facility] ? [facility] ?Received: ?02/17/2015 1001 ? Group ? Pathologist: ? Regina Llanes MD ? Specimen: ?Parotid Gland, Right, FNA, R parotid biopsy ? 02/24/2015 4:24 PM [facility] Final Diagnosis A. 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 - See comment. Description: The SurePath slide shows a cellular specimen, with minimal stromal component. There are tightly crowded groups of small to medium sized basaloid cells with no significant cytologic atypia or mitotic activity. 02/24/2015 4:24 PM [facility] Comment The features are consistent with an epithelial neoplasm with basaloid features. Although overt nuclear features of malignancy are not present, the differential diagnosis includes cellular pleomorphic adenoma, basal cell adenoma, and less likely adenoid cystic carcinoma. CPT: 19395 02/24/2015 4:24 PM [facility] Clinical Information Parotid mass (R22.0) 02/24/2015 4:24 PM [facility] Intradepartmental Consultation Dr. Lloyd has reviewed the case and concurs. 02/24/2015 4:24 PM [facility] Gross Description 10 cc. of pink fluid is received with the patient's name, date of and right parotid mass FNA is received in cyto rich red and centrifuged. One SurePath slide is processed. Wilma Christensen/iona 02/24/2015 4:24 PM [facility] Embedded Images 02/24/2015 4:24 PM [facility] Specimen of unknown material (specimen) Parotid gland structure / Unknown 02/14/2015 02/17/2015 10:01 AM EST Hector Berman MD PATHOLOGY/CYTOLOGY [facility] [address] [place] [address] documented in this encounter Visit Diagnoses Diagnosis Parotid mass- Primary Swelling, mass, or lump in head and neck documented in this encounter Care Teams Set O Type Operator Relationship Specialty Start Date End Date Josue Delaney DO [address] [place] [phone] PCP - General Family Medicine 11/01/14 documented as of this encounter
--- OUTSIDE RECORDS SUMMARY | 2023-09-07 02:09 | XMS_ITS | Encounter Summary ---
Author Organization Formerly [facility] [place] [address] Care Team Providers Care Convex Grinder Operator Name Role Phone Vale Tyson DO Primary Care Provider [phone] Encounter Details Date Type Department Care Team (Latest Contact Info) Description 12/07/2022 Travel Social History Tobacco Use Types Packs/Day Years Used Date Smoking Tobacco: Never Assessed Sex and Gender Information Value Date Recorded Sex Assigned at Not on file Gender Identity Not on file Sexual Orientation Not on file documented as of this encounter Plan of Treatment Upcoming Encounters Date Type Department Care Team (Late st Contact Info) Description 02/07/2029 Hospital Encounter [place]patient [place] [address] Alisha Valdivia MD [facility] [place] [address] Scheduled Procedures Name Priority Associated Diagnoses Date/Ti me ARTHRODESIS GREAT TOE MTP AMERICO INT (WRVU 8.57) Hallux valgus (acquired), left foot OSTEOTOMY, METATARSAL, OTHER THAN FIRST, EACH (WRVU 5.48) Hallux valgus (acquired), left foot HAMMERTOE CORRECTION (WRVU 5.62) Hallux valgus (acquired), left foot documented as of this encounter Visit Diagnoses Not on filedocumented in this encounter Care Teams Convex Grinder Operator Relationship Specialty Start Date End Date Vale Tyson DO [address] [place] [address] PCP - General Family Medicine 09/08/22 documented as of this encounter
--- OUTSIDE RECORDS SUMMARY | 2023-09-07 02:09 | XMS_ITS | Encounter Summary ---
Author Organization [facility] Address [address] [place] [address] Care Team Providers Care Tdp Displays Analyst Name Role Phone Joseu Delaney DO Primary Care Provider [phone] Reason for Visit * Auth/Cert Specialty Diagnoses / Procedures Referred By Randall pedro Referred To Contact Diagnoses rt parotid mass Procedures SUPERFICIAL PAROTIDECTOMY Referral ID Status Reason Start Date Expiration Date Visits Re quested Visits Authorized [id number] 1 1 Encounter Details Date Type Department Care Team (Late st Contact Info) Description 04/28/2015 9:54 AM EDT Anesthesia Event [facility] [address] [place] [address] Margaret Villalta MD [address] [place] [address] Anesthesia Record Procedure Summary Procedure Name Responsible Anesthesiologist Anesthesia Start Time Anesthesia Stop Time SUPERFICIAL PAROTIDECTOMY WITH ALLODERM PLACEMENT AND NIM FACIAL MONITORING (Right) Margaret Villalta MD 04/28/15 0954 04/28/15 1351 Events Date Time Event Comment 04/28/2015 0941 0954 AN Equip Check 0954 An Start 0954 An Start Data 1001 An Induction 1003 An Intubation 1340 An Extubation Pt meets extub ation criteria, with spontaneous ventilation and maintenance of acceptable oxygen saturation. 1343 an stop data 1350 Handoff Handoff to SEISMIC PROSPECTING OBSERVER HELPER: vital signs stable. patient history, intraop management, fluids, meds, and pertinent intraop events reviewed. 1351 An Stop Meds Name Total propofol (DIPRIVAN) injection 10 mg/mL 2 00 mg lidocaine (XYLOCAINE) 2 % local injectio n 40 mg fentaNYL (SUBLIMAZE) injection 0.05 mg/m L 250 mcg succinylcholine (QUELICIN) 20 mg/mL inje ction 100 mg dexamethasone (DECADRON) injection 4 mg/ mL 5 mg ondansetron 4 mg ePHEDrine injection 5 mg/mL syringe 20 m g clindamycin (CLEOCIN) injection 600 mg HYDROmorphone (DILAUDID) PF injection 1 mg 1 mg lactated ringer's infusion 1,600 mL * Agents Name O2 Inspired O2 N2O Air Sevoflurane Inspired Sevoflurane * Blood No blood administrations on file. Lines, Drains, and Airways Type Details Placement Removal Incision 04/28/15; 1054; Right 04/28/15 1 054 by Kylie Henderson NP Peripheral IV Placement Date: 04/08 02/22; Placement Time: 927; Catheter Size: 20 G; Orientation: Left; Location: Hand; Site Prep: Chlorhexidine ; Technique: Anatomical landmarks; Inserted by: keegan; Insertion Attempts: 1; Patient Tolerance: Tolerated well; Removal Date: 04/28/15; Removal Time: 17404/28/15927 by Keegan Talbot RN 04/28/15 174 by Gabrielle De Dios RN ETT Placement Date: 04/08 02/22; Placement Time: 1003; Mask Ventilation: Mask ventilation not attempted (0); Technique: Direct laryngoscopy, Stylet; Type: Cuffed; Tube Size: 7 mm; Laryngoscope: Mac; Blade Size: 3; Location: Oral; Grade View: 1; Insertion Attempts: 1; Placement Verification: Auscultation, End tidal CO2, Symmetrical chest wall movement; Secured at: 20 cm; Removal Date: 04/28/15; Removal Time: 1340 04/28/15 1003 by Selina Forrest CRNA 04/28/15 1340 by Selina Forrest CRNA documented in this encounter Social History Tobacco Use Types Packs/Day Years [...] on file documented as of this encounter OR Notes * Anesthesia Postprocedure Evaluation - Margaret Villalta - 04/28/2015 2:52 PM EDT Patient: Sonam Farias Procedure(s): SUPERFICIAL PAROTIDECTOMY WITH ALLODERM PLACEMENT AND NIM FACIAL MONITORING (Right) Anesthesia type: general Last vitals: Filed Vitals: 04/28/15 1430 BP: 130/71 Pulse: 109 Temp: Resp: 6 SpO2: 94% Anesthesia Post Evaluation Patient location during evaluation: PACU Patient participation: complete - patient participated Level of consciousness: awake and alert Pain management: adequate Airway patency: adequate Anesthetic complications: no Cardiovascular status: stable Respiratory status: acceptable Hydration status: adequate * Anesthesia Preprocedure Evaluation - Margaret Villalta - 04/28/2015 9:16 AM EDT Images from the original note were not included. Anesthesia Evaluation No history of anesthetic complications Airway Mallampati: II TM distance: >3 FB Neck ROM: full Mouth Opening: full Dental Pulmonary (+) asthma, sleep apnea, ROS comment: Ex-smoker Cardiovascular ROS comment: EKG 04/2015: NSR Neuro/Psych (+) headaches, anxiety, depression, Comments: Hard of hearing GI/Hepatic/Renal (+) GERD (took omeprazole today) well controlled, Endo/Other Abdominal NPO STATUS: > 8 hours Other findings: NPO past midnight except med with sip H2O Anesthesia Plan ASA 2 general (GA/ETT - ? NIM tube, ? No relaxants after sux) intravenous induction Anesthetic plan and risks discussed with patient. Post-Op Plan: PACU documented in this encounter Plan of Treatment Not on file documented as of this encounter Visit Diagnoses Not on filedocumented in this encounter Administered Medications Inactive Administered Medications - up to 3 most recent administrations Medication Order MAR Action Action Date Dose Rate Site clindamycin (CLEOCIN) injection As needed, Starting on Tue04/28/15 at 0954, Anesthesia Intra-op Given 04/28/2015 9:54 AM EDT 600 mg dexaMETHasone (DECADRON) injection Intravenous, As needed, Starting on Tue04/28/15 at 1017, Anesthesia Intra-op Given 04/28/2015 10:17 AM EDT 5 mg ePHEDrine syringe Intravenous, As needed, Starting on Tue04/28/15 at 1026, Anesthesia Intra-op Given 04/28/2015 10:37 AM EDT 10 mg Given 04/28/2015 10:26 AM EDT 10 mg fentaNYL (SUBLIMAZE) injection Intravenous, As needed, Starting on Tue04/28/15 at 1000, Anesthesia Intra-op Given 04/28/2015 11:41 AM EDT 25 mcg Given 04/28/2015 11:29 AM EDT 25 mcg Given 04/28/2015 10:55 AM EDT 50 mcg HYDROmorphone (DILAUDID) injection As needed, severe pain (7-10), Starting on Tue04/28/15 at 1144, Anesthesia Intra-op Given 04/28/2015 1:26 PM EDT 0.2 mg Given 04/28/2015 1:21 PM EDT 0.2 mg Given 04/28/2015 12:41 PM EDT 0.2 mg lactated Ringer's infusion Continuous PRN, Starting on Tue04/28/15 at 0954, Anesthesia Intra-op New Bag 04/28/2015 2:21 PM EDT 1,000 mL New Bag 04/28/2015 12:06 PM EDT New Bag 04/28/2015 9:54 AM EDT lidocaine (XYLOCAINE) 2 % injection Injection, As needed, Starting on Tue04/28/15 at 1001, Anesthesia Intra-op Given 04/28/2015 10:01 AM EDT 40 mg ondansetron (ZOFRAN) injection Intravenous, As needed, nausea, vomiting, Starting on Tue04/28/15 at 1302, Anesthesia Intra-op Given 04/28/2015 1:02 PM EDT 4 mg propofol (DIPRIVAN) injection As needed, Starting on Tue04/28/15 at 1001, Anesthesia Intra-op Given 04/28/2015 10:01 AM EDT 200 mg succinylcholine (QUELICIN) injection Intravenous, As needed, Starting on Tue04/28/15 at 1002, Anesthesia Intra-op Given 04/28/2015 10:02 AM EDT 100 mg documented in this encounter Care Teams Tdp Displays Analyst Relationship Specialty Start Date End Date Josue Delaney DO [address] [place] [address] PCP - General Family Medicine 11/01/14 documented as of this encounter
--- OUTSIDE RECORDS SUMMARY | 2023-09-07 02:09 | XMS_ITS | Encounter Summary ---
[facility] Address [address] [place] [address] Care Team Providers Care Acoustic Engineer Name Role Phone Josue Delaney DO Primary Care Provider [phone] Reason for Visit * Reason Comments Pre-op Exam rt cheek excision Encounter Details Date Type Department Care Team (Late st Contact Info) Description 03/04/2015 7:40 AM EST Office Visit [facility] [address] [place] [address] Dixon Barboza PA-C [address] [place] [address] Parotid mass (Primary Dx) Social History Tobacco [...] Sign Reading Time Taken Comments Blood Pressure 145/84 03/04/2015 7:42 AM EST Pulse 75 03/04/2015 7:42 AM EST Temperature - - Respiratory Rate - - Oxygen Saturation 97% 03/04/2015 7:42 AM EST Inhaled Oxygen Concentration - - Weight 67.6 kg (149 lb) 03/04/2015 7:42 AM EST Height 160 cm (5' 3) 03/04/2015 7:42 AM EST Body Mass Index 26.39 03/04/2015 7:42 AM EST documented in this encounter Progress Notes * Hector Goncalves MD - 03/17/2015 2:38 PM EST I have reviewed the notes, assessments, and/or procedures performed by the physician personnel assistant, I concur with her/his documentation of Sonam Farias. * Dixon Barboza PA-C - 03/04/2015 8:19 AM EST Subjective: Sonam Farias is a 54 y.o. female who presents for follow up and review of recent FNA results ofa right parotid gland mass. Review of Systems Pertinent items are noted in HPI. Current outpatient prescriptions: budesonide-formoterol (SYMBICORT) 160-4.5 MCG/ACT inhaler, Inhale2 puffs 2 (two) times a day., Disp: , Rfl: ; citalopram (CELEXA) 40 MG tablet, Celexa, Disp: , Rfl:; cyanocobalamin (VITAMIN B-12) 100 MCG tablet, Take 100 mcg by mouth daily., Disp: , Rfl: ; fluticasone (FLONASE) 50 MCG/ACT nasal spray, Fluticasone Propionate, Disp: , Rfl: omeprazole (PriLOSEC) 20 MG capsule, Take 20 mg by mouth daily., Disp: , Rfl: ; Travoprost, JESUS Free, (TRAVATAN Z) 0.004 % ophthalmic solution, 1 drop at bedtime., Disp: , Rfl: Allergies Allergen Reactions ??? Erythromycin Hives Objective: BP 145/84 mmHg Pulse 75 Ht 5' 3 (1.6 m) Wt 149 lb (67.586 kg) BMI 26.40 kg/m2 SpO2 97% General: healthy Head and Face: mass of [...] adenoma, and less likely adenoid cystic carcinoma. Assessment: Right parotid mass Plan: Cytology from FNA reviewed. Differential discussed with the patient. Recommendation is right parotidectomy. Procedure has been discussed in detail with the patient and her . All questions answered. Specifically, reviewed risk of injury to the facial nerve as well as the possibility of postsurgical Yoly's syndrome. Parotidectomy, superficial or deep, with dissection of the facial nerve has been recommended. I reviewed with the patient the surgical indications, techniques, risks, benefits, alternatives, and anticipated post-operative course for this procedure. Risks include but are not limited to: bleeding, wound infection, salivary fistula or seroma, Yoly's syndrome or gustatory sweating, and temporary or permanent injury to the facial nerve. If a seroma develops, repeated drainage may be required. The patient understands that in the presence of malignancy the first priority is removing the tumor and sacrifice l of the facial nerve may be required. The role of nerve monitoring has been discussed. The likely sacrifice of the greater auricular nerve resulting in numbness of the auricle has been discussed. If facial motion does not fully return, we will discuss ways to rehabilitate facial movement. Depending on the final diagnosis after the tissue is reviewed by a pathologist, additional diagnostictests and follow-up examinations may be needed. Most often masses of the parotid are benign and comp lete removal is the only treatment needed. Questions regarding surgery were discussed in detail andconcerns were addressed. Informed consent was obtained and surgery will be scheduled in the near future. Time spent with patient: approximately 30 minutes. Greater than 50% of today's encounter spent on counseling and coordination of care. documented in this encounter Plan of Treatment Not on file documented as of this encounter Visit Diagnoses Diagnosis Parotid mass- Primary Swelling, mass, or lump in head and neck documented in this encounter Care Teams Acoustic Engineer Relationship Specialty Start Date End Date Josue Delaney DO [address] [place] [address] PCP - General Family Medicine 11/01/14 documented as of this encounter
--- OUTSIDE RECORDS SUMMARY | 2023-09-07 02:09 | XMS_ITS | Encounter Summary ---
Author Organization [facility] Address [address] [place] [address] Care Team Providers Care Environmental Engineering Intern Name Role Phone Josue Delaney DO Primary Care Provider [phone] Reason for Visit * Reason Comments Other Encounter Details Date Type Department Care Team (Late st Contact Info) Description 02/28/2015 Telephone [facility] [address] [place] [id number] Hector Goncalves MD [address] [facility] [address] [place] [address] Social History Tobacco Use Types Packs/Day Years Used Date Smoking Tobacco: Former Alcohol Use Standard Drinks/Week Comments Yes 0 (1 standard drink = 0.6 oz pur e alcohol) Sex and Gender Information Value Date Recorded Sex Assigned at Not on file Gender Identity Not on file Sexual Orientation Not on file documented as of this encounter Miscellaneous Notes * Telephone Encounter - Hector Goncalves MD - 02/28/2015 9:59 AM EST Patient was called with results of FNA. We discussed the pros and cons of tumor removal vs. Observation. Patient wishes to proceed with Parotidectomy to remove the lesion. Dr. Goncalves 02/27/14 1000 documented in this encounter Plan of Treatment Not on file documented as of this encounter Visit Diagnoses Not on filedocumented in this encounter Care Teams Environmental Engineering Intern Relationship Specialty Start Date End Date Josue Delaney DO [address] [place] [address] PCP - General Family Medicine 11/01/14 documented as of this encounter
--- OUTSIDE RECORDS SUMMARY | 2023-09-07 02:09 | XMS_ITS | Encounter Summary ---
Author Organization [facility] Address [facility] [place] [address] Care Team Providers Care Planning Rn Name Role Phone Vale Tyson DO Primary Care Provider [phone] Reason for Referral * Consultation (Routine) - Closed Specialty Diagnoses / Procedures Referred By Randall pedro Referred To Contact Dermatology Diagnoses Disorder of the skin and subcutaneous tissue, unspecified Other specified epidermal thickening Motion sickness, initial encounter Obstructive sleep apnea (adult) (pediatric) Uncomplicated asthma, unspecified asthma severity, unspecified whether persistent Essential (primary) hypertension Vale Tyson DO [address] [place] [address] [facility] [address] [place] [address] Referral ID Status Reason Start Date Expiration Date V isits Requested Visits Authorized [id number] Closed Consult, Test & Treat PCP Updated and/or Approved 05/26/2023 05/25/2024 6 6 Encounter Details Date Type Department Care Team (Latest Contact Info) Description 05/26/2023 Transcribe Orders eDH Incoming Referrals [phone] Vale yTson DO [address] [place], [place] [id number] Disorder of the skin and subcutaneous tissue, unspecified; Other specified epidermal thickening; Motion sickness, initial encounter; Obstructive sleep apnea (adult) (pediatric); Uncomplicated asthma, unspecified asthma severity, unspecified whether persistent; Essential (primary) hypertension Social History Tobacco Use Types Packs/Day Years [...] Description 02/07/2029 Hospital Encounter Outpatient [place] [address] Alisha Valdivia MD [facility] [address] [place] [address] Scheduled Procedures Name Priority Associated Diagnoses Date/Ti me ARTHRODESIS GREAT TOE MTP AMERICO INT (WRVU 8.57) Hallux valgus (acquired), left foot OSTEOTOMY, METATARSAL, OTHER THAN FIRST, EACH (WRVU 5.48) Hallux valgus (acquired), left foot HAMMERTOE CORRECTION (WRVU 5.62) Hallux valgus (acquired), left foot Scheduled Referrals Name Type Priority Associated Diagnoses Orde r Schedule Referral to Dermatology Outpatient Referral Routine Disorder of the skin and subcutaneous tissue, unspecified Other specified epidermal thickening Motion sickness, initial encounter Obstructive sleep apnea (adult) (pediatric) Uncomplicated asthma, unspecified asthma severity, unspecified whether persistent Essential (primary) hypertension Ordered: 05/26/2023 documented as of this encounter Visit Diagnoses Diagnosis Disorder of the skin and subcutaneous tissue, unspecified Other specified epidermal thickening Motion sickness, initial encounter Obstructive sleep apnea (adult) (pediatric) Uncomplicated asthma, unspecified asthma severity, unspecified whether persistent Essential (primary) hypertension Unspecified essential hypertension documented in this encounter Care Teams Planning Rn Relationship Specialty Start Date End Date Vale Tyson DO [address] [place] [id number] PCP - General Family Medicine 09/08/22 documented as of this encounter
--- OUTSIDE RECORDS SUMMARY | 2023-09-07 02:09 | XMS_ITS | Clinical Summary ---
Author Organization [facility] Address [address] [place] [address] Care Team Providers Care Guillotine Trimmer Name Role Phone Unknown, Provider Primary Care Provider [phone] Encounters Date Type Department Care Team Description 08/02/2023 Lab Requisition [facility] Pathology & Laboratory Medicine - [facility] [address] [place] [address] Geremias Castro MD Encounter for other general examination from Last 3 Months Social History Tobacco Use Types Packs/Day Years Used Date Smoking Tobacco: Never Assessed Sex and Gender Information Value Date Recorded Sex Assigned at Not on file Gender Identity Not on file Sexual Orientation Not on file Plan of Treatment Health Maintenance Due Date Last Done Comments Hepatitis C Screen 1960 RSV Immunization ( o r 60+ Years) (1 - 1-dose 60+ series) 2018 COVID-19 Vaccine ( season) 2022 Fall Risk Screening 06/24/2023 Procedures Procedure Name Priority Date/Time Associated Diagnosis [...] management options, if applicable. 08/04/2023 13:03 EDT [facility] Final Diagnosis A. SKIN OF FLANK, LEFT, EXCISION: - Seborrheic keratosis. B. SKIN OF FLANK, RIGHT, EXCISION: - Verruca vulgaris. 08/04/2023 13:03 [facility] Attestation By the signature below, the attending physician certifies that they have 1) personally conducted a gross and/or microscopic examination of the described specimen(s), and/or personally interpreted the results of laboratory testing of the described specimen(s), and 2) personally rendered or confirmed the above diagnosis. 08/04/2023 13:03 [facility] at 1303 Microscopic Description A.The [...] The granular layer is accentuated. 08/04/2023 13:03 [facility] Clinical History Skin lesion 08/04/2023 13:03 [facility] Gross Description A. Received in [...] Janelle Quintero 08/03/2023 8:32 08/04/2023 13:03 EDT [facility] Performing Lab [facility] 08/04/2023 13:03 EDT [facility] Scanned Images 08/04/2023 13:03 EDT [facility] Tissue SPECIMEN FROM SKIN / Unknown 08/02/2023 11:20 EDT 08/02/2023 19:55 EDT Tissue specimen (specimen) SPECIMEN FROM SKIN / Unknown 08/02/2023 11:20 EDT 08/02/2023 19:55 EDT Geremias Castro MD PATHOLOGY ORDERABLES [facility] [address] [place] [address] from Last 3 Months Care Teams Guillotine Trimmer Relationship Specialty Start Date End Date Unknown, Provider, PCP - General 07/09/23
--- OUTSIDE RECORDS SUMMARY | 2023-09-07 02:09 | XMS_ITS | Encounter Summary ---
Author Organization [facility] Address [address] [place] [address] Care Team Providers Care Cylinder Die Machine Helper Name Role Phone Unknown, Provider Primary Care Provider [phone] Encounter Details Date Type Department Care Team (Late st Contact Info) Description 03/28/2023 Lab Requisition [facility] Pathology & Laboratory Medicine - [facility] [address] [place] [address] Louann Lares MD [address] [place] [address] [place] [address] Encounter for other general examination [...] Date/Time Associated Diagnosis Comments PAP TEST Today 03/25/2023 15:00 EST Encounter for other general examination documented in this encounter Results * PAP TEST (03/25/2023 15:00 EST) Specimens A. Cervix and/or Endocervix , ThinPrep Imaging System with Manual Evaluation 04/05/2023 11:00 EST [facility] Specimen Adequacy Unsatisfactory for evaluation-Insuf ficient number of squamous epithelial cells. Specimen processed and examined but preparation compromised by lubricant or other vaginal contaminant. 04/05/2023 11:00 EST [facility] General Categorization Unsatisfactory 04/05/2023 11:00 EST [facility] Educational Comments Unsatisfactory - Specimen processed and examined, but unsatisfactory for evaluation of epithelial abnormality. Recommend repeat age-based screening after 2-4 months per ASCCP Guidelines which may be found at www.asccp.org. HPV testing will not be performed due to the potential for false negative results. 04/05/2023 11:00 [facility] Attestation . 04/05/2023 11:00 [facility] at 1100 Clinical History See below 04/05/19 11:00 [facility] Performing Lab [facility] 04/05/2023 11:00 [facility] Scanned Images 04/05/2023 11:00 [facility] Pap Test CERVIX UTERI STRUCTURE / Unknown 03/25/2023 15:00 EST 03/28/2023 10:02 EST Louann Lares MD PATHOLOGY ORDERABLES Performing Organization Address City/State/[facility] Co de Phone Number [facility] [address] [place] [address] documented in this encounter Visit Diagnoses Diagnosis Encounter for other general examination documented in this encounter Care Teams Cylinder Die Machine Helper Relationship Specialty Start Date End Date Unknown, Provider, PCP - General 07/09/23 documented as of this encounter
--- OUTSIDE RECORDS SUMMARY | 2023-09-07 02:09 | XMS_ITS | Encounter Summary ---
Author Organization [facility] Address [address] [place] [address] Care Team Providers Care Primary Care Nurse Practitioner Name Role Phone Josue Delaney DO Primary Care Provider [phone] Encounter Details Date Type Department Care Team (Late st Contact Info) Description 04/24/2015 Prep for Surgery [facility] [address] [place] [address] Dixon Barboza PA-C [address] [facility].2nd [place] [address] Social History Tobacco Use Types Packs/Day Years [...] on file documented as of this encounter H&P Notes * Dixon Barboza PA-C - 04/24/2015 8:25 AM EDT : 1960 Date: 04/24/2015 Surgical Attending: Hector Goncalves MD HPI: 54-year-old female with right parotid [...] ??? Dilation and curettage of uterus ??? [place] tooth extraction ROS: Pertinent items are noted [...] parotidectomy with NIM documented in this encounter Plan of Treatment Not on file documented as of this encounter Visit Diagnoses Not on filedocumented in this encounter Care Teams Primary Care Nurse Practitioner Relationship Specialty Start Date End Date Josue Delaney DO [address] [place] [address] PCP - General Family Medicine 11/01/14 documented as of this encounter
--- OUTSIDE RECORDS SUMMARY | 2023-09-07 02:09 | XMS_ITS | Encounter Summary ---
Author Organization [facility] [place] [address] Care Team Providers Care Certified Dialysis Technician Name Role Phone Vale Tyson DO Primary Care Provider [phone] Encounter Details Date Type Department Care Team (Late st Contact Info) Description 11/02/2022 Telephone [place] [id number] Lydia Gonzalez Social History Tobacco Use Types Packs/Day Years Used Date Smoking Tobacco: Never Assessed Sex and Gender Information Value Date Recorded Sex Assigned at Not on file Gender Identity Not on file Sexual Orientation Not on file documented as of this encounter Plan of Treatment Upcoming Encounters Date Type Department Care Team (Late st Contact Info) Description 02/07/2029 Hospital Encounter Outpatient [place] [address] Alisha Valdivia MD [facility] [place] [address] Scheduled Procedures Name Priority Associated Diagnoses Date/Ti me ARTHRODESIS GREAT TOE MTP AMERICO INT (WRVU 8.57) Hallux valgus (acquired), left foot OSTEOTOMY, METATARSAL, OTHER THAN FIRST, EACH (WRVU 5.48) Hallux valgus (acquired), left foot HAMMERTOE CORRECTION (WRVU 5.62) Hallux valgus (acquired), left foot documented as of this encounter Visit Diagnoses Not on filedocumented in this encounter Care Teams Certified Dialysis Technician Relationship Specialty Start Date End Date Vale Tyson DO [address] [place] [address] PCP - General Family Medicine 09/08/22 documented as of this encounter
--- OUTSIDE RECORDS SUMMARY | 2023-09-07 02:09 | XMS_ITS | Encounter Summary ---
Author Organization [facility] Address [address] [place] [address] Care Team Providers Care Gas Main Fitter Helper Name Role Phone Unavailable Primary Care Provider Unavailabl e Encounter Details Date Type Department Care Team (Late st Contact Info) Description 06/16/2011 Historical Telephone Encounter [facility] [address] [place] [address] Josue Delaney DO [address] [place] [address] Social History Tobacco Use Types Packs/Day Years Used Date Smoking Tobacco: Never Assessed Sex and Gender Information Value Date Recorded Sex Assigned at Not on file Gender Identity Not on file Sexual Orientation Not on file documented as of this encounter Miscellaneous Notes * Telephone Encounter - Josue Delaney DO - 10/16/2013 7:53 PM EDT EncounterId:[id number] PatientId:[id number] ProviderId:[id number] ControlNo:[id number] patient:SONAM FONSECA :1960 sex:Female age:51 Y phone:[phone] address:[address] [place] [address] date:11/18/2011 time:04:03 PM doctor:Josue Delaney user:Karley Wade assignedTo:Aria Garcia enctype:Telephone Encounter caller:Pt reason:Med refill message:Pt taking Imitrex 100mg, which was rxd by ENT, she is unable to follow up with her to get the refill due to financial reasons. so she would like to know if you could refill it for her? actiontaken:Karley Wade 11/19/2011 1:30:58 PM > Aria please send RX to pharmacy, see Rx Karley Powell 11/19/2011 1:45:21 PM > per Dr.Clark PELLETIER to fill this medication for FrancineAria 11/19/2011 3:03:05 PM > rx sent. subItems:Refills Start Imitrex Tablet, 100 MG, Orally, 9, 1 tablet as needed, no more than 2 tabs within 24 hours, 30 day(s), Refills=6 * Telephone Encounter - Josue Delaney DO - 10/16/2013 7:39 PM EDT EncounterId:[id number] PatientId:[id number] ProviderId:[id number] ControlNo:[id number] patient:SONAM FONSECA :1960 sex:Female age:51 Y phone:[phone] address:[address] [place] [address] date:11/18/2011 time:02:56 PM doctor:Josue Delaney user:Yamileth Clark assignedTo:Aria Garcia enctype:Telephone Encounter caller:SELF reason:WANTS RX OF FLOVENT message:PT IS ASKING FOR AN RX OF FLOVENT, THIS IS THE ONLY ONE THAT INSURANCE CO-PAY IS CHEAPER FOR A MAINTANACE RX, CAN WE SEND TO PHARMACY? actiontaken:Aria Garcia 11/18/2011 4:31:03 PM > Per MATHEW pelletier see rx tab pt is aware. subItems:Refills Start Flovent HFA Aerosol, 110 MCG/ACT, Inhalation, 1, 1 puff, Twice a day, 30, Refills=6 * Telephone Encounter - Josue Delaney DO - 10/16/2013 7:11 PM EDT EncounterId:[id number] PatientId:[id number] ProviderId:[id number] ControlNo:[id number] patient:SONAM FONSECA :1960 sex:Female age:51 Y phone:[phone] address:[address] [place], [place] [address] date:10/12/2011 time:02:57 PM doctor:Josue Delaney user:Elif Clark assignedTo:Aria Garcia enctype:Telephone Encounter caller:[facility] reason:PA, OR NEW RX message:Document attached from fax inbox.NEEDS PA, OR A NEW RX. actiontaken:Elif Clark 10/12/2011 2:58:20 PM > SENT TO Aria Peñaloza 10/14/2011 11:44:10 AM > rx sent by Karley. * Telephone Encounter - Josue Delaney DO - 10/16/2013 7:06 PM EDT EncounterId:[id number] PatientId:[id number] ProviderId:[id number] ControlNo:[id number] patient:SONAM FONSECA :1960 sex:Female age:51 Y phone:[phone] address:[address] [place] [address] date:10/12/2011 time:01:40 PM doctor:Josue Delaney user:Yamileth Clark assignedTo:Yamileth Clark enctype:Telephone Encounter caller:SELF [phone] reason:?SPIDER BITE ON HEAD message:PT FOUND A LUMP ON HEAD THIS A.M. WENT TO SEE HER GYNO TODAY FOR AN ALANA AND HAD HER LOOK AT IT, SHE STATES IT LOOKS LIKE A SPIDER BITE, BUT DIDNT TELL HER WHAT SHE SHOULD DO, LOCATED ON TOP LEFT BACK SIDE OF HEAD, LUMP IS ABOUT A QUARTER OF AN INCH BIG, SORE TO TOUCH, WARM TO TOUCH. RED AND IRRITATED, PAINFUL, PT FEELS FINE, NO FEVER NO OTHER COMPLAINTS, WHAT SHOULD PT DO? SEE PT? actiontaken:Yamileth Clark 10/12/2011 1:55:37 PM > PER [facility] NEED TO SEE PT AWARE COME IN TODAY AT 330PM * Telephone Encounter - Josue Delaney DO - 10/16/2013 6:58 PM EDT EncounterId:[id number] PatientId:[id number] ProviderId:[id number] ControlNo:[id number] patient:SONAM FONSECA :1960 sex:Female age:51 Y phone:[phone] address:[address] [place] [address] date:09/28/2011 time:01:15 PM doctor:Josue Delaney user:Yamileth Clark assignedTo:Yamileth Clark enctype:Telephone Encounter caller:SELF [phone] reason:COUGH NOT BETTER message:PT HAS BEEN FIGHTING A COLD AND HAS BEEN USING HER INHALERS, NASAL SPRAY, ALLERGY MEDS AND PT STILL COUGHING, AND CANT CLEAR IT OUT. NO FEVER, PT WOULD LIKE TO KNOW IF THERE IS ANYTHING ELSE THAT CAN HELP? actiontaken:Yamileth Clark 09/28/2011 2:23:33 PM > PER [facility] PT IS DOING ALL THE THINGS SHE SHOULD, HE APPLAUDS YOU, IT WILL GET BETTER IN TIME UNFORTUNALTY THE ALLERGIES ARE GETTING IN THE WAY OF FEELING BETTER CONTINUE WHAT SHE IS DOING AND IF SHE DEVELOPS A FEVER TO CALL TO BE SEEN PT OK WITH THIS. * Telephone Encounter - Josue Delaney DO - 10/16/2013 6:48 PM EDT EncounterId:[id number] PatientId:[id number] ProviderId:[id number] ControlNo:[id number] patient:SONAM FONSECA :1960 sex:Female age:51 Y phone:[phone] address:[address] [place] [address] date:09/13/2011 time:09:23 AM doctor:Josue Delaney user:Aria Garcia assignedTo:Aria Garcia enctype:Telephone Encounter caller:reason:Historical data message:actiontaken:VirtualFlag:yes Subjective: Reason for Appointment: Historical data CurrentMedications: Simvastatin 20 MG Tablet 1 tablet in the evening q.h.s. Celexa 40 MG Tablet 1 tablet Once a day Albuterol Sulfate HFA 2 puffs q.4h p.r.n. 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 Family History: Father: Father with a history of coronary artery disease, hyperlipidemia, and hypertension. Mother: Mother with hypertension, polymyalgia rheumatica. familyNotes:Family history of colon cancer. itemValueBR:Family history of colon cancer. Social History: Tobacco Use: Are you a: former smoker name:Are you a former smoker categoryNotesBR:, two children. Quit tobacco in 1998, 20-year history. Alcohol, one to two glasses a day. No drug use. History of Present Illness: Examination: Assessments: Plan: Treatment: Immunization: labs: * Telephone Encounter - Josue Delaney DO - 10/16/2013 4:43 PM EDT EncounterId:[id number] PatientId:[id number] ProviderId:[id number] ControlNo:[id number] patient:SONAM FONSECA :1960 sex:Female age:51 Y phone:[phone] address:[address] [place] [address] date:01/12/2012 time:10:12 AM doctor:Josue Delaney user:Aria Garcia assignedTo:Aria Garcia enctype:Telephone Encounter caller:reason:message:actiontaken:subItems:Refills Refill Simvastatin Tablet, 20 MG, Orally, 30, 1 tablet in the evening, q.h.s., 30 days, Refills=6 * Telephone Encounter - Josue Delaney DO - 10/16/2013 3:26 PM EDT EncounterId:[id number] PatientId:[id number] ProviderId:[id number] ControlNo:[id number] patient:SONAM FONSECA :1960 sex:Female age:52 Y phone:[phone] address:[address] [place] [address] date:12/25/2012 time:04:06 PM doctor:Josue Delaney user:Yamileth Clark assignedTo:Josue Delaney enctype:Telephone Encounter caller:SELF [phone] reason:CREAM NOT WORKING message:PT CALLED IN HAS BEEN IN TO SEE YOU FOR THE RASH ON HER FACE, USED THE LAST CREAM YOU RX'D WAS WORKING BUT NOW IT IS SPREADING AROUND HER NOSE AND ON CHIN, SHE WOULD LIKE TO TRY THE NEXT OPTION, OR CREAM YOU SUGGEST? actiontaken:Yamileth Clark 12/26/2012 07:43:47 AM EST > LEFT DETAILED MESSAGE WITH PT PER [facility] IT WILL TAKE 3-4 WEEKS CONTINUE WITH KETCARAZOLE IT DOES TAKE TIME PT TO CALL BACK IF ANY CONCERNS, * Telephone Encounter - Josue Delaney DO - 10/16/2013 3:19 PM EDT EncounterId:[id number] PatientId:[id number] ProviderId:[id number] ControlNo:[id number] patient:SONAM FONSECA :1960 sex:Female age:52 Y phone:[phone] address:[address] [place] [address] date:12/04/2012 time:11:05 AM doctor:Josue Delaney user:Aria Garcia assignedTo:Aria Garcia enctype:Telephone Encounter caller:reason:Rx Celexa message:actiontaken:subItems:Refills Refill Celexa Tablet, 40 MG, Orally, 30, 1 tablet, Once a day, 30 days, Refills=6 * Telephone Encounter - Josue Delaney DO - 10/16/2013 3:04 PM EDT EncounterId:[id number] PatientId:[id number] ProviderId:[id number] ControlNo:[id number] patient:SONAM FONSECA :1960 sex:Female age:52 Y phone:[phone] address:[address] [place] [address] date:11/07/2012 time:09:03 AM doctor:Josue Delaney user:Yamileth Clark assignedTo:Elif Clark enctype:Telephone Encounter caller:YAMILETH reason:SYMBICORT 160/4.5 message:PT IS AWARE PER DRC WILL RX SYMBICORT 160/4.5 2 PUFFS BID DISP 1 CONATINER WITH 6 RF, PLEASE SENT TO PHARMACY LISTED PLS. actiontaken:Elif Clark 11/07/2012 10:14:38 AM > RX SENT TO THE PHARMACY subItems:Refills Start Symbicort Aerosol, 160-4.5 MCG/ACT, Inhalation, 1 Inhaler, 2 puffs, Twice a day, Refills=6 * Telephone Encounter - Josue Delaney DO - 10/16/2013 3:04 PM EDT EncounterId:[id number] PatientId:[id number] ProviderId:[id number] ControlNo:[id number] patient:SONAM FONSECA :1960 sex:Female age:52 Y phone:[phone] address:[address] [place] [address] date:11/06/2012 time:11:42 AM doctor:Josue Delaney user:Aria Garcia assignedTo:Aria Garcia enctype:Telephone Encounter caller:reason:Rx Citalopram message:actiontaken:subItems:Refills Refill Celexa Tablet, 40 MG, Orally, 30, 1 tablet, Once a day, 30 days, Refills=6 * Telephone Encounter - Josue Delaney, - 10/16/2013 2:52 PM EDT EncounterId:[id number] PatientId:[id number] ProviderId:[id number] ControlNo:[id number] patient:SONAM FONSECA :1960 sex:Female age:52 Y phone:[phone] address:[address] [place] [address] date:11/01/2012 time:02:19 PM doctor:Josue Delaney user:Yamileth Clark assignedTo:Josue Delaney enctype:Telephone Encounter caller:reason:WILL CALL BACK message:PT PREFERD TO CALL BACK IF SKIN IS NO BETTER DID NOT WANT TO SET UP AN APPOINTMENT * Telephone Encounter - Josue Delaney, - 10/16/2013 2:45 PM EDT EncounterId:[id number] PatientId:[id number] ProviderId:[id number] ControlNo:[id number] patient:SONAM FONSECA :1960 sex:Female age:52 Y phone:[phone] address:[address] [place] [address] date:11/06/2012 time:09:16 AM doctor:Josue Delaney user:Theresa Rooney assignedTo:Josue Delaney enctype:Telephone Encounter caller:SELF [phone] reason:INHALER message: REQUESTING PT TO KNOW WHICH INHALER IS MOST AFFORDABLE FOR PT, ALSO WHICH ONE IS THE MOST EFFECTIVE FOR PT. IN ORDER FROM LEAST TO MOST EXPENSIVE. PT NEEDS ONE OF THESE CALLED INTO PHARMACY. 1.SYMBICORT2.DULERA3.ADVAIR * Telephone Encounter - Josue Delaney DO - 10/16/2013 2:20 PM EDT EncounterId:[id number] PatientId:[id number] ProviderId:[id number] ControlNo:[id number] patient:SONAM FONSECA :1960 sex:Female age:52 Y phone:[phone] address:[address] [place], [place] [address] date:09/22/2012 time:08:43 AM doctor:Josue Delaney user:Yamileth Clark assignedTo:Josue Delaney enctype:Telephone Encounter caller:YAMILETH reason:DR. BEST APPOINTMENT message:LEFT MESSAGE WITH PT HER APPOINTMENT IS WITH DR. BEST 11/08/2012 WED AT 9:00AM, PT IS AWARE IT IS THE CLOSEST NEW PT APPOINTMENT PT REQUESTED TO GO HERE BECAUSE SHE HAS BEEN THERE BEFORE, BUT HASN'T BEEN SEEN SINCE 1999 SO THEY CONSIDERED HER A NEW PT SHE CAN CALL AND ASK FOR CANCELLATIONS. * Telephone Encounter - Josue Delaney DO - 10/16/2013 2:18 PM EDT EncounterId:[id number] PatientId:[id number] ProviderId:[id number] ControlNo:[id number] patient:SONAM FONSECA :1960 sex:Female age:52 Y phone:[phone] address:[address] [place] [address] date:10/02/2012 time:02:15 PM doctor:Josue Delaney user:Aria Garcia assignedTo:Aria Garcia enctype:Telephone Encounter caller:reason:Rx Simvastatin message:actiontaken:subItems:Refills Refill Simvastatin Tablet, 20 mg, Orally, 30, 1 tablet in the evening, Once a day, 30 days, Refills=6 * Telephone Encounter - Josue Delaney DO - 10/16/2013 1:25 PM EDT EncounterId:[id number] PatientId:[id number] ProviderId:[id number] ControlNo:[id number] patient:SONAM FONSECA :1960 sex:Female age:52 Y phone:[phone] address:[address] [place] [address] date:07/18/2012 time:01:19 PM doctor:Josue Delaney user:Aria Garcia assignedTo:Aria Garcia enctype:Telephone Encounter caller:reason:Rx Fluticasone message:actiontaken:subItems:Refills Refill Fluticasone Propionate Miscellaneous Unspecified, 0.050 Milligram, Nasally, 1 bottle, 2 SPRAYS IN EACH NOSTRIL EVERY DAY, Once a day, 30 days, Refills=6 * Telephone Encounter - Josue Delaney DO - 10/16/2013 12:05 PM EDT EncounterId:[id number] PatientId:[id number] ProviderId:[id number] ControlNo:[id number] patient:Sonam Fonseca :1960 sex:Female age:50 Y phone:[phone] address:[address] [place], [place] [address] date:06/16/2011 time:12:07 PM doctor:Josue Delaney user:Amy Bernabe assignedTo:Amy Bernabe enctype:Telephone Encounter caller:reason:Historical data message:actiontaken:VirtualFlag:yes Subjective: Reason for Appointment: Historical data CurrentMedications: Advair Diskus 100-50 MCG/DOSE Aerosol Powder Breath Activated 1 puff Twice a day Albuterol Sulfate HFA 2 puffs q.4h p.r.n. Celexa 40 MG Tablet 1 tablet Once a day Simvastatin 20 MG Tablet 1 tablet in the evening q.h.s. 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 Mother: Mother with hypertension, polymyalgia rheumatica. familyNotes:Family history of colon cancer. itemValueBR:Family history of colon cancer. Social History: Tobacco Use: Are you a: former smoker name:Are you a former smoker Drugs/Alcohol: Have you used drugs other than those for medical reasons in the past 12 months? No name:Have you used drugs other than those for medical reasons in the past 12 months? No Did you have a drink containing alcohol in the past year?: Yes, Points: 0, Interpretation: Negative name:Did you have a drink containing alcohol in the past year? Yes name:Points 0 name:Interpretation Negative Miscellaneous: Children: Two children.. Marital status: . categoryValue:Children: Two children.. Marital status: . categoryNotesBR:Quit tobacco in 1998, 20-year history. Alcohol, one to two glasses a day. No drug use. History of Present Illness: Examination: Assessments: Plan: Treatment: Immunization: labs: documented in this encounter Plan of Treatment Not on file documented as of this encounter Visit Diagnoses Not on filedocumented in this encounter
--- OUTSIDE RECORDS SUMMARY | 2023-09-07 02:09 | XMS_ITS | Encounter Summary ---
Author Organization [facility] Address [facility] [place] [address] Care Team Providers Care Cylinder Handler Name Role Phone Vale Tyson DO Primary Care Provider [phone]- [phone] Reason for Referral * Consultation (Routine) - Authorized Specialty Diagnoses / Procedures Referred By Randall pedro Referred To Contact Orthopaedics Diagnoses Other hammer toe(s) (acquired), left foot Short Achilles tendon (acquired), left ankle Bunion of left foot Vale Tyson DO [address] [place] [address] Alisha Valdivia MD [facility] [place] [address] Referral ID Status Reason Start Date Expiration Date Visits Requested Visits Authorized [id number] Authorized Consult, Test & Treat 01/14/2023 01/14/2024 6 6 Encounter Details Date Type Department Care Team (Latest Contact Info) Description 01/14/2023 Transcribe Orders eDH Incoming Referrals [phone] Vale Tyson DO [address] [place], [place] [id number] Other hammer toe(s) (acquired), left foot Social History Tobacco Use [...] Description 02/07/2029 Hospital Encounter [place] [address] Alisha Valdivia MD [facility] [place] [address] Scheduled Procedures Name Priority Associated Diagnoses Date/Ti me ARTHRODESIS GREAT TOE MTP AMERICO INT (WRVU 8.57) Hallux valgus (acquired), left foot OSTEOTOMY, METATARSAL, OTHER THAN FIRST, EACH (WRVU 5.48) Hallux valgus (acquired), left foot HAMMERTOE CORRECTION (WRVU 5.62) Hallux valgus (acquired), left foot Scheduled Referrals Name Type Priority Associated Diagnoses Order Schedule Referral to Orthopaedics Outpatient Referral Routine Other hammer toe(s) (acquired), left foot Ordered: 01/14/2023 documented as of this encounter Visit Diagnoses Diagnosis Other hammer toe(s) (acquired), left foot documented in this encounter Care Teams Cylinder Handler Relationship Specialty Start Date End Date Vale Tyson DO [address] [place] [address] PCP - General Family Medicine 09/08/22 documented as of this encounter
--- OUTSIDE RECORDS SUMMARY | 2023-09-07 02:10 | XMS_ITS | Encounter Summary ---
Author Organization [facility] [place] [address] Care Team Providers Care Corrosion Prevention Metal Sprayer Name Role Phone Vale Tyson Primary Care Provider [phone]- [phone] Reason for Referral * Consultation (Routine) - Authorized Specialty Diagnoses / Procedures Referred By Randall pedro Referred To Contact Ophthalmology Diagnoses Optic nerve cupping, left Shannon Novoa MD [address] [place] [phone] [facility] [address] [place] [phone] Referral ID Status Reason Start Date Expiration Date Visits Requested Visits Authorized [id number] Authorized Consult, Test & Treat PCP Updated and/or Approved 09/08/2022 09/08/2023 6 6 Encounter Details Date Type Department Care Team (Latest Contact Info) Description 09/08/2022 Transcribe Orders eDH Incoming Referrals [phone] Unknown None Optic nerve cupping, left Social History Tobacco Use Types Packs/Day Years Used Date Smoking Tobacco: Never Assessed Sex and Gender Information Value Date Recorded Sex Assigned at Not on file Gender Identity Not on file Sexual Orientation Not on file documented as of this encounter Plan of Treatment Upcoming Encounters Date Type Department Care Team (Late st Contact Info) Description 02/07/2029 Hospital Encounter Outpatient [place] [address] Alisha Valdivia MD [facility] DR [place] [address] Scheduled Procedures Name Priority Associated Diagnoses Date/Ti me ARTHRODESIS GREAT TOE MTP AMERICO INT (WRVU 8.57) Hallux valgus (acquired), left foot OSTEOTOMY, METATARSAL, OTHER THAN FIRST, EACH (WRVU 5.48) Hallux valgus (acquired), left foot HAMMERTOE CORRECTION (WRVU 5.62) Hallux valgus (acquired), left foot Scheduled Referrals Name Type Priority Associated Diagnoses Order Schedule Referral to Ophthalmology Outpatient Referral Routine Optic nerve cupping, left Ordered: 09/08/2022 documented as of this encounter Visit Diagnoses Diagnosis Optic nerve cupping, left documented in this encounter Care Teams Corrosion Prevention Metal Sprayer Relationship Specialty Start Date End Date Vale Tyson DO [address] [place] [address] PCP - General Family Medicine 09/08/22 documented as of this encounter
--- OUTSIDE RECORDS SUMMARY | 2023-09-07 02:10 | XMS_ITS | Encounter Summary ---
Author Organization [facility] Address [facility] [place] [address] Care Team Providers Care Computer Meteorologist Name Role Phone Vale Tyson DO Primary Care Provider [phone]- [phone] Encounter Details Date Type Department Care Team (Late st Contact Info) Description 09/29/2022 Ancillary Procedure [place] [address] Alisha Valdivia MD [facility] [place] [address] Social History Tobacco Use Types Packs/Day Years Used Date Smoking Tobacco: Never Assessed Sex and Gender Information Value Date Recorded Sex Assigned at Not on file Gender Identity Not on file Sexual Orientation Not on file documented as of this encounter Plan of Treatment Upcoming Encounters Date Type Department Care Team (Late st Contact Info) Description 02/07/2029 Hospital Encounter Outpatient [place] [address] Alisha Valdivia MD [facility] [place] [address] Scheduled Procedures Name Priority Associated Diagnoses Date/Ti me ARTHRODESIS GREAT TOE MTP AMERICO INT (WRVU 8.57) Hallux valgus (acquired), left foot OSTEOTOMY, METATARSAL, OTHER THAN FIRST, EACH (WRVU 5.48) Hallux valgus (acquired), left foot HAMMERTOE CORRECTION (WRVU 5.62) Hallux valgus (acquired), left foot documented as of this encounter Procedures Procedure Name Priority Date/Time Associated Diagnosis Comments FILM LIBRARY STORAGE ONLY DX FOOT Routine 09/29/2022 12:00 AM EDT documented in this encounter Results * Film Library- Storage Only DX Foot (09/29/2022 12:00 AM EDT) Narrative LISBETH - 01/18/2023 8:00 PM EST This exam is auto-finalizing. It's purpose is for storage only. Alisha Valdivia MD G FILM LIBRARY ORD ERABLES [place], [place] documented in this encounter Visit Diagnoses Not on filedocumented in this encounter Care Teams Computer Meteorologist Relationship Specialty Start Date End Date Vale Tyson DO [address] [place] [address] PCP - General Family Medicine 09/08/22 documented as of this encounter
[2023-09-07 07:20] LABS: Abs Immature Grans 0.01 10^3/uL (0.0-0.06); Absolute Basophil Count 0.04 10^3/uL (0.0-0.2); Absolute Eosinophil Count 0.19 10^3/uL (0.0-0.7); Absolute Monocyte Count 0.43 10^3/uL (0.1-0.8); Absolute Neutrophil Count 2.63 10^3/uL (1.2-6.7); Basophils % 0.9 %; Eosinophils % 4.1 %; HCT 37.5 % (36.0-46.0); HGB 12.5 g/dL (11.2-15.7); Immature Grans % 0.2 %; Lymphocytes % 28.3 %; MCH 29.6 pg (27.0-33.0); MCHC 33.3 % (32.0-36.0); MCV 89 fL (80-95); MPV 8.8 fL (8.0-11.0); Monocytes % 9.3 %; Neutrophils % 57.2 %; Platelet Count 267 10^3/uL (130-400); RBC 4.23 10^6/uL (3.93-5.22); RDW 13.2 % (11.7-14.6); RDW-SD 43.4 fL
[2023-09-07 07:25] LABS: ESR 2 mm/hr (0-30)
[2023-09-07 08:02] LABS: ALT 44 U/L (14-59); AST 23 U/L (15-37); Alkaline Phosphatase 85 U/L (46-116); Anion Gap 10.2 mmol/L (3-11); BUN 13 mg/dL (7-18); C-Reactive Protein < 0.50 mg/dL (<or=0.5); CO2 27.8 mmol/L (21.0-32.0); CREATININE 1.2 mg/dL (0.55-1.02); Calcium 9.5 mg/dL (8.5-10.1); Calculated LDL 79 mg/dL (<100); Chloride 97 mmol/L (98-107); Cholesterol 171 mg/dL (<200); Estimated GFR 50.23 (mL/min/1.73m2); Glucose 99 mg/dL (74-106); HDL Cholesterol 78 mg/dL (40-60); Potassium 4.1 mmol/L (3.5-5.1); Sodium 135 mmol/L (136-145); TSH (W/Ref FT4) 1.61 uIU/mL (0.36-3.74); Total Protein 7.1 g/dL (6.4-8.2); Triglyceride 73 mg/dL (<150); Vitamin D 25 Total 58.5 ng/mL (30-100)
== END 2023-09-07 02:07 | disposition home or self-care (01) ==
LOC: LBO 02:06
PROVIDERS: Student in an Organized Health Care Education/Training Program; PCP Student in an Organized Health Care Education/Training Program; Referring Provider Student in an Organized Health Care Education/Training Program; Visit Provider Student in an Organized Health Care Education/Training Program
DX: L98.9 Disorder of the skin and subcutaneous tissue, unspecified; L85.8 Other specified epidermal thickening; T75.3XXA Motion sickness, initial encounter; G47.33 Obstructive sleep apnea (adult) (pediatric); J45.909 Unspecified asthma, uncomplicated; I10 Essential (primary) hypertension; Z13.220 Encounter for screening for lipoid disorders; Z96.611 Presence of right artificial shoulder joint; Z78.0 Asymptomatic menopausal state; N95.2 Postmenopausal atrophic vaginitis; R31.9 Hematuria, unspecified; R39.9 Unspecified symptoms and signs involving the genitourinary system
CPT/HCPCS: 36415; 80053; 80061; 82306; 85027; 85652; 81003; 81015; 84443; 85025; 86140

== ENCOUNTER 2023-09-21 01:44 | Outpatient (CLI) | payer OTHER, SELFPAY ==
--- NOTE | 2023-09-21 16:08 | DI.RAD_ITS ---
Exam(s) XR THORACIC SPINE COMPLETE EXAM: XR THORACIC SPINE COMPLETE CLINICAL HISTORY: evaluate upper back pain: ? bony pathology,back pain, m62.830,muscle spasm. TECHNIQUE: 2D digital imaging was performed. COMPARISON: CR XR SHOULDER RT COMPLETE 2+V from 07/13/2023 CR XR LUMBAR SPINE COMPLETE from 09/21/2023 FINDINGS: 3 views Right shoulder prosthesis noted. There are no fractures evident. On the lateral view there appears to be slight anterior listhesis of T5 upon T6.. No osseous lesions seen. No abnormal widening of the paraspinal lines. No significant scoliosis. IMPRESSION: Mild anterolisthesis C5 upon C6. Some disc space narrowing at multiple levels noted. No scoliosis DATA REPOSITORY: RADIATION DOSE DELIVERED:
--- NOTE | 2023-09-21 16:08 | DI.RAD_ITS ---
Exam(s) XR LUMBAR SPINE COMPLETE EXAM: XR LUMBAR SPINE COMPLETE CLINICAL HISTORY: evaluate lordosis,? bony pathology,low back pain, m54.50. TECHNIQUE: 2D digital imaging was performed. COMPARISON: CT CT CHEST/ABD/PEL W from 12/27/2021 FINDINGS: Five views. There is no evidence of fracture, listhesis, nor pars interarticularis defects. There is mild disc s pace narrowing at L5-S1 level noted. Also mild disc space narrowing and anterior osseous lipping not ed at the L2-3 level. Other disc spaces exhibit normal height. Mild facet arthrosis at lower 2 leve ls. Sacroiliac joints appear unremarkable. There are bilateral hip prostheses noted IMPRESSION: Disc space narrowing at L2-3 and L5-S1 levels. No fractures nor listhesis. Bilateral hip prostheses noted. DATA REPOSITORY: RADIATION DOSE DELIVERED:
== END 2023-09-21 02:04 ==
LOC: DI 01:44
PROVIDERS: PCP Student in an Organized Health Care Education/Training Program; Visit Provider Student in an Organized Health Care Education/Training Program
DX: M51.85 Other intervertebral disc disorders, thoracolumbar region (principal)
CPT/HCPCS: 72072; 72110

== ENCOUNTER 2023-11-03 07:35 | Day surgery (SDC) | payer OTHER, SELFPAY ==
[2023-11-03] VITALS (34 sets, daily range): BP systolic 106–150; BP diastolic 52–84; PULSE 70–88; RESP 11–19; TEMP 36.1–36.5; O2SAT 85–98; BMI 26.1
--- NOTE | 2023-11-03 07:11 | PDOC.DSDIS_ITS ---
Date of service: 11/03/23 Time of Service: 13:30 Discharge Plan Disposition Patient Disposition: Home Condition: Stable Discharge Details Attending Provider: Devang Wynn Primary Care Provider: Vale Tyson Home Meds and New Rx's Prescriptions: New amoxicillin 500 mg capsule 500 mg PO TID 14 Days Qty: 42 0RF oxycodone 5 mg tablet 5 - 10 mg PO Q4H MDD 30 mg PRN (Reason: moderate to severe pain) Qty: 18 0RF Bio-K plus 50 billion cell capsule,delayed release(DR/EC) 1 cap PO DAILY 14 Days Qty: 14 0RF Continued omeprazole 20 mg capsule,delayed release(DR/EC) 20 mg PO DAILY estradiol 0.01 % (0.1 mg/gram) cream 0.25 g vaginal .twice weekly Qty: 42.5 4RF Rx Instructions: Apply a pea-sized amount around the urethra twice weekly amantadine HCl 100 mg tablet 100 mg PO BID latanoprost 0.005 % drops 1 drp ophthalmic (eye) DAILY L.acidoph,saliva-B.bif-S.therm [Acidophilus Probiotic Blend] 175 mg capsule 1 cap PO DAILY EyePromise 1 tab PO DAILY Patient Comments: Eye Vitamin - Zeaxonthin atorvastatin 40 mg tablet 40 mg PO DAILY Qty: 90 3RF losartan 50 mg tablet 50 mg PO BID Qty: 180 3RF Rx Instructions: Continue BID cyclobenzaprine 10 mg tablet 10 mg PO HS PRN (Reason: muscle spasm) Qty: 10 0RF loratadine [Claritin] 10 mg tablet 10 mg PO DAILY Centrum Silver Women 8 mg iron-400 mcg-300 mcg tablet 1 tab PO DAILY calcium carbonate-vitamin D3 [Calcium 600 with Vitamin D3] 600 mg-12.5 mcg (500 unit) capsule 2 cap PO DAILY albuterol sulfate 90 mcg/actuation aerosol powdr breath activated 2 inh inhalation Q4H PRN glucos sul 1YQa-wpl-zqdcs-C-Mn [Glucosamine Chondroitin] 3 cap PO DAILY celecoxib [Celebrex] 200 mg capsule 200 mg PO DAILY Qty: 90 3RF Rx Instructions: Continue, take with food. alendronate 70 mg tablet 70 mg PO QWEEK Qty: 15 3RF Rx Instructions: As best filled, 90 days, with refills for WEEKLY dosing amlodipine 2.5 mg tablet See Rx Instructions .ROUTE .COMPLEX Qty: 180 3RF Dose Instruction: TAKE ONE TABLET BY MOUTH TWICE A DAY DUE TO EVEVATED BLOOD PRESSURE Rx Instructions: TAKE ONE TABLET BY MOUTH TWICE A DAY DUE TO EVEVATED BLOOD PRESSURE budesonide-formoterol [Symbicort] 160-4.5 mcg/actuation HFA aerosol inhaler 1 inh inhalation BID Qty: 10.2 1RF sertraline 50 mg tablet 50 mg PO DAILY Qty: 90 3RF fluticasone propionate 50 mcg/actuation spray,suspension 1 spray intranasal DAILY Qty: 16 3RF Rx Instructions: administer into each nostril buspirone 7.5 mg tablet See Rx Instructions .ROUTE .COMPLEX Qty: 180 3RF Dose Instruction: TAKE ONE TABLET BY MOUTH TWICE A DAY Rx Instructions: TAKE ONE TABLET BY MOUTH TWICE A DAY Discharge Instructions Additional Instructions: Surgery: Right shoulder conversion hemiarthroplasty to reverse total shoulder a rthroplasty with biceps tenodesis Activity: Do not lift anything heavier than a coffee. You should keep your arm at your side in a relatively neutral position at all times except for gentle range of motion exercises, physical therapy, and essential activities. You should use the sling whenever you are out of the house. At home it is best to remove the sling and rest the arm on a pillow at your side or support the operative side with your other hand. A physical therapy prescription will be sent electronically to start in about 3 weeks. Standard Reverse TSA Protocol. Prescriptions: Amoxicillin 500 mg take 1 every 8 hours (3 times each day) for infection prevention while following cultures the next 14 days Use daily probiotic and/or yogurt while on antibiotic Resume home Celebrex 200 mg daily Oxycodone 5 mg take 1-2 every 4-6 hours as needed for severe pain You may use roog-twp-scwrnzv Tylenol (acetaminophen) as needed for mild pain. These pain medications may be taken all at once or in different combinations as needed. Also, recommend Colace (docusate) as a stool softener as surgery and pain medicine cause constipation. You may try vxxq-kxc-fqgmhuf diphenhydramine (Benadryl) 25-50 mg nightly as a sleep aid Dressings: Leave dressing in place until follow-up. Keep clean and dry at all times. No showers please. Follow-up: 10-[address] Wynn You may take off the leg compression stockings this evening at home. You may also leave them on a few days longer if you have a history of leg swelling or edema. Please call the office during business hours with any questions or c oncerns. Let us know right away if you develop any redness, drainage, fevers, chest pain, or trouble breathing. Do not drink alcohol or drive for at least 24 hours after anesthesia. Discharge Orders Discharge Orders: Discharge Order (Routine); Ordered 11/03/23 Ordered By: Angelica Reyes DS: Diagnosis Discharge Diagnosis (1) Status post right shoulder hemiarthroplasty: Status: Acute
[2023-11-03] MEDS: Lactated Ringers 1,000 ML 30 ML IV (08:30)
[2023-11-03] MEDS: ceFAZolin 2 GM/50 ML BAG IVPB (09:15)
[2023-11-03] MEDS: TRANEXAMIC ACID/SOD. CHL. 1,000 MG/100 ML BAG 600 MG IVPB (09:30)
--- NOTE | 2023-11-03 09:53 | ANES.PREOP_ITS ---
General Info Date of Service Date Performed: 11/03/23 Height: 5 ft 2 in Weight: 64.7 kg Body Mass Index (BMI): 26.1 Surgical Procedure: Operation Date: 11/03/23 08:10 Proposed Procedure Side Surgeon p Conversion Hemiarthroplasty to Reverse Total Shoulder Arthroplasty, Biceps Tenodesis Right Devang Wynn MD Actual Procedure Side Surgeon p Conversion Hemiarthroplasty to Reverse Total Shoulder Arthroplasty, Biceps Tenodesis Right Devang Wynn MD Pre-Op Diagnosis Post-Op Diagnosis Right shoulder proximal biceps rupture + near?full-thickness supraspinatus rotator cuff tear Right shoulder proximal biceps rupture + near?full-thickness supraspinatus rotator cuff tear Meds Allergies and Home Medications Allergies Allergy/AdvReac Type Severity Reaction Status Date / Time erythromycin base Allergy Severe Hives Verified 11/03/23 07:49 bupropion AdvReac Intermediate dry mouth Verified 11/03/23 07:49 Home Medication ?Medication ?Instructions ?Recorded omeprazole 20 mg capsule,delayed 20 mg PO DAILY 02/03/22 release latanoprost 0.005 % eye drops 1 drp ophthalmic (eye) DAILY 03/08/22 albuterol sulfate 90 mcg/actuation 2 inh inhalation Q4H PRN 04/12/22 breath activated powder inhaler calcium carbonate 600 mg-vitamin 2 cap PO DAILY 04/12/22 D3 12.5 mcg (500 unit) capsule (Calcium 600 with Vitamin D3) glucos sul 3HUj-qlq-kuqdw-C-Mn 3 cap PO DAILY 04/12/22 [Glucosamine Chondroitin] loratadine 10 mg tablet (Claritin) 10 mg PO DAILY 04/12/22 gskihrda-wiec-rqyg 8 mg-folic 400 1 tab PO DAILY 04/12/22 mcg-K 50 mcg-lutein 300 mcg tablet (Centrum Silver Women) L.acidophil,salivari-Bifido 1 cap PO DAILY 04/29/22 bifidum-Strep thermoph 175 mg capsule (Acidophilus Probiotic Blend) EyePromise 1 tab PO DAILY 10/25/22 estradiol 0.01% (0.1 mg/gram) 0.25 g vaginal .twice weekly #42.5 03/25/23 vaginal cream grams celecoxib 200 mg capsule (Celebrex) 200 mg PO DAILY #90 caps 05/13/23 alendronate 70 mg tablet 70 mg PO QWEEK #15 tabs 05/22/23 amlodipine 2.5 mg tablet See Rx Instructions .Route 06/17/23 .COMPLEX #180 tabs cyclobenzaprine 10 mg tablet 10 mg PO HS PRN muscle spasm #10 08/19/23 tabs amantadine HCl 100 mg tablet 100 mg PO BID 08/23/23 budesonide-formoterol HFA 160 1 inh inhalation BID #10.2 grams 09/12/23 mcg-4.5 mcg/actuation aerosol inhaler (Symbicort) sertraline 50 mg tablet 50 mg PO DAILY #90 tabs 09/13/23 atorvastatin 40 mg tablet 40 mg PO DAILY #90 tabs 09/20/23 losartan 50 mg tablet 50 mg PO BID #180 tabs 09/20/23 fluticasone propionate 50 1 spray intranasal DAILY #16 grams 10/16/23 mcg/actuation nasal spray,suspension buspirone 7.5 mg tablet See Rx Instructions .Route 10/21/23 .COMPLEX #180 tabs Current Visit Medications: Current Medications Generic Name Dose Route Start Last Admin Trade Name Freq PRN Reason Stop Dose Admin Droperidol 0.625 mg 11/03/23 06:57 Droperidol 5 Mg/2 Ml Vial IVP 12/03/23 06:56 DIRECTED PRN Nausea Ephedrine Sulfate 0 mg 11/03/23 06:57 Ephedrine 25 Mg/5 Ml Syringe IVP 12/03/23 06:56 DIRECTED PRN Fentanyl 0 mcg 11/03/23 06:57 Fentanyl 100 Mcg/2 Ml Vial IVP 12/03/23 06:56 DIRECTED PRN Hydromorphone HCl 0 mg 11/03/23 06:57 Hydromorphone 2 Mg/Ml Syr IVP 12/03/23 06:56 DIRECTED PRN Ringer's Solution 1,000 mls @ 30 mls/hr 11/03/23 06:00 11/03/23 08:30 IV 11/03/23 23:59 30 mls/hr INFUSION TIANNA Administration Cefazolin Sodium/Dextrose 2 gm in 50 mls @ 100 mls/hr 11/03/23 06:00 Ancef Duplex IVPB 11/03/23 23:59 PREOP TIANNA Tranexamic Acid/Sodium Chloride 1,000 mg in 100 mls @ 600 mls/hr 11/03/23 06:00 IVPB 11/03/23 23:59 PREOP [facility] Cefazolin Sodium/Dextrose 1 gm in 50 mls @ 100 mls/hr 11/03/23 11:30 Ancef Duplex IVPB 11/03/23 11:59 NOW ONE IV Miscellaneous Supplies 1 each 11/03/23 06:00 Iv Access IV 11/03/23 23:59 DIRECTED TIANNA Lactobacillus Acidophilus/Casei 1 cap 11/03/23 12:30 L. Acidophilus, Casei, Rhamnosus Cap PO 11/03/23 12:31 DAILY ONE Naloxone HCl 0 mg 11/03/23 06:57 Naloxone 0.4 Mg/Ml Vial IVP 12/03/23 06:56 PRN PRN Oxycodone HCl 0 mg 11/03/23 07:09 Oxycodone 5 Mg Tab PO 12/03/23 07:08 Q3H PRN PRN Pain Sodium Chloride 0 ml 11/03/23 06:00 Normal Saline Flush 10 Ml Syr IV 11/03/23 23:59 PRN PRN Sodium Chloride 0 ml 11/03/23 06:00 Normal Saline 10 Ml Vial IJ 11/03/23 23:59 DIRECTED PRN Sterile Water 0 ml 11/03/23 06:00 Water,Injection,Sterile 10 Ml Vial IJ 11/03/23 23:59 DIRECTED PRN PFSH Active Problems Active Problems: Problem Status Onset Code Constipation Acute K59.00 Upper back pain Acute M54.9 Lumbar back pain Acute M54.50 Paraspinal muscle spasm Acute M62.830 Encounter for removal of sutures Acute Z48.02 Status post right shoulder hemiarthroplasty Acute ~2008 Z96.611 Muscle spasm Acute M62.838 Persistent cough Acute R05.3 Personal history of COVID-19 Acute Z86.16 Motion sickness Acute T75.3XXA Hallux valgus (acquired), left foot Acute M20.12 Hallux rigidus, left foot Acute M20.22 Hematuria Acute R31.9 Persistent mood disorder Acute F34.9 Anosmia Acute R43.0 Parkinson disease Chronic G20.A1 Tremor of right hand Acute R25.1 Nocturia Acute R35.1 Essential hypertension Acute I10 Mass of right parotid gland Acute K11.8 Bunion, left foot Acute M21.612 Other specified mononeuropathies of left lower limb Acute G57.82 Metatarsalgia of left foot Acute M77.42 Hammertoe of left foot Acute M20.42 Contracture of left Achilles tendon Acute M67.02 Hyperlipidemia Acute E78.5 Asthma Chronic J45.909 Allergic rhinitis Acute J30.9 Osteoarthritis of hip Acute M16.9 Osteopenia Acute 12/28/17 M85.80 Rosacea Acute L71.9 Gastroesophageal reflux disease Chronic K21.9 Obstructive sleep apnea Chronic 03/22/17 G47.33 Medical History Medical History Post-menopausal atrophic vaginitis start vulvar estradiol Mar 2023 History of recurrent UTI (urinary tract infection) (2) since December .. with Hx NONE! (~ PD??) Start estradiol Mar 2023 Family hx of colon cancer Pat Grandmo Family hx of hypertension Mo, Fa ( of CVA, 77yo) Alteration in vision NOT enough ptosis for surg per Ophtho..with ptosis affecting ADL and computer work Hooded upper eyelid not enough for surg per ophtho, 11/2022 Ptosis of both upper eyelids not enough fo rsurg per ophtho, 11/2022 Toe fracture, right R 5th metatarsal, 2020 Intermetatarsal bursitis 12/2020; L 1st through 3rd digits, with neuroma at 2nd intermetatarsal. 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 Asymmetrical sensorineural hearing loss (09/30/21) Overweight with body mass index (BMI) 25.0-29.9 History of alcohol abuse (02/25/17) Vestibular migraine Depression (02/25/17) Anxiety Surgical History Surgical History H/O breast biopsy Status post glaucoma surgery Both eyes History of partial replacement of right shoulder History of total hip replacement x2 History of dilation and curettage Tobacco Smoking/Tobacco Use Status: Former Tobacco Use Passive smoking exposure: No Alcohol Alcohol Intake: former Substance Use Substance use: Never Substance use type: does not use Prental History History 4 Para 2 Hx # Term Pregnancies 2 Multiple births Hx # Pregnancies Ectopic pregnancies AB induced Hx Number of Living Children 2 AB spontaneous 2 Past Pregnancies Del. Date GA/Weeks # Preg Succ Route Wgt Sex Labor Lgth Anesth esia Location Prov Complic 10/08/83 Yes vaginal 2806.603 g Female [facility] 01/16/87 Yes vaginal 3713.788 g Male [facility] Vital Signs and Lab Results Vital Signs Most Recent Vital Signs in EMR: Most Recent Vital Signs Temp Pulse Resp BP Pulse Ox 36.5 C 72 15 106/60 95 11/03/23 08:43 11/03/23 08:43 11/03/23 08:43 11/03/23 08:43 11/03/23 08:43 Lab Results Blood Type / Crossmatch: No Data to Display Complete Blood Count: No Data to Display Complete Metabolic Panel: No Data to Display Liver Function Panel: No Data to Display Coagulation Panel: No Data to Display Cardiac Panel: No Data to Display Arterial Blood Gas: No Data to Display Venous Blood Gas: No Data to Display Pancreas Panel: No Data to Display Thyroid Panel: No Data to Display Infectious Disease: No Data to Display Blood Cultures: No Data to Display Toxicology Panel: No Data to Display Anesthesia Assessment and Plan Anesthesia History Personal History: No History of Anesthesia Complications Family History: No Family History of Anesthesia Complications Exercise Tolerance Exercise Tolerance: Metabolic Equivalents>4 Pertinent Negatives Pertinent Negatives: No Symptoms of GERD Cardiac & Pulmonary Exam Cardiac Exam: Normal S1/S2 Heart Sounds Pulmonary Exam: Clear Bilateral Breath Sounds Implantable Cardiac Device Does patient have a Pacemaker or an ICD?: No Airway Exam Known Difficult Airway: No Mallampati Class: 1 Mouth Opening: Normal (> 3cm) Thyromental Distance: Greater than 3 cm Neck Range of Motion: Full ROM Neck Circumference: Normal Teeth Condition: Normal Dentition and Other (upper fixed bridge) ASA Classification ASA Score: ASA 3 Emergency Case?: No NPO Status NPO Status: NPO Clears >2 hours, Solids >8 hours Anesthesia Plan Resuscitation Status: Full Code Anesthesia Technique: General Anesthesia Airway Planned: Endotracheal Tube Pain Management: Surgeon and patient request nerve block Monitors Used: Standard Monitors and SedLine
--- NOTE | 2023-11-03 09:56 | W.ANESNERVE ---
Nerve Block Single Injection Procedure Date and Time Date Performed: 11/03/23 Procedure Start: 08:38 Location Where Procedure Performed Procedure Location: Day Surgery Unit Reason Performed: Postoperative Analgesia Requesting Provider: Devang Wynn Timeout Performed Timeout Performed: Yes Monitoring Used ECG, Blood Pressure, SpO2 and See EMR for corresponding vital signs Sterility Sterility: Hand Hygiene, Surgical Cap, Surgical Mask, Sterile Gloves, Eye Protection and Chlorhexidine Sedation Given During Procedure Sedation Given (Indicate Dose Given): Versed IV Dose:: 3mg IVP Patient Mental Status Patient Mental Status: Sedate with meaningful communication Nerve Block 1st Nerve Block: Laterality: Right Block Type: Interscalene Ultrasound Image Saved?: Yes Needle / Catheter Used: 80mm SonoPlex II Local Anesthetic Bolus (Indicate Dose Given): Lidocaine used for local infiltration of skin, Bupivacaine 0.5% Dose:: 0.5%/10cc (50mg) and Exparel Dose:: 1.3%/10cc (133mg) Additives (Indicate Dose Given): Epinephrine to make 1:200,000 (5mcg/ml) Dose:: 100mcg and Decadron Dose:: 10mg PF Ultrasound: Sterile probe cover and gel used Nerve Stimulator: Not Used Paresthesia: None Procedure Tolerated: No Complications and Patient tolerated well Procedure Outcome: Successful Performed By: Jose C Moss
[2023-11-03] MEDS: Bupivacaine 0.25% Pres-Free W/EPI 30 ML VIAL (12:02)
--- NOTE | 2023-11-03 12:25 | ROE_ITS ---
Date of service: 11/03/23 Time of Service: 09:30 Operative Note Operative Note DATE OF PROCEDURE: 11/03/23 PRE-OP DIAGNOSIS: Right: 1. Painful hemiarthroplasty due to glenoid erosion 2. Biceps tendinopathy POST-OP DIAGNOSIS: same PROCEDURE: Right: 1. Conversion hemiarthroplasty to reverse total shoulder arthroplasty, CPT # 43447 2. Open biceps tenodesis, CPT # 59414 The nursing home assistant administrator was medically required as this procedure involves retraction, protection of neurovascular structures, and manipulation of multiple instruments and implants at the same time, which cannot be done without a skilled nursing home assistant administrator. SURGEON: Devang Wynn KNIFER UP: Angelica Reyes ANESTHESIA TYPE: Local By Surgeon, General LMA/ETT and Primary Nerve Block Refer to Anesthesia Record ESTIMATED BLOOD LOSS: 250 PATHOLOGY: other (3x tissue cultures) COMPLICATIONS: None Patient was transported to: PACU Implants: [employer] modular glenoid system baseplate 24 mm, 20 degree full wedge. [employer] modular glenoid system central post 20 mm [employer] modular glenoid system peripheral locking screws 24 mm inferior, 24 mm superior, 20 mm posterior, 24 mm anterior [employer] modular glenoid system glenosphere 36 +4 mm lateralized [employer] humeral stem 135 degrees size 6 [employer] suture cup size 33 neutral offset [employer] humeral insert size 33 +3 mm / combo 36 Indications: Please see complete medical record for details. Findings: Significantly challenging exposure due to prior failed hemiarthroplasty with abundant scarring between the deltopectoral interval, unable to visualize cephalic vein, scarring and adhesions about the rotator cuff subdeltoid space and anteriorly subscapularis subcoracoid space and conjoined tendon. Diminutive proximal humerus. Significant glenoid central to posterior medial erosion and retroversion. Significantly sclerotic on glenoid vault. Largely intact subscapularis with retained permanent sutures. Largely intact superior and pos terior superior rotator cuff with thinning and fraying over the hemiarthroplasty metal anteriorly centrally. Significant long head biceps tenosynovitis. Abundant glenohumeral joint synovitis. No overt signs of infection. Stable hemiarthroplasty prosthesis. Procedure Description: In the operating room, general anesthesia was induced. The patient was positioned beachchair on the operating room table. All bony prominences were well-padded. Preoperative antibiotics were administered. The shoulder was prepped and draped in the usual sterile fashion for shoulder arthroplasty. The correct patient, procedure, and side of the procedure were all verified prior to incision. The deltopectoral approach was preinjected with 0.25% bupivacaine containing epinephrine and previous incision used to access the anterior shoulder. There was significant scarring and meticulous dissection was required to release the deltoid, pectoralis, and structures beneath safely. The upper margin of the pectoralis major was released. The biceps was discovered beneath significant tenosynovitis. The subcoracoid area and subscapularis were freed anteriorly as well as the subdeltoid area and rotator cuff area superiorly. The biceps was then secured to the upper margin of the pectoralis major using [id number] suture tape and then amputated and followed into the joint exposed and the rotator interval. Permanent sutures were removed from the prior subscapularis repair and this suture was sent for culture #1 with tissue cultures sent for #2 and the third and last culture sent after removal of the hemiarthroplasty contained bone from behind this implant. The subscapularis was peeled and then traction used to tenotomized appropriately given the significant scarring and medialization without plans for revision repair. The leading edge of the supraspinatus was debrided to a stable margin. Flat osteotomes were carefully used to undermine hemiarthroplasty prosthesis and once these had been worked around the prosthesis it was able to be lifted up relatively atraumatically from the proximal humerus. Bone was adhered around the backside but not really on the central stem. The wound was copiously irrigated. Gloves were all changed. The anatomic neck cut was delineated with rongeur. No revision cut was needed but the greater tuberosity was debrided to a more appropriate angle. The proximal humerus was delivered from the wound with adduction and external rotation. The proximal humeral protection plate was used to provisionally co nfirm suture cup and glenosphere size, which was diminutive smallest size 33. Reamers were started appropriately posterior to the bicipital groove taking care to maintain in line approach with the humeral canal. Sequential reaming was done from size 5 up to size 7. Next, the broaches were sequentially used to open the proximal humerus starting with a size 5 and going up to size 6 and sunk to the appropriate depth while maintaining approximately 20 degrees retroversion with care taken to avoid injuring this shielded proximal humerus bone and working the prosthesis in the appropriate version and lateralization. There was good metaphyseal fit and rotational control of the proximal humerus with this size. The neutral offset guide was used to ream for the suture cup. Attention was then turned to the glenoid and retractors were placed and a circumferential release performed using the long head of the biceps remnant to remove soft tissue about the glenoid rim. Care was taken inferiorly to work on bone only between 5 and 7:00 o'clock and bluntly elevate tissues inferiorly. Significant time was spent exposing the diminutive glenoid, assessing orientation with the significant bone loss centrally posteriorly with retroversion that was rather significant as well. Carefully resecting significant synovitis capsulitis and adhesions anteriorly inferiorly. Once there was adequate exposure, the 20 degree augment was needed to accommodate the defect and the guidepin was inserted through this baseplate checker in with the appropriate orientation. The guidepin was inserted and advanced just through the far cortex ensuring adequate central fixation length. The glenoid was prepared according to mounter smoking pipe specifications for a augment baseplate and central post. The baseplate was impacted onto the glenoid surface. The locking guide was then used to drill and place appropriately lengthed inferior, superior, anterior, and posterior screws. The [id number] reamer was use d to confirm adequate peripheral reaming. A trial glenosphere was applied with the fresh work inspector and then impacted to engage the Mariscal taper. Attention was then turned back to the proximal humerus. The humeral trial cup was connected. Trialing was commenced with +3 mm liner. The shoulder was reduced and taken through range of motion and demonstrated excellent stability and good tension on the deltoid and conjoined tension. The trial components were removed from the proximal humerus. The trial glenosphere was removed and the final glenosphere was then impacted and locked with appropriate countersinking of the setscrew. The glenosphere was inspected and found to have good fit, appropriate positioning, and no soft tissue or bony impingement. The wound was copiously irrigated with normal saline. A small amount of vancomycin powder was distributed in the proximal humerus. The humeral component and suture cup were impacted into place. The final liner was then connected, and range of motion, stability, and tension confirmed. The shoulder was copiously irrigated with Betadine and normal saline. Vancomycin powder was distributed deeply about the shoulder and through subcutaneous tissues. The deltopectoral interval was well approximated. Subcutaneous tissue was irrigated then closed using 2-0 Monocryl in a buried interrupted fashion. Skin was closed using 3-0 Monocryl in a buried subcuticular fashion. Skin glue was applied to the incision. A silver impregnated bandage was placed over the incision. The extremity was placed into a shoulder immobilizer. The patient awoke from anesthesia without complication and was taken to the recovery room in stable condition.
[2023-11-03] MEDS: ceFAZolin 1 GM/50 ML BAG IVPB (13:13)
--- NOTE | 2023-11-03 13:42 | DI.RAD_ITS ---
Exam(s) XR SHOULDER RT COMPLETE 2+V EXAM: XR SHOULDER RT COMPLETE 2+V CLINICAL HISTORY: shoulder arthritis. TECHNIQUE: 2D digital imaging was performed. COMPARISON: CR XR SHOULDER RT COMPLETE 2+V from 07/13/2023 FINDINGS: Two postop views There is satisfactory position alignment of the components of the newly placed revision reverse prost hesis No fracture or loosening evident. IMPRESSION: Satisfactory postop appearance DATA REPOSITORY: RADIATION DOSE DELIVERED:
--- NOTE | 2023-11-03 14:12 | W.ANESPOSTOP ---
Postoperative Evaluation Date, Time and Location Date Performed: 11/03/23 Time Performed: 14:12 Patient Location: Day Surgery Unit Vital Signs Most Recent Imported Vital Signs: Most Recent Vital Signs Temp Pulse Resp BP Pulse Ox 36.5 C 75 15 122/68 92 11/03/23 13:49 11/03/23 13:46 11/03/23 13:46 11/03/23 13:46 11/03/23 13:46 Pain Score Most Recent Pain Score: Most Recent Pain Score Pain Level 0 11/03/23 08:43 Assessment Mental Status: Awake (Alert & Oriented to Patient Baseline) Airway and Respiratory Function: Patent airway with normal (patient baseline) respiratory exam Cardiovascular Function: Hemodynamically Stable Hydration Status: Adequately Hydrated Nausea & Vomiting: No Nausea or Vomiting Pain: Pt. Denies Any Pain Peripheral Nerve Block: Regional nerve block not resolved at time of post operative discharge
[2023-11-03] MEDS: Lactobacillus Acidophilus CAP 1 CAP PO (16:47)
== END 2023-11-03 16:50 | disposition home or self-care (01) ==
LOC: SUR 07:35
PROVIDERS: PCP Student in an Organized Health Care Education/Training Program; Visit Provider Student in an Organized Health Care Education/Training Program
PROC: (CPT 23472; principal; 2023-11-03 08:00)
DX: Z96.611 Presence of right artificial shoulder joint (principal); M75.21 Bicipital tendinitis, right shoulder; M85.811 Other specified disorders of bone density and structure, right shoulder
CPT/HCPCS: 23472; 23430; 20680; 76942; 73030; 87070; 87075; 87205; C9290; J0131; J0171; J0665; J0690; J1100; J1885; J2250; J2371; J2405; J2704; J3370

== ENCOUNTER 2023-11-15 15:50 | Outpatient (CLI) | payer OTHER, MEDICARE, SELFPAY ==
--- NOTE | 2023-11-15 13:52 | DI.RAD_ITS ---
Exam(s) XR SHOULDER RT COMPLETE 2+V EXAM: XR SHOULDER RT COMPLETE 2+V INDICATION: F/U RIGHT RTSA. COMPARISON: CR XR SHOULDER RT COMPLETE 2+V from 11/03/2023 TECHNIQUE: 2D digital imaging was performed. Two views. FINDINGS: Stable alignment of the reverse shoulder prosthesis. No abnormal bony lucencies. DATA REPOSITORY: RADIATION DOSE DELIVERED:
== END 2023-11-15 15:51 | disposition home or self-care (01) ==
LOC: DIORS 15:51
PROVIDERS: PCP Student in an Organized Health Care Education/Training Program; Visit Provider Student in an Organized Health Care Education/Training Program
DX: Z96.611 Presence of right artificial shoulder joint (principal); Z47.1 Aftercare following joint replacement surgery
CPT/HCPCS: 73030

== ENCOUNTER 2023-12-14 11:38 | Outpatient (CLI) | payer OTHER, MEDICARE, SELFPAY ==
--- NOTE | 2023-12-14 08:45 | DI.RAD_ITS ---
Exam(s) XR SHOULDER RT COMPLETE 2+V EXAM: XR SHOULDER RT COMPLETE 2+V CLINICAL HISTORY: F/U RIGHT RTSA. TECHNIQUE: 2D digital imaging was performed. Three images were obtained. Grashey and Y views were o btained. COMPARISON: CR XR SHOULDER RT COMPLETE 2+V from 11/15/2023 FINDINGS: BONES: There are stable post operative changes of a right total reverse shoulder arthroplasty present . No fracture or dislocation. JOINTS: The orthopedic hardware is in good position. No evidence of hardware loosening. SOFT TISSUE: Normal. IMPRESSION: Stable right reversed total shoulder arthroplasty. DATA REPOSITORY: RADIATION DOSE DELIVERED:
== END 2023-12-14 11:39 | disposition home or self-care (01) ==
LOC: DIORS 11:39
PROVIDERS: PCP Student in an Organized Health Care Education/Training Program; Visit Provider Student in an Organized Health Care Education/Training Program
DX: Z96.611 Presence of right artificial shoulder joint (principal); M19.011 Primary osteoarthritis, right shoulder
CPT/HCPCS: 73030

== ENCOUNTER 2023-12-29 03:36 | Outpatient (CLI) | payer OTHER, SELFPAY ==
[2023-12-29 07:32] LABS: HCT 35.3 % (36.0-46.0); HGB 11.6 g/dL (11.2-15.7); MCH 30.1 pg (27.0-33.0); MCHC 32.9 % (32.0-36.0); MCV 92 fL (80-95); MPV 9.2 fL (8.0-11.0); Platelet Count 269 10^3/uL (130-400); RBC 3.85 10^6/uL (3.93-5.22); RDW 12.6 % (11.7-14.6); RDW-SD 41.8 fL
[2023-12-29 07:46] LABS: Anion Gap 7.3 mmol/L (3-11); BUN 12 mg/dL (7-18); CO2 27.7 mmol/L (21.0-32.0); CREATININE 1.1 mg/dL (0.55-1.02); Calcium 9.4 mg/dL (8.5-10.1); Chloride 102 mmol/L (98-107); Estimated GFR 55.76 (mL/min/1.73m2); Glucose 100 mg/dL (74-106); Potassium 5.1 mmol/L (3.5-5.1); Sodium 137 mmol/L (136-145)
== END 2023-12-29 03:37 | disposition home or self-care (01) ==
PROVIDERS: PCP Student in an Organized Health Care Education/Training Program; Referring Provider Student in an Organized Health Care Education/Training Program; Visit Provider Student in an Organized Health Care Education/Training Program
DX: L98.9 Disorder of the skin and subcutaneous tissue, unspecified; L85.8 Other specified epidermal thickening; T75.3XXA Motion sickness, initial encounter; G47.33 Obstructive sleep apnea (adult) (pediatric); J45.909 Unspecified asthma, uncomplicated; I10 Essential (primary) hypertension; N17.9 Acute kidney failure, unspecified
CPT/HCPCS: 36415; 80048; 85027; 81003; 81015

== ENCOUNTER 2024-01-10 15:19 | Outpatient (CLI) | payer OTHER, SELFPAY ==
--- NOTE | 2024-01-10 08:15 | DI.RAD_ITS ---
Exam(s) XR SHOULDER RT COMPLETE 2+V EXAM: XR SHOULDER RT COMPLETE 2+V CLINICAL HISTORY: F/U RIGHT RTSA. TECHNIQUE: 2D digital imaging was performed. Three images were obtained. Grashey and Y views were o btained. COMPARISON: CR XR SHOULDER RT COMPLETE 2+V from 12/14/2023 FINDINGS: BONES: There are stable post operative changes of a right total reverse shoulder arthroplasty present . No fracture or dislocation. JOINTS: The orthopedic hardware is in good position. No evidence of hardware loosening. SOFT TISSUE: Normal. IMPRESSION: Stable right reverse total shoulder arthroplasty. DATA REPOSITORY: RADIATION DOSE DELIVERED:
== END 2024-01-10 15:20 | disposition home or self-care (01) ==
LOC: DIORS 15:19
PROVIDERS: PCP Student in an Organized Health Care Education/Training Program; Visit Provider Student in an Organized Health Care Education/Training Program
DX: Z96.611 Presence of right artificial shoulder joint (principal); Z47.1 Aftercare following joint replacement surgery
CPT/HCPCS: 73030

== ENCOUNTER 2024-02-28 15:27 | Outpatient (CLI) | payer OTHER, SELFPAY ==
--- NOTE | 2024-02-28 08:00 | DI.RAD_ITS ---
Exam(s) XR SHOULDER RT COMPLETE 2+V EXAM: XR SHOULDER RT COMPLETE 2+V CLINICAL HISTORY: F/U RIGHT RTSA. TECHNIQUE: 2D digital imaging was performed. COMPARISON: CR XR SHOULDER RT COMPLETE 2+V from 01/10/2024 FINDINGS: 3 views There is stable position alignment of the components of the reverse prosthesis. No fracture or loose lisa evident. IMPRESSION: Stable satisfactory appearance right shoulder reverse prosthesis. DATA REPOSITORY: RADIATION DOSE DELIVERED:
== END 2024-02-28 15:28 | disposition home or self-care (01) ==
LOC: DIORS 15:28
PROVIDERS: PCP Nurse Practitioner Family; Visit Provider Student in an Organized Health Care Education/Training Program
DX: M19.011 Primary osteoarthritis, right shoulder (principal)
CPT/HCPCS: 73030

== ENCOUNTER 2024-04-27 00:07 | Outpatient (CLI) | payer OTHER, SELFPAY ==
--- NOTE | 2024-04-27 15:15 | DI.MAMMO_ITS ---
Exam(s) MAMMO SCREENING EXAM: MAMMO SCREENING CLINICAL HISTORY: screening TECHNIQUE: Mammograms were interpreted according to the usual protocol including computer analysis w Drive CAD system, tomosynthesis and C-view imaging. COMPARISON: 2021 and 2022 FINDINGS: The breasts are composed of scattered fibroglandular densities, Breast Density category B. No suspicious masses or suspicious microcalcifications are seen. Biopsy marker noted in the central left breast. No skin thickening or abnormal axillary lymph nodes are seen. There has been no significant change from prior exams. IMPRESSION: BI-RADS Category 1, Negative mammogram Yearly screening mammography is recommended. Breast Density - Category B, scattered fibroglandular densities. A negative radiographic report should not delay biopsy if a dominant or clinically suspicious mass is present. Up to ten percent of cancers are not identified on mammography. A negative report may reinforce clinical impression. Adenosis and dense breasts may obscure an underlying neoplasm. False positive reports average 6 to 10%. Patient will receive a letter notifying them of these results.
== END 2024-04-27 00:27 ==
LOC: DI 00:07
PROVIDERS: PCP Nurse Practitioner Family; Visit Provider Obstetrics & Gynecology
DX: Z12.31 Encounter for screening mammogram for malignant neoplasm of breast (principal); R92.323 Mammographic fibroglandular density, bilateral breasts
CPT/HCPCS: 77063; 77067

== ENCOUNTER 2024-07-19 01:18 | Outpatient (CLI) | payer OTHER, SELFPAY ==
--- NOTE | 2024-07-19 10:45 | DI.DEXA_ITS ---
Exam(s) XR DEXA BONE DENSITY W/WO KIMBERLY EXAM: XR DEXA BONE DENSITY W/WO KIMBERLY CLINICAL HISTORY: Osteopenia, M85.80, treating for osteopenia w/Fosamax TECHNIQUE: COMPARISON: CR XR LUMBAR SPINE COMPLETE from 09/21/2023 FINDINGS: Lateral Spine Image: Unremarkable. No compression deformities identified. Left forearm hip: Total T-Score: -1.0 Total Z-Score: 0.6 T- and Z-scores: Within normal limits. Lumbar Spine: Total T-Score: -1.9 Total Z-Score: 0.0 T- and Z-scores: Findings are consistent with osteopenia. IMPRESSION: There is osteopenia in the lumbar spine.
== END 2024-07-19 01:38 ==
LOC: DI 01:18
PROVIDERS: PCP Nurse Practitioner Family; Visit Provider Nurse Practitioner Family
DX: M85.88 Other specified disorders of bone density and structure, other site (principal)
CPT/HCPCS: 77080

== ENCOUNTER 2024-07-20 20:46 | Outpatient (REF) | payer OTHER, SELFPAY ==
[2024-07-20 21:17] LABS: Bilirubin Negative (Negative); Blood Small (Negative); Clarity Clear (Clear); Glucose Negative (Negative); Ketones Negative (Negative); Leukocyte Esterase Negative (Negative); Nitrite Negative (Negative); Specific Gravity <= 1.005 (1.005-1.025); Urobilinogen 0.2 mg/dL (Up to 0.2)
[2024-07-20 21:37] LABS: Bacteria Rare HPF (Negative); C & S Indicated? No; Casts Negative LPF (Negative); Crystals Negative HPF (Negative); Epithelial Cells Few HPF (Negative); Mucus Negative (Negative); WBC Negative HPF (0-5)
== END 2024-07-20 20:47 | disposition home or self-care (01) ==
LOC: LBN 20:46
PROVIDERS: PCP Nurse Practitioner Family; Visit Provider Nurse Practitioner Family
DX: R39.9 Unspecified symptoms and signs involving the genitourinary system (principal); Z78.0 Asymptomatic menopausal state; N95.2 Postmenopausal atrophic vaginitis; R31.9 Hematuria, unspecified
CPT/HCPCS: 81003; 81015

== ENCOUNTER 2024-09-27 17:11 | Inpatient (IN) | payer OTHER, SELFPAY ==
[2024-09-27] VITALS (19 sets, daily range): BP systolic 93–132; BP diastolic 58–91; PULSE 64–124; RESP 11–25; TEMP 36.7–37.1; O2SAT 90–99; BMI 26.5
--- NOTE | 2024-09-27 17:15 | DI.RAD_ITS ---
Exam(s) XR KNEE RT 2V AP,LAT EXAM: XR KNEE RT 2V AP,LAT CLINICAL HISTORY: Trauma. TECHNIQUE: 2D digital imaging was performed. COMPARISON: No exams were available for comparison FINDINGS: 3 views No evidence of fracture. There is a small joint effusion noted. There is chondrocalcinosis noted in the medial lateral compartments. No joint space narrowing nor osteophytes evident. IMPRESSION: No acute osseous findings but there is a joint effusion which may signify internal derangement. Appropriate follow-up recommended.. Chondrocalcinosis noted in both medial lateral compartments of the knee. Preliminary virtual Radiology report was reviewed. DATA REPOSITORY: RADIATION DOSE DELIVERED:
--- NOTE | 2024-09-27 17:15 | DI.RAD_ITS ---
Exam(s) XR TIB/FIB RT EXAM: XR TIB/FIB RT CLINICAL HISTORY: Trauma. TECHNIQUE: 2D digital imaging was performed. COMPARISON: No exams were available for comparison FINDINGS: 3 views There is a large soft tissue defect on the lateral aspect of the knee-upper calf and there is gas within the deep subcutaneous tissues along the upper half of the calf. The large skin-subcutaneous defect extends to almost the level of the lateral aspect of the fibular head. There is no radiopaque foreign body. No obvious fractures. Chondrocalcinosis noted in the knee. IMPRESSION: Large soft tissue wound on the lateral aspect of the upper calf. Large subjacent soft tissue flap. Prominent gas in the soft tissues. Please note that there is also a knee joint effusion as seen on the knee images Preliminary virtual Radiology reports were reviewed Final report called by myself to ER provider 09/27/2024 at 8:50 p.m. DATA REPOSITORY: RADIATION DOSE DELIVERED:
[2024-09-27] MEDS: Ondansetron 4 MG/2 ML VIAL (17:19)
[2024-09-27] MEDS: HYDROmorphone 2 MG/ML SYR (17:20)
--- NOTE | 2024-09-27 17:25 | W.ED.GENAD ---
Discharge Plan Disposition Patient Disposition: Admit to [facility] Condition: Stable Discharge Details Clinical Impression: Laceration of multiple sites of right lower extremity Admit Date/Time: 09/27/24 22:57 Admit Provider: Peyton Caraballo Attending Provider: Peyton Caraballo Primary Care Provider: Patito Tierney ED Provider: Valencia Benoit Discharge Data Discharge Date/Time-TO BE ENTERED AT DEPARTURE: 09/27/24 21:55 HPI General Mode of arrival: EMS. Date/Time Provider Initiated Documentation: 09/27/24 17:19. Limitations to Documentation: no limitations. Information obtained by: patient, EMS and old records reviewed. HPI Narrative: 64-year-old female presents to the ER via EMS after a mechanical trip and fall from a standing position landing on concrete which happened prior to arrival. Patient was given nitrous oxide prior to arrival and Tylenol and a dressing. Patient denies hitting her head no loss of consciousness no hip pain no chest pain neck pain or back pain no other associated symptoms. She does have a history of Parkinson's and hypertension. She has a laceration noted to her right anterior knee measuring approximately 3 cm, and a very large laceration to her anterior tib-fib which is crescent-shaped, does appear to be through the subcu tissue, fascia does appear to be intact at this time. Related Data Home Medications ?Medication ?Instructions ?Recorded ?Confirmed omeprazole 20 mg capsule,delayed 20 mg PO DAILY 02/03/22 09/27/24 release latanoprost 0.005 % eye drops 1 drp ophthalmic (eye) DAILY 03/08/22 09/27/24 albuterol sulfate 90 mcg/actuation 2 inh inhalation Q4H PRN 04/12/22 09/27/24 breath activated powder inhaler calcium 600 mg (as 2 cap PO DAILY 04/12/22 09/27/24 carbonate)-vitamin D3 12.5 mcg (500 unit) capsule (Calcium with Vit D3) loratadine 10 mg tablet (Claritin) 10 mg PO DAILY 04/12/22 09/27/24 [id number] 8 mg-folic 400 1 tab PO DAILY 04/12/22 09/27/24 mcg-K 50 mcg-lutein 300 mcg tablet (Centrum Silver Women) EyePromise 1 tab PO DAILY 10/25/22 09/27/24 estradiol 0.01% (0.1 mg/gram) 0.25 g vaginal .twice weekly #42.5 03/25/23 09/27/24 vaginal cream grams atorvastatin 40 mg tablet 40 mg PO DAILY #90 tabs 09/20/23 09/27/24 losartan 50 mg tablet 50 mg PO BID #180 tabs 09/20/23 09/27/24 magnesium oxide 500 mg PO DAILY 02/21/24 09/27/24 melatonin 5 mg capsule 5 mg PO HS 03/26/24 09/27/24 cholecalciferol (vitamin D3) 125 125 mcg PO DAILY 03/28/24 09/27/24 mcg (5,000 unit) capsule carbidopa ER 25 mg-levodopa 100 mg 2 tab PO TID #540 tabs 04/23/24 09/27/24 tablet,extended release amlodipine 2.5 mg tablet See Rx Instructions .Route 05/08/24 09/27/24 .COMPLEX #180 tabs celecoxib 200 mg capsule (Celebrex) 200 mg PO DAILY #90 caps 05/08/24 09/27/24 alendronate 70 mg tablet 70 mg PO QWEEK #15 tabs 06/05/24 09/27/24 fluticasone propionate 50 1 spray intranasal DAILY #16 grams 07/03/24 09/27/24 mcg/actuation nasal spray,suspension buspirone 7.5 mg tablet See Rx Instructions .Route 08/21/24 09/27/24 .COMPLEX #180 tabs sertraline 50 mg tablet 50 mg PO DAILY #90 tabs 08/21/24 09/27/24 budesonide-formoterol HFA 160 1 inh inhalation BID #10.2 grams 09/26/24 09/27/24 mcg-4.5 mcg/actuation aerosol inhaler (Symbicort) sulfamethoxazole 800 1 tab PO BID #14 tabs 09/28/24 mg-trimethoprim 160 mg tablet (Bactrim DS) tramadol 50 mg tablet 50 mg PO Q6H PRN PRN Pain #14 tabs 09/28/24 Previous Rx's ?Medication ?Instructions ?Recorded estradiol 0.01% (0.1 mg/gram) 0.25 g vaginal .twice weekly #42.5 03/25/23 vaginal cream grams atorvastatin 40 mg tablet 40 mg PO DAILY #90 tabs 09/20/23 losartan 50 mg tablet 50 mg PO BID #180 tabs 09/20/23 carbidopa ER 25 mg-levodopa 100 mg 2 tab PO TID #540 tabs 04/23/24 tablet,extended release amlodipine 2.5 mg tablet See Rx Instructions .Route 05/08/24 .COMPLEX #180 tabs celecoxib 200 mg capsule (Celebrex) 200 mg PO DAILY #90 caps 05/08/24 alendronate 70 mg tablet 70 mg PO QWEEK #15 tabs 06/05/24 fluticasone propionate 50 1 spray intranasal DAILY #16 grams 07/03/24 mcg/actuation nasal spray,suspension buspirone 7.5 mg tablet See Rx Instructions .Route 08/21/24 .COMPLEX #180 tabs sertraline 50 mg tablet 50 mg PO DAILY #90 tabs 08/21/24 budesonide-formoterol HFA 160 1 inh inhalation BID #10.2 grams 09/26/24 mcg-4.5 mcg/actuation aerosol inhaler (Symbicort) sulfamethoxazole 800 1 tab PO BID #14 tabs 09/28/24 mg-trimethoprim 160 mg tablet (Bactrim DS) tramadol 50 mg tablet 50 mg PO Q6H PRN PRN Pain #14 tabs 09/28/24 Allergies Allergy/AdvReac Type Severity Reaction Status Date / Time erythromycin base Allergy Severe Hives Verified 09/27/24 17:14 bupropion AdvReac Intermediate dry mouth Verified 09/27/24 17:14 General Stated Complaint: Laceration SOCRATES: 3 Exam Const General: cooperative, healthy appearing, well developed, well groomed, anxious, not diaphoretic and does not appear intoxicated Nutritional Appearance: average body habitus Orientation: alert, awake and oriented x3 Chest Chest: normal inspection of the chest Resp Effort & Inspection: normal respiratory effort and able to speak in complete sentences Auscultation: clear to auscultation bilaterally Cardio Rate: regular rate Rhythm: regular rhythm Heart Sounds: S1 normal and S2 normal Neuro General: patient alert, patient awake and patient oriented x3 Cranial Nerves: CN's II-XI intact bilaterally, PERRL and other (History of Parkinson's, slight intention tremor noted) Cognition: normal cognition Speech: speech normal Gait: other (Unable to assess gait) Extrem Right lower extremity: knee Details: laceration, lower leg Details: laceration mid lower leg anterolateral Details: irregular, flap, contaminated, involving subcutaneous tissue, with motor nerve function intact and with sensation intact; no pulsatile bleeding and ankle Left lower extremity: normal to inspection Upper/lower leg/hip images:  1. Approximately 3 cm laceration noted over the medial aspect of the anterior knee, partial-thickness bleeding controlled. 2. Large approximately 20 cm long laceration through the subcu tissue, fascia appears to be intact at this time, bleeding controlled. Distal CMS intact. 3. Approximately 5 cm laceration noted distally to the large flap Course Vital Signs Vital signs: Vital Signs Pulse 71 09/27/24 17:10 Respiratory Rate 16 09/27/24 17:10 Blood Pressure 122/80 09/27/24 17:10 Pulse Oximetry 99 09/27/24 17:10 Pulse 71 09/27/24 17:10 Respiratory Rate 16 09/27/24 17:10 Blood Pressure 122/80 09/27/24 17:10 Blood Pressure Position Supine 09/27/24 17:10 Pulse Oximetry 99 09/27/24 17:10 Oxygen Delivery Method Room Air 09/27/24 17:10 Oxygen Flow Rate 0 09/27/24 17:10 Pain Level 8 09/27/24 17:10 Medical Decision Making 64-year-old female presents to the ER via EMS after a mechanical trip and fall from a standing position landing on concrete which happened prior to arrival. Patient was given nitrous oxide prior to arrival and Tylenol and a dressing. Patient denies hitting her head no loss of consciousness no hip pain no chest pain neck pain or back pain no other associated symptoms. She does have a history of Parkinson's and hypertension. She has a laceration noted to her right anterior knee measuring approximately 3 cm, and a very large laceration to her anterior tib-fib which is crescent-shaped, does appear to be through the subcu tissue, fascia does appear to be intact at this time. Patient was given 4 mg of Zofran and 0.5 mg of hydromorphone IV upon arrival. Will give antibiotics, last tetanus vaccination was 2 years ago however we will update it with the booster now. Ceftriaxone 1 g IV piggyback ordered, no evidence of fracture on the x-rays. Surgery paged to discuss options for possible care for OR after washout. Other option also consider repair here in the emergency department. Will plan on sending patient home with antibiotics. 2011: Spoke with Dr. Caraballo is on-call for general surgery who agrees to take patient to the OR tonight for washout and wound repair. She does recommend added on a CBC BMP and a EKG. patient and family forearm lab care verbalized understanding and are in agreement with the plan. Patient last ate some pretzels around 4 PM instructed on n.p.o. status. 2049: Spoke with radiologist Dr. Lou regarding tib-fib x-ray and knee x-ray. He does report a knee effusion which may signify internal derangement please see official document. Patient transported to the OR in hemodynamically stable condition. This text was generated using [employer] system, please disregard any oddities of phrase or misspellings. Medical Records Medical records reviewed: Yes I reviewed the patient's medical records. Imaging Data Radiologic Study: Imaging: X-Ray Radiologist's impression: Age: 64 years old Clinical indication: Injury or trauma; Fall; Wound; Lower leg; Right; Foreign body involvement not specified; Injury details: Tripped over a footing TECHNIQUE: Imaging protocol: Radiologic exam of the right tibia and fibula. Views: 2 views. COMPARISON: CR XR FOOT RT COMPLETE 09/29/2022 8:18 AM FINDINGS: Bones/joints: There is chondrocalcinosis of the tibiofemoral joint. No acute displaced fractures or subluxations are identified. Osseous mineralization is normal. There are no inflammatory osseous erosive changes. No focal osseous lesions are identified. Soft tissues: Findings suggest soft tissue injury along the lateral calf region. No radiopaque foreign body identified. IMPRESSION: No acute displaced fractures or subluxations identified. Thank you for allowing us to participate in the care of your patient. Dictated and Authenticated by: Cameron Mistry MD Radiologic Study #2: Imaging: X-Ray Radiologist's impression: Views: 2 views. COMPARISON: CR XR FOOT RT COMPLETE 09/29/2022 8:18 AM FINDINGS: Bones/joints: There is chondrocalcinosis of the tibiofemoral joint. No acute displaced fractures or subluxations are identified. Osseous mineralization is normal. There are no inflammatory osseous erosive changes. No focal osseous lesions are identified. Soft tissues: Findings suggest soft tissue injury along the lateral calf region. No radiopaque foreign body identified. IMPRESSION: No acute displaced fractures or subluxations identified. Thank you for allowing us to participate in the care of your patient. Dictated and Authenticated by: Cameron Mistry MD Lab Data Lab results reviewed: Yes I reviewed the patient's lab results. Labs: Laboratory Tests Range/Units 09/27/24 20:37 WBC (4.4-10.8) 10^3/uL 6.72 RBC (3.93-5.22) 10^6/uL 3.60 L Hgb (11.2-15.7) g/dL 10.7 L Hct (36.0-46.0) % 31.2 L MCV (80-95) fL 87 MCH (27.0-33.0) pg 29.7 MCHC (32.0-36.0) % 34.3 RDW (11.7-14.6) % 13.1 Plt Count (130-400) 10^3/uL 228 MPV (8.0-11.0) fL 9.1 Sodium (136-145) mmol/L 131 L Potassium (3.5-5.1) mmol/L 4.0 Chloride (98-107) mmol/L 95 L Carbon Dioxide (21.0-32.0) mmol/L 24.9 Anion Gap (3-11) mmol/L 11.1 H BUN (7-18) mg/dL 24 H Creatinine (0.55-1.02) mg/dL 1.0 Est GFR (CKD-EPI 2020) (mL/min/1.73m2) 62.13 Glucose (74-106) mg/dL 135 H Calcium (8.5-10.1) mg/dL 8.7 PFSH All Active Problems (Updated 09/29/24 @ 00:00 by SYED VICKERS) Slightly cloudy urine (Acute) Laceration of leg not thigh, right, complicated (Acute) Laceration of multiple sites of right lower extremity (Acute) Diverticulosis of colon (Acute ~2019) found on colonoscopy Preventative health care (Acute) Arthritis of first MTP joint (Acute) Shoulder arthritis (Acute) Slow transit constipation (Acute ~03/2024) 03/21/24 Neurology Insomnia due to medical condition (Acute) 03/21/24 Neurology Anemia (Chronic) Arthritis of right shoulder region (Acute) Upper back pain (Acute) Lumbar back pain (Acute) Paraspinal muscle spasm (Acute) Persistent cough (Acute) Personal history of COVID-19 (Acute) Motion sickness (Acute) Ondansetron helps! 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 tolerating statin, continue. [ ] old records with elevated chol/trig? Asthma (Chronic) Allergic rhinitis (Acute) Osteoarthritis of hip (Acute) Osteopenia (Acute 12/28/17) Alendronate first prescribed 03/11/20, per previous records from [facility] - Office visit note 03/11/20 (pg 53 of record) BD in 2019? Tx Advised .. Hx (mo), Osteoporosis Gastroesophageal reflux disease (Chronic) Obstructive sleep apnea (Chronic 03/22/17) CPAP per chart review.. Medical History Preoperative examination Encounter for removal of sutures Muscle spasm Mass of right parotid gland Rosacea Constipation Post-menopausal atrophic vaginitis start vulvar estradiol Mar 2023 History of recurrent UTI (urinary tract infection) (2) since December .. with Hx NONE! (~ PD??) Start estradiol Mar 2023 Family hx of colon cancer Pat Grandmo Family hx of hypertension Mo, Fa ( of CVA, 77yo) Alteration in vision NOT enough ptosis for surg per Ophtho..with ptosis affecting ADL and computer work Hooded upper eyelid not enough for surg per ophtho, 11/2022 Ptosis of both upper eyelids not enough fo rsurg per ophtho, 11/2022 Toe fracture, right R 5th metatarsal, 2020 Intermetatarsal bursitis 12/2020; L 1st through 3rd digits, with neuroma at 2nd intermetatarsal. 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 Status post reverse total arthroplasty of right shoulder (11/03/23) Status post right shoulder hemiarthroplasty (~2007) H/O breast biopsy Status post glaucoma surgery Both eyes History of partial replacement of right shoulder History of total hip replacement x2 History of dilation and curettage Family History Paternal Grandmother Colon cancer Brother Substance use disorder Father , Age 77 Substance use disorder Hyperlipidemia Hypertension Stroke Coronary arteriosclerosis Hypercholesterolemia Renal failure syndrome Maternal Grandmother Substance use disorder Paternal Grandfather Substance use disorder Mother Depression Hypertension Polymyalgia Hypercholesterolemia Osteoporosis Social History Smoking/Tobacco Use Status: Former Tobacco Use Quit Date: 02/07/99 Smoking risk assessment performed?: Yes Alcohol Intake: former Drug use: Never Substance use type: does not use Counseling given: No Adopted: No Household members: spouse Housing: house Number of Children: 2 number of grandchildren: 3 Communication Needs: None Education Level: high school Do you need help understanding health information?: Never 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 Pets and animals: Yes Pets and animals: cat(s) Sexually active: Yes Do you think of yourself as: straight/heterosexual Current gender identity: female Other: Moved to [place] November 2021 to be near her step-daughter What is your relationship status?: How often do you talk on the phone with friends or family?: twice per week How often do you get together with friends or relatives?: once per week Do you belong to any clubs or organized social groups?: no Panel score (0-1 are the most socially isolated patients): 2 What type of physical activity do you participate in: walking Duration: 15-30 minutes/day Frequency: 3-4 times per week Melisa/Moravian: None Special melisa needs: No Seatbelt use: always Drive intox or ride 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 Date GA/Weeks # Preg Succ Route Wgt Sex Labor Lgth Anesthesia Location [facility] 10/08/83 Yes vaginal 2806.603 g Female [facility] 01/16/87 Yes vaginal 3713.788 g Male [facility]
[2024-09-27] MEDS: Lidocaine/Epinephri/Tetracaine Topical Gel 6 ML TP (17:41)
[2024-09-27] MEDS: cefTRIAXone 1 GM/50 ML BAG IVPB (18:30)
[2024-09-27] MEDS: Diph,Pertuss(Acell),Tet Vac/Pf 0.5 ML SYR IM (18:30)
--- NOTE | 2024-09-27 19:35 | DI.VRAD_ITS ---
PROCEDURE INFORMATION: Exam: XR Right Knee Exam date and time: 09/27/2024 7:05 PM Age: 64 years old Clinical indication: Injury or trauma; Fall; Wound; Lower leg; Right; Foreign body involvement not specified; Injury date: Today; Injury details: Tripped over a footing TECHNIQUE: Imaging protocol: Radiologic exam of the right knee. Views: 3 views. COMPARISON: None. FINDINGS: Bones/joints: There is mild to moderate chondrocalcinosis of the tibiofemoral joint. There are no acute displaced fractures or subluxations. There is no evidence of a joint effusion. The joint spaces are maintained, with minimal periarticular degenerative spurring around the tibiofemoral joint. Osseous mineralization is normal. There are no inflammatory osseous erosive changes. Soft tissues: Findings suggest soft tissue injury posterolateral to the proximal fibula. No radiopaque foreign body is identified. IMPRESSION: 1. No acute displaced fractures or subluxations identified. 2. Chondrocalcinosis of the tibiofemoral joint. Dictated and Authenticated by: Cameron Mistry MD. Orderin Cy Birmingham MD
--- NOTE | 2024-09-27 19:35 | DI.VRAD_ITS ---
PROCEDURE INFORMATION: Exam: XR Right Tibia and Fibula Exam date and time: 09/27/2024 7:03 PM Age: 64 years old Clinical indication: Injury or trauma; Fall; Wound; Lower leg; Right; Foreign body involvement not specified; Injury details: Tripped over a footing TECHNIQUE: Imaging protocol: Radiologic exam of the right tibia and fibula. Views: 2 views. COMPARISON: CR XR FOOT RT COMPLETE 09/29/2022 8:18 AM FINDINGS: Bones/joints: There is chondrocalcinosis of the tibiofemoral joint. No acute displaced fractures or subluxations are identified. Osseous mineralization is normal. There are no inflammatory osseous erosive changes. No focal osseous lesions are identified. Soft tissues: Findings suggest soft tissue injury along the lateral calf region. No radiopaque foreign body identified. IMPRESSION: No acute displaced fractures or subluxations identified. Dictated and Authenticated by: Cameron Mistry MD. Orderin Cy Birmingham MD
--- NOTE | 2024-09-27 20:00 | RT.EKG_ITS ---
APPROVED REPORT Exam: Resting ECG Reason for Exam: pre-op Patient Location: E HR:88 bpm ECG Measurements Heart Rate 88 AXIS NH 175 P 41 QRSd 109 QRS 35 QT 398 T 51 QTc 481 Conclusion Sinus rhythm...normal P axis, V-rate 60- 99
--- NOTE | 2024-09-27 20:41 | ANES.PREOP_ITS ---
General Info Date of Service Date Performed: 09/27/24 Height: 5 ft 3 in Weight: 68.039 kg Body Mass Index (BMI): 26.5 Surgical Procedure: Operation Date: 09/27/24 21:00 Proposed Procedure Side Surgeon p Wound Closure Peyton Caraballo MD Meds Allergies and Home Medications Allergies Allergy/AdvReac Type Severity Reaction Status Date / Time erythromycin base Allergy Severe Hives Verified 09/27/24 17:14 bupropion AdvReac Intermediate dry mouth Verified 09/27/24 17:14 Home Medication ?Medication ?Instructions ?Recorded omeprazole 20 mg capsule,delayed 20 mg PO DAILY release latanoprost 0.005 % eye drops 1 drp ophthalmic (eye) D AILY 03/08/22 albuterol sulfate 90 mcg/actuation 2 inh inhalation Q4 H PRN 04/12/22 breath activated powder inhaler calcium 600 mg (as 2 cap PO DAILY 04/12/22 carbonate)-vitamin D3 12.5 mcg (500 unit) capsule (Calcium with Vit D3) loratadine 10 mg tablet (Claritin) 10 mg PO DAILY 07/30 jpgzlnij-ocxp-[id number] 8 mg-folic 400 1 tab PO DAILY 04/12 mcg-K 50 mcg-lutein 300 mcg tablet (Centrum Silver Women) EyePromise 1 tab PO DAILY 10/25/22 estradiol 0.01% (0.1 mg/gram) 0.25 g vaginal .twice we ekly #42.5 03/25/23 vaginal cream grams atorvastatin 40 mg tablet 40 mg PO DAILY #90 tabs 09/07 04/30 losartan 50 mg tablet 50 mg PO BID #180 tabs 09/19 magnesium oxide 500 mg PO DAILY 02/21/24 melatonin 5 mg capsule 5 mg PO HS 03/26/24 cholecalciferol (vitamin D3) 125 125 mcg PO DAILY 03/10 11/01 mcg (5,000 unit) capsule carbidopa ER 25 mg-levodopa 100 mg 2 tab PO TID #540 t abs 04/23/24 tablet,extended release amlodipine 2.5 mg tablet See Rx Instructions .Route 0 05/08/24 .COMPLEX #180 tabs celecoxib 200 mg capsule (Celebrex) 200 mg PO DAILY #9 0 caps 05/08/24 alendronate 70 mg tablet 70 mg PO QWEEK #15 tabs 05/09 11/01 Held on 09/05/24. Instructions: drug holiday fluticasone propionate 50 1 spray intranasal DAILY #16 grams 07/03/24 mcg/actuation nasal spray,suspension buspirone 7.5 mg tablet See Rx Instructions .Route 0 08/21/24 .COMPLEX #180 tabs sertraline 50 mg tablet 50 mg PO DAILY #90 tabs 08/07 07/01 budesonide-formoterol HFA 160 1 inh inhalation BID #10 .2 grams 09/26/24 mcg-4.5 mcg/actuation aerosol inhaler (Symbicort) Current Visit Medications: Current Medications Generic Name Dose Route Start Last Admin Trade Name Freq PRN Reason Stop Dose Admin IV Miscellaneous Supplies 1 each 09/27/24 17:30 [facility] IV DIRECTED TIANNA Sodium Chloride 0 ml 09/27/24 17:19 Normal Saline Flush 10 Ml Syr IVP PRN PRN Sodium Chloride 0 ml 09/27/24 20:00 Normal Saline Flush 10 Ml Syr IVP BID TIANNA Sodium Chloride 0 ml 09/27/24 17:19 Normal Saline 10 Ml Vial IJ DIRECTED PRN PFSH Active Problems Active Problems: Problem Status Onset Code Laceration of multiple sites of right lower extremity Acute S81.811A Diverticulosis of colon Acute ~2020 K57.30 Preventative health care Acute Z00.00 Arthritis of first MTP joint Acute M19.079 Shoulder arthritis Acute M19.019 Slow transit constipation Acute ~03/2024 K59.01 Insomnia due to medical condition Acute G47.01 Anemia Chronic D64.9 Arthritis of right shoulder region Acute M19.011 Upper back pain Acute M54.9 Lumbar back pain Acute M54.50 Paraspinal muscle spasm Acute M62.830 Persistent cough Acute R05.3 Personal history of COVID-19 Acute Z86.16 Motion sickness Acute T75.3XXA Hallux valgus (acquired), left foot Acute M20.12 Hallux rigidus, left foot Acute M20.22 Hematuria Acute R31.9 Persistent mood disorder Acute F34.9 Anosmia Acute R43.0 Parkinson disease Chronic G20.A1 Tremor of right hand Acute R25.1 Nocturia Acute R35.1 Essential hypertension Acute I10 Bunion, left foot Acute M21.612 Other specified mononeuropathies of left lower limb Acute G57.82 Metatarsalgia of left foot Acute M77.42 Hammertoe of left foot Acute M20.42 Contracture of left Achilles tendon Acute M67.02 Hyperlipidemia Acute E78.5 Asthma Chronic J45.909 Allergic rhinitis Acute J30.9 Osteoarthritis of hip Acute M16.9 Osteopenia Acute 12/28/17 M85.80 Gastroesophageal reflux disease Chronic K21.9 Obstructive sleep apnea Chronic 03/22/17 G47.33 Medical History Medical History Preoperative examination Encounter for removal of sutures Muscle spasm Mass of right parotid gland Rosacea Constipation Post-menopausal atrophic vaginitis start vulvar estradiol Mar 2023 History of recurrent UTI (urinary tract infection) (2) since December .. with Hx NONE! (~ PD??) Start estradiol Mar 2023 Family hx of colon cancer Pat Grandmo Family hx of hypertension Mo, Fa ( of CVA, 75yo) Alteration in vision NOT enough ptosis for surg per Ophtho..with ptosis affecting ADL and computer work Hooded upper eyelid not enough for surg per ophtho, 11/2022 Ptosis of both upper eyelids not enough fo rsurg per ophtho, 11/2022 Toe fracture, right R 5th metatarsal, 2020 Intermetatarsal bursitis 12/2020; L 1st through 3rd digits, with neuroma at 2nd intermetatarsal. 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 Asymmetrical sensorineural hearing loss (09/30/21) Overweight with body mass index (BMI) 25.0-29.9 History of alcohol abuse (02/25/17) Vestibular migraine Depression (02/25/17) Anxiety Surgical History Surgical History History of colonoscopy (03/02/19) [facility] in [place], no specimens collected Status post left foot surgery (03/08/24) Left hallux metatarsophalangeal joint fusion at [facility] Status post reverse total arthroplasty of right shoulder (11/03/23) Status post right shoulder hemiarthroplasty (~2007) H/O breast biopsy Status post glaucoma surgery Both eyes History of partial replacement of right shoulder History of total hip replacement x2 History of dilation and curettage Tobacco Smoking/Tobacco Use Status: Former Tobacco Use Passive smoking exposure: No Alcohol Alcohol Intake: former Substance Use Substance use: Never Substance use type: does not use Prental History History 4 Para 2 Hx # Term Pregnancies 2 Multiple births Hx # Pregnancies Ectopic pregnancies AB induced Hx Number of Living Children 2 AB spontaneous 2 Past Pregnancies Del. Date GA/Weeks # Preg Succ Route Wgt Sex Labor Lgth [facility] Yes vaginal 2806.603 g Female [facility] 01/16/87 Yes vaginal 3713.788 g Male [facility] Vital Signs and Lab Results Vital Signs Most Recent Vital Signs in EMR: Most Recent Vital Signs Temp Pulse Resp BP Pulse Ox 37.1 C 86 11 L 120/63 97 09/27/24 20:37 09/27/24 20:37 09/27/24 20:37 09/27/24 20:37 09/27/24 20:37 Lab Results Coagulation Panel: INR Pending Today, 20:37 PT Pending Today, 20:37 APTT Pending Today, 20:37 Anesthesia Assessment and Plan Anesthesia History Personal History: No History of Anesthesia Complications Family History: No Family History of Anesthesia Complications Exercise Tolerance Exercise Tolerance: Metabolic Equivalents>4 Cardiac & Pulmonary Exam Cardiac Exam: Normal S1/S2 Heart Sounds Pulmonary Exam: Clear Bilateral Breath Sounds Implantable Cardiac Device Does patient have a Pacemaker or an ICD?: No Airway Exam Known Difficult Airway: No Mallampati Class: 1 Mouth Opening: Normal (> 3cm) Thyromental Distance: Greater than 3 cm Neck Range of Motion: Full ROM Neck Circumference: Normal Teeth Condition: Normal Dentition and Other (upper fixed bridge) ASA Classification ASA Score: ASA 2 Emergency Case?: Yes NPO Status NPO Status: Full Stomach (just at the 6 hr eduardo of pretzels with peanut butter/chocolate. ) Anesthesia Plan Resuscitation Status: Full Code Anesthesia Technique: General Anesthesia Airway Planned: Endotracheal Tube Monitors Used: Standard Monitors Preoperative Comments:: 64 yo for LE washout of wounds. Sig PMHx: HTN, asthma, GERONIMO, GERD (omeprazole, well controlled), parkinsons (has not been taking her meds. amantadine) ECG: sinus. Previous Anes: - shoulder, glide 3 grade 1.
[2024-09-27 20:44] LABS: HCT 31.2 % (36.0-46.0); HGB 10.7 g/dL (11.2-15.7); MCH 29.7 pg (27.0-33.0); MCHC 34.3 % (32.0-36.0); MCV 87 fL (80-95); MPV 9.1 fL (8.0-11.0); Platelet Count 228 10^3/uL (130-400); RBC 3.60 10^6/uL (3.93-5.22); RDW 13.1 % (11.7-14.6); RDW-SD 41.5 fL; WBC 6.72 10^3/uL (4.4-10.8)
[2024-09-27 20:57] LABS: Anion Gap 11.1 mmol/L (3-11); BUN 24 mg/dL (7-18); CO2 24.9 mmol/L (21.0-32.0); Calcium 8.7 mg/dL (8.5-10.1); Chloride 95 mmol/L (98-107); Estimated GFR 62.13 (mL/min/1.73m2); Glucose 135 mg/dL (74-106); Potassium 4.0 mmol/L (3.5-5.1); Sodium 131 mmol/L (136-145)
[2024-09-27 20:58] LABS: INR 1.0 (0.9-1.1); PTT Activated 23.0 sec (20.6-30.2); Prothrombin Time 10.4 sec (9.1-11.1)
[2024-09-27] MEDS: Normal Saline 1,000 ML 1000 ML IV (21:03)
--- NOTE | 2024-09-27 21:18 | W.PM.HP.N ---
Date of service: 09/27/24 Time of Service: 21:18 Assessment and Plan Assessment and plan (1) Laceration of leg not thigh, right, complicated: Status: Acute Assessment and plan: large complex laceration of right lower leg. Skin is thin on the avulsed flap and there is tension for closure medially. Significant open soft tisue component without clear violation of the fascia. I recommend an exam and washout in the OR, followed by closure under anesthesia to give best chances to heal by primary intention and reduce risk of infection as best as possible. discussed risks, benefits, alternatives and expectations including risk of skin necrosis due to tension, infection, open wound healing, delayed closure due to edema, dvt. She verbalized understanding and agreed to proceed. High risk wound I will continue abx after discharge. observe her here overnight as an outpt after surgery. home tomorrow w abx and analgesia. History of Present Illness History of Present Illness Chief Complaint: right leg laceration Narrative: right leg laceration occurred at home, tripped mechanical fall onto concrete and felt severe pain. Had what she felt was a large amount of bleeding and came to ER. In ER she was evaluated and fracture ruled out. large complex laceration noted and I was consulted. Tetanus booster administered and she was given 1g rocephin IV. pain is mild when holding still. She is an active adult. Has parkinsons and tremor associated with that. quit smoking 30 years ago. Review of Systems All systems reviewed & are unremarkable except as noted in HPI and below PFSH All Active Problems (Updated 09/27/24 @ 21:25 by Peyton Caraballo MD) Laceration of leg not thigh, right, complicated (Acute) Laceration of multiple sites of right lower extremity (Acute) Diverticulosis of colon (Acute ~2019) found on colonoscopy Preventative health care (Acute) Arthritis of first MTP joint (Acute) Shoulder arthritis (Acute) Slow transit constipation (Acute ~03/2024) 03/21/24 Neurology Insomnia due to medical condition (Acute) 03/21/24 Neurology Anemia (Chronic) Arthritis of right shoulder region (Acute) Upper back pain (Acute) Lumbar back pain (Acute) Paraspinal muscle spasm (Acute) Persistent cough (Acute) Personal history of COVID-19 (Acute) Motion sickness (Acute) Ondansetron helps! 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 tolerating statin, continue. [ ] old records with elevated chol/trig? Asthma (Chronic) Allergic rhinitis (Acute) Osteoarthritis of hip (Acute) Osteopenia (Acute 12/28/17) Alendronate first prescribed 03/11/20, per previous records from [facility] - Office visit note 03/11/20 (pg 53 of record) BD in 2019? Tx Advised .. Hx (mo), Osteoporosis Gastroesophageal reflux disease (Chronic) Obstructive sleep apnea (Chronic 03/22/17) CPAP per chart review.. Medical History Preoperative examination Encounter for removal of sutures Muscle spasm Mass of right parotid gland Rosacea Constipation Post-menopausal atrophic vaginitis start vulvar estradiol Mar 2023 History of recurrent UTI (urinary tract infection) (2) since December .. with Hx NONE! (~ PD??) Start estradiol Mar 2023 Family hx of colon cancer Pat Grandmo Family hx of hypertension Mo, Fa ( of CVA, 75yo) Alteration in vision NOT enough ptosis for surg per Ophtho..with ptosis affecting ADL and computer work Hooded upper eyelid not enough for surg per ophtho, 11/2022 Ptosis of both upper eyelids not enough fo rsurg per ophtho, 11/2022 Toe fracture, right R 5th metatarsal, 2020 Intermetatarsal bursitis 12/2020; L 1st through 3rd digits, with neuroma at 2nd intermetatarsal. 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 Asymmetrical sensorineural hearing loss (09/30/21) Overweight with body mass index (BMI) 25.0-29.9 History of alcohol abuse (02/25/17) Vestibular migraine Depression (02/25/17) Anxiety Surgical History History of colonoscopy (03/02/19) [facility] in [place], no specimens collected Status post left foot surgery (03/08/24) Left hallux metatarsophalangeal joint fusion at [facility] Status post reverse total arthroplasty of right shoulder (11/03/23) Status post right shoulder hemiarthroplasty (~2007) H/O breast biopsy Status post glaucoma surgery Both eyes History of partial replacement of right shoulder History of total hip replacement x2 History of dilation and curettage Family History Paternal Grandmother Colon cancer Brother Substance use disorder Father , Age 77 Substance use disorder Hyperlipidemia Hypertension Stroke Coronary arteriosclerosis Hypercholesterolemia Renal failure syndrome Maternal Grandmother Substance use disorder Paternal Grandfather Substance use disorder Mother Depression Hypertension Polymyalgia Hypercholesterolemia Osteoporosis Social History Smoking/Tobacco Use Status: Former Tobacco Use Quit Date: 02/07/99 Smoking risk assessment performed?: Yes Alcohol Intake: former Drug use: Never Substance use type: does not use Counseling given: No Adopted: No Household members: spouse Housing: house Number of Children: 2 number of grandchildren: 3 Communication Needs: None Education Level: high school Do you need help understanding health information?: Never 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 Pets and animals: Yes Pets and animals: cat(s) Sexually active: Yes Do you think of yourself as: straight/heterosexual Current gender identity: female Other: Moved to [place] November 2021 to be near her step-daughter What is your relationship status?: How often do you talk on the phone with friends or family?: twice per week How often do you get together with friends or relatives?: once per week Do you belong to any clubs or organized social groups?: no Panel score (0-1 are the most socially isolated patients): 2 What type of physical activity do you participate in: walking Duration: 15-30 minutes/day Frequency: 3-4 times per week Melisa/Holiness: None Special melisa needs: No Seatbelt use: always 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 Date GA/Weeks # Preg Succ Route Wgt Sex Labor Lgth Anesthesia Location [facility]/08[facility]83 Yes vaginal 280[facility] Yes vaginal 3713.788 g Male [facility] Meds Allergies and Home Medications Allergies Allergy/AdvReac Type Severity Reaction Status Date / Time erythromycin base Allergy Severe Hives Verified 09/27/24 17:14 bupropion AdvReac Intermediate dry mouth Verified 09/27/24 17:14 Home Medications ?Medication ?Instructions ?Recorded ?Confirmed ?Type omeprazole 20 mg capsule,delayed 20 mg PO DAILY 02/03/22 09/27/24 History release latanoprost 0.005 % eye drops 1 drp ophthalmic (eye) DAILY 03/08/22 09/27/24 History albuterol sulfate 90 mcg/actuation 2 inh inhalation Q4H PRN 04/12/22 09/27/24 History breath activated powder inhaler calcium 600 mg (as 2 cap PO DAILY 04/12/22 09/27/24 History carbonate)-vitamin D3 12.5 mcg (500 unit) capsule (Calcium with Vit D3) loratadine 10 mg tablet (Claritin) 10 mg PO DAILY 04/12/22 09/27/24 History pvaetflu-udpq-udbp 8 mg-folic 400 1 tab PO DAILY 04/12/22 09/27/24 History mcg-K 50 mcg-lutein 300 mcg tablet (Centrum Silver Women) EyePromise 1 tab PO DAILY 10/25/22 09/27/24 History estradiol 0.01% (0.1 mg/gram) 0.25 g vaginal .twice weekly #42.5 03/25/23 09/27/24 Rx vaginal cream grams atorvastatin 40 mg tablet 40 mg PO DAILY #90 tabs 09/20/23 09/27/24 Rx losartan 50 mg tablet 50 mg PO BID #180 tabs 09/20/23 09/27/24 Rx magnesium oxide 500 mg PO DAILY 02/21/24 09/27/24 History melatonin 5 mg capsule 5 mg PO HS 03/26/24 09/27/24 History cholecalciferol (vitamin D3) 125 125 mcg PO DAILY 03/28/24 09/27/24 History mcg (5,000 unit) capsule carbidopa ER 25 mg-levodopa 100 mg 2 tab PO TID #540 tabs 04/23/24 09/27/24 Rx tablet,extended release amlodipine 2.5 mg tablet See Rx Instructions .Route 05/08/24 09/27/24 Rx .COMPLEX #180 tabs celecoxib 200 mg capsule (Celebrex) 200 mg PO DAILY #90 caps 05/08/24 09/27/24 Rx alendronate 70 mg tablet 70 mg PO QWEEK #15 tabs 06/05/24 09/27/24 Rx Held on 09/05/24. Instructions: drug holiday fluticasone propionate 50 1 spray intranasal DAILY #16 grams 07/03/24 09/27/24 Rx mcg/actuation nasal spray,suspension buspirone 7.5 mg tablet See Rx Instructions .Route 08/21/24 09/27/24 Rx .COMPLEX #180 tabs sertraline 50 mg tablet 50 mg PO DAILY #90 tabs 08/21/24 09/27/24 Rx budesonide-formoterol HFA 160 1 inh inhalation BID #10.2 grams 09/26/24 09/27/24 Rx mcg-4.5 mcg/actuation aerosol inhaler (Symbicort) Exam Narrative Exam Narrative: awake, NAD eomi, MMM midline trachea, neck is symmetric PULM: normal resp effort, equal chest rise with respiration, no wheezing audible CARDIAC: normal PMI, no jvd, regular rate, normal perfusion abdomen is nondistended. speech is clear and coherent mood and affect are congruent, no focal neurological deficits RLE pulses intact DP and PT. Anterolateral lower leg laceration is extensive and down to exposed muscular fascia. Extends from level of the knee laterally, scithes medial to midline then bows lateral again at the level of the proximal ankle. Transverse oriented secondary laceration across the anterior ankle. Medial knee laceration present as well with exposed fat. Results Labs 09/27/24 20:37 09/27/24 20:37 Labs: Laboratory Results - last 24 hr 09/27/24 20:37 WBC 6.72 RBC 3.60 L Hgb 10.7 L Hct 31.2 L MCV 87 MCH 29.7 MCHC 34.3 RDW 13.1 Plt Count 228 MPV 9.1 Sodium 131 L Potassium 4.0 Chloride 95 L Carbon Dioxide 24.9 Anion Gap 11.1 H BUN 24 H Creatinine 1.0 Est GFR (CKD-EPI 2020) 62.13 Glucose 135 H Calcium 8.7 Last Vital Signs Temp 98.8 F 09/27/24 20:37 Pulse 86 09/27/24 20:37 Resp 11 L 09/27/24 20:37 BP 120/63 09/27/24 20:37 Pulse Ox 97 09/27/24 20:37 Time Spent Time spent with Patient: <40 minutes Time was spent: preparing to see the patient(eg.review tests), referring, communicating with other health body care manager and counseling the patient
[2024-09-27] MEDS: Lactated Ringers 1,000 ML 30 ML IV ×2 (21:33→23:54)
[2024-09-27] MEDS: Lidocaine 1% Multi-Dose W/EPI 1/100,000 50 ML VIAL (22:40)
[2024-09-27] MEDS: Bupivacaine 0.25% Pres-Free W/EPI 30 ML VIAL (22:40)
--- NOTE | 2024-09-27 23:04 | ROE_ITS ---
Operative Note Operative Note PRE-OP DIAGNOSIS: RIGHT LOWER LEG LACERATION POST-OP DIAGNOSIS: same (RIGHT LOWER LEG LACERATION) PROCEDURE: EXAMINATION, WASHOUT AND CLOSURE OF COMPLEX RIGHT LOWER LEG LACERATION SURGEON: Peyton Caraballo ANESTHESIA TYPE: Local By Surgeon and General LMA/ETT Refer to Anesthesia Record ESTIMATED BLOOD LOSS: 10 PATHOLOGY: none sent COMPLICATIONS: None Patient was transported to: PACU Patient's condition: stable Procedure Description: This patient is a 64-year-old female who had a mechanical fall and sustained a large complex laceration of the right lower extremity. The laceration was noted to be significantly undermined and open in the emergency department with contamination. The fascia appeared intact and there was no fractures. Due to the complexity of the wound I was consulted. The patient received tetanus shot and antibiotics. Informed consent was obtained and she was taken to the operating room. In the operating room she was placed supine on the operating table. SCDs were placed on the left leg and all pressure points were padded appropriately. General anesthesia was induced. The right lower extremity was circumferentially prepped in the usual sterile fashion. Timeout was performed. Wound examination was done. There were small fragments of dirt embedded within the subcutaneous tissues of the wound and in the muscular fascia. Local anesthetic was infiltrated around the edges of the wounds. A pulse black leather buffer was used to extensively wash out the large anterolateral wound of the right lower leg. It was also used on the anterior ankle wound and the knee laceration as well. Measurements were taken. The medial knee laceration measured 4 cm long by 1 cm wide and was undermined by 2 cm. The prepatellar fascia was intact. The anterior ankle laceration measured 7 cm long by 1.5 cm wide by half centimeter deep. It was also avulsed at an angle with significant skin degloving. The large primary wound of the leg extended from the lateral knee down to the anterior ankle. It measurements were 21 cm long by 10 cm wide by 1 cm deep. The entirety of the skin was avulsed completely off the premuscular fascia. After pulse irrigation and washout was complete the wound was examined and there was no visible debris or contamination of the wound. Wound closure was done in layered fashion in the primary large wound. Subcutaneous 3-0 Vicryl sutures were used in an interrupted fashion to reapproximate the subcutaneous flap. This subcutaneous closure was done over a 15 Armenian drain to help collapse the cavity after closure. The lower third of the wound was notably more superficial and there was significant skin avulsion with nonviable skin noted. The large leg flap was carefully aligned for complete closure of the avulsion. Skin sutures of 3-0 nylon were noted to tear through the skin. Liberty were used instead. The ankle wound soft subcutaneous tissue was reapproximated with interrupted 3-0 Vicryl suture. The skin was nonviable over this area and could not be closed. An iodoform Vaseline gauze strip was placed over the open wound. The open area of this ankle wound measured 3 cm x 1 cm x 0.1 cm. The knee laceration was closed with simple interrupted 3-0 nylon sutures. The skin was washed and dried iodoform Vaseline gauze was placed over all skin closure sites and covered by 4 x 4 gauze and ABDs. 4 and 6 inch Wes wrap's were used to secure the dressings. The drain held good suction. The drain had been secured in place with a 3-0 nylon suture. All sponge and instrument counts were correct at the end of the case. The kimberly thomas tolerated the procedure well. She extubated in the operating room and transferred to the recovery room in stable condition. There were no complications. Date of Procedure: 09/27/24
--- NOTE | 2024-09-27 23:05 | W.ANESPOSTOP ---
Postoperative Evaluation Date, Time and Location Date Performed: 09/27/24 Time Performed: 23:05 Patient Location: PACU Vital Signs Most Recent Imported Vital Signs: Most Recent Vital Signs Temp Pulse Resp BP Pulse Ox 36.7 C 82 11 L 118/58 L 98 09/27/24 23:01 09/27/24 23:01 09/27/24 23:01 09/27/24 23:01 09/27/24 23:01 Pain Score Most Recent Pain Score: Most Recent Pain Score Pain Level 10 09/27/24 17:21 Assessment Mental Status: Arousable with meaningful communication Airway and Respiratory Function: Patent airway with normal (patient baseline) respiratory exam Cardiovascular Function: Hemodynamically Stable Hydration Status: Adequately Hydrated Nausea & Vomiting: No Nausea or Vomiting Pain: Pain is tolerable per patient Peripheral Nerve Block: Patient did not receive a nerve block
--- NOTE | 2024-09-27 23:48 | W.PC.ACHO ---
Registration Status: ADM IN Primary Language: Preferred Language: ED Information & Data Chief Complaint Laceration 09/27/24 17:28 Triage Note Patient tripped over 09/27/24 17:10 concrete pad, EMS reported 2 avulsions on the RLE from the concrete. no LOC, no blood thinners. 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 Asymmetrical sensorineural hearing loss (09/30/21) Overweight with body mass index (BMI) 25.0-29.9 History of alcohol abuse (02/25/17) Vestibular migraine Depression (02/25/17) Anxiety (Last Reviewed 09/27/24 @ 21:21 by Peyton Caraballo MD) History of colonoscopy (03/02/19) Status post left foot surgery (03/08/24) Status post reverse total arthroplasty of right shoulder (11/03/23) Status post right shoulder hemiarthroplasty (~2007) H/O breast biopsy Status post glaucoma surgery History of partial replacement of right shoulder History of total hip replacement History of dilation and curettage Most Recent Vital Signs Temperature 36.8 C 09/27/24 23:44 Temperature Source Temporal Artery Scan 09/27/24 23:44 Pulse 73 09/27/24 23:44 Pulse 76 09/27/24 23:18 Respiratory Rate 12 09/27/24 23:44 Blood Pressure 112/68 09/27/24 23:44 Blood Pressure Mean 82 09/27/24 23:44 Blood Pressure Position Supine 09/27/24 17:10 Pulse Oximetry 96 09/27/24 23:44 Respiratory End-tidal CO2 2 09/27/24 22:55 Oxygen Delivery Method Room Air 09/27/24 23:44 Oxygen Flow Rate 0 09/27/24 23:44 Pain Level 0 09/27/24 23:44 Allergies erythromycin base Allergy (Severe, Verified 09/27/24 17:14) Hives bupropion Adverse Reaction (Intermediate, Verified 09/27/24 17:14) dry mouth Precautions Isolation Standard precaution 09/27/24 17:21 Active Medications Generic Name Dose Route Start Last Admin Trade Name Rand PRN Reason Stop Dose Admin Ringer's Solution 1,000 mls @ 30 mls/hr 09/27/24 22:00 09/27/24 23:01 IV 10/27/24 21:59 30 mls/hr INFUSION TIANNA Infusion IV IV Catheter Type [Left Peripheral IV Antecubital] IV Catheter Gauge [Left 18 Antecubital] Diet Orders Category Date Time Status Regular/Normal [DIET] Nutrition 09/28/24 Breakfast Ordered Diagnostics 09/27/24 Range/Units 20:37 WBC 6.72 (4.4-10.8) 10^3/uL RBC 3.60 L (3.93-5.22) 10^6/uL Hgb 10.7 L (11.2-15.7) g/dL Hct 31.2 L (36.0-46.0) % MCV 87 (80-95) fL MCH 29.7 (27.0-33.0) pg MCHC 34.3 (32.0-36.0) % RDW 13.1 (11.7-14.6) % Plt Count 228 (130-400) 10^3/uL MPV 9.1 (8.0-11.0) fL PT 10.4 (9.1-11.1) sec INR 1.0 (0.9-1.1) APTT 23.0 (20.6-30.2) sec Sodium 131 L (136-145) mmol/L Potassium 4.0 (3.5-5.1) mmol/L Chloride 95 L (98-107) mmol/L Carbon Dioxide 24.9 (21.0-32.0) mmol/L Anion Gap 11.1 H (3-11) mmol/L BUN 24 H (7-18) mg/dL Creatinine 1.0 (0.55-1.02) mg/dL Est GFR (CKD-EPI 2020) 62.13 (mL/min/1.73m2) Glucose 135 H (74-106) mg/dL Calcium 8.7 (8.5-10.1) mg/dL Intake and Output - 24 Hour Total 09/27/24 16:54 thru 09/27/24 23:20 Intake Total 550 Output Total 10 Balance 540 Weight 68.039 kg Intake: IV 550 Output: Estimated Blood Loss 10 Other: Emesis Description None Falls Risk Assessment History of Falls Admit Due to Fall 09/27/24 17:21 Contributing Factors No Factors 09/27/24 17:21 Ambulatory Aids Independent 09/27/24 17:21 Tubes/Lines None 09/27/24 17:21 Gait Evaluation No gait disturbance 09/27/24 17:21 Cognition No cognitive impairment 09/27/24 17:21 Fall Total Score 09/27/24 17:21 Level of Risk Moderate Risk 09/27/24 17:21 Problems (Last Reviewed 09/27/24 @ 21:21 by Peyton Caraballo MD) Laceration of leg not thigh, right, complicated (Acute) Laceration of multiple sites of right lower extremity (Acute) v v v v v v v v v Sending and/or Receiving Nurses: Please use comment section below to note any information pertinent to the patient hand-off not included above. Information / Comments:Pt admit to med/ surg rm 214 for outpt obs. s/p fall at home requiring Sx to close large wound to rt lower leg. DAMIEN drain in place wrapped in Wes, xeroform and Abd. pads. Pt recieved 2g ancef and 1 g rocephin. Stable vitals, pt is LUMMI. Report received from:Cailin VANEGAS @ [id number].
[2024-09-27] MEDS: Normal Saline Flush 10 ML SYR IVP (23:56)
[2024-09-28 00:02] VITALS: BP 112/68; PULSE 73; RESP 12; TEMP 36.8; O2SAT 96
[2024-09-28] MEDS: busPIRone 15 MG TAB 7.5 MG PO ×2 (00:43→09:05)
[2024-09-28] MEDS: Budesonide/Formoterol 160/4.5 6 GM 60 PUFF INH IH ×2 (01:12→07:57)
[2024-09-28] MEDS: ceFAZolin 2,000 MG in Normal Saline 100 ML 200 MG IVPB (04:39)
[2024-09-28] MEDS: Water,Injection,Sterile 10 ML VIAL (04:39)
[2024-09-28 07:45] VITALS: BP 114/68; PULSE 82; RESP 16; O2SAT 97
[2024-09-28 08:03] LABS: Glucose Negative (Negative)
[2024-09-28 08:12] LABS: RBC 0-2 HPF (0-2)
--- NOTE | 2024-09-28 08:35 | IN_ITS ---
PT Notes Visit Reasons: TRAUMA Physical Therapy Inpatient Treatment Note Date: 09/28/2024 Referring Doctor: Peyton Caraballo MD PT Orders: PT CONSULT: TOE TOUCH WEIGHT BEARING R LE, NEEDS CRUCTHES PLEASE Precautions: Fall. Standard. TTWB through R LE with AD. Patient Profile/Admitting Diagnosis: Sonam is a 64-year-old female with past medical history significant for Parkinson disease and hypertension who sustained a R lower leg complicated laceration with a skin avulsion after a mechanical fall at home. She is status post washout and closure to facilitate healing by primary intention, now on postoperative day 1. PMHX: All Active Problems (Updated 09/27/24 @ 21:25 by Peyton Caraballo MD) Laceration of leg not thigh, right, complicated (Acute) Laceration of multiple sites of right lower extremity (Acute) Diverticulosis of colon (Acute ~2019) found on colonoscopyPreventative health care (Acute) Arthritis of first MTP joint (Acute) Shoulder arthritis (Acute) Slow transit constipation (Acute ~03/2024) 03/21/24 Neurology Insomnia due to medical condition (Acute) 03/21/24 Neurology Anemia (Chronic) Arthritis of right shoulder region (Acute) Upper back pain (Acute) Lumbar back pain (Acute) Paraspinal muscle spasm (Acute) Persistent cough (Acute) Personal history of COVID-19 (Acute) Motion sickness (Acute) Ondansetron helps!Hallux valgus (acquired), left foot (Acute) Hallux rigidus, left foot (Acute) Hematuria (Acute) per UA x3 Persistent mood disorder (Acute) Per 03/08/23 [facility] [place] Neurology Note Anosmia (Acute) Per 03/08/23 [facility] [place] Neurology note Parkinson disease (Chronic) Tremor of right hand (Acute) x 2 mos per pt report; 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 tolerating statin, continue. [ ] old records with elevated chol/trig? Asthma (Chronic) Allergic rhinitis (Acute) Osteoarthritis of hip (Acute) Osteopenia (Acute 12/28/17) Alendronate first prescribed 03/11/20, per previous records from [facility] - Office visit note 03/11/20 (pg 53 of record) BD in 2019? Tx Advised .. Hx (mo), Osteoporosis Gastroesophageal reflux disease (Chronic) Obstructive sleep apnea (Chronic 03/22/17) CPAP per chart review.. Medical History Preoperative examination Encounter for removal of sutures Muscle spasm Mass of right parotid gland Rosacea Constipation Post-menopausal atrophic vaginitis start vulvar estradiol Mar 2023History of recurrent UTI (urinary tract infection) (2) since December .. with Hx NONE! (~ PD??) Start estradiol Mar 2023Family hx of colon cancer Pat Grandmo Family hx of hypertension [place], Fa ( of CVA, 77yo) Alteration in vision NOT enough ptosis for surg per Ophtho..with ptosis affecting ADL and computer work Hooded upper eyelid not enough for surg per ophtho, 11/2022 Ptosis of both upper eyelids not enough fo rsurg per ophtho, 11/2022 Toe fracture, right R 5th metatarsal, 2020 Intermetatarsal bursitis 12/2020; L 1st through 3rd digits, with neuroma at 2nd intermetatarsal. 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 Asymmetrical sensorineural hearing loss (09/30/21) Overweight with body mass index (BMI) 25.0-29.9 History of alcohol abuse (02/25/17) Vestibular migraine Depression (02/25/17) Anxiety Surgical History History of colonoscopy (03/02/19) [facility] in ID, no specimens collected Status post left foot surgery (03/08/24) Left hallux metatarsophalangeal joint fusion at [facility] Status post reverse total arthroplasty of right shoulder (11/03/23) Status post right shoulder hemiarthroplasty (~2007) H/O breast biopsy Status post glaucoma surgery Both eyesHistory of partial replacement of right shoulder History of total hip replacement x2 History of dilation and curettage Social History/Home Situation: Lives with in a private residence with 2 steps to enter without rails. Independent with all aspects of ADLs prior to admission. No longer drives. Equipment Owned/DME: None Subjective: Was wondering if she could have a pain pill first before start of session. Nurse Isabella was made aware who gave patient Ibuprofen to manage pain. Surprised at how much controlled her pain level was with ambulation activity. Objective: General Observation: Wound dressing to right lower leg. IV through right UE. Resting tremor in BUE with the right more affected than left. Mental Status: Alert and oriented as to person, place, time, and purpose. Able to pay attention, focus, and respond appropriately. Pain: 1?2/10 in the right lower leg at rest and with ambulation Vital Signs: Closely monitored by nursing staff ROM: Right Upper Extremity: Shoulder Flexion WFL. Shoulder abduction WFL. Elbow flexion WFL. Wrist flexion WFL. Functional opening and closing of hand WFL. Left Upper Extremity: Shoulder Flexion WFL. Shoulder abduction WFL. Elbow flexion WFL. Wrist flexion WFL. Functional opening and closing of hand WFL. Right Lower Extremity: Hip flexion WFL. Hip abduction WFL. Knee flexion 20 degrees to 90 degrees. Knee extension -20 degrees. Ankle dorsiflexion WFL. Ankle plantarflexion WFL. Left Lower Extremity: Hip flexion WFL. Hip abduction WFL. Knee flexion WFL. Ankle dorsiflexion WFL. Ankle plantarflexion WFL. Strength: Right Upper Extremity: Shoulder flexors 4-/5. Shoulder abductors 4-/5. Elbow flexors 4-/5. Elbow extensors 4-/5. Dixonac Operator strong. Left Upper Extremity: Shoulder flexors 4-/5. Shoulder abductors 4-/5. Elbow flexors 4-/5. Elbow extensors 4-/5. Dixonac Operator strong. Right Lower Extremity: Hip flexors 4-/5. Hip abductors 4-/5. Knee flexors 3-/5. Knee extensors 3-/5. Ankle dorsiflexors 3-/5. Ankle plantarflexors 4-/5. Left Lower Extremity: Hip flexors 4-/5. Hip abductors 4-/5. Knee flexors 4-/5. Knee extensors 4-/5. Ankle dorsiflexors 4-/5. Ankle plantarflexors 4-/5. Bed Mobility/Transfers: Minimal cueing provided for use of B hands as needed for support, movement sequence, AD management, and posture to reduce fall risk and minimize pain report Supine to sit supervision Sit to stand contact guard assist with FWW Stand to sit contact guard assist with FWW Bed to reclining chair contact guard assist with FWW Reclining chair to bed contact guard assist with FWW Gait: Facilitated safe and correct performance of level surface ambulation covering a distance of 50 feet with TTWB through the R LE using the front-wheeled walker with contact guard assist and minimal verbal cueing for correct weight distribution in compliance of WB precaution by surgeon. Stairs: Not tested Balance: Static Sitting: Normal Dynamic Sitting: Normal Static Standing: Fair Dynamic Standing: Fair Special Tests: Mobility Limitations Standardized Measure [facility] AM-PAC 6 clicks Basic Mobility Inpatient Short Form: Raw Score: 18 CMS Score: 47% deficit Informed Consent/Education: Patient was instructed in purpose of PT consult and plan of care. Agreeable to proceed with established PT POC to achieve personal goals. Assessment: SHARMILA wraps redone on patient's leg to secure dressing properly as previous wrapping has become loose. Patient was able to observe WB precaution recommended by surgeon to allow healing in the surgical area. Patient presents with clinical signs and symptoms consistent with current/admitting diagnoses that have resulted to mobility limitations, gait instability, generalized weakness, and overall ADL decline as demonstrated by the following impairment level findings: 1. Decreased strength to R LE major muscle groups 2. Impaired sitting/standing balance 3. Impaired activity tolerance 4. Limitation of joint range of motion in R knee 5. Wb precaution of TTWB Impairments are contributing to the following functional limitations: 1. Decline in bed mobility skills 2. Decline in transfer skills 3. Difficulty with ambulation without assistive device and physical assistance 4. Increased completion time for mobility ADL performance 5. Increased risk for falls 6. Difficulty with managing steps alone safely Patient is assessed as a [id number] moderate complexity based on the following: History: 64-year-old female with past medical history as indicated above Examination: Demonstrable impairment in strength, balance, and mobility level with underlying impairments and functional limitations as exhibited above as well as deficit score of 47% utilizing the [facility] Mobility Inpatient Short Form Presentation: Evolving Decision Makin moderate complexity Goals: Goals X1 week 1. Supine-Sit independent 2. Sit-Supine independent 3. Sit-Stand independent 4. Stand-Sit independent with FWW 5. Bed-Chair independent with FWW 6. Chair-Bed independent with FWW 7. Independent gait on level surface with use of FWW for at least 300 feet without report of pain nor dyspnea 8. Independent stair negotiation while holding onto 1 rail for at least 2 steps without report of pain nor dyspnea 9. Independent with home exercise program 10. Good static and dynamic standing balance/tolerance Plan of Care/Treatment Plan: 1-2x/day, 7 days/week x 1 week. Plan of care has been reviewed with the CHANGE BOOTH ATTENDANT providing the service under Physical Therapy direction. Initiate Physical Therapy intervention for pain management as needed, strengthening, bed mobility, transfers, gait, stairs, balance training, and use of assistive device. DISCHARGE RECOMMENDATIONS: PT TREATMENT CODE/TIME: 82687 x 20 minutes for 1 unit, 04451 x 25 minutes for 2 units (8:35-9:20). Thank you for the opportunity to participate in the care of this patient. Viky Glover PT, DPT, CLT [facility] [place], [place]
[2024-09-28] MEDS: Omeprazole 20 MG CAPCR PO (09:04)
[2024-09-28] MEDS: Celecoxib 200 MG CAP PO (09:04)
[2024-09-28] MEDS: Sertraline 50 MG TAB PO (09:04)
[2024-09-28] MEDS: Enoxaparin 40 MG/0.4 ML SYR SC (09:05)
[2024-09-28] MEDS: Losartan 50 MG TAB PO (09:05)
[2024-09-28] MEDS: Ibuprofen 800 MG TAB PO (09:16)
--- NOTE | 2024-09-28 09:17 | PDOC.CMIN ---
Date of service: 09/28/24 Time of Service: 09:17 Care Management Initial Assmt Initial Assessment Reason for Hospitalization: laceration right leg Functional Status/Living Situation Patient Presentation: Delilah was sitting up in a chair when CM met with her. She was very pleasant in interaction and appeared to be in good spirits. Delilah lives in a single family home in [place], [place] with her Damon. She has a son who lives in [place], a daughter in [place] and a step-daughter who lives locally. Delilah shared that her son and step daughter are very close, both to each other and to her, as they were very young when she remarried. Delilah continues to work for a [employer], [employer] . They are based in [facility] but Delilah works from home. She is independent at baseline and does not receive any community services. Normally Delilah does not use any assistive equipment for ambulation, however because of her leg injury, she needs to use a walker at this time; she cannot bear weight on her right leg. Town of Residence: [place] Resides with: Spouse ( James) Significant Other/Family: Out of area (son in [place], daughter in [facility]) Natural Supports: , son and step daughter Employment Status: Employed Instrumental Activities of Daily Living (ADLs): Independent Medications Medication Management: No Issues/Barriers identified Physical Functioning/Mobility Assistive Device: walker Advance Directives Advance Directives: Do you have an Advance Directive: N 09/06/24, 15:01 AD On File at [facility]: N 09/06/24, 15:01 Date Asked 09/27/24 09/27/24, 17:13 AD Date Reviewed COLST On File at [facility] No 09/27/24, 17:13 COLST Date Scanned Code Status Resuscitation Status Full Code Insurance Coverage/Financial Issues Insurance: [employer] Care Team Visit Care Team Role Provider Type Patito Tierney APRN Primary Care Provider NURSE PRACTITIONER InPatient Nash Daniels Other Providers OTHER Valencia Benoit NP Emergency Provider NURSE PRACTITIONER Peyton Caraballo MD Admit Provider [facility] STAFF PHYSICIAN Attending Provider Discharge Potential Discharge Needs: PCP F/U Appt Anticipated Barriers to Discharge: None Identified Patient/Family Education Needs: Review discharge instructions, discuss Ask Me Three Transportation: Private vehicle Plan: Anticipate Sonam will be discharged home with no new services when medically cleared. She will follow up with her surgeon, PCP and plan of care and transport with family. CM will follow and continue to support discharge planning. Social Determinants of Health Screening Social Determinants of health last assessed in clinic: 09/28/24 Will the Patient Participate in the Screening?: Yes Do you worry about having a steady place to live?: no Problems where you live: no known problems In the past 12 months, have you had to go without electric, gas, oil or water in your home?: no 1. Within the past 12 months, we worried whether our food would run out before we got money to buy more.: Never true 2. Within the past 12 months, the food we bought just didn't last and we didn't have money to get more.: Never true Has lack of transportation kept you from medical appointments or from doing things needed for daily living?: no Has anyone in your life made you feel unsafe or unsupported?: no How hard is it for you to pay for the very basics like food, housing, medical care, and heating? Would you say it is:: Not hard at all Do you want help finding or keeping work or a job?: I do not need or want help If for any reason you need help with day-to-day activities such as bathing, preparing meals, shopping, managing finances, etc., do you get the help you need?: I don?t need any help How often do you feel lonely or isolated from those around you?: Never Do you speak a language other than Serbian at home?: No Does the patient want assistance with any of the above?: No PFSH All Active Problems (Updated 09/28/24 @ 12:43 by Peyton Caraballo MD) Slightly cloudy urine (Acute) Laceration of leg not thigh, right, complicated (Acute) Laceration of multiple sites of right lower extremity (Acute) Diverticulosis of colon (Acute ~2019) found on colonoscopy Preventative health care (Acute) Arthritis of first MTP joint (Acute) Shoulder arthritis (Acute) Slow transit constipation (Acute ~03/2024) 03/21/24 Neurology Insomnia due to medical condition (Acute) 03/21/24 Neurology Anemia (Chronic) Arthritis of right shoulder region (Acute) Upper back pain (Acute) Lumbar back pain (Acute) Paraspinal muscle spasm (Acute) Persistent cough (Acute) Personal history of COVID-19 (Acute) Motion sickness (Acute) Ondansetron helps! 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 tolerating statin, continue. [ ] old records with elevated chol/trig? Asthma (Chronic) Allergic rhinitis (Acute) Osteoarthritis of hip (Acute) Osteopenia (Acute 12/28/17) Alendronate first prescribed 03/11/20, per previous records from [facility] - Office visit note 03/11/20 (pg 53 of record) BD in 2019? Tx Advised .. Hx (mo), Osteoporosis Gastroesophageal reflux disease (Chronic) Obstructive sleep apnea (Chronic 03/22/17) CPAP per chart review.. Medical History Preoperative examination Encounter for removal of sutures Muscle spasm Mass of right parotid gland Rosacea Constipation Post-menopausal atrophic vaginitis start vulvar estradiol Mar 2023 History of recurrent UTI (urinary tract infection) (2) since December .. with Hx NONE! (~ PD??) Start estradiol Mar 2023 Family hx of colon cancer Pat Grandmo Family hx of hypertension Mo, Fa ( of CVA, 77yo) Alteration in vision NOT enough ptosis for surg per Ophtho..with ptosis affecting ADL and computer work Hooded upper eyelid not enough for surg per ophtho, 11/2022 Ptosis of both upper eyelids not enough fo rsurg per ophtho, 11/2022 Toe fracture, right R 5th metatarsal, 2020 Intermetatarsal bursitis 12/2020; L 1st through 3rd digits, with neuroma at 2nd intermetatarsal. 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 Asymmetrical sensorineural hearing loss (09/30/21) Overweight with body mass index (BMI) 25.0-29.9 History of alcohol abuse (02/25/17) Vestibular migraine Depression (02/25/17) Anxiety Surgical History History of colonoscopy (03/02/19) [facility] in [place], no specimens collected Status post left foot surgery (03/08/24) Left hallux metatarsophalangeal joint fusion at [facility] Status post reverse total arthroplasty of right shoulder (11/03/23) Status post right shoulder hemiarthroplasty (~2007) H/O breast biopsy Status post glaucoma surgery Both eyes History of partial replacement of right shoulder History of total hip replacement x2 History of dilation and curettage Family History Paternal Grandmother Colon cancer Brother Substance use disorder Father , Age 77 Substance use disorder Hyperlipidemia Hypertension Stroke Coronary arteriosclerosis Hypercholesterolemia Renal failure syndrome Maternal Grandmother Substance use disorder Paternal Grandfather Substance use disorder Mother Depression Hypertension Polymyalgia Hypercholesterolemia Osteoporosis Social History Smoking/Tobacco Use Status: Former Tobacco Use Quit Date: 02/07/99 Smoking risk assessment performed?: Yes Alcohol Intake: former Drug use: Never Substance use type: does not use Counseling given: No Adopted: No Household members: spouse Housing: house Number of Children: 2 number of grandchildren: 3 Communication Needs: None Education Level: high school Do you need help understanding health information?: Never 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 Pets and animals: Yes Pets and animals: cat(s) Sexually active: Yes Do you think of yourself as: straight/heterosexual Current gender identity: female Other: Moved to [place] November 2021 to be near her step-daughter What is your relationship status?: How often do you talk on the phone with friends or family?: twice per week How often do you get together with friends or relatives?: once per week Do you belong to any clubs or organized social groups?: no Panel score (0-1 are the most socially isolated patients): 2 What type of physical activity do you participate in: walking Duration: 15-30 minutes/day Frequency: 3-4 times per week Melisa/Roman Catholic: None Special melisa needs: No Seatbelt use: always Drive intox or ride w/intox 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 Date GA/Weeks # Preg Succ Route Wgt Sex Labor Lgth Anesthesia Location Prov Compl 10/08/83 Yes vaginal 2806.603 g Female [facility] 01/16/87 Yes vaginal 3713.788 g Male [facility]
--- NOTE | 2024-09-28 10:37 | NUR.NOTE ---
Access chart to reconcile EKG's in Infin[facility] with EKG orders. EKG needs to be read. Nursing Note:
[2024-09-28] MEDS: ceFAZolin 2 GM/50 ML BAG IVPB (12:13)
--- NOTE | 2024-09-28 12:42 | DSE_ITS ---
Date of service: 09/28/24 Time of Service: 12:42 DS: Diagnosis Discharge Diagnosis (1) Laceration of leg not thigh, right, complicated: Status: Acute (2) Slightly cloudy urine: Status: Acute (3) Essential hypertension: Status: Acute (4) Parkinson disease: Status: Chronic Discharge Plan Disposition Patient Disposition: Home Condition: Stable Discharge Details Reason For Visit: TRAUMA Admit Date/Time: 09/27/24 22:57 Admit Provider: Peyton Gamez Attending Provider: Peyton Gamez Primary Care Provider: Patito Tierney Hospital Course Hospital Course: 64 year old female patient admitted for observation after an emergent repair of a large right leg laceration. She had a mechanical fall at home and sustained a large avulsing laceration of the lower leg. She was taken to surgery for washout and revealed a 21 cm x 10 cm avulsed subcutaneous flap, as well as a 4 cm medial knee laceration and a 7 cm ankle laceration. The wounds were washed out. The large flap was reapproximated with layered closure and skin closure over a drain. The wounds were closed and dressed. Wound was wrapped and the patient was observed overnight. Pain control was adequate. Physical therapy evaluated the patient and determined that a walker was the safest route for gait assistance as she was toe-touch weightbearing on the right. The patient was not a compression in regard to stability with the toe-touch weightbearing limitations right lower extremity. We discussed wound care plans and return precautions. The patient was discharged home in stable condition with follow-up arrangements for the surgical clinic next week. Home Meds and New Rx's Prescriptions: New tramadol 50 mg Tablet 50 mg PO Q6H PRN PRN (Reason: Pain) Qty: 14 0RF sulfamethoxazole-trimethoprim [Bactrim DS] 800-160 mg tablet 1 tab PO BID Qty: 14 0RF Continued omeprazole 20 mg capsule,delayed release(DR/EC) 20 mg PO DAILY estradiol 0.01 % (0.1 mg/gram) cream 0.25 g vaginal .twice weekly Qty: 42.5 4RF Rx Instructions: Apply a pea-sized amount around the urethra twice weekly latanoprost 0.005 % drops 1 drp ophthalmic (eye) DAILY EyePromise 1 tab PO DAILY Patient Comments: Eye Vitamin - Zeaxonthin atorvastatin 40 mg tablet 40 mg PO DAILY Qty: 90 3RF losartan 50 mg tablet 50 mg PO BID Qty: 180 3RF Rx Instructions: Continue BID carbidopa-levodopa 25-100 mg tablet extended release 2 tab PO TID Qty: 540 3RF Rx Instructions: Take am and then every 4-5hours while awake TID magnesium oxide 250 mg magnesium tablet 500 mg PO DAILY cholecalciferol (vitamin D3) 125 mcg (5,000 unit) capsule 125 mcg PO DAILY loratadine [Claritin] 10 mg tablet 10 mg PO DAILY Centrum Silver Women 8 mg iron-400 mcg-300 mcg tablet 1 tab PO DAILY calcium carbonate-vitamin D3 [Calcium 600 with Vitamin D3] 600 mg-12.5 mcg (500 unit) capsule 2 cap PO DAILY albuterol sulfate 90 mcg/actuation aerosol powdr breath activated 2 inh inhalation Q4H PRN melatonin 5 mg capsule 5 mg PO HS Rx Instructions: 1-3 hours before going to bed amlodipine 2.5 mg tablet See Rx Instructions .ROUTE .COMPLEX Qty: 180 3RF Dose Instruction: TAKE ONE TABLET BY MOUTH TWICE A DAY DUE TO EVEVATED BLOOD PRESSURE Rx Instructions: TAKE ONE TABLET BY MOUTH TWICE A DAY DUE TO EVEVATED BLOOD PRESSURE celecoxib [Celebrex] 200 mg capsule 200 mg PO DAILY Qty: 90 3RF Rx Instructions: Continue, take with food. alendronate 70 mg tablet 70 mg PO QWEEK Qty: 15 3RF Rx Instructions: As best filled, 90 days, with refills for WEEKLY dosing fluticasone propionate 50 mcg/actuation spray,suspension 1 spray intranasal DAILY Qty: 16 3RF Rx Instructions: administer into each nostril buspirone 7.5 mg tablet See Rx Instructions .ROUTE .COMPLEX Qty: 180 3RF Dose Instruction: TAKE ONE TABLET BY MOUTH TWICE A DAY Rx Instructions: TAKE ONE TABLET BY MOUTH TWICE A DAY sertraline 50 mg tablet 50 mg PO DAILY Qty: 90 3RF budesonide-formoterol [Symbicort] 160-4.5 mcg/actuation HFA aerosol inhaler 1 inh inhalation BID Qty: 10.2 2RF Discharge Instructions Additional Instructions: You will need to stop at a pharmacy or [facility] and 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 You will need: dry gauze squares (we call them 4x4 gauze), neosporin ointment, SHARMILA wrap that can be reused or a compression sock. On 09/29/24 (tomorrow), unwrap the SHARMILA wraps and remove all of the gauze and yellow dressings from on your wounds. Wash the skin and wash over the yamileth gently with soapy hands, rinse, and pat dry. The ankle wound has open areas that can be washed and rinsed dry. Wash the drain site on the skin and treat it as a wound with a stitch just like the knee. Do NOT submerge the wounds under water and do not let water pool in the wounds or on the leg. After washing, pat nice and dry. Apply neosporin ointment in a nickel thick layer over the yamileth and stitches, this will help keep the bandages from sticking. Cover with dry gauze and wrap the leg gently or wear a compression sock. Make sure your wounds are covered up so they can stay clean. Strip the drain and record the output as instructed by hospital nurses. Bring this log of drain output with you to your appointment so I can determine if the drain can come out or not. Without the drain log, I cannot remove the drain! Toe touch only with the right leg until cleared by me to walk. Physical therapy has determined that a rolling walker is the safest walking took for this. Use it at home and when you are up moving. Ok to roll your ankle and pump your calves when sitting or laying. Elevate your leg to stay level with your hip when you are not walking, eating at a table, or doing other life activities. Dont elevate the leg too high or you will limit blood flow to the wound. Call or return if you are worried about infection - monitor your leg for worsening redness, foul smells or cloudy/pus fluid coming out of the drain. FOLLOW UP IN DR GAMEZ'S OFFICE ON TuesdayOCTOBER 03 AT 1145 AM. Referrals: Peyton Gamez MD [ [facility] STAFF PHYSICIAN, Surgery] Activity:: see typed instructions Equipment/Supplies:: Walker Diet:: As Tolerated Discharge Orders Discharge Orders: Discharge Order (Routine); Ordered 09/28/24 Ordered By: Peyton Gamez Discharge Data Discharge Comment: Home after drain care instructions please. DS: Summary Time Spent with Patient providing and/or coordinating discharge services: Greater than 30 minutes Status at Discharge Functional status at discharge: uses cane/walker Overall status at discharge: patient is progressing back to baseline Mental Status: mental status grossly normal Speech and Movement: speech and movement normal Mood: congruent mood Affect: normal affect Exam Psych Mental Status: mental status grossly normal Speech and Movement: speech and movement normal Mood: congruent mood Affect: normal affect DS: Data Vitals/I&O Vitals and I&O: Vital Signs Temperature 98.2 F 09/28/24 00:02 Temperature Source Temporal Artery Scan 09/27/24 23:44 Pulse 82 09/28/24 07:45 Pulse Rhythm Regular 09/28/24 00:02 Pulse 76 09/27/24 23:18 Respiratory Rate 16 09/28/24 07:45 Respiratory Effort Normal 09/28/24 00:02 Respiratory Depth Shallow 09/28/24 00:02 Respiratory Pattern Bradypnea 09/28/24 00:02 Blood Pressure 114/68 09/28/24 07:45 Blood Pressure Mean 83 09/28/24 07:45 Blood Pressure Position Supine 09/27/24 17:10 Pulse Oximetry 97 09/28/24 07:45 Respiratory End-tidal CO2 2 09/27/24 22:55 Oxygen Delivery Method Room Air 09/28/24 07:45 Oxygen Flow Rate 0 09/28/24 07:45 Pain Level 0 09/28/24 00:02 Intake & Output 09/27/24 09/28/24 09/28/24 23:59 11:59 23:59 Intake Total 576.5 / 576.5 1450 / 1450 Output Total 925 / 925 Balance 566.5 / 566.5 525 / 525 Weight 68.039 kg 68.039 kg Intake: IV 576.5 / 576.5 1010 / 1010 Oral 440 / 440 Output: Drainage Right Lower Anterior Lateral Calf Urine 900 / 900 Estimated Blood Loss Other: Urine Color Pale Urine Appearance Cloudy Urine Odor Normal Emesis Description None Data Completed and Pending Labs on day of discharge: Labs from last 24 hours 09/28/24 09/27/24 07:04 20:37 WBC 6.72 RBC 3.60 L Hgb 10.7 L Hct 31.2 L MCV 87 MCH 29.7 MCHC 34.3 RDW 13.1 Plt Count 228 MPV 9.1 PT 10.4 INR 1.0 APTT 23.0 Sodium 131 L Potassium 4.0 Chloride 95 L Carbon Dioxide 24.9 Anion Gap 11.1 H BUN 24 H Creatinine 1.0 Est GFR (CKD-EPI 2020) 62.13 Glucose 135 H Calcium 8.7 Urine Color Yellow Urine Clarity Clear Urine pH 6.0 Ur Specific [place] 1.010 Urine Protein Negative Urine Ketones Negative Urine Blood Trace-lysed H Urine Nitrite Negative Urine Bilirubin Negative Urine Urobilinogen 0.2 Ur Leukocyte Esterase Trace H Urine RBC 0-2 Urine WBC 3-5 Ur Epithelial Cells Negative Urine Crystals Negative Urine Bacteria Rare Urine Casts Negative Urine Mucus Negative Urine Other Negative Ur Culture Indicated? C&S Done As Ordered Urine Glucose Negative 09/28/24 07:04 Urine - Clean Catch Urine Culture - Pending Preliminary micro results at discharge 09/28/24 07:04 Urine - Clean Catch Urine Culture - Pending PFSH All Active Problems Slightly cloudy urine (Acute) Laceration of leg not thigh, right, complicated (Acute) Laceration of multiple sites of right lower extremity (Acute) Diverticulosis of colon (Acute ~2019) found on colonoscopy Preventative health care (Acute) Arthritis of first MTP joint (Acute) Shoulder arthritis (Acute) Slow transit constipation (Acute ~03/2024) 03/21/24 Neurology Insomnia due to medical condition (Acute) 03/21/24 Neurology Anemia (Chronic) Arthritis of right shoulder region (Acute) Upper back pain (Acute) Lumbar back pain (Acute) Paraspinal muscle spasm (Acute) Persistent cough (Acute) Personal history of COVID-19 (Acute) Motion sickness (Acute) Ondansetron helps! 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 tolerating statin, continue. [ ] old records with elevated chol/trig? Asthma (Chronic) Allergic rhinitis (Acute) Osteoarthritis of hip (Acute) Osteopenia (Acute 12/28/17) Alendronate first prescribed 03/11/20, per previous records from [facility] Office visit note 03/11/20 (pg 53 of record) BD in 2019? Tx Advised .. Hx (mo), Osteoporosis Gastroesophageal reflux disease (Chronic) Obstructive sleep apnea (Chronic 03/22/17) CPAP per chart review.. Medical History Preoperative examination Encounter for removal of sutures Muscle spasm Mass of right parotid gland Rosacea Constipation Post-menopausal atrophic vaginitis start vulvar estradiol Mar 2023 History of recurrent UTI (urinary tract infection) (2) since December .. with Hx NONE! (~ PD??) Start estradiol Mar 2023 Family hx of colon cancer Pat Grandmo Family hx of hypertension [place], Fa ( of CVA, 77yo) Alteration in vision NOT enough ptosis for surg per Ophtho..with ptosis affecting ADL and computer work Hooded upper eyelid not enough for surg per ophtho, 11/2022 Ptosis of both upper eyelids not enough fo rsurg per ophtho, 11/2022 Toe fracture, right R 5th metatarsal, 2020 Intermetatarsal bursitis 12/2020; L 1st through 3rd digits, with neuroma at 2nd intermetatarsal. 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 Status post reverse total arthroplasty of right shoulder (11/03/23) Status post right shoulder hemiarthroplasty (~2007) H/O breast biopsy Status post glaucoma surgery Both eyes History of partial replacement of right shoulder History of total hip replacement x2 History of dilation and curettage Family History Paternal Grandmother Colon cancer Brother Substance use disorder Father , Age 77 Substance use disorder Hyperlipidemia Hypertension Stroke Coronary arteriosclerosis Hypercholesterolemia Renal failure syndrome Maternal Grandmother Substance use disorder Paternal Grandfather Substance use disorder Mother Depression Hypertension Polymyalgia Hypercholesterolemia Osteoporosis Social History Smoking/Tobacco Use Status: Former Tobacco Use Quit Date: 02/07/99 Smoking risk assessment performed?: Yes Alcohol Intake: former Drug use: Never Substance use type: does not use Counseling given: No Adopted: No Household members: spouse Housing: house Number of Children: 2 number of grandchildren: 3 Communication Needs: None Education Level: high school Do you need help understanding health information?: Never 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 Pets and animals: Yes Pets and animals: cat(s) Sexually active: Yes Do you think of yourself as: straight/heterosexual Current gender identity: female Other: Moved to [place] November 2021 to be near her step-daughter What is your relationship status?: How often do you talk on the phone with friends or family?: twice per week How often do you get together with friends or relatives?: once per week Do you belong to any clubs or organized social groups?: no Panel score (0-1 are the most socially isolated patients): 2 What type of physical activity do you participate in: walking Duration: 15-30 minutes/day Frequency: 3-4 times per week Melisa/Yarsanism: None Special melisa needs: No Seatbelt use: always Drive intox or ride w/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 Date GA/Weeks # Preg Succ Route Wgt Sex Labor Lgth Anesth esia Location Prov Complic 10/08/83 Yes vaginal 2806.603 g Female [facility] 01/16/87 Yes vaginal 3713.788 g Male [facility] [place] Time Spent with Patient Time Spent with Patient: <45 minutes Time was spent: ordering medications,tests, procedures, referring, communicating with other health care coordinator, counseling the patient and care coordination
--- NOTE | 2024-09-28 12:52 | CMDISCH_ITS ---
Date of service: 09/28/24 Time of Service: 12:52 LACE Index Scoring Tool Questions: Length of Stay (in days): 1 Was the patient admitted via the E.D.?: Yes Comorbidities: Chronic Pulmonary Disease (asthma and GERONIMO) E.D. Visits: 1 Answers: Total Score: 7 Risk of Readmission: Low Risk Care Management Discharge Plan Reason for Hospitalization: complicated laceration RLE Discharge Plan: Delilah will be discharged home with no new services. She will follow up with her surgeon, PCP and plan of care and transport with her . Patient/Family Education Needs: Review discharge instructions, limitations, foll ow up plan and discuss Ask Me Three
[2024-09-28] MEDS: Acetaminophen 325 MG TAB 650 MG PO (13:01)
--- NOTE | 2024-09-28 13:48 | PTTR_ITS ---
PT Notes Visit Reasons: TRAUMA Date: 09/28/2024 PRECAUTIONS: Fall, Standard, Activity as tolerated. SUBJECTIVE: Pt sitting in recliner when approached for therapy this afternoon, agreed to participating with therapy session VITALS: Monitored by nursing Therapeutic Activities 48810: Direct one-on-one instruction in dynamic activities to improve functional performance. ?? BED MOBILITY/TRANSFERS? Rolling L/R: independent Supine-sit: ?independent ? Sit-supine: ? independent ? Sit-stand: ? independent? Stand-sit: ?? independent ? Bed-Chair:? ? independent? Chair-bed: independent Provided skilled cues and instruction on performance and technique throughout. Gait Training 89116: Direct one-on-one instruction and skilled instruction in: Employing an assistive device Modified weight-bearing status Movement sequencing Turning and movement with proper form Provided verbal cues for equipment management and technique Provided instruction in gait pattern Patient education regarding pacing and breathing techniques to maximize activity tolerance? GAIT? Assistive Device: ??FWW? Weight bearing: TDWB Assist: ?supervision ? Distance:?? ?100'x2 ? Deviation: ?Pt using heel for the touch down so as not to pull on anterior aspect of dorsum of foot ? STAIRS: (2 ways)? 1.?bilateral handrail 6 steps, step to gait 2. stair negotiation training using seated backward approach. ? Therapeutic Exercises 34553: Direct one-on-one instruction in therapeutic exercises to develop strength, endurance, range of motion and flexibility. Exercises Access Code: [email or web address] URL: [email or web address] Date: 09/28/2024 Prepared by: Pardeep Glover Exercises - Supine Gluteal Sets - 2 x daily - 7 x weekly - 1 sets - 10 reps - Supine Quadricep Sets - 2 x daily - 7 x weekly - 1 sets - 10 reps - Supine Ankle Pumps - 2 x daily - 7 x weekly - 1 sets - 10 reps - Supine Active Straight Leg Raise - 2 x daily - 7 x weekly - 1 sets - 10 reps - Supine Hip Abduction - 2 x daily - 7 x weekly - 1 sets - 10 reps ? Provided skilled instruction in proper exercise performance Provided skilled manual cues to facilitate proper muscle recruitment and/or form: ASSESSMENT:?pt able to maneuver stairs with standing and seated position, emphasis on TDWBto help facilitae healing on incision site. PLAN: Continue with balance training, global strengthening and general conditioning for improved safety, mobility and activity tolerance until pt is ready for DC. TREATMENT CODE/TIME: [id number], [id number] 25mins (1:15-1:40pm)
== END 2024-09-28 14:50 | disposition home or self-care (01) | DRG 909 ==
LOC: ER 20:29 → SUR 21:27 → MS 23:28
PROVIDERS: Admitting Provider Surgery; Emergency Provider Registered Nurse Emergency; PCP Nurse Practitioner Family; Visit Provider Surgery
PROC: 0JQN0ZZ Repair Right Lower Leg Subcutaneous Tissue and Fascia, Open Approach (ICD-10-PCS; CPT 12036; principal; 2024-09-27 21:00)
DX: S91.021A Laceration with foreign body, right ankle, initial encounter (principal); S81.821A Laceration with foreign body, right lower leg, initial encounter; R82.90 Unspecified abnormal findings in urine; I10 Essential (primary) hypertension; G20.A1 Parkinson's disease without dyskinesia, without mention of fluctuations; W01.0XXA Fall on same level from slipping, tripping and stumbling without subsequent striking against object, initial encounter; K57.30 Diverticulosis of large intestine without perforation or abscess without bleeding; K59.01 Slow transit constipation; D64.9 Anemia, unspecified; G47.01 Insomnia due to medical condition; M62.830 Muscle spasm of back; R05.3 Chronic cough; E78.5 Hyperlipidemia, unspecified; J45.909 Unspecified asthma, uncomplicated; G47.33 Obstructive sleep apnea (adult) (pediatric); K21.9 Gastro-esophageal reflux disease without esophagitis; M81.0 Age-related osteoporosis without current pathological fracture; Z80.0 Family history of malignant neoplasm of digestive organs; Z96.611 Presence of right artificial shoulder joint; Z96.643 Presence of artificial hip joint, bilateral
CPT/HCPCS: 12036; 12004; 36415; 80048; 85027; 90471; 90715; 93005; 94640; 96361; 96365; 96366; 96367; 96372; 96375; 97110; 97162; 97530; 99285; J1650; 73560; 73590; 81003; 81015; 85610; 85730; 87086; 93010; 94664; J0690; J0696; J1100; J1171; J1805; J2004; J2371; J2405; J2704

== ENCOUNTER 2024-10-17 10:15 | Outpatient (CLI) | payer OTHER, SELFPAY ==
--- NOTE | 2024-10-17 08:00 | DI.RAD_ITS ---
Exam(s) XR SHOULDER RT COMPLETE 2+V EXAM: XR SHOULDER RT COMPLETE 2+V CLINICAL HISTORY: F/U RIGHT RTSA. TECHNIQUE: 2D digital imaging was performed. Five views. COMPARISON: CR XR SHOULDER RT COMPLETE 2+V from 02/28/2024 FINDINGS: BONES: No acute fracture is present. No bony destructive lesion is seen. JOINTS: No dislocation present. The reverse shoulder prosthesis is unchanged in alignment. SOFT TISSUE: Normal. IMPRESSION: Stable appearance of right shoulder prosthesis. DATA REPOSITORY: RADIATION DOSE DELIVERED:
== END 2024-10-17 10:16 | disposition home or self-care (01) ==
LOC: DIORS 10:15
PROVIDERS: PCP Nurse Practitioner Family; Visit Provider Student in an Organized Health Care Education/Training Program
DX: Z96.611 Presence of right artificial shoulder joint (principal)
CPT/HCPCS: 73030

== ENCOUNTER 2024-10-22 11:38 | Day surgery (SDC) | payer OTHER, SELFPAY ==
[2024-10-22] VITALS (8 sets, daily range): BP systolic 92–122; BP diastolic 40–64; PULSE 65–69; RESP 11–21; TEMP 36.4–36.8; O2SAT 94–910; BMI 25.9
[2024-10-22] MEDS: Lactated Ringers 1,000 ML 80 ML IV (12:28)
--- NOTE | 2024-10-22 12:57 | ANES.PREOP_ITS ---
General Info Date of Service Date Performed: 10/22/24 Height: 5 ft 4 in Weight: 68.6 kg Body Mass Index (BMI): 25.9 Surgical Procedure: Operation Date: 10/22/24 12:55 Proposed Procedure Side Surgeon p Debridement Leg Wound Right Peyton Caraballo MD Meds Allergies and Home Medications Allergies Allergy/AdvReac Type Severity Reaction Status Date / Time erythromycin base Allergy Severe Hives Verified 10/22/24 12:10 bupropion AdvReac Intermediate dry mouth Verified 10/22/24 12:10 Home Medication ?Medication ?Instructions ?Recorded omeprazole 20 mg capsule,delayed 20 mg PO DAILY release latanoprost 0.005 % eye drops 1 drp ophthalmic (eye) D AILY 03/08/22 albuterol sulfate 90 mcg/actuation 2 inh inhalation Q4 H PRN 04/12/22 breath activated powder inhaler calcium 600 mg (as 2 cap PO DAILY 04/12/22 carbonate)-vitamin D3 12.5 mcg (500 unit) capsule (Calcium with Vit D3) loratadine 10 mg tablet (Claritin) 10 mg PO DAILY 07/30 [id number] 8 mg-folic 400 1 tab PO DAILY 04/12 mcg-K 50 mcg-lutein 300 mcg tablet (Centrum Silver Women) EyePromise 1 tab PO DAILY 10/25/22 estradiol 0.01% (0.1 mg/gram) 0.25 g vaginal .twice we ekly #42.5 03/25/23 vaginal cream grams atorvastatin 40 mg tablet 40 mg PO DAILY #90 tabs 09/07 04/30 magnesium oxide 500 mg PO DAILY 02/21/24 melatonin 5 mg capsule 5 mg PO HS 03/26/24 cholecalciferol (vitamin D3) 125 125 mcg PO DAILY 03/10 11/01 mcg (5,000 unit) capsule amlodipine 2.5 mg tablet See Rx Instructions .Route 0 05/08/24 .COMPLEX #180 tabs fluticasone propionate 50 1 spray intranasal DAILY #16 grams 07/03/24 mcg/actuation nasal spray,suspension buspirone 7.5 mg tablet See Rx Instructions .Route 0 08/21/24 .COMPLEX #180 tabs sertraline 50 mg tablet 50 mg PO DAILY #90 tabs 08/07 07/01 budesonide-formoterol HFA 160 1 inh inhalation BID #10 .2 grams 09/26/24 mcg-4.5 mcg/actuation aerosol inhaler (Symbicort) celecoxib 200 mg capsule (Celebrex) 200 mg PO DAILY #3 0 caps 10/09/24 losartan 50 mg tablet 50 mg PO BID #60 tabs carbidopa ER 25 mg-levodopa 100 mg 2 tab PO BID #360 t abs 10/10/24 tablet,extended release ondansetron 4 mg disintegrating 4 mg PO Q8H #30 tabs 0 10/10/24 tablet doxycycline hyclate 100 mg capsule 100 mg PO BID #14 c aps 10/17/24 Current Visit Medications: Current Medications Generic Name Dose Route Start Last Admin Trade Name Freq PRN Reason Stop Dose Admin Ringer's Solution 1,000 mls @ 80 mls/hr 10/22/24 06:00 10/22/24 12:28 IV 10/22/24 23:59 80 mls/hr INFUSION TIANNA Administration Cefazolin Sodium/Dextrose 2 gm in 50 mls @ 100 mls/hr 10/22/24 06:00 Ancef Duplex IVPB 10/22/24 23:59 PREOP TIANNA IV Miscellaneous Supplies 1 each 10/22/24 06:00 Iv Access IV 10/22/24 23:59 DIRECTED TIANNA Sodium Chloride 0 ml 10/22/24 06:00 Normal Saline Flush 10 Ml Syr IV 10/22/24 23:59 PRN PRN Sodium Chloride 0 ml 10/22/24 06:00 Normal Saline 10 Ml Vial IJ 10/22/24 23:59 DIRECTED PRN Sterile Water 0 ml 10/22/24 06:00 Water,Injection,Sterile 10 Ml Vial IJ 10/22/24 23:59 DIRECTED PRN PFSH Active Problems Active Problems: Problem Status Onset Code Traumatic open wound of right lower leg with delayed healing Acute S81.801D Slightly cloudy urine Acute R82.90 Laceration of leg not thigh, right, complicated Acute S81.811A Laceration of multiple sites of right lower extremity Acute S81.811A Diverticulosis of colon Acute ~2019 K57.30 Preventative health care Acute Z00.00 Arthritis of first MTP joint Acute M19.079 Shoulder arthritis Acute M19.019 Slow transit constipation Acute ~03/2024 K59.01 Insomnia due to medical condition Acute G47.01 Anemia Chronic D64.9 Arthritis of right shoulder region Acute M19.011 Upper back pain Acute M54.9 Lumbar back pain Acute M54.50 Paraspinal muscle spasm Acute M62.830 Persistent cough Acute R05.3 Personal history of COVID-19 Acute Z86.16 Motion sickness Acute T75.3XXA Hallux valgus (acquired), left foot Acute M20.12 Hallux rigidus, left foot Acute M20.22 Hematuria Acute R31.9 Persistent mood disorder Acute F34.9 Anosmia Acute R43.0 Parkinson disease Chronic G20.A1 Tremor of right hand Acute R25.1 Nocturia Acute R35.1 Essential hypertension Acute I10 Bunion, left foot Acute M21.612 Other specified mononeuropathies of left lower limb Acute G57.82 Metatarsalgia of left foot Acute M77.42 Hammertoe of left foot Acute M20.42 Contracture of left Achilles tendon Acute M67.02 Hyperlipidemia Acute E78.5 Asthma Chronic J45.909 Allergic rhinitis Acute J30.9 Osteoarthritis of hip Acute M16.9 Osteopenia Acute 18 M85.80 Gastroesophageal reflux disease Chronic K21.9 Obstructive sleep apnea Chronic 18 G47.33 Medical History Medical History Preoperative examination Encounter for removal of sutures Muscle spasm Mass of right parotid gland Rosacea Constipation Post-menopausal atrophic vaginitis start vulvar estradiol Mar 2023 History of recurrent UTI (urinary tract infection) (2) since December .. with Hx NONE! (~ PD??) Start estradiol Mar 2023 Family hx of colon cancer Pat Grandmo Family hx of hypertension Mo, Fa ( of CVA, 77yo) Alteration in vision NOT enough ptosis for surg per Ophtho..with ptosis affecting ADL and computer work Hooded upper eyelid not enough for surg per ophtho, 11/2022 Ptosis of both upper eyelids not enough fo rsurg per ophtho, 11/2022 Toe fracture, right R 5th metatarsal, 2020 Intermetatarsal bursitis 12/2020; L 1st through 3rd digits, with neuroma at 2nd intermetatarsal. 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 Asymmetrical sensorineural hearing loss (09/30/21) Overweight with body mass index (BMI) 25.0-29.9 History of alcohol abuse (02/25/17) Vestibular migraine Depression (02/25/17) Anxiety Surgical History Surgical History History of colonoscopy (03/02/19) [facility] in [place], no specimens collected Status post left foot surgery (03/08/24) Left hallux metatarsophalangeal joint fusion at [facility] Status post reverse total arthroplasty of right shoulder (11/03/23) Status post right shoulder hemiarthroplasty (~2007) H/O breast biopsy Status post glaucoma surgery Both eyes History of partial replacement of right shoulder History of total hip replacement x2 History of dilation and curettage Tobacco Smoking/Tobacco Use Status: Former Tobacco Use Passive smoking exposure: No Alcohol Alcohol Intake: former Substance Use Substance use: Never Substance use type: does not use Prental History History 4 Para 2 Hx # Term Pregnancies 2 Multiple births Hx # Pregnancies Ectopic pregnancies AB induced Hx Number of Living Children 2 AB spontaneous 2 Past Pregnancies Del. Date GA/Weeks # Preg Succ Route Wgt Sex Labor Lgth Anesth esia Location [facility] 10/08/83 Yes vaginal 2806.603 g Female [facility] 01/16/87 Yes vaginal 3713.788 g Male [facility] Vital Signs and Lab Results Vital Signs Most Recent Vital Signs in EMR: Most Recent Vital Signs Temp Pulse Resp BP Pulse Ox 36.8 C 69 18 110/63 98 10/22/24 12:15 10/22/24 12:15 10/22/24 12:15 10/22/24 12:15 10/22/24 12:15 Lab Results Complete Blood Count: WBC, (4.4-10.8) 6.72 10^3/uL 09/27/24, 20:37 RBC, (3.93-5.22) 3.60 10^6/uL L 09/27/24, 20:37 Hgb, (11.2-15.7) 10.7 g/dL L 09/27/24, 20:37 Hct, (36.0-46.0) 31.2 % L 09/27/24, 20:37 Plt Count, (130-400) 228 10^3/uL 09/27/24, 20:37 Complete Metabolic Panel: Sodium, (136-145) 131 mmol/L L 09/27/24, 20:37 Potassium, (3.5-5.1) 4.0 mmol/L 09/27/24, 20:37 Chloride, (98-107) 95 mmol/L L 09/27/24, 20:37 Carbon Dioxide, (21.0-32.0) 24.9 mmol/L 09/27/24, 20 :37 BUN, (7-18) 24 mg/dL H 09/27/24, 20:37 Creatinine, (0.55-1.02) 1.0 mg/dL 09/27/24, 20:37 Est GFR (CKD-EPI 2020), (mL/min/1.73m2) 62.13 09/27/24, 20:37 Calcium, (8.5-10.1) 8.7 mg/dL 09/27/24, 20:37 Glucose, (74-106) 135 mg/dL H 09/27/24, 20:37 Coagulation Panel: INR, (0.9-1.1) 1.0 09/27/24, 20:37 PT, (9.1-11.1) 10.4 sec 09/27/24, 20:37 APTT, (20.6-30.2) 23.0 sec 09/27/24, 20:37 Anesthesia Assessment and Plan Anesthesia History Personal History: No History of Anesthesia Complications Family History: No Family History of Anesthesia Complications Exercise Tolerance Exercise Tolerance: Metabolic Equivalents>4 Pertinent Negatives Pertinent Negatives: No Symptoms of GERD Cardiac & Pulmonary Exam Cardiac Exam: Normal S1/S2 Heart Sounds Pulmonary Exam: Clear Bilateral Breath Sounds Implantable Cardiac Device Does patient have a Pacemaker or an ICD?: No Airway Exam Known Difficult Airway: No Mallampati Class: 1 Mouth Opening: Normal (> 3cm) Thyromental Distance: Greater than 3 cm Neck Range of Motion: Full ROM Neck Circumference: Normal Teeth Condition: Normal Dentition and Other (upper fixed bridge) ASA Classification ASA Score: ASA 3 Emergency Case?: No NPO Status NPO Status: NPO Clears >2 hours, Solids >8 hours Anesthesia Plan Resuscitation Status: Full Code Anesthesia Technique: General Anesthesia Airway Planned: Natural Airway Monitors Used: Standard Monitors
[2024-10-22] MEDS: ceFAZolin 2 GM/50 ML BAG IVPB (14:55)
[2024-10-22] MEDS: Lidocaine 1% Pres-Free W/EPI 1/200,000 10 ML VIAL (15:26)
--- NOTE | 2024-10-22 15:49 | PDOC.DSDIS_ITS ---
Date of service: 10/22/24 Discharge Plan Disposition Patient Disposition: Home Condition: Stable Discharge Details Attending Provider: Petyon Caraballo Primary Care Provider: Patito Tierney Home Meds and New Rx's Prescriptions: Continued omeprazole 20 mg capsule,delayed release(DR/EC) 20 mg PO DAILY estradiol 0.01 % (0.1 mg/gram) cream 0.25 g vaginal .twice weekly Qty: 42.5 4RF Rx Instructions: Apply a pea-sized amount around the urethra twice weekly doxycycline hyclate 100 mg capsule 100 mg PO BID Qty: 14 0RF latanoprost 0.005 % drops 1 drp ophthalmic (eye) DAILY EyePromise 1 tab PO DAILY Patient Comments: Eye Vitamin - Zeaxonthin atorvastatin 40 mg tablet 40 mg PO DAILY Qty: 90 3RF magnesium oxide 250 mg magnesium tablet 500 mg PO DAILY cholecalciferol (vitamin D3) 125 mcg (5,000 unit) capsule 125 mcg PO DAILY carbidopa-levodopa 25-100 mg tablet extended release 2 tab PO BID Qty: 360 3RF Rx Instructions: Take am and noon ondansetron 4 mg tablet,disintegrating 4 mg PO Q8H Qty: 30 0RF Rx Instructions: Take 30min prior to your carbidopa/levodopa loratadine [Claritin] 10 mg tablet 10 mg PO DAILY Centrum Silver Women 8 mg iron-400 mcg-300 mcg tablet 1 tab PO DAILY calcium carbonate-vitamin D3 [Calcium 600 with Vitamin D3] 600 mg-12.5 mcg (500 unit) capsule 2 cap PO DAILY albuterol sulfate 90 mcg/actuation aerosol powdr breath activated 2 inh inhalation Q4H PRN melatonin 5 mg capsule 5 mg PO HS Rx Instructions: 1-3 hours before going to bed amlodipine 2.5 mg tablet See Rx Instructions .ROUTE .COMPLEX Qty: 180 3RF Dose Instruction: TAKE ONE TABLET BY MOUTH TWICE A DAY DUE TO EVEVATED BLOOD PRESSURE Rx Instructions: TAKE ONE TABLET BY MOUTH TWICE A DAY DUE TO EVEVATED BLOOD PRESSURE fluticasone propionate 50 mcg/actuation spray,suspension 1 spray intranasal DAILY Qty: 16 3RF Rx Instructions: administer into each nostril buspirone 7.5 mg tablet See Rx Instructions .ROUTE .COMPLEX Qty: 180 3RF Dose Instruction: TAKE ONE TABLET BY MOUTH TWICE A DAY Rx Instructions: TAKE ONE TABLET BY MOUTH TWICE A DAY sertraline 50 mg tablet 50 mg PO DAILY Qty: 90 3RF budesonide-formoterol [Symbicort] 160-4.5 mcg/actuation HFA aerosol inhaler 1 inh inhalation BID Qty: 10.2 2RF celecoxib [Celebrex] 200 mg capsule 200 mg PO DAILY Qty: 30 3RF Rx Instructions: Continue, take with food. losartan 50 mg tablet 50 mg PO BID Qty: 60 3RF Rx Instructions: Continue BID Discharge Instructions Additional Instructions: Leave current dressing on for 48 hours. Remove after 48h and wash gently in shower over the open wound sites. The upper scab was covering unhealed wound so I removed all of the scabs and we will get fresh and new skin healed in together over time. After showering, pat the wounds dry with clean dry gauze. air dry and put a thin layer of antibiotic ointment over the open areas. Apply dry gauze over the ointment and cover or wrap with SHARMILA wrap or other bandage. Just make sure the open wounds stay covered and protected. You may shower with these wounds, they are shallow enough. Just make sure to pat them dry when done. Follow up appointment is scheduled for 10/31/24 at 230pm. Stand Alone Forms: Anesthesia Discharge Inst., [facility] Haider ([facility]) Referrals: Peyton Caraballo MD [ [facility] STAFF PHYSICIAN, Surgery] Activity:: Activity as Tolerated Remove Dressings/Wound Care:: 48 hours Shower/Bathe:: 48 hours Diet:: As Tolerated Discharge Orders Discharge Orders: Discharge Order (Routine); Ordered 10/22/24 Ordered By: Peyton Caraballo
[2024-10-22] MEDS: fentaNYL 100 MCG/2 ML VIAL IVP (15:53)
--- NOTE | 2024-10-22 15:54 | W.PM.OP ---
Operative Note Operative Note PRE-OP DIAGNOSIS: nonhealing traumatic wound of right lower extremity POST-OP DIAGNOSIS: other (nonhealing traumatic wound of right lower extremity) PROCEDURE: Excisional debridement of right lower leg wound SURGEON: Peyton Caraballo ANESTHESIA TYPE: Local By Surgeon and General:No Airway Refer to Anesthesia Record ESTIMATED BLOOD LOSS: 5 PATHOLOGY: none sent COMPLICATIONS: None Procedure Description: This patient is a 64-year-old female who has open wounds on the right lower leg from a traumatic injury to the leg. She had a degloving injury of the soft tissues overlying the muscles and these were reapproximated acutely a month ago. There are areas of the wound that have developed eschar and nonhealing areas that need debridement. We planned a debridement in the operating room for complete wound assessment and debridement as needed. Procedure risks and benefits and alternatives and expectations were discussed with her. Informed consent was obtained and she was taken to surgery electively. In the operating room she was placed supine on the operating table SCDs were placed and all pressure points were padded appropriately. Timeout was performed. The right lower extremity was prepped and draped in the usual sterile fashion. Examination of the wound revealed eschar and open wound in the areas of the anterior and lateral lower leg. There is a linear curved wound line leading down to an open area in the lower leg over the ankle. There are 3 areas to the wound. The most proximal part of the wound is a linear eschar edge that exists at the border of the subcutaneous flap and the anterior leg. This area measures 8 cm long by 0.5 cm wide by 0.3 cm deep. The middle segment measures 8 cm long by 1 and 2 cm wide by 0.3 cm deep. The most distal portion of the wound overlies the ankle and measures 2 cm long by 3 cm wide by 0.3 cm deep. The entirety of the wound was debrided due to significant eschar precluding epithelialization even in the most superior area of the wound. Local anesthetic was infiltrated into the skin and subcutaneous tissues of the wound site. A DeBakey forcep and an Adson forcep and iris scissors were used to sharply debride nonviable skin, eschar, fibrinous exudate, and subcutaneous fat from the entirety of the wound. This revealed healthy wound bed with granulation tissue. All nonviable tissues were removed. The wound appeared healthy with granulation at the wound edges after the debridement. Vaseline gauze was placed over the wound site followed by a silver impregnated island dressing. All sponge and instrument counts were correct at the end of the case the patient tolerated the procedure well. She woke from sedation in the operating room and transferred to the recovery room in stable condition. No complications Date of Procedure: 10/22/24
--- NOTE | 2024-10-22 16:14 | W.ANESPOSTOP ---
Postoperative Evaluation Date, Time and Location Date Performed: 10/22/24 Time Performed: 16:14 Patient Location: PACU Vital Signs Most Recent Imported Vital Signs: Most Recent Vital Signs Temp Pulse Resp BP Pulse Ox 36.6 C 65 12 94/41 L 98 10/22/24 16:00 10/22/24 16:00 10/22/24 16:00 10/22/24 16:00 10/22/24 16:00 Pain Score Most Recent Pain Score: Most Recent Pain Score Pain Level 5 10/22/24 16:00 Assessment Mental Status: Awake (Alert & Oriented to Patient Baseline) Airway and Respiratory Function: Patent airway with normal (patient baseline) respiratory exam Cardiovascular Function: Hemodynamically Stable Hydration Status: Adequately Hydrated Nausea & Vomiting: No Nausea or Vomiting Pain: Pain is tolerable per patient Peripheral Nerve Block: Patient did not receive a nerve block
== END 2024-10-22 17:40 | disposition home or self-care (01) ==
PROVIDERS: PCP Nurse Practitioner Family; Visit Provider Surgery
PROC: (CPT 11042; principal; 2024-10-22 12:45)
DX: S81.801D Unspecified open wound, right lower leg, subsequent encounter (principal)
CPT/HCPCS: 11042; J0131; J0690; J1100; J1885; J2004; J2371; J2405; J2704; J3010

== ENCOUNTER 2024-11-05 18:18 | Emergency (ER) | payer OTHER, SELFPAY ==
[2024-11-05 18:27] VITALS: BP 155/92; PULSE 79; RESP 18; TEMP 36.7; O2SAT 99
--- NOTE | 2024-11-05 18:29 | W.ED.GENAD ---
Discharge Plan Disposition Patient Disposition: Home Discharge Details Clinical Impression: Right ankle sprain Primary Care Provider: Patito Tierney ED Provider: Deanna Dutton Home Meds and New Rx's Prescriptions: No Action omeprazole 20 mg capsule,delayed release(DR/EC) 20 mg PO DAILY estradiol 0.01 % (0.1 mg/gram) cream 0.25 g vaginal .twice weekly Qty: 42.5 4RF Rx Instructions: Apply a pea-sized amount around the urethra twice weekly doxycycline hyclate 100 mg capsule 100 mg PO BID Qty: 14 0RF latanoprost 0.005 % drops 1 drp ophthalmic (eye) DAILY EyePromise 1 tab PO DAILY Patient Comments: Eye Vitamin - Zeaxonthin atorvastatin 40 mg tablet 40 mg PO DAILY Qty: 90 3RF magnesium oxide 250 mg magnesium tablet 500 mg PO DAILY cholecalciferol (vitamin D3) 125 mcg (5,000 unit) capsule 125 mcg PO DAILY carbidopa-levodopa 25-100 mg tablet extended release 2 tab PO BID Qty: 360 3RF Rx Instructions: Take am and noon loratadine [Claritin] 10 mg tablet 10 mg PO DAILY Centrum Silver Women 8 mg iron-400 mcg-300 mcg tablet 1 tab PO DAILY calcium carbonate-vitamin D3 [Calcium 600 with Vitamin D3] 600 mg-12.5 mcg (500 unit) capsule 2 cap PO DAILY albuterol sulfate 90 mcg/actuation aerosol powdr breath activated 2 inh inhalation Q4H PRN melatonin 5 mg capsule 5 mg PO HS Rx Instructions: 1-3 hours before going to bed amlodipine 2.5 mg tablet See Rx Instructions .ROUTE .COMPLEX Qty: 180 3RF Dose Instruction: TAKE ONE TABLET BY MOUTH TWICE A DAY DUE TO EVEVATED BLOOD PRESSURE Rx Instructions: TAKE ONE TABLET BY MOUTH TWICE A DAY DUE TO EVEVATED BLOOD PRESSURE fluticasone propionate 50 mcg/actuation spray,suspension 1 spray intranasal DAILY Qty: 16 3RF Rx Instructions: administer into each nostril buspirone 7.5 mg tablet See Rx Instructions .ROUTE .COMPLEX Qty: 180 3RF Dose Instruction: TAKE ONE TABLET BY MOUTH TWICE A DAY Rx Instructions: TAKE ONE TABLET BY MOUTH TWICE A DAY sertraline 50 mg tablet 50 mg PO DAILY Qty: 90 3RF budesonide-formoterol [Symbicort] 160-4.5 mcg/actuation HFA aerosol inhaler 1 inh inhalation BID Qty: 10.2 2RF celecoxib [Celebrex] 200 mg capsule 200 mg PO DAILY Qty: 30 3RF Rx Instructions: Continue, take with food. losartan 50 mg tablet 50 mg PO BID Qty: 60 3RF Rx Instructions: Continue BID ondansetron 4 mg tablet,disintegrating 4 mg PO BID Qty: 180 3RF Rx Instructions: Take 30min prior to your carbidopa/levodopa Discharge Instructions Instructions: Walking Boot Additional Instructions: There is no evidence of fracture on x-ray. I recommend that you call your primary care provider to schedule follow-up appointment in the next week or two for reassessment/management. I recommend that you use the walking boot for comfort, initially starting with toe touching and advancing weightbearing as tolerated. You may transition to Wes wrap when you are able to weight-bear. I understand that you are not comfortable with crutches, please use the walker at home for support. I recommend that you do ankle mobilizations exercises to help rebuild your strength and maintain mobility. I recommend you use Tylenol 650 mg every 6 hours and ibuprofen 600 mg every 8 hours as needed for discomfort. Elevate your ankle above heart level to help with swelling, and apply ice for 15 to 20 minutes at a time. Return to emergency care if you notice any new blueness/pallor to your toes, coldness/numbness, or if you are very worried and need to be rechecked again immediately. Referrals: Patito Tierney APRN [Primary Care Provider, Family Practice] HPI General Date/Time Provider Initiated Documentation: 11/05/24 18:28. HPI Narrative: Sonam is a 64-year-old female presents to the emergency department today for evaluation of right ankle injury sustained 20 minutes ago after falling down stairs and twisting ankle. Pain localized to lateral ankle, unable to weight bear due to pain. No other injuries reported. No previous injury to this ankle. Can take Tylenol and ibuprofen. No history of heart, lung, diabetes, or kidney problems. Had surgery a month ago for skin lesion on right lower leg. Related Data Home Medications ?Medication ?Instructions ?Recorded ?Confirmed omeprazole 20 mg capsule,delayed 20 mg PO DAILY 02/03/22 11/05/24 release latanoprost 0.005 % eye drops 1 drp ophthalmic (eye) DAILY 03/08/22 11/05/24 albuterol sulfate 90 mcg/actuation 2 inh inhalation Q4H PRN 04/12/22 11/05/24 breath activated powder inhaler calcium 600 mg (as 2 cap PO DAILY 04/12/22 11/05/24 carbonate)-vitamin D3 12.5 mcg (500 unit) capsule (Calcium with Vit D3) loratadine 10 mg tablet (Claritin) 10 mg PO DAILY 04/12/22 11/05/24 [id number] 8 mg-folic 400 1 tab PO DAILY 04/12/22 11/05/24 mcg-K 50 mcg-lutein 300 mcg tablet (Centrum Silver Women) EyePromise 1 tab PO DAILY 10/25/22 11/05/24 estradiol 0.01% (0.1 mg/gram) 0.25 g vaginal .twice weekly #42.5 03/25/23 11/05/24 vaginal cream grams atorvastatin 40 mg tablet 40 mg PO DAILY #90 tabs 09/20/23 11/05/24 magnesium oxide 500 mg PO DAILY 02/21/24 11/05/24 melatonin 5 mg capsule 5 mg PO HS 03/26/24 11/05/24 cholecalciferol (vitamin D3) 125 125 mcg PO DAILY 03/28/24 11/05/24 mcg (5,000 unit) capsule amlodipine 2.5 mg tablet See Rx Instructions .Route 05/08/24 11/05/24 .COMPLEX #180 tabs fluticasone propionate 50 1 spray intranasal DAILY #16 grams 07/03/24 11/05/24 mcg/actuation nasal spray,suspension buspirone 7.5 mg tablet See Rx Instructions .Route 08/21/24 11/05/24 .COMPLEX #180 tabs sertraline 50 mg tablet 50 mg PO DAILY #90 tabs 08/21/24 11/05/24 budesonide-formoterol HFA 160 1 inh inhalation BID #10.2 grams 09/26/24 11/05/24 mcg-4.5 mcg/actuation aerosol inhaler (Symbicort) celecoxib 200 mg capsule (Celebrex) 200 mg PO DAILY #30 caps 10/09/24 11/05/24 losartan 50 mg tablet 50 mg PO BID #60 tabs 10/09/24 11/05/24 carbidopa ER 25 mg-levodopa 100 mg 2 tab PO BID #360 tabs 10/10/24 11/05/24 tablet,extended release doxycycline hyclate 100 mg capsule 100 mg PO BID #14 caps 10/17/24 11/05/24 ondansetron 4 mg disintegrating 4 mg PO BID #180 tabs 10/24/24 11/05/24 tablet Previous Rx's ?Medication ?Instructions ?Recorded estradiol 0.01% (0.1 mg/gram) 0.25 g vaginal .twice weekly #42.5 03/25/23 vaginal cream grams atorvastatin 40 mg tablet 40 mg PO DAILY #90 tabs 09/20/23 amlodipine 2.5 mg tablet See Rx Instructions .Route 05/08/24 .COMPLEX #180 tabs fluticasone propionate 50 1 spray intranasal DAILY #16 grams 07/03/24 mcg/actuation nasal spray,suspension buspirone 7.5 mg tablet See Rx Instructions .Route 08/21/24 .COMPLEX #180 tabs sertraline 50 mg tablet 50 mg PO DAILY #90 tabs 08/21/24 budesonide-formoterol HFA 160 1 inh inhalation BID #10.2 grams 09/26/24 mcg-4.5 mcg/actuation aerosol inhaler (Symbicort) celecoxib 200 mg capsule (Celebrex) 200 mg PO DAILY #30 caps 10/09/24 losartan 50 mg tablet 50 mg PO BID #60 tabs 10/09/24 carbidopa ER 25 mg-levodopa 100 mg 2 tab PO BID #360 tabs 10/10/24 tablet,extended release doxycycline hyclate 100 mg capsule 100 mg PO BID #14 caps 10/17/24 ondansetron 4 mg disintegrating 4 mg PO BID #180 tabs 10/24/24 tablet Allergies Allergy/AdvReac Type Severity Reaction Status Date / Time erythromycin base Allergy Severe Hives Verified 11/05/24 18:32 bupropion AdvReac Intermediate dry mouth Verified 11/05/24 18:32 General SOCRATES: 3 Exam Narrative Exam Narrative: General Appearance: Normal. Vital signs: Within normal limits, mild hypertension noted. Back, Musculoskeletal: Right ankle tenderness and swelling on lateral aspect. No overlying abrasions/lacerations. + CMS to toes. No knee pain, full painless range of motion to knee. Extremities: Able to wiggle toes and feels touch sensation. Skin: Warm and dry, no rash. Psychiatric: Normal. Medical Decision Making 64-year-old female fell down stairs 20 minutes ago, resulting in right ankle injury. Pain on lateral ankle, no knee pain. Able to wiggle toes and feels touch sensation. Vital signs taken, right ankle examined, ice pack applied, Tylenol administered, X-ray ordered. I independently interpreted the following tests: Right ankle x-ray, no obvious abnormality noted. This was confirmed by radiologist. While in the emergency Sonam received Tylenol, ice, and a tall walking boot. She declined crutches, says that she feels unsafe on them, has a walker at home she can use. Clinical Impression: Right ankle sprain Patient Education: Reviewed discharge instruction with patient, including PCP follow-up, use of walking boot, advancement of weightbearing as tolerated, symptomatic management, and red flags indicating need for return to emergency care. Patient consented to the use of DANIEL Imaging Data Radiologic Study: Radiologist's impression: Exam(s) XR ANKLE RT COMPLETE EXAM: XR ANKLE RT COMPLETE CLINICAL HISTORY: R lateral ankle pain after twisting injury. TECHNIQUE: 2D digital imaging was performed. Three views. COMPARISON: No exams were available for comparison FINDINGS: BONES: No acute fracture is present. No bony destructive lesion is seen. JOINTS: The ankle mortise is normally aligned. The ankle joint space is maintained. SOFT TISSUE: Significant diffuse soft tissue swelling of the lower leg and ankle. Mild vascular calcifications. IMPRESSION: Soft tissue swelling. No evidence of fracture or ankle mortise widening. PFSH All Active Problems (Updated 11/05/24 @ 19:27 by Deanna Dc) Right ankle sprain (Acute) Traumatic open wound of right lower leg with delayed healing (Acute) Slightly cloudy urine (Acute) Laceration of leg not thigh, right, complicated (Acute) Laceration of multiple sites of right lower extremity (Acute) Diverticulosis of colon (Acute ~2019) found on colonoscopy Preventative health care (Acute) Arthritis of first MTP joint (Acute) Shoulder arthritis (Acute) Slow transit constipation (Acute ~03/2024) 03/21/24 Neurology Insomnia due to medical condition (Acute) 03/21/24 Neurology Anemia (Chronic) Arthritis of right shoulder region (Acute) Upper back pain (Acute) Lumbar back pain (Acute) Paraspinal muscle spasm (Acute) Persistent cough (Acute) Personal history of COVID-19 (Acute) Motion sickness (Acute) Ondansetron helps! 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 tolerating statin, continue. [ ] old records with elevated chol/trig? Asthma (Chronic) Allergic rhinitis (Acute) Osteoarthritis of hip (Acute) Osteopenia (Acute 12/28/17) Alendronate first prescribed 03/11/20, per previous records from [facility] - Office visit note 03/11/20 (pg 53 of record) BD in 2019? Tx Advised .. Hx (mo), Osteoporosis Gastroesophageal reflux disease (Chronic) Obstructive sleep apnea (Chronic 03/22/17) CPAP per chart review.. Medical History (Updated 11/05/24 @ 19:27 by Deanna Dc) Preoperative examination Encounter for removal of sutures Muscle spasm Mass of right parotid gland Rosacea Constipation Post-menopausal atrophic vaginitis start vulvar estradiol Mar 2023 History of recurrent UTI (urinary tract infection) (2) since December .. with Hx NONE! (~ PD??) Start estradiol Mar 2023 Family hx of colon cancer Pat Grandmo Family hx of hypertension Mo, Fa ( of CVA, 77yo) Alteration in vision NOT enough ptosis for surg per Ophtho..with ptosis affecting ADL and computer work Hooded upper eyelid not enough for surg per ophtho, 11/2022 Ptosis of both upper eyelids not enough fo rsurg per ophtho, 11/2022 Toe fracture, right R 5th metatarsal, 2020 Intermetatarsal bursitis 12/2020; L 1st through 3rd digits, with neuroma at 2nd intermetatarsal. 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 Asymmetrical sensorineural hearing loss (09/30/21) Overweight with body mass index (BMI) 25.0-29.9 History of alcohol abuse (02/25/17) Vestibular migraine Depression (02/25/17) Anxiety Surgical History (Updated 11/02/24 @ 10:59 by Radha Telles) S/P excisional debridement (~10/22/24) R Lower Leg History of colonoscopy (03/02/19) [facility] in [place], no specimens collected Status post left foot surgery (03/08/24) Left hallux metatarsophalangeal joint fusion at [facility] Status post reverse total arthroplasty of right shoulder (11/03/23) Status post right shoulder hemiarthroplasty (~2007) H/O breast biopsy Status post glaucoma surgery Both eyes History of partial replacement of right shoulder History of total hip replacement x2 History of dilation and curettage Family History Paternal Grandmother Colon cancer Brother Substance use disorder Father , Age 77 Substance use disorder Hyperlipidemia Hypertension Stroke Coronary arteriosclerosis Hypercholesterolemia Renal failure syndrome Maternal Grandmother Substance use disorder Paternal Grandfather Substance use disorder Mother Depression Hypertension Polymyalgia Hypercholesterolemia Osteoporosis Social History Smoking/Tobacco Use Status: Former Tobacco Use Quit Date: 02/07/99 Smoking risk assessment performed?: Yes Alcohol Intake: former Drug use: Never Substance use type: does not use Counseling given: No Adopted: No Household members: spouse Housing: house Number of Children: 2 number of grandchildren: 3 Communication Needs: None Education Level: high school Do you need help understanding health information?: Never 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 Pets and animals: Yes Pets and animals: cat(s) Sexually active: Yes Do you think of yourself as: straight/heterosexual Current gender identity: female Other: Moved to [place] November 2021 to be near her step-daughter What is your relationship status?: How often do you talk on the phone with friends or family?: twice per week How often do you get together with friends or relatives?: once per week Do you belong to any clubs or organized social groups?: no Panel score (0-1 are the most socially isolated patients): 2 What type of physical activity do you participate in: walking Duration: 15-30 minutes/day Frequency: 3-4 times per week Emlisa/Buddhism: None Special melisa needs: No Seatbelt use: always Drive intox or ride w/intox goat driver: No Additional Social history: [employer] History History 4 Para 2 Hx # Term Pregnancies 2 Multiple births Hx # Pregnancies Ectopic pregnancies AB induced Hx Number of Living Children 2 AB spontaneous 2 Past Pregnancies Del. Date GA/Weeks # Preg Succ Route Wgt Sex Labor Lgth Anesthesia Location [facility] Compl 10/08/83 Yes vaginal 2806.603 g Female [facility] 01/16/87 Yes vaginal 3713.788 g Male [facility]
--- NOTE | 2024-11-05 18:41 | DI.RAD_ITS ---
Exam(s) XR ANKLE RT COMPLETE EXAM: XR ANKLE RT COMPLETE CLINICAL HISTORY: R lateral ankle pain after twisting injury. TECHNIQUE: 2D digital imaging was performed. Three views. COMPARISON: No exams were available for comparison FINDINGS: BONES: No acute fracture is present. No bony destructive lesion is seen. JOINTS: The ankle mortise is normally aligned. The ankle joint space is maintained. SOFT TISSUE: Significant diffuse soft tissue swelling of the lower leg and ankle. Mild vascular calcifications. IMPRESSION: Soft tissue swelling. No evidence of fracture or ankle mortise widening. DATA REPOSITORY: RADIATION DOSE DELIVERED:
[2024-11-05] MEDS: Acetaminophen 325 MG TAB 650 MG PO (19:24)
--- NOTE | 2024-11-07 08:08 | NUR.NOTE ---
Access chart to print the demographic sheet for [facility] billing requisition. Nursing Note:
== END 2024-11-05 19:22 | disposition home or self-care (01) ==
PROVIDERS: Emergency Provider Nurse Practitioner Family; PCP Nurse Practitioner Family
DX: S93.401A Sprain of unspecified ligament of right ankle, initial encounter (principal); W10.9XXA Fall (on) (from) unspecified stairs and steps, initial encounter
CPT/HCPCS: 99283 ×2; 73610

== ENCOUNTER 2024-11-14 03:33 | Outpatient (CLI) | payer OTHER, SELFPAY ==
[2024-11-14 07:33] LABS: Hemoglobin A1C 5.5 % (<5.7)
[2024-11-14 07:36] LABS: Creatine Kinase 146 U/L (26-192)
[2024-11-14 07:39] LABS: ALT 32 U/L (14-59); AST 23 U/L (15-37); Albumin 3.6 g/dL (3.4-5.0); Alkaline Phosphatase 109 U/L (46-116); Anion Gap 8.5 mmol/L (3-11); BUN 9 mg/dL (7-18); Bilirubin, Total 0.5 mg/dL (0.2-1.0); CO2 28.5 mmol/L (21.0-32.0); Calcium 9.0 mg/dL (8.5-10.1); Calculated LDL 90 mg/dL (<100); Chloride 100 mmol/L (98-107); Cholesterol 183 mg/dL (<200); Estimated GFR 49.92 (mL/min/1.73m2); Glucose 100 mg/dL (74-106); HDL Cholesterol 83 mg/dL (>or=50); Potassium 4.5 mmol/L (3.5-5.1); Sodium 137 mmol/L (136-145); Total Protein 6.8 g/dL (6.4-8.2); Triglyceride 50 mg/dL (<150)
== END 2024-11-14 03:34 | disposition home or self-care (01) ==
LOC: LBO 03:33
PROVIDERS: PCP Nurse Practitioner Family; Referring Provider Nurse Practitioner Family; Visit Provider Nurse Practitioner Family
DX: E78.5 Hyperlipidemia, unspecified (principal); Z00.00 Encounter for general adult medical examination without abnormal findings; I10 Essential (primary) hypertension
CPT/HCPCS: 36415; 80053; 80061; 82550; 83036

== ENCOUNTER 2024-11-21 07:52 | Outpatient (CLI) | payer OTHER, SELFPAY ==
--- NOTE | 2024-11-21 07:45 | RT.EKG_ITS ---
APPROVED REPORT Exam: Resting ECG Reason for Exam: Chest pain Patient Location: O HR:62 bpm ECG Measurements Heart Rate 62 AXIS DC 155 P 22 QRSd 111 QRS 2 QT 425 T 28 QTc 432 Conclusion Sinus rhythm...normal P axis, V-rate 50- 99 Normal Electrocardiogram
== END 2024-11-21 07:53 | disposition home or self-care (01) ==
LOC: DI.KIM 07:53
PROVIDERS: PCP Nurse Practitioner Family; Visit Provider Nurse Practitioner Family
DX: R07.9 Chest pain, unspecified (principal)
CPT/HCPCS: 93010

== ENCOUNTER 2024-11-26 02:42 | Outpatient (CLI) | payer OTHER, SELFPAY ==
--- NOTE | 2024-11-26 06:00 | ETT_ITS ---
APPROVED REPORT Exam: Exercise Treadmill Patient Location: Out-Patient Room/Bed: Stress Nurse: Janette Ceballos RN Ordering Provider:HILTON LICEA, Contact Number: [phone] BMI: 27.09 Baseline Rhythm: Sinus Rhythm Indications: Chest pain Medical History Medical History: Anemia, HTN, asthma, GERD, GERONIMO, depression, anxiety, vestibular migraine, hx alcohol abuse, overweight Cardiac Medications: Albuterol sulfate, amlodipine, atorvastatin, symbicort, buspirone, carbidopa-levoda, celebrex, losartan, magnesium oxide, melatonin, omeprazole, ondansetron, sertraline Allergies: Doxycycline, erythromycin base, bupropion Cardiac Risk Factors: Family hx, HTN, HLD, asthma, former smoker Previous Cardiac Procedures: None Pretest Chest Pain Characteristics: None Exercise History: Indeterminate Physical Disabilities: None Lung Sounds: Clear to auscultation Heart Sounds: Regular Stress Test Details Test: Exercise stress testing was performed using a Miguel protocol. Rest Stress HR Resting HR Supine: 69 bpm Max Heart Rate (APMHR): 154 bpm Resting HR Standin bpm Target HR (85% APMHR): 131 bpm Max HR Achieved: 138 bpm % of APMHR: 90 Recovery HR: 81 bpm HR response to stress: Normal HR response to stress BP Resting BP Supine: 122/64 mmHg Resting BP Standin/60 mmHg Max BP: 168/70 mmHg Recovery BP: 118/70 mmHg BP response to stress: Normal blood pressure response to stress. ECG Resting ECG: Sinus Rhythm Ectopy: None Stress ECG: Sinus Tachycardia ST Change: No significant ST segment changes noted Arrhythmia: None Recovery ECG: Sinus Rhythm Recovery ST Change: No significant ST segment changes noted Recovery Arrhythmia: None Clinical Reason for Termination: Target HR Achieved, Dyspnea Stress Symptoms: Mod SOB Exercise duration: 06 min37 sec Highest Stage Reached: Stage 3: 3.4 mph at 14% grade. Exercise capacity: 7.99 METs Angina Score: None Stewart Treadmill Score: 6.2 Rate Pressure Product: [id number] Stress ECG Conclusion 1. Resting electrocardiogram was normal 2. Patient exercised on the Miguel protocol and completed workload of 8 METS 3. Normal heart rate and blood pressure response to exercise. The patient achieved 90% of maximal predicted heart rate for age 4. There was no electrocardiographic evidence of myocardial ischemia 5. There were no significant dysrhythmias Stewart Treadmill Score is 6.2 which is Low risk. Stress Test Summary STAGE Time (mins) Speed (mph) Grade (%) HR BP SpO2 SYMPTOMS METS Supine 69 122/64 97% Standing 75 124/60 97% 1 3 1.7 10 118 158/60 93% 4.5 2 6 2.5 12 129 168/70 7 3 9 3.4 14 138 Mod SOB 10 1 min recovery 110 162/56 96% 3 min recovery 84 134/68 97% 6 min recovery 81 118/70 96% SOB resolved Patient met target HR and requested to stop treadmill r/t SOB. C/O modSOB. All symptoms resolved at test end. Patient left ambulatory in no apparent distress.
== END 2024-11-26 03:02 ==
LOC: DI 02:44
PROVIDERS: PCP Nurse Practitioner Family; Visit Provider Nurse Practitioner Family
DX: R07.9 Chest pain, unspecified (principal)
CPT/HCPCS: 93017

== ENCOUNTER 2024-12-13 06:59 | Day surgery (SDC) | payer OTHER, SELFPAY ==
--- NOTE | 2024-12-12 17:16 | W.ANESPRE ---
General Info Date of Service Date Performed: 12/13/24 Height: 5 ft 3 in Weight: 70.307 kg Body Mass Index (BMI): 27.4 Surgical Procedure: Operation Date: 12/13/24 08:05 Proposed Procedure Side Surgeon matilda Caraballo MD Meds Allergies and Home Medications Allergies Allergy/AdvReac Type Severity Reaction Status Date / Time doxycycline Allergy Severe rash Verified 12/13/24 07:33 erythromycin base Allergy Severe Hives Verified 12/13/24 07:33 bupropion AdvReac Intermediate dry mouth Verified 12/13/24 07:33 Home Medication Medication Instructions Recorded omeprazole 20 mg capsule,delayed 20 mg PO DAILY 02/03/22 release latanoprost 0.005 % eye drops 1 drp ophthalmic (eye) DAILY 03/08/22 albuterol sulfate 90 mcg/actuation 2 inh inhalation Q4H PRN 04/12/22 breath activated powder inhaler calcium 600 mg (as 2 cap PO DAILY 04/12/22 carbonate)-vitamin D3 12.5 mcg (500 unit) capsule (Calcium with Vit D3) loratadine 10 mg tablet (Claritin) 10 mg PO DAILY 04/12/22 [id number] 8 mg-folic 400 1 tab PO DAILY 04/12/22 mcg-K 50 mcg-lutein 300 mcg tablet (Centrum Silver Women) EyePromise 1 tab PO DAILY 10/25/22 estradiol 0.01% (0.1 mg/gram) 0.25 g vaginal .twice weekly #42.5 03/25/23 vaginal cream grams magnesium oxide 500 mg PO DAILY 02/21/24 melatonin 5 mg capsule 5 mg PO HS 03/26/24 cholecalciferol (vitamin D3) 125 125 mcg PO DAILY 03/28/24 mcg (5,000 unit) capsule amlodipine 2.5 mg tablet See Rx Instructions .Route 05/08/24 .COMPLEX #180 tabs buspirone 7.5 mg tablet See Rx Instructions .Route 08/21/24 .COMPLEX #180 tabs sertraline 50 mg tablet 50 mg PO DAILY #90 tabs 08/21/24 celecoxib 200 mg capsule (Celebrex) 200 mg PO DAILY #30 caps 10/09/24 losartan 50 mg tablet 50 mg PO BID #60 tabs 10/09/24 carbidopa ER 25 mg-levodopa 100 mg 2 tab PO BID #360 tabs 10/10/24 tablet,extended release ondansetron 4 mg disintegrating 4 mg PO BID #180 tabs 10/24/24 tablet atorvastatin 40 mg tablet See Rx Instructions .Route 11/20/24 .COMPLEX #90 tabs fluticasone propionate 50 1 spray intranasal DAILY #16 grams 11/20/24 mcg/actuation nasal spray,suspension budesonide-formoterol HFA 160 1 inh inhalation BID #10.2 grams 11/23/24 mcg-4.5 mcg/actuation aerosol inhaler (Symbicort) bisacodyl 5 mg tablet,delayed 5 mg PO ONCE #4 tabs 12/05/24 release (Dulcolax (bisacodyl)) polyethylene glycol 3350 17 17 g PO ONCE #238 grams 12/05/24 gram/dose oral powder Current Visit Medications: Current Medications Generic Name Dose Route Start Last Admin Trade Name Freq PRN Reason Stop Dose Admin Ringer's Solution 1,000 mls @ 80 mls/hr 12/13/24 06:00 IV 12/13/24 23:59 INFUSION TIANNA IV Miscellaneous Supplies 1 each 12/13/24 06:00 Iv Access IV 12/13/24 23:59 DIRECTED TIANNA Sodium Biphosphate/Sodium Phosphate 133 ml 12/13/24 06:00 Na Phosphate Enema-Adult 133 Ml Btl LA 12/13/24 23:59 DIRECTED PRN Sodium Chloride 0 ml 12/13/24 06:00 Normal Saline Flush 10 Ml Syr IV 12/13/24 23:59 PRN PRN Sodium Chloride 0 ml 12/13/24 06:00 Normal Saline 10 Ml Vial IJ 12/13/24 23:59 DIRECTED PRN Sterile Water 0 ml 12/13/24 06:00 Water,Injection,Sterile 10 Ml Vial IJ 12/13/24 23:59 DIRECTED PRN PFSH Active Problems Active Problems: Problem Status Onset Code Colon cancer screening Acute Z12.11 Chest pain Acute R07.9 Ankle weakness Acute R29.898 Traumatic open wound of right lower leg with delayed healing Acute S81.801D Slightly cloudy urine Acute R82.90 Laceration of leg not thigh, right, complicated Acute S81.811A Laceration of multiple sites of right lower extremity Acute S81.811A Diverticulosis of colon Acute ~2020 K57.30 Preventative health care Acute Z00.00 Arthritis of first MTP joint Acute M19.079 Shoulder arthritis Acute M19.019 Slow transit constipation Acute ~03/2024 K59.01 Insomnia due to medical condition Acute G47.01 Anemia Chronic D64.9 Arthritis of right shoulder region Acute M19.011 Upper back pain Acute M54.9 Lumbar back pain Acute M54.50 Paraspinal muscle spasm Acute M62.830 Persistent cough Acute R05.3 Personal history of COVID-19 Acute Z86.16 Motion sickness Acute T75.3XXA Hallux valgus (acquired), left foot Acute M20.12 Hallux rigidus, left foot Acute M20.22 Hematuria Acute R31.9 Persistent mood disorder Acute F34.9 Anosmia Acute R43.0 Parkinson disease Chronic G20.A1 Tremor of right hand Acute R25.1 Nocturia Acute R35.1 Essential hypertension Acute I10 Bunion, left foot Acute M21.612 Other specified mononeuropathies of left lower limb Acute G57.82 Metatarsalgia of left foot Acute M77.42 Hammertoe of left foot Acute M20.42 Contracture of left Achilles tendon Acute M67.02 Hyperlipidemia Acute E78.5 Asthma Chronic J45.909 Allergic rhinitis Acute J30.9 Osteoarthritis of hip Acute M16.9 Osteopenia Acute 12/28/17 M85.80 Gastroesophageal reflux disease Chronic K21.9 Obstructive sleep apnea Chronic 18 G47.33 Medical History Medical History Rosacea Preoperative examination Muscle spasm Encounter for removal of sutures Mass of right parotid gland Constipation Post-menopausal atrophic vaginitis start vulvar estradiol Mar 2023 History of recurrent UTI (urinary tract infection) (2) since December .. with Hx NONE! (~ PD??) Start estradiol Mar 2023 Toe fracture, right R 5th metatarsal, 2020 Intermetatarsal bursitis 12/2020; L 1st through 3rd digits, with neuroma at 2nd intermetatarsal. 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 in [place], no specimens collected Status post left foot surgery (03/08/24) Left hallux metatarsophalangeal joint fusion at [facility] Status post reverse total arthroplasty of right shoulder (11/03/23) Status post right shoulder hemiarthroplasty (~2007) H/O breast biopsy Status post glaucoma surgery Both eyes History of partial replacement of right shoulder History of total hip replacement x2 History of dilation and curettage Tobacco Smoking/Tobacco Use Status: Former Tobacco Use Passive smoking exposure: No Alcohol Alcohol Intake: former Substance Use Substance use: Never Substance use type: does not use Prental History History 4 Para 2 Hx # Term Pregnancies 2 Multiple births Hx # Pregnancies Ectopic pregnancies AB induced Hx Number of Living Children 2 AB spontaneous 2 Past Pregnancies Del. Date GA/Weeks # Preg Succ Route Wgt Sex Labor Lgth Anesthesia Location Prov Compl 10/08/83 Yes vaginal 2806.603 g Female [facility] 01/16/87 Yes vaginal 3713.788 g Male [facility] Vital Signs and Lab Results Vital Signs Most Recent Vital Signs in EMR: Temp Pulse Resp BP Pulse Ox 36.3 C L 79 16 120/70 99 12/13/24 07:34 12/13/24 07:34 12/13/24 07:34 12/13/24 07:34 12/13/24 07:34 Lab Results Complete Metabolic Panel: Sodium, (136-145) 137 mmol/L 11/14/24, 07:08 Potassium, (3.5-5.1) 4.5 mmol/L 11/14/24, 07:08 Chloride, (98-107) 100 mmol/L 11/14/24, 07:08 Carbon Dioxide, (21.0-32.0) 28.5 mmol/L 11/14/24, 07:08 BUN, (7-18) 9 mg/dL 11/14/24, 07:08 Creatinine, (0.55-1.02) 1.2 mg/dL H 11/14/24, 07:08 Est GFR (CKD-EPI 2020), (mL/min/1.73m2) 49.92 11/14/24, 07:08 Calcium, (8.5-10.1) 9.0 mg/dL 11/14/24, 07:08 Albumin, (3.4-5.0) 3.6 g/dL 11/14/24, 07:08 Glucose, (74-106) 100 mg/dL 11/14/24, 07:08 Hemoglobin A1c, (<5.7) 5.5 % 11/14/24, 07:08 Liver Function Panel: ALT, (14-59) 32 U/L 11/14/24, 07:08 AST, (15-37) 23 U/L 11/14/24, 07:08 Cardiac Panel: Creatine Kinase, (26-192) 146 U/L 11/14/24 Anesthesia Assessment and Plan Anesthesia History Personal History: No History of Anesthesia Complications Family History: No Family History of Anesthesia Complications Exercise Tolerance Exercise Tolerance: Metabolic Equivalents>4 Cardiac & Pulmonary Exam Cardiac Exam: Normal S1/S2 Heart Sounds Pulmonary Exam: Clear Bilateral Breath Sounds Implantable Cardiac Device Does patient have a Pacemaker or an ICD?: No Airway Exam Known Difficult Airway: No Mallampati Class: 1 Mouth Opening: Normal (> 3cm) Thyromental Distance: Greater than 3 cm Neck Range of Motion: Full ROM Neck Circumference: Normal Teeth Condition: Normal Dentition and Other (upper fixed bridge) ASA Classification ASA Score: ASA 2 Emergency Case?: No NPO Status NPO Status: NPO Clears >2 hours, Solids >8 hours Anesthesia Plan Resuscitation Status: Full Code Anesthesia Technique: General Anesthesia Airway Planned: Natural Airway Monitors Used: Standard Monitors Preoperative Comments:: 64 yo for colo. Sig PMHx: HTN (amlodipine, losartan), asthma, GERONIMO, GERD (omeprazole, well controlled), parkinsons. ECG: sinus. Stress: 8 METS. No ECG evidence of ischemia. Previous Anes: - wound revision, prop, natural airway, no issues. - I/D, prop, glide 3 grade 1, no issues. - shoulder, glide 3 grade 1.
[2024-12-13 07:34] VITALS: BP 120/70; PULSE 79; RESP 16; TEMP 36.3; O2SAT 99
[2024-12-13 07:51] VITALS: BMI 27.4
--- NOTE | 2024-12-13 08:02 | W.PM.DSUDISC ---
Date of service: 12/13/24 Discharge Plan Disposition Patient Disposition: Home Condition: Stable Discharge Details Reason For Visit: screening colonoscopy Attending Provider: Peyton Caraballo Primary Care Provider: Patito Tierney Home Meds and New Rx's Prescriptions: Continued omeprazole 20 mg capsule,delayed release(DR/EC) 20 mg PO DAILY estradiol 0.01 % (0.1 mg/gram) cream 0.25 g vaginal .twice weekly Qty: 42.5 4RF Rx Instructions: Apply a pea-sized amount around the urethra twice weekly latanoprost 0.005 % drops 1 drp ophthalmic (eye) DAILY EyePromise 1 tab PO DAILY Patient Comments: Eye Vitamin - Zeaxonthin magnesium oxide 250 mg magnesium tablet 500 mg PO DAILY cholecalciferol (vitamin D3) 125 mcg (5,000 unit) capsule 125 mcg PO DAILY carbidopa-levodopa 25-100 mg tablet extended release 2 tab PO BID Qty: 360 3RF Rx Instructions: Take am and noon loratadine [Claritin] 10 mg tablet 10 mg PO DAILY Centrum Silver Women 8 mg iron-400 mcg-300 mcg tablet 1 tab PO DAILY calcium carbonate-vitamin D3 [Calcium 600 with Vitamin D3] 600 mg-12.5 mcg (500 unit) capsule 2 cap PO DAILY albuterol sulfate 90 mcg/actuation aerosol powdr breath activated 2 inh inhalation Q4H PRN melatonin 5 mg capsule 5 mg PO HS Rx Instructions: 1-3 hours before going to bed amlodipine 2.5 mg tablet See Rx Instructions .ROUTE .COMPLEX Qty: 180 3RF Dose Instruction: TAKE ONE TABLET BY MOUTH TWICE A DAY DUE TO EVEVATED BLOOD PRESSURE Rx Instructions: TAKE ONE TABLET BY MOUTH TWICE A DAY DUE TO EVEVATED BLOOD PRESSURE buspirone 7.5 mg tablet See Rx Instructions .ROUTE .COMPLEX Qty: 180 3RF Dose Instruction: TAKE ONE TABLET BY MOUTH TWICE A DAY Rx Instructions: TAKE ONE TABLET BY MOUTH TWICE A DAY sertraline 50 mg tablet 50 mg PO DAILY Qty: 90 3RF celecoxib [Celebrex] 200 mg capsule 200 mg PO DAILY Qty: 30 3RF Rx Instructions: Continue, take with food. losartan 50 mg tablet 50 mg PO BID Qty: 60 3RF Rx Instructions: Continue BID ondansetron 4 mg tablet,disintegrating 4 mg PO BID Qty: 180 3RF Rx Instructions: Take 30min prior to your carbidopa/levodopa atorvastatin 40 mg tablet See Rx Instructions .ROUTE .COMPLEX Qty: 90 3RF Dose Instruction: TAKE ONE TABLET BY MOUTH EVERY DAY Rx Instructions: TAKE ONE TABLET BY MOUTH EVERY DAY fluticasone propionate 50 mcg/actuation spray,suspension 1 spray intranasal DAILY Qty: 16 3RF Rx Instructions: administer into each nostril budesonide-formoterol [Symbicort] 160-4.5 mcg/actuation HFA aerosol inhaler 1 inh inhalation BID Qty: 10.2 2RF Discontinued bisacodyl [Dulcolax (bisacodyl)] 5 mg tablet,delayed release (DR/EC) 5 mg PO ONCE Qty: 4 0RF Rx Instructions: Take per colonoscopy instructions provided by ordering providers office polyethylene glycol 3350 17 gram/dose powder 17 g PO ONCE Qty: 238 0RF Rx Instructions: Take per colonoscopy instructions provided by ordering providers office Discharge Instructions Additional Instructions: Colonoscopy today is normal, zero polyps. Next screening colonoscopy will be due in 10 years. Diverticulosis of the sigmoid colon noted, no diverticulitis (infection) present. Take a daily fiber supplement and eat a high fiber diet to prevent problems and progression of diverticulosis. Stand Alone Forms: Portal Information Activity:: Activity as Tolerated Diet:: As Tolerated Discharge Orders Discharge Orders: Discharge Order (Routine); Ordered 12/13/24 Ordered By: Peyton Caraballo DS: Diagnosis Discharge Diagnosis (1) Diverticulosis of colon: Status: Acute (2) Encounter for screening colonoscopy for [id number] patient: Status: Acute
[2024-12-13] MEDS: Lactated Ringers 1,000 ML 80 ML IV (08:03)
--- NOTE | 2024-12-13 08:05 | W.COLOREPORT ---
Date of service: 12/13/24 Time of Service: 08:26 Colonoscopy Report Date of procedure: 12/13/24 Pre-op diagnosis general: Screening for colorectal cancer Post-op diagnosis procedure note: same (diverticulosis of sigmoid colon. tortuous colon) Procedure: Colonoscopy Surgeon: Peyton Caraballo Anesthesia Type: General:No Airway Estimated blood loss (mL): 0 Pathology: none sent Complications: None Indications: screening for colorectal cancer Prep: Miralax/Dulcolax Procedure Description: Informed consent was obtained and the patient was taken to the procedure area. The patient was placed in left lateral decubitus position on the procedure table. Timeout was performed. Anesthesia was induced. A lubricated colonoscope was inserted through the anus and passed to the cecum. The cecum was identified by the ileocecal valve and the appendiceal orifice. The scope was then slowly withdrawn and the colonic and rectal mucosa examined. TI intubated and examined. It appears normal. There are no colon or rectal mass lesions, polyps, AVMs. There is no inflammatory change. Dense small and large mouthed diverticula were seen. Tortuosity from diverticulosis noted. The scope was retroflexed in the anorectal junction examined. Uncomplicated internal hemorrhoids present. Assessment and plan: Screening for colorectal cancer Grandparent with colon cancer, no first degree relatives. Average risk patient. Diverticulosis of sigmoid colon Normal colonoscopy. Next screening colonoscopy will be due in 10 years. Fiber supplement for diverticulosis recommended.
[2024-12-13 08:29] VITALS: BP 103/60; PULSE 72; RESP 14; TEMP 36.2; O2SAT 99
--- NOTE | 2024-12-13 08:36 | W.ANESPOSTOP ---
Postoperative Evaluation Date, Time and Location Date Performed: 12/13/24 Time Performed: 08:37 Patient Location: Day Surgery Unit Vital Signs Most Recent Imported Vital Signs: Most Recent Vital Signs Temp Pulse Resp BP Pulse Ox 36.2 C L 72 14 103/60 99 12/13/24 08:29 12/13/24 08:29 12/13/24 08:29 12/13/24 08:29 12/13/24 08:29 Pain Score Most Recent Pain Score: Most Recent Pain Score Pain Level 0 12/13/24 08:29 Assessment Mental Status: Awake (Alert & Oriented to Patient Baseline) Airway and Respiratory Function: Patent airway with normal (patient baseline) respiratory exam Cardiovascular Function: Hemodynamically Stable Hydration Status: Adequately Hydrated Nausea & Vomiting: No Nausea or Vomiting Pain: Pt. Denies Any Pain Peripheral Nerve Block: Patient did not receive a nerve block
[2024-12-13 08:56] VITALS: BP 119/84; PULSE 82; RESP 16; TEMP 36.3; O2SAT 98
== END 2024-12-13 09:44 | disposition home or self-care (01) ==
PROVIDERS: PCP Nurse Practitioner Family; Visit Provider Surgery
PROC: 0DJD8ZZ Inspection of Lower Intestinal Tract, Via Natural or Artificial Opening Endoscopic (ICD-10-PCS; CPT 45378; principal; 2024-12-13 08:00)
DX: Z12.11 Encounter for screening for malignant neoplasm of colon (principal); K57.30 Diverticulosis of large intestine without perforation or abscess without bleeding
CPT/HCPCS: 45378; J2704

== ENCOUNTER → 2024-12-19 15:12 | Outpatient (CLI) | payer OTHER, SELFPAY ==
--- NOTE | 2024-12-19 14:00 | DI.RAD_ITS ---
Exam(s) XR CHEST 2V PA LATERAL EXAM: XR CHEST 2V PA LATERAL CLINICAL HISTORY: r/o pneumonia, cough, wheeze, R05.9, R06.2 TECHNIQUE: 2D digital imaging was performed. Two views. COMPARISON: CT CT CHEST/ABD/PEL W from 12/27/2021 CR XR THORACIC SPINE COMPLETE from 09/21/2023 CR XR DEXA BONE DENSITY W/WO KIMBERLY from 07/19/2024 FINDINGS: HEART: Normal size. Aorta: Not dilated. PULMONARY VASCULATURE: Normal. MEDIASTINUM: Unremarkable. LUNGS: Patchy infiltrates seen at both lung bases. Some linear scarring is also present. PLEURAL SPACE: No pleural effusion or pneumothorax. BONE:Unremarkable right shoulder prosthesis. Degenerative changes are noted in the spine. SOFT TISSUES: Unremarkable. IMPRESSION: Bibasilar infiltrates. DATA REPOSITORY: RADIATION DOSE DELIVERED:
== END ==
LOC: DI 15:12
PROVIDERS: PCP Nurse Practitioner Family; Visit Provider Nurse Practitioner Family
DX: R05.9 Cough, unspecified (principal); R06.2 Wheezing; R91.8 Other nonspecific abnormal finding of lung field
CPT/HCPCS: 71046